=== PATIENT | female | born 1980 | race Caucasian/White ===

== ENCOUNTER 2020-04-30 13:52 | Emergency (ER) | payer OTHER, SELFPAY ==
[2020-04-30 14:03] VITALS: BP 152/103; PULSE 101; RESP 20; TEMP 36.5; O2SAT 99
--- NOTE | 2020-04-30 14:22 | ED.SKABFB ---
HPI - Skin/Abscess/Foreign Bdy General Chief complaint: Skin/Abscess/Foreign Body Stated complaint: facial redness Source: patient and RN notes reviewed Limitations: no limitations History of Present Illness HPI narrative: The patient, a non-smoker/ occ drinker, presents with skin eruption. Patient states she has a couple day worsening of several month history of skin eruption, particularly on her face. She reports that she has persistent redness of her cheeks [? Rosacea, SLE,etc]. This is been interspersed with occasional episodes of acneiform eruptions. She attempted to squeeze release pustules and now has mild pain, redness and swelling of the top of her nasal bridge. Symptoms are mild, worse with palpation; no fever, streaking, prior known infections. She requests refill of her BP medicines Related Data Home Medications Medication Instructions Recorded Confirmed metoprolol succinate 04/30/20 Allergies Allergy/AdvReac Type Severity Reaction Status Date / Time No Known Allergies Allergy Unverified 01/24/18 10:32 Review of Systems Review of Systems: Narrative: General/Constitutional: No weight loss,fever Eyes: N0: Redness,discharge Ears/Nose/Throat: No: Epistaxis,ear discharge Respiratory: Denies: Hemoptysis Gastrointestinal: No Vomiting, Bleeding-rectal Skin: REPORTS lumps, eruption Neurologic: No Focal Weakness,Sz Hematologic: Denies: Petechiae/Purpura Psychiatric: No: Suicida ideationl All Other Systems: Reviewed and Negative [facility] Family History Family History (Updated 01/27/16 @ 23:19 by DOCTOR UNKNOWN) Mother Hypertension Sibling Family history of diabetes mellitus in first degree relative Social History Social History Smoking status: Smoker, status unknown Alcohol intake: current Comments At time of signature, agree with nursing past medical, surgical, social and family history. There is no relevant family history pertinent to the presenting complaint Exam Narrative: Exam Narrative: General Appearance: Well nourished/obese Normocephalic Eye: PERRLA, Conjunctiva clear Ear: External ear normal, slight flushing of bilateral superior ears Skin: Warm, Dry;classic erythema with telangiectasias bilateral cheeks with surrounding papules,pustules Nose: Normal nose, Nare clear, inflamed/early infected follicle of nasal bridge Mouth/Throat: Normal appearing, Supple Respiratory: Airway patent, No respiratory distress MSl: Moves all extremities, Non tender, slight erythema of the hypothenar/ulnar aspect of hands bilaterally Neurological: A&O x3, Normal affect Course Vital Signs Vital signs: Vital Signs Temperature 97.7 F 04/30/20 14:03 Pulse Rate 101 H 04/30/20 14:03 Respiratory Rate 04/30/20 14:03 Blood Pressure 152/103 H 04/30/20 14:03 Pulse Oximetry 99 04/30/20 14:03 Temperature 97.7 F 04/30/20 14:03 Pulse Rate 101 H 04/30/20 14:03 Respiratory Rate 04/30/20 14:03 Blood Pressure 152/103 H 04/30/20 14:03 Pulse Oximetry 99 04/30/20 14:03 Discharge Plan Discharge Clinical Impression: Folliculitis, Acne rosacea, Medication refill Patient Disposition: Home, Self-Care Condition: Stable Instructions: Antibiotic Form, Folliculitis (ED), Rosacea (ED) Prescriptions: New clindamycin HCl 300 mg capsule 300 mg PO TID Qty: 15 RF: 0 metronidazole 1 % cream 1 applic topical DAILY Qty: 60 RF: 3 metoprolol succinate 25 mg tablet extended release 24 hr 25 mg PO DAILY Qty: 30 RF: 3 doxycycline hyclate 20 mg tablet 20 mg PO Q12H Qty: 30 RF: 2 No Action metoprolol succinate RF: 0 Follow-up/Referrals: Sebastian Baptiste MD [Primary Care Provider] -
== END 2020-04-30 14:49 | disposition home or self-care (01) ==
PROVIDERS: Emergency Provider Emergency Medicine; PCP Family Medicine
DX: L73.9 Follicular disorder, unspecified (principal); L71.9 Rosacea, unspecified; Z76.0 Encounter for issue of repeat prescription; I10 Essential (primary) hypertension
CPT/HCPCS: 99213; G0463

== ENCOUNTER 2021-05-13 02:02 | Inpatient (IN) | payer OTHER, SELFPAY ==
[2021-05-13] VITALS (30 sets, daily range): BP systolic 74–109; BP diastolic 5–88; PULSE 89–104; RESP 12–18; TEMP 35.8–36.9; O2SAT 91–100; BMI 25.9
--- NOTE | ~2021-05-13 | US_ITS ---
EXAMINATION: US renal BI DATE: 05/14/2021 10:08 INDICATION: Acute kidney injury TECHNIQUE: Multiple grayscale and Doppler ultrasound images of the kidneys were obtained. COMPARISON: CT from yesterday FINDINGS: The right kidney measures 9.4 x 4.8 x 5.5 cm. The left kidney measures 11.0 x 5.7 x 5.5 cm. The kidneys demonstrate normal parenchymal echogenicity. There is no hydronephrosis. The bladder is decompressed by Linder catheter. IMPRESSION: 1. Normal kidneys without hydronephrosis. Reviewed, dictated and finalized at location A. [employer]
--- NOTE | ~2021-05-13 | XR_ITS ---
EXAMINATION: XR knee LT 2V DATE: 06/07/2021 13:30 INDICATION: Anterior left knee bruising and swelling post fall. TECHNIQUE: AP and lateral views of the left knee were obtained. COMPARISON: None. FINDINGS: Bone alignment is normal. No fracture. Joint spaces appear normal on nonweightbearing imaging. There is however mild irregularity to the articular cortex with underlying subarticular lucencies with thin sclerotic margins along the central weightbearing lateral femoral condyle. Soft tissues are unremark able. No left knee joint effusion. IMPRESSION: 1. No left knee joint effusion or acute osseous abnormality. 2. Subarticular lucencies along the weightbearing lateral femoral with differential including cystic change related to overlying high-grade chondromalacia or osteochondral lesion. Reviewed, dictated and finalized at location B. RTMENT OF NATURAL RESOURCES OFFICER IMPRESSION: 1. No left knee joint effusion or acute osseous abnormality. 2. Subarticular lucencies along the weightbearing lateral femoral with differen tial including cystic change related to overlying high-grade chondromalacia or osteochondral lesion.
--- NOTE | ~2021-05-13 | XR_ITS ---
XR chest 1V portable 05/29/2021 01:27 Indication: Dyspnea. Procedure: AP portable chest Comparison: Comparison to multiple prior studies sequentially, with oldest reviewed study dated 05/01. Findings: Persistent diffuse bilateral airspace disease. PICC line tip in the SVC. No significant eff usion or pneumothorax. No acute osseous abnormality. Impression: 1: Persistent diffuse bilateral airspace disease which may represent pneumonia, edema or ARDS. Reviewed, dictated and finalized at location B. CUT OPERATOR Impression: 1: Persistent diffuse bilateral airspace disease which may represent pneumonia, edema or ARDS.
--- NOTE | ~2021-05-13 | CT_ITS ---
EXAMINATION: CT brain wo con DATE: 05/13/2021 03:00 INDICATION: Altered mental status. TECHNIQUE: Computed tomography (CT) of the head was performed without intravenous contrast. The mA wa s adjusted according to patient size. Iterative reconstruction technique was employed. The dose-lengt h product was 529.67 mGy-cm. COMPARISON: None FINDINGS: There are small old infarcts in the cerebellum bilaterally. There is an infarct in right pa rietal occipital region. There is a small infarct in left parietal lobe. There is no intracranial hem orrhage, acute infarction, or abnormal intracranial mass lesion. The ventricles are normal in size. T he paranasal sinuses are clear. The orbits are normal. The mastoid air cells are normal. IMPRESSION: 1. Age-indeterminate small infarct in left parietal lobe. 2. Infarct in right parietal occipital region, likely chronic. Small old infarcts in the bilateral ce rebellum. Reviewed, dictated and finalized at location A. WAREHOUSE ADMINISTRATOR IMPRESSION: 1. Age-indeterminate small infarct in left parietal lobe. 2. Infarct in right parietal occipital region, likely chronic. Small old infarc ts in the bilateral cerebellum.
--- NOTE | ~2021-05-13 | US_ITS ---
EXAMINATION: US paracentesis abd w/image DATE: 05/23/2021 14:35 INDICATION: Ascites. TECHNIQUE: The procedure and its risks and benefits were discussed with the patient. Potential risks discussed included bleeding and infection. The skin was prepped and draped in sterile fashion. 1% lid ocaine was used for local anesthesia. Under ultrasound guidance, a 5 Fr catheter with trochar was adv anced into the ascites in the left lower quadrant. Fluid was aspirated into vacuum bottles. The jose david ter was removed, and a dressing was applied. There were no immediate complications. FINDINGS: Ultrasound images demonstrate ascites and the catheter within the fluid. IMPRESSION: 1. Successful ultrasound-guided paracentesis yielding 2000 mL of clear light yellow fluid. Reviewed, dictated and finalized at location A. HYSICAL LABORATORY CHIEF IMPRESSION: 1. Successful ultrasound-guided paracentesis yielding 2000 mL of clear light y ellow fluid.
--- NOTE | ~2021-05-13 | CT_ITS ---
EXAMINATION: CT brain wo con DATE: 06/07/2021 13:23 INDICATION: Headache post fall TECHNIQUE: Computed tomography (CT) of the head was performed without intravenous contrast. Sagittal and coronal reconstructions were performed. The mA was adjusted according to patient size. Iterative reconstruction technique was employed. The dose-length product was 529.67 mGy-cm. COMPARISON: head CT dated 05/31/2021 FINDINGS: No fracture. Unchanged small regions of encephalomalacia consistent with chronic infarcts at the bila teral parietal lobes. Additional unchanged small old infarcts at the bilateral cerebellar hemispheres . No acute intracranial hemorrhage, acute infarction or abnormal extra axial fluid collection. Ventri cles are normal and symmetric. No mass/mass effect. The orbits, paranasal sinuses and mastoid air serenity ls are normal. IMPRESSION: 1. No fracture or acute intracranial process. 2. Unchanged small old infarcts in the bilateral parietal lobes and bilateral cerebellar hemispheres. Reviewed, dictated and finalized at location B. NG INSTRUCTOR IMPRESSION: 1. No fracture or acute intracranial process. 2. Unchanged small old infarcts in the bilateral parietal lobes and bilateral c erebellar hemispheres.
--- NOTE | ~2021-05-13 | CT_ITS ---
EXAMINATION: CT brain wo con DATE: 05/31/2021 05:32 INDICATION: Altered mental status TECHNIQUE: Computed tomography (CT) of the head was performed without intravenous contrast. Sagittal and coronal reconstructions were performed. The mA was adjusted according to patient size. Iterative reconstruction technique was employed. The dose-length product was 832.33 mGy-cm. COMPARISON: head CT dated 05/13/2021 FINDINGS: Prominent motion artifact most severe at the level of the skull base on both initial and repeat image s. Small region of encephalomalacia in the right parieto-occipital region consistent with old infarct . Additional small old infarcts previously seen in the bilateral cerebellar hemispheres are obscured by the motion artifact. No evident acute intracranial hemorrhage, acute infarction or abnormal extra axial fluid collection. Ventricles are normal and symmetric. No mass/mass effect. The orbits, paranas al sinuses and mastoid air cells are normal. IMPRESSION: 1. No evident acute intracranial process although assessment is severely limited by motion artifact. 2. Small infarct in the right parieto-occipital region. Previously noted bilateral small cerebellar i nfarcts are obscured by the motion artifact. Reviewed, dictated and finalized at location A. STANT MERCHANDISE MANAGER IMPRESSION: 1. No evident acute intracranial process although assessment is severely limite d by motion artifact. 2. Small infarct in the right parieto-occipital region. Previously noted bilate ral small cerebellar infarcts are obscured by the motion artifact.
--- NOTE | ~2021-05-13 | XR_ITS ---
EXAMINATION: XR chest 1V portable DATE: 05/14/2021 08:48 INDICATION: Pneumonia. TECHNIQUE: A single frontal view of the chest was obtained. COMPARISON: Chest single view 05/13/2021 FINDINGS: There are airspace opacities in all lung zones bilaterally with a perihilar predominance. N o pleural effusion or pneumothorax. The heart size is normal. A right upper extremity peripherally in serted central venous catheter (PICC) is seen with tip in the superior vena cava. IMPRESSION: 1. Worsened diffuse lung disease, consistent with pulmonary edema versus pneumonia. Reviewed, dictated and finalized at location A. ROLLER INSTRUCTOR IMPRESSION: 1. Worsened diffuse lung disease, consistent with pulmonary edema versus pneumo azra.
--- NOTE | ~2021-05-13 | XR_ITS ---
EXAMINATION: XR chest 1V portable DATE: 06/06/2021 08:05 INDICATION: Pulmonary edema. TECHNIQUE: A single frontal view of the chest was obtained. COMPARISON: Chest single view 06/04/2021, chest CT 05/30/2021 FINDINGS: There is a diffuse interstitial pattern in the lungs. There are airspace opacities in the l ower lung zones. No pleural effusion or pneumothorax. The heart size is normal. IMPRESSION: 1. Diffuse lung disease with interval improvement, consistent with pulmonary edema versus pneumonia. Reviewed, dictated and finalized at location A. SCHOOL HISTORY TEACHER IMPRESSION: 1. Diffuse lung disease with interval improvement, consistent with pulmonary ed martina versus pneumonia.
--- NOTE | ~2021-05-13 | XR_ITS ---
EXAMINATION: XR chest 1V portable DATE: 06/04/2021 06:13 INDICATION: Shortness of breath TECHNIQUE: frontal view of the chest was obtained. COMPARISON: Chest radiograph dated 06/02/2021 and 05/31/2021 FINDINGS: Continued gradual improvement in diffuse airspace opacities throughout both lungs. No pneumothorax or definitive pleural effusion. The cardiomediastinal silhouette is normal. IMPRESSION: 1. Continued gradual improvement in diffuse bilateral lung disease which could represent pneumonia an d/or pulmonary edema. Reviewed, dictated and finalized at location A. ICAL ASSISTANT PROFESSOR IMPRESSION: 1. Continued gradual improvement in diffuse bilateral lung disease which could represent pneumonia and/or pulmonary edema.
--- NOTE | ~2021-05-13 | XR_ITS ---
EXAMINATION: XR chest 1V DATE: 05/13/2021 03:02 INDICATION: Cough and weakness. TECHNIQUE: A single frontal view of the chest was obtained. COMPARISON: Chest CT 05/13/2021 FINDINGS: There are mild airspace opacities in all lung zones bilaterally with a perihilar predominan ce. No pleural effusion or pneumothorax. The heart size is normal. IMPRESSION: 1. Diffuse lung disease, consistent with mild pulmonary edema versus atypical pneumonia such as COVID -19 pneumonia. Reviewed, dictated and finalized at location A. E ERECTOR SUPERVISOR IMPRESSION: 1. Diffuse lung disease, consistent with mild pulmonary edema versus atypical p neumonia such as COVID-19 pneumonia.
--- NOTE | ~2021-05-13 | XR_ITS ---
XR chest 1V portable DATE: 05/19/2021 06:06 INDICATION: Shortness of breath. Pneumonia. TECHNIQUE: Portable upright AP view on 05/19/2021 0533 hours COMPARISON: 05/14/2021 portable AP chest 05/14/2021 CT chest abdomen pelvis FINDINGS: Severe patchy consolidating infiltrates throughout both lungs, more prominent centrally, in creased since 05/14/2021, which may be due to pulmonary edema or pneumonia. The costophrenic angles a re relatively preserved. No pneumothorax. Right upper extremity PIC catheter overlies the superior vena cava. Heart size appears normal. IMPRESSION: Severe diffuse bilateral pulmonary infiltrates, increased in severity since 05/14/2021 Reviewed, dictated and finalized at location A. PLANNING TEACHER IMPRESSION: Severe diffuse bilateral pulmonary infiltrates, increased in severi ty since 05/14/2021
--- NOTE | ~2021-05-13 | XR_ITS ---
EXAMINATION: XR chest 1V portable DATE: 06/02/2021 10:23 INDICATION: Pneumonia TECHNIQUE: frontal view of the chest was obtained. COMPARISON: Chest radiograph dated 05/31/2021 FINDINGS: Slight improvement in diffuse patchy airspace opacities throughout both lungs relatively sparing the subpleural lungs. Opacities partially silhouetting the diaphragm consistent with small bilateral pleu ral effusions. The cardiomediastinal silhouette is normal. Visualized bones and soft tissues are unre markable. IMPRESSION: 1. Slight improvement in diffuse bilateral lung disease consistent with pneumonia and/or pulmonary ed martina. 2. Small bilateral pleural effusions. Reviewed, dictated and finalized at location A. PRESIDENT OF ENGINEERING IMPRESSION: 1. Slight improvement in diffuse bilateral lung disease consistent with pneumon ia and/or pulmonary edema. 2. Small bilateral pleural effusions.
--- NOTE | ~2021-05-13 | CT_ITS ---
EXAMINATION: CT chest abdomen pelvis w con DATE: 05/13/2021 03:00 INDICATION: Altered mental status. Cough. TECHNIQUE: Computed tomography (CT) of the chest, abdomen, and pelvis was performed with 100 mL Omnip aque 350 intravenous contrast. Automated exposure control and iterative reconstruction technique were employed. The dose-length product was 939.10 mGy-cm. COMPARISON: None FINDINGS: CHEST CT: There are patchy groundglass opacities in all lobes with a perihilar predominance. No pleural effusio n. The heart size is normal. No pericardial effusion. There is mild thoracic spondylosis. ABDOMEN/PELVIS CT: The liver demonstrates hypertrophy of left lateral segment and surface nodularity, consistent with ci rrhosis. There are changes of cholecystectomy. The spleen is normal in size. The pancreas, adrenal gl ands, and kidneys are normal. There is a small volume of ascites. There is stranding of the intra-abd ominal fat, likely edema. There is liquid stool in the colon suggestive of diarrhea. There is wall th ickening of some loops of small bowel and some areas of colon. The base of the appendix is normal. Th e tip of the appendix is obscured by ascites. There are no pathologically enlarged lymph nodes. There is mild lumbar spondylosis. IMPRESSION: 1. Diffuse lung disease, consistent with mild pulmonary edema versus atypical pneumonia such as COVID -19 pneumonia. 2. Cirrhosis of the liver. 3. Small volume of ascites. 4. Wall thickening of some loops of small bowel and some areas of colon, which may be edema or entero colitis. Reviewed, dictated and finalized at location A. METER INSTALLER IMPRESSION: 1. Diffuse lung disease, consistent with mild pulmonary edema versus atypical p neumonia such as COVID-19 pneumonia. 2. Cirrhosis of the liver. 3. Small volume of ascites. 4. Wall thickening of some loops of small bowel and some areas of colon, which may be edema or enterocolitis.
--- NOTE | ~2021-05-13 | CT_ITS ---
EXAMINATION: CT chest abdomen pelvis wo con DATE: 05/14/2021 22:29 INDICATION: Abdominal distention, gastrointestinal bleeding. History of hepatitis, cirrhosis TECHNIQUE: Computed tomography (CT) of the chest, abdomen, and pelvis was performed without intraveno us contrast. Automated exposure control and iterative reconstruction technique were employed. Exam do se: 1306.69 mGy-cm total exam DLP. COMPARISON: 05/13/2021 CT chest abdomen pelvis with IV contrast material Portable AP chest on 05/14/2021 at 0828 hours FINDINGS: CHEST CT: Heart size is normal. No pericardial effusion. There are bilateral pleural effusions, moderate on the right, mild on the left. No thoracic aortic aneurysm. Right upper extremity catheter in superior vena cava. There are severe patchy consolidating infiltrates lobes, dramatically increased since 05/13/2021. Incidentally noted is an azygos lobe, normal variant. ABDOMEN/PELVIS CT: Status post cholecystectomy. Surface nodularity of liver, consistent with cirrhosis. No hepatic space-occupying mass lesion is magno dent. Splenic size is within normal limits. There is pancreatic atrophy. No pancreatic mass lesion, c alcification or ductal dilatation is detected. No bile duct dilatation. Normal morphology of the adrenal glands. No renal mass lesion is detected. There is a Linder catheter in the urinary bladder. No urinary tract calculus or hydroureteronephrosis. There is thickening of the pararenal fascia and lateroconal fascia and moderate ascites, increased si nce 05/13/2021. No bowel obstruction or intraperitoneal free air is detected. Normal caliber of the abdominal aorta. No intraperitoneal or retroperitoneal or pelvic mass lesion or adenopathy is detected. Included skeletal structures are unremarkable. IMPRESSION: Prominently increased bilateral patchy consolidating infiltrates and interval bilateral pleural effusions since 05/13/2021 Differential diagnoses for the dramatically increased pulmonary infiltrates includes pulmonary edema, particularly given the pleural effusions, as well as pneumonia Moderate ascites and intra-abdominal edema, increased since 05/13/2021 Hepatic cirrhosis Status post cholecystectomy Reviewed, dictated and finalized at Location A. Reviewed, dictated and finalized at location A. ENT REGISTRATION REP IMPRESSION: Prominently increased bilateral patchy consolidating infiltrates a nd interval bilateral pleural effusions since 05/13/2021 Differential diagnoses for the dramatically increased pulmonary infiltrates inc ludes pulmonary edema, particularly given the pleural effusions, as well as pne umonia Moderate ascites and intra-abdominal edema, increased since 05/13/2021 Hepatic cirrhosis Status post cholecystectomy
--- NOTE | ~2021-05-13 | XR_ITS ---
EXAMINATION: XR chest 2V DATE: 05/27/2021 08:19 INDICATION: Hypoxia TECHNIQUE: Frontal and lateral views of the chest are obtained COMPARISON: 05/19/2021 FINDINGS: Diffuse airspace opacities persist throughout all lung zones without significant change. Th ere are small pleural effusions. No pneumothorax is identified. A right upper extremity PICC ends wit h its tip in the the proximal superior vena cava. The cardiomediastinal silhouette is normal. There i s mild thoracic spondylosis. Surgical clips in the right upper quadrant are likely from prior cholecy stectomy. IMPRESSION: 1. Stable diffuse lung disease, consistent with pneumonia and/or pulmonary edema. Reviewed, dictated and finalized at location A. SETTER IMPRESSION: 1. Stable diffuse lung disease, consistent with pneumonia and/or pulmonary christy a.
--- NOTE | ~2021-05-13 | XR_ITS ---
EXAMINATION: XR chest PICC line DATE: 05/13/2021 12:23 INDICATION: Central line placement. TECHNIQUE: A single frontal view of the chest was obtained. COMPARISON: Chest single view 05/13/21 FINDINGS: There are airspace opacities in all lung zones bilaterally with a perihilar predominance. N o pleural effusion or pneumothorax. The heart size is normal. A right upper extremity peripherally in serted central venous catheter (PICC) is seen with tip in the superior vena cava. Surgical clips in t he right upper quadrant are likely from cholecystectomy. IMPRESSION: 1. PICC tip in superior vena cava. 2. Diffuse lung disease, consistent with pulmonary edema versus pneumonia. Reviewed, dictated and finalized at location A. NCIAL ANALYST
--- NOTE | ~2021-05-13 | US_ITS ---
EXAMINATION: US paracentesis abd w/image DATE: 05/15/2021 15:56 INDICATION: Ascites. TECHNIQUE: The procedure and its risks were discussed with the patient's mother Angelica Aguilar. Christi ha risks discussed included bleeding and infection. The skin was prepped and draped in sterile fash ion. 1% lidocaine was used for local anesthesia. Under ultrasound guidance, a 5 Fr catheter with troc audrey was advanced into the ascites in the right lower quadrant. Fluid was aspirated. The catheter was removed, and a dressing was applied. There were no immediate complications. FINDINGS: Ultrasound images demonstrate ascites and the catheter within the fluid. IMPRESSION: 1. Successful ultrasound-guided paracentesis yielding 1350 mL of yellow fluid. Reviewed, dictated and finalized at location A. STICK WORKER
--- NOTE | ~2021-05-13 | CT_ITS ---
EXAMINATION: CTA brain EXAM DATE: 05/31/2021 10:26 INDICATION: Increased confusion. TECHNIQUE: Noncontrast head CT. Spiral CT angiogram cerebral arteries performed with intravenous in jection of 100 mL Omnipaque 350. Axial, coronal and sagittal images reviewed. Additional reformatted images created on dedicated 3-D workstation. The dose-length product (DLP) for this examination was 1230.53 mGy-cm. The exposure was tailored according to patient size, and iterative reconstruction (ASIR) was used as additional dose reduction technique. Comparison is made to prior examination from head CT from earlier same date, and another from 05/13/2021. FINDINGS: Carotid siphons and imaged vertebral basilar arteries widely patent. There are scattered sh ort segment regions of cerebral artery atherosclerosis. There is no distal carotid or vertebral basi lar arterial dissection or fibromuscular dysplasia. There are no cerebral artery aneurysms. There is symmetric cerebral artery arborization. The sagittal, transverse and sigmoid sinuses enhance normally , no venous sinus thrombosis. Internal cerebral veins also enhance normally. Small old bilateral parietal lobe infarctions, larger on the right. There is no acute intraparenchyma l hemorrhage. No evidence of intraparenchymal brain mass lesion. No evidence of acute infarction. T here is no mass effect or midline shift. There is no obstructive hydrocephalus suspected. There are no extra-axial collections. There are no areas of abnormal enhancement on the postcontrast images. IMPRESSION: 1. No acute intracranial findings or cerebral artery aneurysm. 2. Scattered regions cerebral artery atherosclerosis without proximal stenosis. 3. Old small bilateral parietal lobe infarctions. Reviewed, dictated and finalized at location A. DE FINISHER IMPRESSION: 1. No acute intracranial findings or cerebral artery aneurysm. 2. Scattered regions cerebral artery atherosclerosis without proximal stenosis . 3. Old small bilateral parietal lobe infarctions.
--- NOTE | ~2021-05-13 | XR_ITS ---
EXAMINATION: XR chest 1V portable DATE: 05/31/2021 23:15 INDICATION: Increasing oxygen requirements. TECHNIQUE: A single frontal view of the chest was obtained. COMPARISON: Chest single view 05/29/2021, chest CT 05/30/2021 FINDINGS: There are airspace opacities throughout the lungs bilaterally with relative sparing of the lung bases. No pleural effusion or pneumothorax. The heart size is normal. A right upper extremity pe ripherally inserted central venous catheter (PICC) is seen with tip in the superior vena cava. Surgic al clips in the right upper quadrant are likely from cholecystectomy. IMPRESSION: 1. Worsened diffuse lung disease, consistent with pneumonia. Reviewed, dictated and finalized at location A. OR ELECTRICAL CONTROLS ENGINEER
--- NOTE | ~2021-05-13 | CT_ITS ---
EXAMINATION: CTA chest PE protocol DATE: 05/30/2021 18:02 INDICATION: Hypoxia. Sinus tachycardia. TECHNIQUE: Computed tomography angiography (CTA) of the chest was performed with 100 mL Omnipaque-350 intravenous contrast timed to evaluate the pulmonary arteries. Coronal maximum intensity projection 3D-reconstructions were created by the technologist. Automated exposure control and iterative reconst ruction technique were employed. The dose-length product was 526.51 mGy-cm. COMPARISON: Chest CT 05/14/2021 FINDINGS: The lung volumes are small. There are small pleural effusions. There are airspace and groun dglass opacities and septal thickening throughout the lungs bilaterally with a perihilar and upper pam ng predominance. The heart size is normal. No pericardial effusion. There is no pulmonary embolus. Th e liver demonstrates hypertrophy of left lateral segment and surface nodularity, consistent with cirr hosis. There are changes of cholecystectomy. There is a small volume of ascites. There is mild thorac ic spondylosis. A right upper extremity peripherally inserted central venous catheter (PICC) is seen with tip in the superior vena cava. IMPRESSION: 1. No pulmonary embolus. Sensitivity is mildly decreased by motion artifact. 2. Diffuse lung disease, likely a combination of pulmonary edema and pneumonia. 3. Small pleural effusions. 4. Cirrhosis of the liver. 5. Small volume of ascites. Reviewed, dictated and finalized at location A. OR GARMENT FITTER
--- NOTE | 2021-05-13 02:12 | ECG_ITS ---
Measurements Intervals [place] Rate: 103 P: 138 RI: 115 QRS: 138 QRSD: 96 T: 234 QT: 343 QTc: 449 Interpretive Statements SINUS TACHYCARDIA LIMB LEAD REVERSAL BORDERLINE ST-T WAVE ABNORMALITY- ANTEROLAT/INF LEADS BASELINE ARTIFACT- I, II, III, AVR, AVL, AVF, V1, V4-V6 BORDERLINE ECG Electronically Signed On 05-13-2021 7:00:50 DRAW FRAME TENDER by Bharat Rose D.O.
[2021-05-13 02:35] LABS: Basophils Percent Auto 0.1 % (0.2-1.2); Immature Granulocyte Absolute 0.15 K/mm3 (0.00-0.031); Immature Granulocyte Percent A 1.2 % (0-0.5); Lymphocytes Absolute Auto 1.46 K/mm3 (0.9-3.2); Lymphocytes Percent Auto 11.6 % (18.3-44.2); Mean Corpuscular HGB Conc 31.8 g/dl (32-36); Mean Corpuscular Hemoglobin 37.9 pg (26-34); Mean Corpuscular Volume 118.9 fl (80-100); Mean Platelet Volume 12.1 fl (7.4-10.4); Monocytes Absolute Auto 0.3 K/mm3 (0.1-0.6); Monocytes Percent Auto 2.4 % (2.6-8.5); Neutrophils Absolute Auto 10.7 K/mm3 (1.3-6.7); Neutrophils Percent Auto 84.7 % (45.5-73.1); Nucleated Red Blood Cells Absolute Auto 0.6 K/mm3 (0.0-0.012); Nucleated Red Blood Cells Perc 5.1 % (0.0-0.2); Platelet Count Result 152 k/mm3 (150-375); Red Blood Count 1.32 M/mm3 (4.2-5.4); Red Cell Distribution Width 17.2 % (11.5-14.5); White Blood Count 12.6 K/mm3 (4.5-10.0)
[2021-05-13 02:36] LABS: Base Excess ABG -8.4 mEq/l (+/-2.0); Fractional Inspired Oxygen 21 %; HCO3 ABG 14.2 mEq/l (22.0-26.0); Oxygen Content ABG 5.1 %vol (16.0-22.0); PCO2 ABG 19.1 mmHg (35.0-45.0); PO2 FiO2 Ratio Arterial Blood 1.76 %; pH ABG 7.489 (7.350-7.450)
[2021-05-13 02:37] LABS: Oxygen Saturation ABG 77.4 % (95.0-100.0); Oxyhemoglobin 60.9 % THb (90.0-100.0); PO2 ABG 36.9 mmHg (80.0-100.0); Total Hemoglobin 5.9 g/dL (12.0-18.0)
[2021-05-13 02:38] LABS: Device ROOM AIR; Modified Allen's Test Pass; Site Drawn LEFT BRACHIAL
[2021-05-13] MEDS: SODIUM CHLORIDE 0.9% IV 1,000 ML 999 ML IV CONT ×2 (02:42→08:57)
[2021-05-13 02:45] LABS: Ammonia 14 umol/L (9-30); Ethanol < 10 mg/dL (<10)
[2021-05-13 02:46] LABS: Lipase 64 U/L (23-300)
[2021-05-13 02:48] LABS: Add Urine Microscopic? YES; Appearance Urine Cloudy (Clear); Bacteria Urine Trace /hpf; Bilirubin Urine 1+ (Negative); Blood Urine Negative (Negative); Color Urine Amber (Yellow); Glucose Urine UA Negative (Negative); Ketones Urine Trace mg/dL (Negative); Leukocyte Esterase Ur Trace LEU/UL (Negative); Mucus Urine Rare /lpf; Nitrate Urine Negative (Negative); Protein Urine Negative (Negative); Specific Grav Ur 1.016 (1.001-1.035); Squamous Epithelial Cell Urine Rare /hpf (Few)
[2021-05-13 02:52] LABS: INR 1.7; Prothrombin Time 19.7 Seconds (11.1-14.7)
[2021-05-13 02:53] LABS: Partial Thromboplastin Time 35.1 SECONDS (22.3-36.8)
[2021-05-13 02:58] LABS: Estimated CRCL calculation 56 ml/min; Estimated Glomerular Filt Rate > 60
[2021-05-13 03:09] LABS: Amphetamine Screen Urine Negative (Negative); Barbiturate Screen Urine Negative (Negative); Benzodiazepines Screen Urine Negative (Negative); Cannabinoid Screen Urine Negative (Negative); Cocaine Screen Urine Negative (Negative); Methadone Screen Urine Negative (Negative); Opiate Screen Urine Negative (Negative); Phencyclidine Screen Urine Negative (Negative)
[2021-05-13 03:13] LABS: Alanine Aminotransferase 42 U/L (4-35); Albumin Level 3.4 g/dL (3.5-5.1); Alkaline Phosphatase 203 U/L (38-126); Anion Gap 31 mmol/L (8-16); Aspartate Amino Transferase 116 U/L (14-36); Bilirubin,Total 2.9 mg/dL (0.2-1.3); Blood Urea Nitrogen 89 mg/dL (7-17); Calcium 8.8 mg/dL (8.4-10.2); Carbon Dioxide 14 mmol/L (22-30); Chloride 93 mmol/L (98-107); Estimated CRCL calculation 56 ml/min; Estimated Glomerular Filt Rate > 60; Glucose 92 mg/dL (65-110); Magnesium 2.8 mg/dL (1.6-2.3); Potassium 2.6 mmol/L (3.4-5.0); Sodium 138 mmol/L (137-145)
[2021-05-13 03:14] LABS: Hematocrit 15.7 % (37.0-47.0)
[2021-05-13 03:15] LABS: Hypochromasia 2+ (NORMAL); Platelet Estimate Adequate (Adequate)
[2021-05-13 03:16] LABS: Stomatocytes 2+ (NORMAL)
--- NOTE | 2021-05-13 03:21 | ED.GENADULT ---
HPI - General Adult General Chief complaint: Altered Mental Status Stated complaint: Weakness Time Seen by Provider: 05/13/21 02:11 History of Present Illness HPI narrative: Patient 40-year-old female presents the emergency department with chief complaint of altered mental status. Patient was recently diagnosed with thrush and this evening was found to be confused and not able to answer questions. EMS reports that history was obtained from a bystander where she lives that was unable to really provide much history. The patient is unable to answer questions and reports no trauma. Related Data Home Medications Medication Instructions Recorded Confirmed metoprolol succinate 04/30/20 Allergies Allergy/AdvReac Type Severity Reaction Status Date / Time No Known Allergies Allergy Verified 05/13/21 02:13 Review of Systems Review of Systems: Nursing and ancillary documentation was reviewed. ROS unobtainable: Yes unobtainable due to medical condition and unobtainable due to mental status PMFSH Family History Family History Mother Hypertension Sibling Family history of diabetes mellitus in first degree relative Social History Social History Smoking status: Smoker, status unknown Alcohol intake: current Exam Narrative: GENERAL: Ill-appearing confused pale conjunctive a. HEAD: Normocephalic, atraumatic. EYES: PERRLA and EOMI. ENT: Nares clear, no rhinorrhea or epistaxis. Mucous membranes moist. NECK: Supple. CHEST: Clear to auscultation. No respiratory distress. HEART: Regular rate and rhythm. No murmur heard. Normal peripheral pulses. ABDOMEN: Soft, nontender, nondistended, normal active bowel sounds. : Guaiac positive stool EXTREMITIES: Normal range of motion. No edema. SKIN: Warm, dry, no rash. NEURO: No focal deficits. Alert and oriented x3. PSYCH: Normal mood and affect. Course Vital Signs Vital signs: Vital Signs Temperature 36.6 C 05/13/21 02:03 Pulse Rate 100 05/13/21 02:03 Respiratory Rate 16 05/13/21 02:03 Blood Pressure 104/53 L 05/13/21 02:03 Pulse Oximetry 100 05/13/21 02:03 Temperature 36.2 C L 05/13/21 04:41 Pulse Rate 100 05/13/21 04:41 Respiratory Rate 18 05/13/21 04:41 Blood Pressure 94/51 L 05/13/21 04:41 Pulse Oximetry 98 05/13/21 04:41 Medical Decision Making Vital Signs Vital Signs: Vital Signs Temperature 36.6 C 05/13/21 02:03 Pulse Rate 100 05/13/21 02:03 Respiratory Rate 16 05/13/21 02:03 Blood Pressure 104/53 L 05/13/21 02:03 Pulse Oximetry 100 05/13/21 02:03 Temperature 36.2 C L 05/13/21 04:41 Pulse Rate 100 05/13/21 04:41 Respiratory Rate 18 05/13/21 04:41 Blood Pressure 94/51 L 05/13/21 04:41 Pulse Oximetry 98 05/13/21 04:41 Lab Data Result diagrams: 05/13/21 02:22 05/13/21 02:51 Labs: Lab Results 05/13/21 05/13/21 05/13/21 Range/Units 02:20 02:22 02:22 WBC (4.5-10.0) K/mm3 RBC (4.2-5.4) M/mm3 Hgb (12.0-15.0) g/dL Hct (37.0-47.0) % MCV (80-100) fl MCH (26-34) pg MCHC (32-36) g/dl RDW (11.5-14.5) % Plt Count (150-375) k/mm3 MPV (7.4-10.4) fl Immature Gran % (Auto) (0-0.5) % Neut % (Auto) (45.5-73.1) % Lymph % (Auto) (18.3-44.2) % Rolette % (Auto) (2.6-8.5) % Eos % (Auto) (0-4.4) % Baso % (Auto) (0.2-1.2) % Lymph # (Auto) (0.9-3.2) K/mm3 Rolette # (Auto) (0.1-0.6) K/mm3 Eos # (Auto) (0-0.3) K/mm3 Baso # (Auto) (0.0-0.1) K/mm3 Abs Immat Gran (auto) (0.00-0.031) K/mm3 Absolute Neuts (auto) (1.3-6.7) K/mm3 Absolute Nucleated RBC (0.0-0.012) K/mm3 Nucleated RBC % (0.0-0.2) % Platelet Estimate (Adequate) Hypochromasia (NORMAL) Stomatocytes (NORMAL) PT (11.1-14.7) Seconds INR APTT
--- NOTE | 2021-05-13 03:26 | PC.NURSE ---
blood to be given at bolus rate per EDP lipsmeyer
[2021-05-13 03:45] LABS: Lactic Acid Reflex 16.9 mmol/L (0.7-2.1)
[2021-05-13 03:55] LABS: Acetaminophen < 10 ug/mL (10-30)
[2021-05-13 03:58] LABS: Troponin I < 0.012 ng/mL (0.000-0.034)
[2021-05-13 04:00] LABS: Beta-Hydroxybutyrate/Acetoacetate 1.03 mmol/L (0.02-0.27)
[2021-05-13 04:04] LABS: Creatine Kinase 31 U/L (30-135)
--- NOTE | 2021-05-13 04:49 | PM.IMHP ---
H&P: HPI History of Present Illness Date/Time: 05/13/21 04:49 Chief Complaint: Altered mental status Narrative: This is a 40-year-old female with past medical history significant for alcohol dependence, most of the history is mainly unobtainable as there are no family members but I was actually able to speak to the mother over the phone who in turn cannot really give much history as in the last 4 years day having had much of a relationship but she states that Franko drinks heavily mostly vodka and smokes more than 1 pack of cigarettes daily. At the time of my visit Franko was obtunded and was receiving a blood transfusion her blood pressure was systolic in the 90s. Preliminary workup was significant for lactic acid of 16, hemoglobin of 5, hematocrit of 19, MCV 118 a urine tox was negative, a Guaic positive a CT of abdomen and pelvis some shows some distal colitis and hepatomegaly a CT of the head did not show any acute intracranial findings. According to mother she believes Franko thought had had COVID did not get tested. An ABG showed a pH of 7.48, a pCO2 of 19 and a PO2 of 36.9. Patient is been admitted for further management evaluation and treatment. Review of Systems Review of Systems: ROS unobtainable: Yes unobtainable due to mental status (Stuporous) PMFSH Family History Family History Mother Hypertension Sibling Family history of diabetes mellitus in first degree relative Social History Social History Smoking status: Smoker, status unknown Alcohol intake: current Meds Home Medications and Allergies Home Medications Medication Instructions Recorded Confirmed Type clindamycin HCl 300 mg PO TID #15 cap 04/30/20 Rx doxycycline hyclate 20 mg PO Q12H #30 tablet 04/30/20 Rx metoprolol succinate 04/30/20 History metoprolol succinate 25 mg PO DAILY #30 tablet 04/30/20 Rx metronidazole 1 applic TOPICAL DAILY #60 g 04/30/20 Rx Allergies Allergy/AdvReac Type Severity Reaction Status Date / Time No Known Allergies Allergy Verified 05/13/21 02:13 Vital Signs Vital Signs - 24 hr 05/13/21 02:03 05/13/21 03:39 05/13/21 03:41 Temperature 97.8 F 97.1 F L 97.2 F L Pulse Rate 100 98 98 Respiratory Rate 16 17 17 Blood Pressure 104/53 L 94/53 L 104/88 Pulse Oximetry 100 100 100 05/13/21 03:52 05/13/21 04:04 05/13/21 04:12 Temperature Pulse Rate 99 96 98 Respiratory Rate 16 17 17 Blood Pressure 104/88 94/51 L 100/51 L Pulse Oximetry 99 100 98 05/13/21 04:17 05/13/21 04:39 05/13/21 04:41 Temperature 97.1 F L Pulse Rate 96 97 100 Respiratory Rate 17 18 18 Blood Pressure 101/51 L 90/52 L 94/51 L Pulse Oximetry 100 100 98 Exam Narrative: Laying in [facility] Const: General: comfortable, no acute distress, well developed, ill appearing and patient obtunded Nutritional Appearance: average body habitus Orientation/consciousness: patient obtunded Limitations: altered mental status HENMT: Head: normal to inspection, normocephalic and atraumatic Ears: hearing grossly normal bilaterally General nose exam: Normal external nose present Face and sinus: normal facial exam Mouth: Yes Abnormal oral and palatal mucosa present other (Tongue is smooth and beefy) Eyes: General: appearance normal, both eyes and all related structures Alignment and Position: alignment normal Sclera: sclerae normal Pupils: Equal, round and reactive pupils present EOM: EOMs intact bilaterally Neck: Neck: normal visual inspection, full ROM, no lymphadenopathy, supple and no JVD Thyroid: thyroid normal Lymphatic: no lymphadenopathy noted Resp: Effort & Inspection: normal respiratory effort and able to speak in complete sentences Auscultation: clear to auscultation bilaterally, no crackles, no rales, no rhonchi and no wheezes Cardio: Jugular venous distension: no JVD Rate: regular rate Rhythm: regul
--- NOTE | 2021-05-13 05:29 | PC.NURSE ---
2nd unit of blood to be given at bolus rate per EDP lipsmeyer
[2021-05-13 05:30] LABS: Reflex Lactic Acid Yes or No Add Lactic
[2021-05-13 05:55] LABS: Hematocrit 21.1 % (37.0-47.0)
--- NOTE | 2021-05-13 06:30 | PC.NURSE ---
This patient, Franko Lechuga, was admitted to Intensive Care Unit-2. Patient/family oriented to hospital policies and general routines including ID bracelet, bed and alarms, visiting hours, pain management, procedures, bathroom and other care routines, personal items, smoking policy, room service/diet, and visiting hours. Information on how to activate the Rapid Response Team has been discussed. Patient/Family are encouraged to report perceived risks to care and to ask questions if they do not understand what they are told or what they should do.
[2021-05-13 06:46] LABS: Lactic Acid 13.8 mmol/L (0.7-2.1)
[2021-05-13 07:20] LABS: Hemoglobin 6.8 g/dL (12.0-15.0)
[2021-05-13] MEDS: SODIUM CHLORIDE 0.9% IV 1,000 ML 200 ML IV CONT (07:25)
[2021-05-13] MEDS: SODIUM BICARBONATE 8.4% 50 MEQ/50 ML SYRINGE 100 MEQ IV PUSH (08:58)
[2021-05-13] MEDS: PANTOPRAZOLE SODIUM IV 40 MG VIAL 80 MG IV PUSH (09:04)
[2021-05-13] MEDS: FOLIC ACID 1 MG/0.2 ML INJ IV PUSH (09:06)
[2021-05-13] MEDS: THIAMINE HCL 200 MG/2 ML VIAL 100 MG IV PUSH (09:07)
[2021-05-13 09:41] LABS: Hematocrit 24.4 % (37.0-47.0); Hemoglobin 8.3 g/dL (12.0-15.0)
[2021-05-13 09:55] LABS: Lactic Acid Reflex 10.3 mmol/L (0.7-2.1)
--- NOTE | 2021-05-13 10:38 | WPDCNINT ---
Assessment and Plan Assessment and plan (1) Altered mental status: Code(s): R41.82 - Altered mental status, unspecified Status: Acute Assessment and Plan: Altered mental status could be related to severe anemia, hypotension, hypoxia -this morning patient is more awake, alert, oriented x3, follows simple commands in all extremities -able to hold a conversation -will continue to monitor (2) Severe anemia: Code(s): D64.9 - Anemia, unspecified Status: Acute Assessment and Plan: Patient presented with a hemoglobin of 5.0 -received 2 units of packed RBCs, hemoglobin came up to 6.8 -2 additional units of packed RBCs have been ordered -will continue monitor H&H q.6 hours -INR is 1.7 (3) Acute GI bleeding: Code(s): K92.2 - Gastrointestinal hemorrhage, unspecified Status: Acute Assessment and Plan: Stool guaiac was positive ER -patient started on Protonix infusion, -started on octreotide infusion -appreciate GI evaluation recommendation, will monitor blood counts, (4) Sepsis: Code(s): A41.9 - Sepsis, unspecified organism Status: Acute Assessment and Plan: Is severe anemia, hypotension, hypoxia -initial lactic acid was 16.9, this morning lactic is down to 10.3 -elevation in lactic acid could be due to sepsis, decreased end organ perfusion due to severe anemia along decreased clearance due to liver dysfunction -patient was given additional IV fluids, and will be receiving packed RBCs -will continue to monitor blood pressures, hemoglobin and hematocrit lactic acid (5) Tobacco dependence: Code(s): F17.200 - Nicotine dependence, unspecified, uncomplicated Status: Acute Assessment and Plan: Discussed with patient regarding cessation of smoking (6) Alcohol dependence: Code(s): F10.20 - Alcohol dependence, uncomplicated Status: Acute Assessment and Plan: Discussed with patient regarding cessation of alcohol use (7) DVT prophylaxis: Code(s): Z29.9 - Encounter for prophylactic measures, unspecified Status: Acute Assessment and Plan: SCDs (8) Suspected 2019 novel coronavirus infection: Code(s): Z20.822 - Contact with and (suspected) exposure to COVID-19 Status: Acute Assessment and Plan: Patient states she may have been exposed to COVID by her children. -she has received 1 dose of [place]y vaccine in March 2021 -SARS-CoV-2 PCR has been ordered and pending -patient has been on have 1, droplet and contact isolation/precautions Additional Plan Discussed with patient updated with her condition and plan of care Code status: Full code Critical care time spent: 43 minute Discussed with Gastroenterology This dictation may have been done utilizing a voice recognition system. Attempts have been made to correct errors. However, there may be uncorrected grammatical, spelling, and recognition errors present. Due to a high probability of clinically significant, life threatening deterioration, the patient required my highest level of preparedness to intervene emergently and I personally spent this critical care time directly and personally managing the patient. This critical care time included obtaining a history; examining the patient; pulse oximetry; ordering and review of studies; arranging urgent treatment with development of a management plan; evaluation of patient's response to treatment; frequent reassessment; and discussions with other providers. It was exclusive of separately billable procedures and treating other patients and teaching time. Please see Assessment and Plan section and the rest of the note for further information on patient assessment and treatment Insulating Machine Operator Consult Note Consult date: 05/13/21 Reason for consult: Anemia, altered mental status, GI bleed, sepsis HPI: Franko Lechuga is a 40 year old female with past medical history of alcohol use, tobacco use, history of hypertens
--- NOTE | 2021-05-13 11:51 | WPDGICN ---
Assessment and Plan Assessment and plan (1) Acute GI bleeding: Code(s): K92.2 - Gastrointestinal hemorrhage, unspecified Status: Acute Assessment and Plan: she came anemic with + FOBT, also severe lactic acidosis and now in icu continue with protonix and octreotide drip, also on abx egd when acidosis improved- probably saturday but of course if signs of ongoing bleeding will do sooner (also she is on isolation for possible covid) she responsed appropriately to blood transfusion and hb up to 8.3 ddx ulcer, varices, etc (2) Severe anemia: Code(s): D64.9 - Anemia, unspecified Status: Acute Assessment and Plan: probably gib but also heavy drinker and cirrhosis (3) Acidosis, lactic: Code(s): E87.2 - Acidosis Status: Acute Assessment and Plan: treated in icu (4) Alcoholic hepatitis: Code(s): K70.10 - Alcoholic hepatitis without ascites Status: Acute Assessment and Plan: continue medical support (5) Cirrhosis, alcoholic: Code(s): K70.30 - Alcoholic cirrhosis of liver without ascites Status: Acute (6) Sepsis: Code(s): A41.9 - Sepsis, unspecified organism Status: Acute Assessment and Plan: by primary team, on abx and icu care (7) Alcohol dependence: Code(s): F10.20 - Alcohol dependence, uncomplicated Status: Acute (8) Acute encephalopathy: Code(s): G93.40 - Encephalopathy, unspecified Status: Acute Assessment and Plan: awake and alert now monitor risk for withdrawals (9) Suspected 2019 novel coronavirus infection: Code(s): Z20.822 - Contact with and (suspected) exposure to COVID-19 Status: Acute Assessment and Plan: on isolation, pending covid test (10) Tobacco dependence: Code(s): F17.200 - Nicotine dependence, unspecified, uncomplicated Status: Acute (11) Elevated liver enzymes: Code(s): R74.8 - Abnormal levels of other serum enzymes Status: Acute Assessment and Plan: from alcohol and cirrhosis GI Consult Note Consult date/time: 05/13/21 11:51 Reason for consult: alcoholic hepatitis, gib, acute blood loss anemia HPI: Franko Lechuga is a 40 year old female with past medical history of alcohol use, tobacco use, history of hypertension who came to ED with altered mental status, EMS was called because she was sick. She is poor historian and records reviewed. She was found to have severe lactic acidosis of 16, hemoglobin of 5, MCV of 118, stool guaiac was positive but no obvious gross blood per staff. INR of 1.7, potassium of 2.6, CO2 of 14. Also elevated bilirubin of 2.9. Urine drug screen was negative, acetaminophen and alcohol was within normal limits. Patient stated she may have been exposed to COVID with children and SARS-CoV-2 PCR has been obtained and pending. According the mother the patient does drink alcohol with her boyfriend and smokes [address] daily[address] scan of the chest abdomen and pelvis reviewed- Diffuse lung disease, consistent with mild pulmonary edema versus atypical pneumonia such as COVID-19 pneumonia, cirrhosis of the live, small volume of ascites, wall thickening of some loops of small bowel and some areas of colon, which may be edema or enterocolitis. Patient was admitted to ICU, given 2 units of packed RBCs, started on octreotide, abx and protonix. Review of Systems Constitutional: Constitutional: Reports fatigue Eyes: Eyes: Reports no additional eye complaints ENT: Reports Normal hearing present Cardiovascular: Cardiovascular: Reports lightheadedness Respiratory: Respiratory: Reports dyspnea on exertion Gastrointestinal: Gastrointestinal: Denies hematemesis Genitourinary: Genitourinary: Denies hematuria Musculoskeletal: Musculoskeletal: Reports no additional musculoskeletal complaints Integumentary/Breasts: Skin/Breast: Reports system reviewed and no additional complaints, except as docu
[2021-05-13 12:17] LABS: Albumin Level 2.9 g/dL (3.5-5.1); Alkaline Phosphatase 179 U/L (38-126); Anion Gap 23 mmol/L (8-16); Aspartate Amino Transferase 100 U/L (14-36); Bilirubin,Total 3.2 mg/dL (0.2-1.3); Blood Urea Nitrogen 85 mg/dL (7-17); Calcium 7.9 mg/dL (8.4-10.2); Carbon Dioxide 22 mmol/L (22-30); Chloride 98 mmol/L (98-107); Estimated CRCL calculation 62 ml/min; Estimated Glomerular Filt Rate > 60; Glucose 84 mg/dL (65-110); Potassium 2.6 mmol/L (3.4-5.0); Sodium 143 mmol/L (137-145)
[2021-05-13 12:22] LABS: Alanine Aminotransferase 38 U/L (4-35)
[2021-05-13] MEDS: LIDOCAINE HCL 1% PF INJ 5 ML VIAL INFILTRATE (12:23)
[2021-05-13] MEDS: NOREPINEPHRINE 8 MG/D5W 250 ML 8 MG/250 ML BAG 9.38 MG IV CONT (12:45)
[2021-05-13] MEDS: ALBUMIN HUMAN 25% 25 GM/100 ML 100 ML IVPB ×2 (12:53→17:12)
[2021-05-13 13:08] LABS: Glucose Point of Care 129 mg/dl (65-105)
[2021-05-13] MEDS: SODIUM BICARBONATE 8.4% 150 MEQ in DEXTROSE 5% 1,000 ML 950 ML 75 MEQ IV CONT (14:34)
[2021-05-13] MEDS: CENTRAL LINE FLUSH 10 ML IV PUSH ×2 (15:35→20:43)
[2021-05-13] MEDS: INSULIN ASPART (*BKC) 100 UNITS/ML SUB-Q (17:18)
[2021-05-13 17:30] LABS: SARS-CoV-2 RNA PCR Negative
[2021-05-13 17:31] LABS: Glucose Point of Care 260 mg/dl (65-105)
--- NOTE | 2021-05-13 18:30 | PC.NURSE ---
Notified dr. miller of low urine output. RN flushed sams. No new orders at this time. Will monitor urine output per protocol.
[2021-05-13 19:06] LABS: Lactic Acid Reflex 2.9 mmol/L (0.7-2.1)
[2021-05-13 21:55] LABS: Reflex Lactic Acid Yes or No Add Lactic
[2021-05-14] VITALS (21 sets, daily range): BP systolic 86–130; BP diastolic 56–73; PULSE 80–92; RESP 14–22; TEMP 35.7–36.8; O2SAT 91–99
[2021-05-14] MEDS: INSULIN ASPART (*BKC) 100 UNITS/ML SUB-Q (00:13)
[2021-05-14] MEDS: ALBUMIN HUMAN 25% 25 GM/100 ML 100 ML IVPB ×2 (00:14→05:25)
[2021-05-14 00:16] LABS: Hematocrit 23.5 % (37.0-47.0); Hemoglobin 8.1 g/dL (12.0-15.0)
[2021-05-14 00:18] LABS: Glucose Point of Care 247 mg/dl (65-105)
[2021-05-14 00:23] LABS: Potassium 2.9 mmol/L (3.4-5.0)
[2021-05-14 00:26] LABS: Lactic Acid 1.7 mmol/L (0.7-2.1)
[2021-05-14] MEDS: CENTRAL LINE FLUSH 10 ML IV PUSH ×3 (05:25→21:57)
[2021-05-14 06:02] LABS: Glucose Point of Care 180 mg/dl (65-105)
[2021-05-14 06:59] LABS: Hematocrit 22.3 % (37.0-47.0); Hemoglobin 7.6 g/dL (12.0-15.0); Mean Corpuscular HGB Conc 34.1 g/dl (32-36); Mean Corpuscular Hemoglobin 34.2 pg (26-34); Mean Corpuscular Volume 100.5 fl (80-100); Mean Platelet Volume 11.2 fl (7.4-10.4); Platelet Count Result 89 k/mm3 (150-375); Red Blood Count 2.22 M/mm3 (4.2-5.4); Red Cell Distribution Width 23.8 % (11.5-14.5); White Blood Count 13.3 K/mm3 (4.5-10.0)
[2021-05-14 07:08] LABS: Alanine Aminotransferase 24 U/L (4-35); Albumin Level 4.2 g/dL (3.5-5.1); Alkaline Phosphatase 147 U/L (38-126); Anion Gap 16 mmol/L (8-16); Aspartate Amino Transferase 74 U/L (14-36); Bilirubin,Total 3.1 mg/dL (0.2-1.3); Blood Urea Nitrogen 96 mg/dL (7-17); Calcium 7.4 mg/dL (8.4-10.2); Carbon Dioxide 31 mmol/L (22-30); Chloride 92 mmol/L (98-107); Estimated CRCL calculation 32 ml/min; Estimated Glomerular Filt Rate 31; Glucose 174 mg/dL (65-110); Magnesium 2.3 mg/dL (1.6-2.3); Phosphorus 1.4 mg/dL (2.5-4.5); Potassium 2.8 mmol/L (3.4-5.0); Sodium 139 mmol/L (137-145)
[2021-05-14 07:42] LABS: Hepatitis B Surface Antigen Negative (Negative)
[2021-05-14 07:48] LABS: HAV RESULT Negative (Negative); Hepatitis B Core IgM Result Negative (Negative)
[2021-05-14 08:00] LABS: Hepatitis C Virus Antibody Negative (Negative)
[2021-05-14 08:07] LABS: Creatine Kinase 92 U/L (30-135)
--- NOTE | 2021-05-14 08:16 | WPDINTPN ---
Progress Note: A&P Assessment and Plan (1) Septic shock: Code(s): A41.9 - Sepsis, unspecified organism; R65.21 - Severe sepsis with septic shock Status: Acute Assessment and Plan: Presented with severe anemia, hypotension, hypoxia -initial lactic acid was 16.9, this morning lactic is down to 1.7 -patient received adequate amount of IV fluids -patient has been started on Levophed, maintain mean arterial pressures greater than 65 mmHg for adequate renal and end organ perfusion -decreased urine output with worsening renal function -05/13/2021 blood cultures x2 are negative so far -05/13/2021 urine cultures are pending -continue Zosyn (05/13) will add vancomycin (05/14) -patient also seems to have vulvovaginitis and oral thrush, will start Diflucan (05/14) x3 days, nystatin powder to the perineal area (2) Altered mental status: Code(s): R41.82 - Altered mental status, unspecified Status: Acute Assessment and Plan: Altered mental status could be related to severe anemia, hypotension, hypoxia -this morning patient is more awake, alert, oriented x3, follows simple commands in all extremities -able to hold a conversation -will continue to monitor (3) Severe anemia: Code(s): D64.9 - Anemia, unspecified Status: Acute Assessment and Plan: Patient presented with a hemoglobin of 5.0 -received 2 units of packed RBCs, hemoglobin came up to 8.3, this morning Hb has drifted to 7.6 -will continue monitor H&H q.6 hours -INR is 1.7 (4) Acute GI bleeding: Code(s): K92.2 - Gastrointestinal hemorrhage, unspecified Status: Acute Assessment and Plan: Stool guaiac was positive ER -patient started on Protonix infusion, -started on octreotide infusion -appreciate GI evaluation recommendation, will monitor blood counts, -endoscopy likely on 05/15 per GI (5) Tobacco dependence: Code(s): F17.200 - Nicotine dependence, unspecified, uncomplicated Status: Acute Assessment and Plan: Discussed with patient regarding cessation of smoking (6) Alcohol dependence: Code(s): F10.20 - Alcohol dependence, uncomplicated Status: Acute Assessment and Plan: Discussed with patient regarding cessation of alcohol use (7) DVT prophylaxis: Code(s): Z29.9 - Encounter for prophylactic measures, unspecified Status: Acute Assessment and Plan: SCDs (8) Suspected 2019 novel coronavirus infection: Code(s): Z20.822 - Contact with and (suspected) exposure to COVID-19 Status: Acute Assessment and Plan: Patient states she may have been exposed to COVID by her children. -she has received 1 dose of Pfizer vaccine in March 2021 -SARS-CoV-2 PCR -NEGATIVE -will discontinue isolation and precautions (9) Acute kidney injury: Code(s): N17.9 - Acute kidney failure, unspecified Status: Acute Assessment and Plan: Decreased urine output with worsening renal function -likely related hypovolemia, septic shock, infection. Patient also has cirrhosis, possible hepatorenal syndrome -will obtain urine lytes, renal ultrasound -nephrology has been consulted -will maintain mean arterial pressures 65-70 mmHg with Levophed for adequate end organ perfusion Additional Plan Discussed with patient updated with her condition and plan of care Code status: Full code Critical care time spent: 32 minute This dictation may have been done utilizing a voice recognition system. Attempts have been made to correct errors. However, there may be uncorrected grammatical, spelling, and recognition errors present. Due to a high probability of clinically significant, life threatening deterioration, the patient required my highest level of preparedness to intervene emergently and I personally spent this critical care time directly and personally managing the patient. This critical care time included obtaining a history; examining the patient;
[2021-05-14] MEDS: LACTATED RINGERS 1,000 ML 75 ML IV CONT ×2 (08:51→21:56)
[2021-05-14] MEDS: FOLIC ACID 1 MG/0.2 ML INJ IV PUSH (08:58)
[2021-05-14] MEDS: TOLNAFTATE 1% POWDER 45 GM BTL 1 APPLIC TOPICAL ×2 (08:58→20:07)
[2021-05-14] MEDS: THIAMINE HCL 200 MG/2 ML VIAL 100 MG IV PUSH (08:58)
[2021-05-14 09:33] LABS: Sodium Urine Random 10 meq/L
[2021-05-14 09:41] LABS: Creatinine Urine 73.9 mg/dL
[2021-05-14 09:51] LABS: Potassium Urine Random 52.5 meq/L
--- NOTE | 2021-05-14 09:54 | WPDGIPROGNO ---
Progress Note: A&P Assessment and Plan (1) Severe anemia: Code(s): D64.9 - Anemia, unspecified Status: Acute Assessment and Plan: no obvious GIB but high risk will do EGD tomorrow to assess, in the meantime continue with octreotide, protonix and antibiotics (2) Septic shock: Code(s): A41.9 - Sepsis, unspecified organism; R65.21 - Severe sepsis with septic shock Status: Acute Assessment and Plan: worsening renal failure today, on levophed to keep MAP > 65 (risk for hepatorenal), on fluids recheck in am on antibiotics (3) Acute kidney injury: Code(s): N17.9 - Acute kidney failure, unspecified Status: Acute Assessment and Plan: could be from sepsis, hypovolemia, gib, hepatorenal, etc fluid resuscitation, levophed and icu care (4) Cirrhosis, alcoholic: Code(s): K70.30 - Alcoholic cirrhosis of liver without ascites Status: Acute (5) Alcoholic hepatitis: Code(s): K70.10 - Alcoholic hepatitis without ascites Status: Acute Assessment and Plan: MELD score 22 medical support in icu bili 3, transaminases improving (6) Altered mental status: Code(s): R41.82 - Altered mental status, unspecified Status: Acute Assessment and Plan: improved (7) Acute GI bleeding: Code(s): K92.2 - Gastrointestinal hemorrhage, unspecified Status: Acute Assessment and Plan: egd in am, no report of overt GIB but required blood transfusion (8) Acidosis, lactic: Code(s): E87.2 - Acidosis Status: Acute Assessment and Plan: resolved after icu management (9) Thrush, oral: Code(s): B37.0 - Candidal stomatitis Status: Acute Assessment and Plan: on diflucan now (10) Elevated liver enzymes: Code(s): R74.8 - Abnormal levels of other serum enzymes Status: Acute Subjective Date/time seen: 05/14/21 09:54 Interval history: started on levophed, also she has dried blood around the lips but no obvious bleeding or hematemesis, no melena per RN. She is more alert today, denies GIB. Review of Systems Review of Systems: All systems reviewed & are unremarkable except as noted in HPI and below Exam Const: General: comfortable and no acute distress HENMT: General nose exam: Normal nares present Mouth: Yes Abnormal oral and palatal mucosa present (dry mouth and dried blood) Eyes: Sclera: sclerae normal Neck: Neck: supple Resp: Effort & Inspection: normal respiratory effort Auscultation: diminished lung sounds (bases) Cardio: Rate: regular rate GI: GI Palp: Yes Soft to palpation, No Tenderness to palpation present (GI) and No Guarding due to palpation present (GI) Auscultation: normal bowel sounds Skin: General skin exam: no rashes or lesions noted Neuro: Speech: normal speech Other: awake and alert Extrem: General: normal to inspection Psych: Affect: Anxious affect present Objective Data Vital Signs Vital Signs: Vital Signs - 24 hr 05/13/21 10:00 05/13/21 12:00 05/13/21 12:45 Temperature 97.3 F L Pulse Rate 96 101 H 92 Respiratory Rate 15 18 Blood Pressure 99/58 L 83/42 L 74/31 L Pulse Oximetry 94 91 05/13/21 13:00 05/13/21 13:44 05/13/21 14:00 Temperature Pulse Rate 93 Respiratory Rate 13 Blood Pressure 85/47 L 89/5 L 89/68 L Pulse Oximetry 97 05/13/21 15:33 05/13/21 16:00 05/13/21 18:00 Temperature 97.6 F 96.4 F L Pulse Rate 93 93 Respiratory Rate 14 12 Blood Pressure 101/55 L 108/62 Pulse Oximetry 96 98 05/13/21 20:00 05/13/21 20:42 05/13/21 21:35 Temperature 97 F L Pulse Rate 91 91 89 Respiratory Rate 14 12 Blood Pressure 88/54 L 88/54 L 109/56 L Pulse Oximetry 95 94 05/14/21 00:00 05/14/21 02:00 05/14/21 03:47 Temperature 97 F L Pulse Rate 91 92 Respiratory Rate 14 14 Blood Pressure 130/61 119/65 Pulse Oximetry 95 96 98 05/14/21 04:00 05/14/21 04:36 05/14/21 05:36 Temperature 98.3 F
[2021-05-14] MEDS: POTASSIUM PHOS,M-BASIC-D-BASIC 20 MMOL in SODIUM CHLORIDE 0.9% IV 250 ML 64.17 MMOL IVPB (09:58)
[2021-05-14] MEDS: FLUCONAZOLE 100 MG/NACL 50 ML 100 MG/50 ML BTL 50 MG IVPB (10:01)
[2021-05-14 10:26] LABS: Eosinophil Urine None Seen % (None Seen)
[2021-05-14 11:35] LABS: Glucose Point of Care 148 mg/dl (65-105)
[2021-05-14] MEDS: FUROSEMIDE INJ 40 MG/4 ML VIAL 20 MG IV PUSH (13:08)
--- NOTE | 2021-05-14 13:44 | P.CONNP_ITS ---
Assessment and Plan Assessment and plan (1) Acute kidney injury: Code(s): N17.9 - Acute kidney failure, unspecified Status: Acute Assessment and Plan: * normal creatinine noted on admission * likely multifactorial: * hypovolemia * septic shock/hypotension * infection * liver cirrhosis * possible hepatorenal syndrome * renal ultrasound with any acute issues * urine electrolytes consistent with prerenal azotemia * however, this could be reflective her her liver physiology (decreased effective circulating volume leading to chronic prerenal azotemia) * attempt to maintain MAP to ensure adequate renal perfusion * follow trend of repeat labs and UOP (2) Septic shock: Code(s): A41.9 - Sepsis, unspecified organism; R65.21 - Severe sepsis with septic shock Status: Resolved Assessment and Plan: * based on presentation of severe anmia, low BP, and hypoxia * significant lactic acidosis on admission with is improving s/p IVF resuscitation * on levophed to maintain MAP * follow culture date * continue broad spectrum antibiotics (3) Altered mental status: Code(s): R41.82 - Altered mental status, unspecified Status: Acute Assessment and Plan: * clinically better at this time * likely due to hypotension, shock, and hypoxia * follow mentation (4) Severe anemia: Code(s): D64.9 - Anemia, unspecified Status: Acute Assessment and Plan: * Hgb 5.0 on presentation * appropriate incrementation with PRBC transfusion * see #5 (5) Acute GI bleeding: Code(s): K92.2 - Gastrointestinal hemorrhage, unspecified Status: Acute Assessment and Plan: * guaiac positive * on PPI and octreotide drips * follow serial H/Hs * Gastroenterology following with recommendations noted (6) Alcoholic hepatitis: Code(s): K70.10 - Alcoholic hepatitis without ascites Status: Acute Assessment and Plan: * as noted by admission labs - elevated LFTs and bilirubin * continue supportive therapy Will continue to follow. History of Present Illness Reason for Consult Consult date: 05/14/21 Reason for consult: acute renal failure Chief Complaint Chief complaint: Acute Blood Loss Anemia, GI Bleeding, Lactic Acido History of Present Illness Narrative: The patient is a 40-year-old female with a past medical history as outlined below who presented to [facility] Emergency room with altered mental status. The patient's family called EMS when they found her altered. EMS subsequently brought to the emergency room and it did seem clear that her mentation was off. Routine blood test demonstrated a hemoglobin of 5, hematocrit of 19 and she was guaiac positive. She also had a lactic acid of 16 with an elevated INR of 1.7 and was acidotic with a bicarb of 14 and a potassium of 2.6. Urine drug screen was negative. Subsequent CT scan of the chest abdomen pelvis demonstrated -use lung disease consistent with pulmonary edema versus atypical pneumonia, liver cirrhosis, ascites, and possible enteral colitis. She was typed and crossed and initiated on a packed red blood cell transfusion and was subsequent to the ICU for further management. Since her admission to the ICU, her mental status seems to have improved. She tolerated the packed red blood cell transfusion with an appropriate increment a potter of her hemoglobin and hematocrit. Gastrology has been consulted given her guaiac-positive stools and likelihood of possible intervention (EGD +/- colonoscopy).
--- NOTE | 2021-05-14 13:44 | PM.CNNEP ---
Assessment and Plan Assessment and plan (1) Acute kidney injury: Code(s): N17.9 - Acute kidney failure, unspecified Status: Acute Assessment and Plan: normal creatinine noted on admission likely multifactorial: hypovolemia septic shock/hypotension infection liver cirrhosis possible hepatorenal syndrome renal ultrasound with any acute issues urine electrolytes consistent with prerenal azotemia however, this could be reflective her her liver physiology (decreased effective circulating volume leading to chronic prerenal azotemia) attempt to maintain MAP to ensure adequate renal perfusion follow trend of repeat labs and UOP (2) Septic shock: Code(s): A41.9 - Sepsis, unspecified organism; R65.21 - Severe sepsis with septic shock Status: Resolved Assessment and Plan: based on presentation of severe anmia, low BP, and hypoxia significant lactic acidosis on admission with is improving s/p IVF resuscitation on levophed to maintain MAP follow culture date continue broad spectrum antibiotics (3) Altered mental status: Code(s): R41.82 - Altered mental status, unspecified Status: Acute Assessment and Plan: clinically better at this time likely due to hypotension, shock, and hypoxia follow mentation (4) Severe anemia: Code(s): D64.9 - Anemia, unspecified Status: Acute Assessment and Plan: Hgb 5.0 on presentation appropriate incrementation with PRBC transfusion see #5 (5) Acute GI bleeding: Code(s): K92.2 - Gastrointestinal hemorrhage, unspecified Status: Acute Assessment and Plan: guaiac positive on PPI and octreotide drips follow serial H/Hs Gastroenterology following with recommendations noted (6) Alcoholic hepatitis: Code(s): K70.10 - Alcoholic hepatitis without ascites Status: Acute Assessment and Plan: as noted by admission labs - elevated LFTs and bilirubin continue supportive therapy Will continue to follow. History of Present Illness Reason for Consult Consult date: 05/14/21 Reason for consult: acute renal failure Chief Complaint Chief complaint: Acute Blood Loss Anemia, GI Bleeding, Lactic Acido History of Present Illness Narrative: The patient is a 40-year-old female with a past medical history as outlined below who presented to [facility] Emergency room with altered mental status. The patient's family called EMS when they found her altered. EMS subsequently brought to the emergency room and it did seem clear that her mentation was off. Routine blood test demonstrated a hemoglobin of 5, hematocrit of 19 and she was guaiac positive. She also had a lactic acid of 16 with an elevated INR of 1.7 and was acidotic with a bicarb of 14 and a potassium of 2.6. Urine drug screen was negative. Subsequent CT scan of the chest abdomen pelvis demonstrated -use lung disease consistent with pulmonary edema versus atypical pneumonia, liver cirrhosis, ascites, and possible enteral colitis. She was typed and crossed and initiated on a packed red blood cell transfusion and was subsequent to the ICU for further management. Since her admission to the ICU, her mental status seems to have improved. She tolerated the packed red blood cell transfusion with an appropriate increment a potter of her hemoglobin and hematocrit. Gastrology has been consulted given her guaiac-positive stools and likelihood of possible intervention (EGD +/- colonoscopy). Renal consultation was requested due to her acute kidney injury/ acute renal failure. On admission, the patient's creatinine was normal but since her admission and is almost doubled up to from 0.9-1.8 mg/dL. This is further concerning by the fact that her urine output has been somewhat sluggish in the last 24 hr as well. She has no previous history of acute kidney injury as far as I am aware and in spite of her elevated creatini
--- NOTE | 2021-05-14 13:44 | PM.IMPN ---
Progress Note: A&P Assessment and Plan (1) Septic shock: Code(s): A41.9 - Sepsis, unspecified organism; R65.21 - Severe sepsis with septic shock Status: Acute Assessment and Plan: Presented with severe anemia, hypotension, hypoxia -initial lactic acid was 16.9, this morning lactic is down to 1.7 with IV fluid resuscitation ordered -patient received adequate amount of IV fluids -patient has been started on Levophed, maintain mean arterial pressures greater than 65 mmHg for adequate renal and end organ perfusion -decreased urine output with worsening renal function -05/13/2021 blood cultures x2 are negative so far -05/13/2021 urine cultures are pending -continue Zosyn (05/13) and vancomycin (05/14) -patient also seems to have vulvovaginitis and oral thrush, he is started on Diflucan (05/14) x3 days, nystatin powder to the perineal area (2) Altered mental status: Code(s): R41.82 - Altered mental status, unspecified Status: Acute Assessment and Plan: Altered mental status could be related to severe anemia, hypotension, hypoxia -this morning patient is more awake, alert, oriented x3, follows simple commands in all extremities. -able to hold a conversation she was slow to answer question. Check ammonia level. -will continue to monitor (3) Severe anemia: Code(s): D64.9 - Anemia, unspecified Status: Acute Assessment and Plan: Patient presented with a hemoglobin of 5.0 -received 2 units of packed RBCs, this morning Hb has drifted to 7.6 -will continue monitor H&H q.6 hours and transfuse BC if indicated -INR is 1.7. She can be given vitamin K or FFP if any michelle bleeding noticed. (4) Acute GI bleeding: Code(s): K92.2 - Gastrointestinal hemorrhage, unspecified Status: Acute Assessment and Plan: Stool guaiac was positive in ER -patient started on Protonix infusion and tried infusion which will be continued. -appreciate GI evaluation recommendation. She will likely have upper GI endoscopy in the a.m.. (5) Tobacco dependence: Code(s): F17.200 - Nicotine dependence, unspecified, uncomplicated Status: Acute Assessment and Plan: Discussed with patient regarding cessation of smoking (6) Alcohol dependence: Code(s): F10.20 - Alcohol dependence, uncomplicated Status: Acute Assessment and Plan: Discussed with patient regarding cessation of alcohol use (7) DVT prophylaxis: Code(s): Z29.9 - Encounter for prophylactic measures, unspecified Status: Acute Assessment and Plan: SCDs (8) Suspected 2019 novel coronavirus infection: Code(s): Z20.822 - Contact with and (suspected) exposure to COVID-19 Status: Acute Assessment and Plan: Patient states she may have been exposed to COVID by her children. -she has received 1 dose of [employer] vaccine in March 2021 -SARS-CoV-2 PCR -NEGATIVE -will discontinue isolation and precautions (9) Acute kidney injury: Code(s): N17.9 - Acute kidney failure, unspecified Status: Acute Assessment and Plan: Decreased urine output with worsening renal function -likely related hypovolemia, septic shock, infection. Patient also has cirrhosis, possible hepatorenal syndrome -will obtain urine lytes, renal ultrasound -nephrology has been consulted and their recommendations are awaited -will maintain mean arterial pressures 65-70 mmHg with Levophed for adequate end organ perfusion Additional Plan Discussed with patient and her family member at the bedside updated with her condition and plan of care Code status: Full code Subjective Date/time seen: 05/14/21 13:44 She was on 1 L of oxygen at the time of my evaluation. She had dried blood on her lips but no obvious bleeding noticed. She had a bowel movement with brown stool. No hematochezia or melena reported. She is feeling better. She denied have any chest pain shortness
[2021-05-14 17:56] LABS: Glucose Point of Care 159 mg/dl (65-105)
--- NOTE | 2021-05-14 18:45 | PC.NURSE ---
notified dr. miller of low urine output (125ml) and abdominal distention increasing. Telephone order for Abdominal/pelvis CT without contrast received. Will continue to monitor patient per protocol.
--- NOTE | 2021-05-14 22:39 | PC.NURSE ---
[address] with RNx2. Returned from CT at 2234. Patient tolerated well.
[2021-05-15] VITALS (19 sets, daily range): BP systolic 101–136; BP diastolic 63–93; PULSE 80–92; RESP 16–26; TEMP 36.3–37.1; O2SAT 91–99
[2021-05-15 00:03] LABS: Glucose Point of Care 159 mg/dl (65-105)
[2021-05-15 05:44] LABS: Ammonia 26 umol/L (9-30)
[2021-05-15 05:50] LABS: Hematocrit 22.6 % (37.0-47.0); Hemoglobin 7.7 g/dL (12.0-15.0); Mean Corpuscular HGB Conc 34.1 g/dl (32-36); Mean Corpuscular Hemoglobin 34.2 pg (26-34); Mean Corpuscular Volume 100.4 fl (80-100); Mean Platelet Volume 11.9 fl (7.4-10.4); Platelet Count Result 58 k/mm3 (150-375); Red Blood Count 2.25 M/mm3 (4.2-5.4); Red Cell Distribution Width 22.8 % (11.5-14.5); White Blood Count 11.6 K/mm3 (4.5-10.0)
[2021-05-15 05:59] LABS: Glucose Point of Care 145 mg/dl (65-105)
[2021-05-15 06:05] LABS: Alanine Aminotransferase 23 U/L (4-35); Albumin Level 3.6 g/dL (3.5-5.1); Alkaline Phosphatase 139 U/L (38-126); Anion Gap 11 mmol/L (8-16); Aspartate Amino Transferase 81 U/L (14-36); Bilirubin,Total 2.5 mg/dL (0.2-1.3); Blood Urea Nitrogen 96 mg/dL (7-17); Carbon Dioxide 33 mmol/L (22-30); Chloride 89 mmol/L (98-107); Estimated CRCL calculation 28 ml/min; Estimated Glomerular Filt Rate 22; Glucose 138 mg/dL (65-110); Magnesium 1.9 mg/dL (1.6-2.3); Phosphorus 2.7 mg/dL (2.5-4.5); Potassium 2.8 mmol/L (3.4-5.0); Sodium 133 mmol/L (137-145)
[2021-05-15] MEDS: FLUCONAZOLE 100 MG/NACL 50 ML 100 MG/50 ML BTL 50 MG IVPB (07:53)
[2021-05-15] MEDS: TOLNAFTATE 1% POWDER 45 GM BTL 1 APPLIC TOPICAL ×2 (07:54→20:36)
[2021-05-15] MEDS: FOLIC ACID 1 MG/0.2 ML INJ IV PUSH (07:54)
[2021-05-15] MEDS: THIAMINE HCL 200 MG/2 ML VIAL 100 MG IV PUSH (07:56)
--- NOTE | 2021-05-15 08:53 | PM.IMPN ---
Progress Note: A&P Assessment and Plan (1) Septic shock: Code(s): A41.9 - Sepsis, unspecified organism; R65.21 - Severe sepsis with septic shock Status: Acute Assessment and Plan: Presented with altered mental status, related to severe anemia, hypotension, and hypoxia -initial lactic acid was 16.9, this morning lactic is down to 1.7 with IV fluid resuscitation ordered -patient was aggressively fluid resuscitated -patient has been started on Levophed, maintain mean arterial pressures greater than 65 mmHg for adequate renal and end organ perfusion -decreased urine output with worsening renal function; she has only made 300 cc of urinary output overnight. -05/13/2021 blood cultures x2 are negative so far -05/13/2021 urine cultures are pending -continue Zosyn (05/13) and vancomycin (05/14) -patient also seems to have vulvovaginitis and oral thrush, he is started on Diflucan (05/14) x3 days, nystatin powder to the perineal area (2) Altered mental status: Code(s): R41.82 - Altered mental status, unspecified Status: Acute Assessment and Plan: Altered mental status could be related to severe anemia, hypotension, hypoxia; now resolved. -this morning patient is more awake, alert, oriented x3, follows simple commands in all extremities. -able to hold a conversation she was slow to answer question. Ham 0 9 level has been normal in the 14-26 range. -will continue to monitor (3) Severe anemia: Code(s): D64.9 - Anemia, unspecified Status: Acute Assessment and Plan: Patient presented with a hemoglobin of 5.0 -received 4 units of packed RBCs, this morning Hb has drifted to 7.7 -will continue monitor H&H q.6 hours and transfuse BC if indicated -INR is 1.7 on 05/13/2021. Repeat coagulation profile. (4) Acute GI bleeding: Code(s): K92.2 - Gastrointestinal hemorrhage, unspecified Status: Acute Assessment and Plan: Likely secondary to upper GI bleeding in the setting of chronic EtOH use. GI was consulted. Patient is scheduled for an upper endoscopy this morning. Continue IV Protonix drip. (5) Tobacco dependence: Code(s): F17.200 - Nicotine dependence, unspecified, uncomplicated Status: Acute Assessment and Plan: Discussed with patient regarding cessation of smoking (6) Alcohol dependence: Code(s): F10.20 - Alcohol dependence, uncomplicated Status: Acute Assessment and Plan: Discussed with patient regarding cessation of alcohol use (7) DVT prophylaxis: Code(s): Z29.9 - Encounter for prophylactic measures, unspecified Status: Acute Assessment and Plan: SCDs (8) Acute kidney injury: Code(s): N17.9 - Acute kidney failure, unspecified Status: Acute Assessment and Plan: Decreased urine output with worsening renal function -acute oliguric kidney injury with only 300 cc of urine overnight. Baseline creatinine is unknown. Creatinine on admission was 1. He had has trended up to 1.8-2.4. This is likely acute tubular necrosis in the setting of hypotension secondary to hypovolemic shock. Renal ultrasound shows more anatomic clear normal kidneys. Continue supportive care. Send UA urine electrolytes. Consult Nephrology. Continue supportive management. Please dose medication for kidney function. Avoid nephrotoxic medications. Maintain mean arterial pressure above 60 for adequate end-organ perfusion. Additional Plan Discussed with patient and her family member at the bedside updated with her condition and plan of care Code status: Full code Subjective Date/time seen: This is a 40-year-old female with past medical history significant for alcohol dependence, most of the history is mainly unobtainable as there are no family members but I was actually able to speak to the mother over the phone who in turn cannot really give much history as in the last 4 years day having had much of a re
[2021-05-15] MEDS: CALCIUM GLUC 2,000 MG/NS 100ML 2,000 MG/100 ML BAG 100 MG IVPB (09:02)
[2021-05-15] MEDS: FUROSEMIDE INJ 100 MG/10 ML VIAL 80 MG IV PUSH (09:02)
--- NOTE | 2021-05-15 10:12 | WPDINTPN ---
Progress Note: A&P Assessment and Plan (1) Septic shock: Code(s): A41.9 - Sepsis, unspecified organism; R65.21 - Severe sepsis with septic shock Status: Acute Assessment and Plan: Presented with severe anemia, hypotension, hypoxia -patient has received adequate amount of IV fluids and was on Levophed -now off of vasopressors -she appears to be have a developing volume overload hence will hold further IV fluids -05/13/2021 blood cultures x2 are negative so far -05/13/2021 urine cultures is growing E coli which is sensitive to Zosyn -continue Zosyn (05/13) and vancomycin (05/14) -patient a has vulvovaginitis and oral thrush and was started on Diflucan (05/14) x3 days, nystatin powder to the perineal area (2) Altered mental status: Code(s): R41.82 - Altered mental status, unspecified Status: Acute Assessment and Plan: Altered mental status could be related to severe anemia, hypotension, hypoxia -improving. Continue to hold sedatives. -able to hold a conversation she was slow to answer question. Ammonia level 26 -will continue to monitor (3) Severe anemia: Code(s): D64.9 - Anemia, unspecified Status: Acute Assessment and Plan: Patient presented with a hemoglobin of 5.0 -received 2 units of packed RBCs, this morning Hb has drifted to 7.6 -will continue monitor H&H q.6 hours and transfuse BC if indicated -INR is 1.7.. Will give vitamin K (4) Acute GI bleeding: Code(s): K92.2 - Gastrointestinal hemorrhage, unspecified Status: Acute Assessment and Plan: Stool guaiac was positive in ER -patient started on Protonix infusion and octreotide infusion which will be continued. -patient is scheduled for EGD today (5) Tobacco dependence: Code(s): F17.200 - Nicotine dependence, unspecified, uncomplicated Status: Acute Assessment and Plan: Not a candidate for counseling at this time until mental status further improved (6) Alcohol dependence: Code(s): F10.20 - Alcohol dependence, uncomplicated Status: Acute Assessment and Plan: Continue thiamine and folic acid (7) DVT prophylaxis: Code(s): Z29.9 - Encounter for prophylactic measures, unspecified Status: Acute Assessment and Plan: SCDs (8) Suspected 2019 novel coronavirus infection: Code(s): Z20.822 - Contact with and (suspected) exposure to COVID-19 Status: Acute Assessment and Plan: Patient states she may have been exposed to COVID by her children. -she has received 1 dose of [employer] vaccine in March 2021 -SARS-CoV-2 PCR -NEGATIVE -will discontinue isolation and precautions (9) Acute kidney injury: Code(s): N17.9 - Acute kidney failure, unspecified Status: Acute Assessment and Plan: Decreased urine output with worsening renal function -likely related hypovolemia, septic shock, infection. Patient also has cirrhosis, possible hepatorenal syndrome -will obtain urine lytes -unremarkable renal ultrasound -nephrology has been consulted -will maintain mean arterial pressures for adequate end organ perfusion -Lasix 80 mg IV x1 (10) Thrombocytopenia: Code(s): D69.6 - Thrombocytopenia, unspecified Status: Acute Assessment and Plan: Multifactorial-cirrhosis, alcohol abuse, sepsis. Not on any anticoagulation Monitor and transfuse as needed (11) Electrolyte abnormality: Code(s): E87.8 - Other disorders of electrolyte and fluid balance, not elsewhere classified Status: Acute Assessment and Plan: Replace low potassium (12) Hypoxia: Code(s): R09.02 - Hypoxemia Status: Acute Assessment and Plan: CT shows bilateral patchy consolidating infiltrates and effusions Appears to be combination pneumonia and pulmonary edema DC IV fluid. Lasix 80 mg IV x1 Continue Zosyn and vancomycin Additional Plan Discussed with patient and her family member at the [facility], [place]
--- NOTE | 2021-05-15 10:44 | PCFNICU ---
ICU Rounding Note: Pt current nutrition is NPO. Last recorded weight is 76.5 kg. Bowel Motility:BM reported 05/14 Labs Reviewed:Glu 138,Na 133, K 2.8,GFR 22, Hct 22.6,Hgb 7.7 Meds Noted:Vancomycin, Levophed, Folic Acid, Thiamine, Diflucan. Skin: Perianal-Maceration. Additional Notes: Patient is currently NPO for endoscopy today. Will continue to monitor for diet order advancement. Following daily in ICU rounds.
--- NOTE | 2021-05-15 10:56 | WPDANESEPPF ---
Anes - Initial Pre Proc Eval Procedure: Operation Date: 05/15/21 13:30 Proposed Procedures p Esophagogastroduodenoscopy - Salvador Razo MD Date/Time: 05/15/21 10:56 Surgeon: Naomi Keane MD Pre Op Diagnosis: Acute Blood Loss Anemia, GI Bleeding, Lactic Acido Patient Data Age: 40 Gender: F Height: 1.63 m Weight: 76.5 kg Last Vital Signs Temp 36.3 C L 05/15/21 08:00 Pulse 91 05/15/21 10:00 Resp 20 05/15/21 10:00 BP 128/82 05/15/21 10:00 Pulse Ox 91 05/15/21 10:00 Allergies Allergy/AdvReac Type Severity Reaction Status Date / Time No Known Allergies Allergy Verified 05/13/21 02:13 Home Medications Medication Instructions Recorded Confirmed Type No Home Medications 05/13/21 05/13/21 History Laboratory Tests 05/14/21 05/14/21 05/14/21 11:31 17:52 23:57 WBC RBC Hgb Hct MCV MCH MCHC RDW Plt Count MPV Sodium Potassium Chloride Carbon Dioxide Anion Gap BUN Creatinine Estim Creat Clear Calc Estimated GFR Glucose POC Capillary Glucose 148 mg/dl H mg/dl 159 mg/dl H mg/dl 159 mg/dl H mg/dl (65-105) (65-105) (65-105) Calcium Phosphorus Magnesium Total Bilirubin AST ALT Alkaline Phosphatase Ammonia Total Protein Albumin 05/15/21 05/15/21 05/15/21 05:19 05:19 05:20 WBC 11.6 K/mm3 H K/mm3 (4.5-10.0) RBC 2.25 M/mm3 L M/mm3 (4.2-5.4) Hgb 7.7 g/dL L g/dL (12.0-15.0) Hct 22.6 % L % (37.0-47.0) MCV 100.4 fl H fl (80-100) MCH 34.2 pg H pg (26-34) MCHC 34.1 g/dl g/dl (32-36) RDW 22.8 % H % (11.5-14.5) Plt Count 58 k/mm3 L k/mm3 (150-375) MPV 11.9 fl H fl (7.4-10.4) Sodium 133 mmol/L L mmol/L (137-145) Potassium 2.8 mmol/L L* mmol/L (3.4-5.0) Chloride 89 mmol/L L mmol/L (98-107) Carbon Dioxide 33 mmol/L H mmol/L (22-30) Anion Gap 11 mmol/L mmol/L (8-16) BUN 96 mg/dL H mg/dL (7-17) Creatinine 2.40 mg/dL H mg/dL (0.7-1.0) Estim Creat Clear Calc 28 ml/min ml/min Estimated GFR 22 L (59 - ) Glucose 138 mg/dL H mg/dL (65-110) POC Capillary Glucose Calcium 7.0 mg/dL L mg/dL (8.4-10.2) Phosphorus 2.7 mg/dL mg/dL (2.5-4.5) Magnesium 1.9 mg/dL mg/dL (1.6-2.3) Total Bilirubin 2.5 mg/dL H mg/dL (0.2-1.3) AST 81 U/L H U/L (14-36) ALT 23 U/L U/L (4-35) Alkaline Phosphatase 139 U/L H U/L (38-126) Ammonia 26 umol/L umol/L (9-30) Total Protein 6.0 g/dL L g/dL (6.3-8.2) Albumin 3.6 g/dL g/dL (3.5-5.1) 05/15/21 05:56 WBC RBC Hgb Hct MCV MCH MCHC RDW Plt Count MPV Sodium Potassium Chloride Carbon Dioxide Anion Gap BUN Creatinine Estim Creat Clear Calc Estimated GFR Glucose POC Capillary Glucose 145 mg/dl H mg/dl (65-105) Calcium Phosphorus Magnesium Total Bilirubin AST ALT Alkaline Phosphatase Ammonia Total Protein Albumin Patient hx anesthesia problems: none Family hx anesthesia problems: none Results Review: All pre-operative results and documents have been reviewed as part of the pre-operative evaluation. [facility] Past Medical History Medical History (Updated 05/15/21 @ 10:20 by Augustus Browning MD) Acute encephalopathy Alcoholic he
[2021-05-15] MEDS: KCL 20 MEQ/SW 100 ML 100 ML 50 MEQ IVPB (12:13)
[2021-05-15] MEDS: PHYTONADIONE INJ 10 MG/ML AMP SUB-Q (12:13)
[2021-05-15] MEDS: LACTATED RINGERS 1,000 ML 150 ML IV CONT (12:32)
[2021-05-15 13:41] LABS: Glucose Point of Care 132 mg/dl (65-105)
--- NOTE | 2021-05-15 13:50 | SUR.PHASEII ---
ORDER RECEIVED BY DR URIARTE FOR PT TO DOWNGRADE FROM ICU STATUS, ICU NURSE TY NOTIFIED.
[2021-05-15] MEDS: CENTRAL LINE FLUSH 10 ML IV PUSH ×2 (13:57→20:38)
--- NOTE | 2021-05-15 14:56 | P.PNNP_ITS ---
Progress Note: A&P Assessment and Plan (1) Acute kidney injury: Code(s): N17.9 - Acute kidney failure, unspecified Status: Acute Assessment and Plan: * normal creatinine noted on admission * likely multifactorial ATN: * hypovolemia * septic shock/hypotension * infection * liver cirrhosis * possible hepatorenal syndrome * renal ultrasound with any acute issues * urine electrolytes consistent with prerenal azotemia * however, this could be reflective her her liver physiology (decreased effective circulating volume leading to chronic prerenal azotemia) * attempt to maintain MAP to ensure adequate renal perfusion * follow trend of repeat labs and UOP (2) Septic shock: Code(s): A41.9 - Sepsis, unspecified organism; R65.21 - Severe sepsis with septic shock Status: Acute Assessment and Plan: * better -- off pressors * based on presentation of severe anemia, low BP, and hypoxia * significant lactic acidosis on admission with is improving s/p IVF resuscitation * follow culture date * continue broad spectrum antibiotics (3) Altered mental status: Code(s): R41.82 - Altered mental status, unspecified Status: Acute Assessment and Plan: * clinically better at this time * likely due to hypotension, shock, and hypoxia * follow mentation (4) Severe anemia: Code(s): D64.9 - Anemia, unspecified Status: Acute Assessment and Plan: * Hgb 5.0 on presentation * appropriate incrementation with PRBC transfusion * see #5 (5) Acute GI bleeding: Code(s): K92.2 - Gastrointestinal hemorrhage, unspecified Status: Acute Assessment and Plan: * guaiac positive * s/p EGD with no active bleeding found - only hiatal hernia and gastritis found * follow serial H/Hs * Gastroenterology following with recommendations noted (6) Alcoholic hepatitis: Code(s): K70.10 - Alcoholic hepatitis without ascites Status: Acute Assessment and Plan: * as noted by admission labs - elevated LFTs and bilirubin * continue supportive therapy Will continue to follow. Subjective Date/time seen: 05/15/21 14:56 S/P EGD earlier today with findings of hiatal hernia and gastritis but no active bleeding; H/H holding steady following recent PRBC transfusion; diagnostic and therapeutic paracentesis done today as well; still with on/off confusion at this time; off pressors. Exam Narrative: General: ill appearing female in NAD Heart: normal S1 and S2; no rub Lungs: coarse and decreased at bases; occasional crackles hear Abdomen: soft, nontender, nondistended, positive bowel sounds Extremities: no cyanosis or clubbing; trace edema Skin: warm and dry Objective Data Vital Signs Vital Signs: Vital Signs Temp Pulse Pulse Resp BP Pulse Ox 05/15/21 14:00 84 26 H 128/84 95 05/15/21 13:40 80 20 123/93 H 91 05/15/21 13:30 82 18 111/72 93 05/15/21 13:20 80 20 102/69 92 05/15/21 12:29 36.6 C 87 23 H 136/84 94 05/15/21 12:00 36.6 C 90 90 18 110/77 93 05/15/21 10:00 91 20 128/82 91 05/15/21 08:00 36.3 C L 87 88 20 116/79 92 05/15/21 06:00 87 20 104/74 93 05/15/21 05:34 86 05/15/21 04:00 36.6 C 87 20 112/63 94 05/15/21 03:45 87 99 05/15/21 03:13
--- NOTE | 2021-05-15 14:56 | PM.PNNEP ---
Progress Note: A&P Assessment and Plan (1) Acute kidney injury: Code(s): N17.9 - Acute kidney failure, unspecified Status: Acute Assessment and Plan: normal creatinine noted on admission likely multifactorial ATN: hypovolemia septic shock/hypotension infection liver cirrhosis possible hepatorenal syndrome renal ultrasound with any acute issues urine electrolytes consistent with prerenal azotemia however, this could be reflective her her liver physiology (decreased effective circulating volume leading to chronic prerenal azotemia) attempt to maintain MAP to ensure adequate renal perfusion follow trend of repeat labs and UOP (2) Septic shock: Code(s): A41.9 - Sepsis, unspecified organism; R65.21 - Severe sepsis with septic shock Status: Acute Assessment and Plan: better -- off pressors based on presentation of severe anemia, low BP, and hypoxia significant lactic acidosis on admission with is improving s/p IVF resuscitation follow culture date continue broad spectrum antibiotics (3) Altered mental status: Code(s): R41.82 - Altered mental status, unspecified Status: Acute Assessment and Plan: clinically better at this time likely due to hypotension, shock, and hypoxia follow mentation (4) Severe anemia: Code(s): D64.9 - Anemia, unspecified Status: Acute Assessment and Plan: Hgb 5.0 on presentation appropriate incrementation with PRBC transfusion see #5 (5) Acute GI bleeding: Code(s): K92.2 - Gastrointestinal hemorrhage, unspecified Status: Acute Assessment and Plan: guaiac positive s/p EGD with no active bleeding found - only hiatal hernia and gastritis found follow serial H/Hs Gastroenterology following with recommendations noted (6) Alcoholic hepatitis: Code(s): K70.10 - Alcoholic hepatitis without ascites Status: Acute Assessment and Plan: as noted by admission labs - elevated LFTs and bilirubin continue supportive therapy Will continue to follow. Subjective Date/time seen: 05/15/21 14:56 S/P EGD earlier today with findings of hiatal hernia and gastritis but no active bleeding; H/H holding steady following recent PRBC transfusion; diagnostic and therapeutic paracentesis done today as well; still with on/off confusion at this time; off pressors. Exam Narrative: General: ill appearing female in NAD Heart: normal S1 and S2; no rub Lungs: coarse and decreased at bases; occasional crackles hear Abdomen: soft, nontender, nondistended, positive bowel sounds Extremities: no cyanosis or clubbing; trace edema Skin: warm and dry Objective Data Vital Signs Vital Signs: Vital Signs Temp Pulse Pulse Resp BP Pulse Ox 05/15/21 14:00 84 26 H 128/84 95 05/15/21 13:40 80 20 123/93 H 91 05/15/21 13:30 82 18 111/72 93 05/15/21 13:20 80 20 102/69 92 05/15/21 12:29 36.6 C 87 23 H 136/84 94 05/15/21 12:00 36.6 C 90 90 18 110/77 93 05/15/21 10:00 91 20 128/82 91 05/15/21 08:00 36.3 C L 87 88 20 116/79 92 05/15/21 06:00 87 20 104/74 93 05/15/21 05:34 86 05/15/21 04:00 36.6 C 87 20 112/63 94 05/15/21 03:45 87 99 05/15/21 03:13 86 05/15/21 02:00 87 16 106/74 96 05/15/21 00:00 36.6 C 87 87 16 117/84 95 05/14/21 22:00 83 18 101/68 96 05/14/21 20:00 36.3 C L 82 82 22 H 106/73 99 05/14/21 18:00 82 21 H 107/72 96 Intake/Output Intake/Output: Intake & Output 05/12/21 05/13/21 05/14/21 05/15/21 23:59 23:59 23:59 23:59 Intake Total 5060 4556.667 750 Output Total 75 325 1525 Balance 4985 4231.660 -156 Meds/Results Medications: Active Medications Generic Name Dose Route Start Last Admin Trade Name Freq PRN Reason Stop Dose Admin Dextrose 12.5 gm 05/13/21 07:44 Dextrose 50% 25 Gm/50 Ml Syringe IV PUSH
[2021-05-15 16:32] LABS: Appearance Peritoneal Fluid Cloudy (Clear); Color Peritoneal Fluid Yellow (Colorless); Source Peritoneal Fluid Peritoneal Fluid
[2021-05-15 17:03] LABS: Eosinophils Peritoneal Fluid 0 %; Macrophages Peritoneal Fluid 0 %; Mesothelial Cells Peritoneal Fluid 0 %; Other Cells Peritoneal Fluid 0 %
[2021-05-15 17:05] LABS: Lymphocytes Peritoneal Fluid 65 %; Monocytes Peritoneal Fluid 3 %; Neutrophils Peritoneal Fluid 32 % (0-25)
[2021-05-15 18:08] LABS: INR 1.4
[2021-05-15 18:09] LABS: Potassium 3.7 mmol/L (3.4-5.0)
[2021-05-15 18:32] LABS: Ammonia 26 umol/L (9-30)
[2021-05-15 18:34] LABS: Glucose Point of Care 144 mg/dl (65-105)
[2021-05-15] MEDS: PANTOPRAZOLE SODIUM IV 40 MG VIAL IV PUSH (20:37)
[2021-05-16] VITALS (17 sets, daily range): BP systolic 102–121; BP diastolic 59–79; PULSE 85–102; RESP 22–29; TEMP 36.6–37.2; O2SAT 91–96; BMI 10.0
[2021-05-16 00:05] LABS: Glucose Point of Care 119 mg/dl (65-105)
[2021-05-16 04:26] LABS: Hematocrit 22.6 % (37.0-47.0); Hemoglobin 7.7 g/dL (12.0-15.0); Immature Platelet Fraction Pct 12.2 % (0.9-11.2); Mean Corpuscular HGB Conc 34.1 g/dl (32-36); Mean Corpuscular Hemoglobin 34.2 pg (26-34); Mean Corpuscular Volume 100.4 fl (80-100); Mean Platelet Volume 12.1 fl (7.4-10.4); Platelet Count Result 52 k/mm3 (150-375); Red Blood Count 2.25 M/mm3 (4.2-5.4); Red Cell Distribution Width 22.7 % (11.5-14.5); White Blood Count 11.3 K/mm3 (4.5-10.0)
[2021-05-16 04:56] LABS: INR 1.3; Prothrombin Time 16.4 Seconds (11.1-14.7)
[2021-05-16 04:59] LABS: Alanine Aminotransferase 22 U/L (4-35); Albumin Level 3.2 g/dL (3.5-5.1); Alkaline Phosphatase 153 U/L (38-126); Anion Gap 10 mmol/L (8-16); Aspartate Amino Transferase 84 U/L (14-36); Bilirubin,Total 2.4 mg/dL (0.2-1.3); Blood Urea Nitrogen 100 mg/dL (7-17); Calcium 7.9 mg/dL (8.4-10.2); Carbon Dioxide 31 mmol/L (22-30); Chloride 92 mmol/L (98-107); Estimated CRCL calculation 22 ml/min; Estimated Glomerular Filt Rate 17; Glucose 109 mg/dL (65-110); Magnesium 1.9 mg/dL (1.6-2.3); Phosphorus 2.9 mg/dL (2.5-4.5); Potassium 3.4 mmol/L (3.4-5.0); Sodium 133 mmol/L (137-145)
[2021-05-16] MEDS: CENTRAL LINE FLUSH 10 ML IV PUSH ×3 (05:44→23:25)
[2021-05-16] MEDS: PANTOPRAZOLE SODIUM IV 40 MG VIAL IV PUSH ×2 (08:02→23:25)
[2021-05-16] MEDS: THIAMINE HCL 200 MG/2 ML VIAL 100 MG IV PUSH (08:02)
[2021-05-16] MEDS: TOLNAFTATE 1% POWDER 45 GM BTL 1 APPLIC TOPICAL ×2 (08:02→23:25)
[2021-05-16] MEDS: FLUCONAZOLE 100 MG/NACL 50 ML 100 MG/50 ML BTL 50 MG IVPB (08:06)
[2021-05-16] MEDS: FOLIC ACID 1 MG/0.2 ML INJ IV PUSH (08:07)
[2021-05-16] MEDS: CALCIUM GLUC 2,000 MG/NS 100ML 2,000 MG/100 ML BAG 100 MG IVPB (08:48)
[2021-05-16] MEDS: FUROSEMIDE INJ 100 MG/10 ML VIAL 80 MG IV PUSH (08:48)
--- NOTE | 2021-05-16 10:43 | WPDINTPN ---
Progress Note: A&P Assessment and Plan (1) Septic shock: Code(s): A41.9 - Sepsis, unspecified organism; R65.21 - Severe sepsis with septic shock Status: Acute Assessment and Plan: Presented with severe anemia, hypotension, hypoxia She has multiple potential sources the form of UTI, peritonitis, and pneumonia -patient has received adequate amount of IV fluids and was on Levophed which is now on -she appears to be have a developing volume overload hence IV fluids per DC yesterday -05/13/2021 blood cultures x2 are negative so far -05/13/2021 urine cultures is growing E coli which is sensitive to Zosyn -her peritoneal fluid suggest infection the form of increased neutrophil count although total counts was not done due to clotting of same but in the presence of abdominal tenderness cloudy fluid and increased neutrophil count it fits the the diagnosis of peritonitis -continue Zosyn (05/13) but will discontinue vancomycin (05/14) -patient also has vulvovaginitis and oral thrush and was started on Diflucan (05/14) x3 days, nystatin powder to the perineal area (2) Altered mental status: Code(s): R41.82 - Altered mental status, unspecified Status: Acute Assessment and Plan: Altered mental status could be related to severe anemia, hypotension, hypoxia -improving. Continue to hold sedatives. -able to hold a conversation she was slow to answer question. Ammonia level 26 -will continue to monitor (3) Severe anemia: Code(s): D64.9 - Anemia, unspecified Status: Acute Assessment and Plan: Patient presented with a hemoglobin of 5.0 -received 2 units of packed RBCs -INR is 1.7 and was given vitamin K -EGD showed gastritis and hiatal hernia (4) Acute GI bleeding: Code(s): K92.2 - Gastrointestinal hemorrhage, unspecified Status: Acute Assessment and Plan: Stool guaiac was positive in ER EGD showed gastritis Continue PPI Off of Protonix infusion and octreotide infusion which will be continued. (5) Tobacco dependence: Code(s): F17.200 - Nicotine dependence, unspecified, uncomplicated Status: Acute Assessment and Plan: Not a candidate for counseling at this time until mental status further improved (6) Alcohol dependence: Code(s): F10.20 - Alcohol dependence, uncomplicated Status: Acute Assessment and Plan: Continue thiamine and folic acid (7) DVT prophylaxis: Code(s): Z29.9 - Encounter for prophylactic measures, unspecified Status: Acute Assessment and Plan: SCDs (8) Suspected 2019 novel coronavirus infection: Code(s): Z20.822 - Contact with and (suspected) exposure to COVID-19 Status: Acute Assessment and Plan: Patient states she may have been exposed to COVID by her children. -she has received 1 dose of Novadiol vaccine in March 2021 -SARS-CoV-2 PCR -NEGATIVE -will discontinue isolation and precautions (9) Acute kidney injury: Code(s): N17.9 - Acute kidney failure, unspecified Status: Acute Assessment and Plan: Decreased urine output with worsening renal function -likely related hypovolemia, septic shock, infection. Patient also has cirrhosis, possible hepatorenal syndrome -unremarkable renal ultrasound -nephrology has been consulted -will maintain mean arterial pressures for adequate end organ perfusion -Lasix 80 mg IV x1 again today -may need hemodialysis if continues to worsen (10) Thrombocytopenia: Code(s): D69.6 - Thrombocytopenia, unspecified Status: Acute Assessment and Plan: Multifactorial-cirrhosis, alcohol abuse, sepsis. Not on any anticoagulation Monitor and transfuse as needed (11) Electrolyte abnormality: Code(s): E87.8 - Other disorders of electrolyte and fluid balance, not elsewhere classified Status: Acute Assessment and Plan: Replace low potassium and calcium (12) Hypoxia: Code(s): R09.02 -
--- NOTE | 2021-05-16 12:05 | PCFNICU ---
ICU Rounding Note: Pt current nutrition is Clear Liquids. Last recorded weight is 76.5 kg. Bowel Motility:+BM reported 05/14 Labs Reviewed:Cr 3.10,GFR 17, BUN 100, Na 133, Alb 3.2,Hct 22.6,Hgb 7.7 Meds Noted:Thiamine, Folic Acid, Protonix, Zosyn, Potassium Chloride. Skin: Perianal-Maceration Additional Notes: Patient had endoscopy 05/15-gastritis, hiatal hernia. PT/OT ordered. Diet order has advanced to clear liquids today with Ensure Clear providing an additional 240 kcals and 8 gms protein. Recommend advancing diet as tolerated per MD orders. Following daily in ICU rounds.
[2021-05-16 12:28] LABS: Glucose Point of Care 100 mg/dl (65-105)
--- NOTE | 2021-05-16 12:52 | WPDANESPN ---
Anes - Prog Note Post-Op Date/Time: 05/16/21 12:52 Cardiovascular status: normal Respiratory status: normal Airway patency: baseline Mental status: baseline Post-Op hydration status: normal Vital Signs: Last Vital Signs Temp 36.6 C 05/16/21 08:00 Pulse 102 H 05/16/21 10:00 Resp 23 H 05/16/21 10:00 BP 113/67 05/16/21 10:00 Pulse Ox 92 05/16/21 10:00 Pain Score (VAS): 0 I/O: Intake & Output 05/15/21 05/16/21 05/16/21 23:59 07:59 15:59 Intake Total 300 150 250 Output Total 600 200 Balance -300 -50 250 Laboratory Tests 05/16/21 04:11 05/16/21 04:11 05/13/21 05/15/21 05/15/21 04:18 13:40 14:14 WBC RBC Hgb Hct MCV MCH MCHC RDW Plt Count MPV % Immature Plt Fraction PT INR Sodium Potassium 3.7 Chloride Carbon Dioxide Anion Gap BUN Creatinine Estim Creat Clear Calc Estimated GFR Glucose POC Capillary Glucose 132 H Calcium Phosphorus Magnesium Total Bilirubin AST ALT Alkaline Phosphatase Ammonia Total Protein Albumin Peritoneal Source Peritoneal Color Peritoneal Appearance Peritoneal RBC Periton Nuc Cells Periton Neutrophils Periton Lymphocytes Peritoneal Monocytes Peritoneal Eosinophils Periton Mesothelial Periton Macrophages Peritoneal Other Cells Peritoneal Tot Protein Peritoneal Albumin Blood Type AB Positive Antibody Screen Negative Crossmatch See Detail 05/15/21 05/15/21 05/15/21 14:14 15:24 15:25 WBC RBC Hgb Hct MCV MCH MCHC RDW Plt Count MPV % Immature Plt Fraction PT 17.0 H INR 1.4 Sodium Potassium Chloride Carbon Dioxide Anion Gap BUN Creatinine Estim Creat Clear Calc Estimated GFR Glucose POC Capillary Glucose Calcium Phosphorus Magnesium Total Bilirubin AST ALT Alkaline Phosphatase Ammonia Total Protein Albumin Peritoneal Source Peritoneal fluid Peritoneal Color Yellow Peritoneal Appearance Cloudy A Peritoneal RBC TNP Periton Nuc Cells TNP Periton Neutrophils 32 H Periton Lymphocytes 65 Peritoneal Monocytes 3 Peritoneal Eosinophils 0 Periton Mesothelial 0 Periton Macrophages 0 Peritoneal Other Cells 0 Peritoneal Tot Protein Pending Peritoneal Albumin Pending Blood Type Antibody Screen Crossmatch 05/15/21 05/15/21 05/16/21 17:46 18:27 00:03 WBC RBC Hgb Hct MCV MCH MCHC RDW Plt Count MPV % Immature Plt Fraction PT INR Sodium Potassium Chloride Carbon Dioxide Anion Gap BUN Creatinine Estim Creat Clear Calc Estimated GFR Glucose POC Capillary Glucose 144 H 119 H Calcium Phosphorus Magnesium Total Bilirubin AST ALT Alkaline Phosphatase Ammonia 26 Total Protein Albumin Peritoneal Source Peritoneal Color Peritoneal Appearance Peritoneal RBC Periton Nuc Cells Periton Neutrophils Periton Lymphocytes Peritoneal Monocytes Peritoneal Eosinophils Periton Mesothelial Periton Macrophages Peritoneal Other Cells Peritoneal Tot Protein Peritoneal Albumin Blood Type Antibody Screen Crossmatch 05/16/21 05/16/21 05/16/21 04:11 04:11 04:11 WBC 11.3 H RBC 2.25 L Hgb 7.7 L Hct 22.6 L MCV 100.4 H MCH 34.2 H MCHC 34.1 RDW 22.7 H Plt Count 52 L MPV 12.1 H % Immature Plt Fraction 12.2 H PT 16.4 H INR 1.3 Sodium 133 L Potassium 3.4 Chloride 92 L Carbon Dioxide 31 H Anion Gap 10 BUN 100 H Creatinine 3.10 H Estim Creat Clear Calc 22 Estimated GFR 17 L Glucose 109 POC Capillary Glucose Calcium 7.9 L Phosphorus 2.9 Magnesium 1.9 Total Bilirubin 2.4 H
--- NOTE | 2021-05-16 13:43 | WPDGIPROGNO ---
Progress Note: A&P Assessment and Plan (1) Gastritis: Code(s): K29.70 - Gastritis, unspecified, without bleeding Status: Acute Assessment and Plan: egd yesterday only gastritis, no varices, no ulcers or stigmata of bleeding octreotide discontinued continue iv protonix (2) Severe anemia: Code(s): D64.9 - Anemia, unspecified Status: Acute Assessment and Plan: hb low but stable after blood transfusion (3) Cirrhosis, alcoholic: Code(s): K70.30 - Alcoholic cirrhosis of liver without ascites Status: Acute Assessment and Plan: supportive care, noted worsening renal function MELD score 24 s/p paracentesis with cloudy appearance (could not get count but noted increase neutrophils)- she is on antibiotics, on admission had septic shock now better advance diet as she is more awake thiamine, nutritional support (4) Septic shock: Code(s): A41.9 - Sepsis, unspecified organism; R65.21 - Severe sepsis with septic shock Status: Acute Assessment and Plan: improved (5) Acute kidney injury: Code(s): N17.9 - Acute kidney failure, unspecified Status: Acute Assessment and Plan: continue to monitor (6) Ascites: Code(s): R18.8 - Other ascites Status: Acute Assessment and Plan: s/p paracentesis will need 2g na diet (7) Elevated liver enzymes: Code(s): R74.8 - Abnormal levels of other serum enzymes Status: Acute (8) Altered mental status: Code(s): R41.82 - Altered mental status, unspecified Status: Acute Assessment and Plan: improved, low ammonia level Subjective Date/time seen: 05/16/21 13:43 Interval history: more awake, EGD yesterday showed gastritis without varices or signs of bleeding. Also had 1.3 L ascitic fluid removed (cloudy) Review of Systems Review of Systems: All systems reviewed & are unremarkable except as noted in HPI and below Exam Const: General: comfortable and no acute distress HENMT: General nose exam: Normal nares present Mouth: Yes Abnormal oral and palatal mucosa present (dry mouth and dried blood) Eyes: Sclera: sclerae normal Neck: Neck: supple Resp: Effort & Inspection: normal respiratory effort Cardio: Rate: regular rate GI: GI Palp: Yes Soft to palpation, No Tenderness to palpation present (GI) and No Guarding due to palpation present (GI) Auscultation: normal bowel sounds Skin: General skin exam: no rashes or lesions noted Neuro: Speech: normal speech Other: more awake and alert Extrem: General: normal to inspection Psych: Affect: Anxious affect present Objective Data Vital Signs Vital Signs: Vital Signs - 24 hr 05/15/21 14:00 05/15/21 16:00 05/15/21 18:00 Temperature 98.8 F Pulse Rate 84 83 82 Pulse Rate [Apical Monitor] Respiratory Rate 26 H 20 21 H Blood Pressure 128/84 104/76 105/75 Pulse Oximetry 95 97 96 05/15/21 20:00 05/15/21 22:00 05/16/21 00:00 Temperature 97.9 F 98.2 F Pulse Rate 82 88 89 Pulse Rate [Apical Monitor] Respiratory Rate 21 H 21 H 22 H Blood Pressure 102/79 101/68 119/79 Pulse Oximetry 92 92 92 05/16/21 02:00 05/16/21 04:00 05/16/21 06:00 Temperature 98.3 F Pulse Rate 92 96 97 Pulse Rate [Apical Monitor] Respiratory Rate 22 H 24 H 24 H Blood Pressure 103/75 115/64 112/69 Pulse Oximetry 94 92 92 05/16/21 08:00 05/16/21 09:11 05/16/21 10:00 Temperature 97.9 F Pulse Rate 98 102 H Pulse Rate [Apical Monitor] 98 Respiratory Rate 29 H 23 H Blood Pressure 102/75 113/67 Pulse Oximetry 92 92 92 05/16/21 12:00 Temperature 98.1 F Pulse Rate 102 H Pulse Rate [Apical Monitor] 102 H Respiratory Rate 25 H Blood Pressure 115/67 Pulse Oximetry 91 Intake/Output Intake/Output: Intake & Output 05/13/21 05/14/21 05/15/21 05/16/21 23:59 23:59 23:59 23:59 Intake Total 5060 4556.667 1100 400 Output Total 75 325 2125 200 Balance 4927 4231.667 1025 200 Meds/Resul
--- NOTE | 2021-05-16 14:22 | PM.PNNEP ---
Progress Note: A&P Assessment and Plan (1) Acute kidney injury: Code(s): N17.9 - Acute kidney failure, unspecified Status: Acute Assessment and Plan: normal creatinine noted on admission likely multifactorial: hypovolemia septic shock/hypotension infection liver cirrhosis possible hepatorenal syndrome(?) renal ultrasound with any acute issues urine electrolytes consistent with prerenal azotemia however, this could be reflective her liver physiology (decreased effective circulating volume leading to chronic prerenal azotemia) maintain MAP to ensure adequate renal perfusion follow trend of repeat labs and UOP (2) Septic shock: Code(s): A41.9 - Sepsis, unspecified organism; R65.21 - Severe sepsis with septic shock Status: Acute Assessment and Plan: better -- off pressors based on presentation of severe anemia, low BP, and hypoxia significant lactic acidosis on admission with improvement s/p IVF resuscitation follow culture date continue broad spectrum antibiotics (3) Altered mental status: Code(s): R41.82 - Altered mental status, unspecified Status: Acute Assessment and Plan: clinically better at this time likely due to hypotension, shock, and hypoxia follow mentation (4) Severe anemia: Code(s): D64.9 - Anemia, unspecified Status: Acute Assessment and Plan: Hgb 5.0 on presentation appropriate incrementation with PRBC transfusion see #5 (5) Acute GI bleeding: Code(s): K92.2 - Gastrointestinal hemorrhage, unspecified Status: Acute Assessment and Plan: guaiac positive s/p EGD with no active bleeding found - only hiatal hernia and gastritis found follow serial H/Hs Gastroenterology following with recommendations noted (6) Alcoholic hepatitis: Code(s): K70.10 - Alcoholic hepatitis without ascites Status: Acute Assessment and Plan: as noted by admission labs - elevated LFTs and bilirubin continue supportive therapy Will continue to follow. Subjective Date/time seen: 05/16/21 14:22 Mentation seems about the same but renal function as well as urine output has worsened; remains hemodynamically stable off pressor therapy; H/H holding steady as well; no new issues/events overnight or earlier this AM. Exam Narrative: General: ill appearing female in NAD Heart: normal S1 and S2; no rub Lungs: coarse and decreased at bases; occasional crackles heard Abdomen: soft, nontender, nondistended, positive bowel sounds Extremities: no cyanosis or clubbing; trace edema Skin: warm and intact Objective Data Vital Signs Vital Signs: Vital Signs Temp Pulse Pulse Resp BP Pulse Ox 05/16/21 14:00 101 H 24 H 115/66 91 05/16/21 12:00 36.7 C 102 H 102 H 25 H 115/67 92 05/16/21 10:00 102 H 23 H 113/67 92 05/16/21 09:11 92 05/16/21 08:00 36.6 C 98 98 29 H 102/75 92 05/16/21 06:00 97 24 H 112/69 92 05/16/21 04:00 36.8 C 96 24 H 115/64 92 05/16/21 02:00 92 22 H 103/75 94 05/16/21 00:00 36.8 C 89 22 H 119/79 92 05/15/21 22:00 88 21 H 101/68 92 05/15/21 20:00 36.6 C 82 21 H 102/79 92 Intake/Output Intake/Output: Intake & Output 05/13/21 05/14/21 05/15/21 05/16/21 23:59 23:59 23:59 23:59 Intake Total 5060 4556.667 1100 600 Output Total 75 325 2125 750 Balance 4985 4231.667 -1025 -150 Meds/Results Medications: Active Medications Generic Name Dose Route Start Last Admin Trade Name Freq PRN Reason Stop Dose Admin Dextrose 12.5 gm 05/13/21 07:44 Dextrose 50% 25 Gm/50 Ml Syringe IV PUSH PRN PRN Hypoglycemia Protocol Folic Acid 1 mg 05/13/21 09:00 05/16/21 08:07 Folic Acid 1 Mg/0.2 Ml Inj IV PUSH 1 mg QAM KAI Administration Glucagon 1 mg 05/13/21 07:44 Glucagon For Inj 1 Mg Vial IM PRN PRN Hypoglycemia Protocol Glucose
--- NOTE | 2021-05-16 14:22 | P.PNNP_ITS ---
Progress Note: A&P Assessment and Plan (1) Acute kidney injury: Code(s): N17.9 - Acute kidney failure, unspecified Status: Acute Assessment and Plan: * normal creatinine noted on admission * likely multifactorial: * hypovolemia * septic shock/hypotension * infection * liver cirrhosis * possible hepatorenal syndrome(?) * renal ultrasound with any acute issues * urine electrolytes consistent with prerenal azotemia * however, this could be reflective her liver physiology (decreased effective circulating volume leading to chronic prerenal azotemia) * maintain MAP to ensure adequate renal perfusion * follow trend of repeat labs and UOP (2) Septic shock: Code(s): A41.9 - Sepsis, unspecified organism; R65.21 - Severe sepsis with septic shock Status: Acute Assessment and Plan: * better -- off pressors * based on presentation of severe anemia, low BP, and hypoxia * significant lactic acidosis on admission with improvement s/p IVF resuscitation * follow culture date * continue broad spectrum antibiotics (3) Altered mental status: Code(s): R41.82 - Altered mental status, unspecified Status: Acute Assessment and Plan: * clinically better at this time * likely due to hypotension, shock, and hypoxia * follow mentation (4) Severe anemia: Code(s): D64.9 - Anemia, unspecified Status: Acute Assessment and Plan: * Hgb 5.0 on presentation * appropriate incrementation with PRBC transfusion * see #5 (5) Acute GI bleeding: Code(s): K92.2 - Gastrointestinal hemorrhage, unspecified Status: Acute Assessment and Plan: * guaiac positive * s/p EGD with no active bleeding found - only hiatal hernia and gastritis found * follow serial H/Hs * Gastroenterology following with recommendations noted (6) Alcoholic hepatitis: Code(s): K70.10 - Alcoholic hepatitis without ascites Status: Acute Assessment and Plan: * as noted by admission labs - elevated LFTs and bilirubin * continue supportive therapy Will continue to follow. Subjective Date/time seen: 05/16/21 14:22 Mentation seems about the same but renal function as well as urine output has worsened; remains hemodynamically stable off pressor therapy; H/H holding steady as well; no new issues/events overnight or earlier this AM. Exam Narrative: General: ill appearing female in NAD Heart: normal S1 and S2; no rub Lungs: coarse and decreased at bases; occasional crackles heard Abdomen: soft, nontender, nondistended, positive bowel sounds Extremities: no cyanosis or clubbing; trace edema Skin: warm and intact Objective Data Vital Signs Vital Signs: Vital Signs Temp Pulse Pulse Resp BP Pulse Ox 05/16/21 14:00 101 H 24 H 115/66 91 05/16/21 12:00 36.7 C 102 H 102 H 25 H 115/67 92 05/16/21 10:00 102 H 23 H 113/67 92 05/16/21 09:11 92 05/16/21 08:00 36.6 C 98 98 29 H 102/75 92 05/16/21 06:00 97 24 H 112/69 92 05/16/21 04:00 36.8 C 96 24 H 115/64 92 05/16/21 02:00 92 22 H 103/75 94 05/16/21 00:00 36.8 C 89 22 H 119/79 92 05/15/21 22:00 88 21 H 101/68 92 05/15/21 20:00 36.6 C 82 21 H 102/79 92 Intake/Output Intake/Output: Intake & Output
--- NOTE | 2021-05-16 14:45 | PM.IMPN ---
Progress Note: A&P Assessment and Plan (1) Septic shock: Code(s): A41.9 - Sepsis, unspecified organism; R65.21 - Severe sepsis with septic shock Status: Acute Assessment and Plan: Presented with severe anemia, hypotension, hypoxia She has multiple potential sources the form of UTI, peritonitis, and pneumonia -patient has received adequate amount of IV fluids and was on Levophed which has been of since 05/14/2021. -she appears to be have a developing volume overload hence IV fluids have been stopped per DC yesterday -05/13/2021 blood cultures x2 are negative so far -05/13/2021 urine cultures is growing E coli which is sensitive to Zosyn -her peritoneal fluid suggest infection the form of increased neutrophil count although total counts was not done due to clotting of same but in the presence of abdominal tenderness cloudy fluid and increased neutrophil count it fits the the diagnosis of peritonitis -continue Zosyn (05/13) but will discontinue vancomycin (05/14) -patient also has vulvovaginitis and oral thrush and was started on Diflucan (05/14) x3 days, nystatin powder to the perineal area (2) Altered mental status: Code(s): R41.82 - Altered mental status, unspecified Status: Acute Assessment and Plan: Altered mental status could be related to severe anemia, hypotension, hypoxia -improving. Continue to hold sedatives. -able to hold a conversation she was slow to answer question. Ammonia level 26 -will continue to monitor (3) Severe anemia: Code(s): D64.9 - Anemia, unspecified Status: Acute Assessment and Plan: Patient presented with a hemoglobin of 5.0 -received 2 units of packed RBCs; hemoglobin holding at 7.7 today. -INR is 1.7 and was given vitamin K -EGD showed gastritis and hiatal hernia (4) Acute GI bleeding: Code(s): K92.2 - Gastrointestinal hemorrhage, unspecified Status: Acute Assessment and Plan: Stool guaiac was positive in ER EGD showed gastritis Continue PPI Off of Protonix infusion and octreotide infusion. (5) Tobacco dependence: Code(s): F17.200 - Nicotine dependence, unspecified, uncomplicated Status: Acute Assessment and Plan: Offer nicotine patch upon request. Not a candidate for counseling at this time until mental status further improved (6) Alcohol dependence: Code(s): F10.20 - Alcohol dependence, uncomplicated Status: Acute Assessment and Plan: Continue thiamine and folic acid (7) DVT prophylaxis: Code(s): Z29.9 - Encounter for prophylactic measures, unspecified Status: Acute Assessment and Plan: SCDs (8) Suspected 2019 novel coronavirus infection: Code(s): Z20.822 - Contact with and (suspected) exposure to COVID-19 Status: Acute Assessment and Plan: Patient states she may have been exposed to COVID by her children. -she has received 1 dose of [employer] vaccine in March 2021 -SARS-CoV-2 PCR -NEGATIVE -will discontinue isolation and precautions (9) Acute kidney injury: Code(s): N17.9 - Acute kidney failure, unspecified Status: Acute Assessment and Plan: Decreased urine output with worsening renal function -creatinine is getting worse; 1.8->2.4->3.1. -urinary output is plummeting. 775ccs over the previous 24 hours. 12 hours into today's shift, she has only produced 200 cc of urine. -likely related hypovolemia, septic shock, infection. Patient also has cirrhosis, possible hepatorenal syndrome -unremarkable renal ultrasound -nephrology has been consulted. Acute kidney injury is likely multifactorial in the setting of hypovolemia, septic shock, liver cirrhosis and possibly hepatorenal syndrome. Continue supportive management for the time being. -will maintain mean arterial pressures for adequate end organ perfusion -Lasix 80 mg IV x1 again today -there is no emergent indication for renal replacement therapy. (10) Thrombocytop
[2021-05-16 18:24] LABS: Glucose Point of Care 121 mg/dl (65-105)
[2021-05-16 23:31] LABS: Glucose Point of Care 117 mg/dl (65-105)
[2021-05-17] VITALS (14 sets, daily range): BP systolic 114–128; BP diastolic 75–88; PULSE 87–94; RESP 20–26; TEMP 36.4–36.8; O2SAT 90–98; BMI 28.9
[2021-05-17] MEDS: CENTRAL LINE FLUSH 10 ML IV PUSH ×3 (05:07→20:56)
[2021-05-17 05:30] LABS: Hematocrit 24.5 % (37.0-47.0); Hemoglobin 8.1 g/dL (12.0-15.0); Immature Platelet Fraction Pct 11.9 % (0.9-11.2); Mean Corpuscular HGB Conc 33.1 g/dl (32-36); Mean Corpuscular Hemoglobin 33.8 pg (26-34); Mean Corpuscular Volume 102.1 fl (80-100); Mean Platelet Volume 11.5 fl (7.4-10.4); Platelet Count Result 68 k/mm3 (150-375); White Blood Count 14.3 K/mm3 (4.5-10.0)
[2021-05-17 05:52] LABS: Alanine Aminotransferase 24 U/L (4-35); Albumin Level 3.3 g/dL (3.5-5.1); Alkaline Phosphatase 202 U/L (38-126); Anion Gap 11 mmol/L (8-16); Aspartate Amino Transferase 93 U/L (14-36); Bilirubin,Total 2.7 mg/dL (0.2-1.3); Blood Urea Nitrogen 103 mg/dL (7-17); Calcium 8.8 mg/dL (8.4-10.2); Carbon Dioxide 30 mmol/L (22-30); Chloride 91 mmol/L (98-107); Estimated CRCL calculation 17 ml/min; Estimated Glomerular Filt Rate 12; Glucose 107 mg/dL (65-110); Magnesium 1.9 mg/dL (1.6-2.3); Potassium 3.5 mmol/L (3.4-5.0); Sodium 132 mmol/L (137-145)
[2021-05-17] MEDS: FOLIC ACID 1 MG/0.2 ML INJ IV PUSH (07:59)
[2021-05-17] MEDS: PANTOPRAZOLE SODIUM IV 40 MG VIAL IV PUSH ×2 (08:01→20:55)
[2021-05-17] MEDS: TOLNAFTATE 1% POWDER 45 GM BTL 1 APPLIC TOPICAL ×2 (08:01→20:55)
[2021-05-17] MEDS: THIAMINE HCL 200 MG/2 ML VIAL 100 MG IV PUSH (08:01)
[2021-05-17] MEDS: FUROSEMIDE INJ 100 MG/10 ML VIAL 80 MG IV PUSH (09:43)
--- NOTE | 2021-05-17 10:28 | WPDINTPN ---
Progress Note: A&P Assessment and Plan (1) Septic shock: Code(s): A41.9 - Sepsis, unspecified organism; R65.21 - Severe sepsis with septic shock Status: Acute Assessment and Plan: Presented with severe anemia, hypotension, hypoxia She has multiple potential sources the form of UTI, peritonitis, and pneumonia -patient has received adequate amount of IV fluids and was on Levophed which is now off for last few days -she appears to be have developed volume overload hence IV fluids were DC and patient was started on Lasix -05/13/2021 blood cultures x2 are negative so far -05/13/2021 urine cultures is growing E coli which is sensitive to Zosyn -her peritoneal fluid suggest infection the form of increased neutrophil count although total counts was not done due to clotting of same but in the presence of abdominal tenderness cloudy fluid and increased neutrophil count it fits the the diagnosis of peritonitis -continue Zosyn (05/13) but vancomycin has been discontinued -patient also has vulvovaginitis and oral thrush and was started on Diflucan (05/14) x3 days, nystatin powder to the perineal area (2) Altered mental status: Code(s): R41.82 - Altered mental status, unspecified Status: Acute Assessment and Plan: Patient appears to have toxic metabolic encephalopathy which has been complicated by uremia She has a fluctuating mental status in which she is either fully oriented of partially into depending on the day. She does not have any focal neurological deficit Monitor and Continue to hold sedatives. Ammonia level 26 (3) Severe anemia: Code(s): D64.9 - Anemia, unspecified Status: Acute Assessment and Plan: Patient presented with a hemoglobin of 5.0 -received 2 units of packed RBCs -INR is 1.7 and was given vitamin K -EGD showed gastritis and hiatal hernia -hemoglobin has been stable will continue to monitor (4) Acute GI bleeding: Code(s): K92.2 - Gastrointestinal hemorrhage, unspecified Status: Acute Assessment and Plan: Stool guaiac was positive in ER EGD showed gastritis Continue PPI IV Off of Protonix infusion and octreotide infusion (5) Tobacco dependence: Code(s): F17.200 - Nicotine dependence, unspecified, uncomplicated Status: Acute Assessment and Plan: Not a candidate for counseling at this time until mental status further improved (6) Alcohol dependence: Code(s): F10.20 - Alcohol dependence, uncomplicated Status: Acute Assessment and Plan: Continue thiamine and folic acid (7) DVT prophylaxis: Code(s): Z29.9 - Encounter for prophylactic measures, unspecified Status: Acute Assessment and Plan: SCDs (8) Suspected 2019 novel coronavirus infection: Code(s): Z20.822 - Contact with and (suspected) exposure to COVID-19 Status: Acute Assessment and Plan: Patient states she may have been exposed to COVID by her children. -she has received 1 dose of [employer]ogn[employer] vaccine in March 2021 -SARS-CoV-2 PCR -NEGATIVE -will discontinue isolation and precautions (9) Acute kidney injury: Code(s): N17.9 - Acute kidney failure, unspecified Status: Acute Assessment and Plan: Decreased urine output with worsening renal function -likely related hypovolemia, septic shock, infection. Patient also has cirrhosis, possible hepatorenal syndrome -unremarkable renal ultrasound -nephrology has been consulted -will maintain mean arterial pressures for adequate end organ perfusion -she had 750 mL of urine output over last 24 hours. -continue Lasix 80 mg IV x1 again today -may need hemodialysis if continues to worsen. Will discuss with nephrology (10) Thrombocytopenia: Code(s): D69.6 - Thrombocytopenia, unspecified Status: Acute Assessment and Plan: Multifactorial-cirrhosis, alcohol abuse, sepsis. Not on any anticoagulation Monitor and transfuse as needed (11)
[2021-05-17 13:48] LABS: Glucose Point of Care 116 mg/dl (65-105)
--- NOTE | 2021-05-17 15:39 | P.PNNP_ITS ---
Progress Note: A&P Assessment and Plan (1) Acute kidney injury: Code(s): N17.9 - Acute kidney failure, unspecified Status: Acute Assessment and Plan: * normal creatinine noted on admission * likely multifactorial: * hypovolemia * septic shock/hypotension * infection * liver cirrhosis * possible hepatorenal syndrome(?) * renal ultrasound with any acute issues * urine electrolytes consistent with prerenal azotemia * however, this could be reflective her liver physiology (decreased effective circulating volume leading to chronic prerenal azotemia) * maintain MAP to ensure adequate renal perfusion * follow trend of repeat labs and UOP (2) Septic shock: Code(s): A41.9 - Sepsis, unspecified organism; R65.21 - Severe sepsis with septic shock Status: Acute Assessment and Plan: * better -- off pressors * based on presentation of severe anemia, low BP, and hypoxia * significant lactic acidosis on admission with improvement s/p IVF resuscitation * follow culture date * continue broad spectrum antibiotics (3) Altered mental status: Code(s): R41.82 - Altered mental status, unspecified Status: Acute Assessment and Plan: * clinically better at this time * likely due to hypotension, shock, and hypoxia * follow mentation (4) Severe anemia: Code(s): D64.9 - Anemia, unspecified Status: Acute Assessment and Plan: * Hgb 5.0 on presentation * appropriate incrementation with PRBC transfusion * see #5 (5) Acute GI bleeding: Code(s): K92.2 - Gastrointestinal hemorrhage, unspecified Status: Acute Assessment and Plan: * guaiac positive * s/p EGD with no active bleeding found - only hiatal hernia and gastritis found * follow serial H/Hs * Gastroenterology following with recommendations noted (6) Alcoholic hepatitis: Code(s): K70.10 - Alcoholic hepatitis without ascites Status: Acute Assessment and Plan: * as noted by admission labs - elevated LFTs and bilirubin * follow trend of LFTs * continue supportive therapy Will continue to follow. Subjective Date/time seen: 05/17/21 15:39 Patient's mentation is about the same -- seems drowsy but will answer questions with stimulation; oral intake appears suboptimal; better urine output noted in the last 24 hours (with the assistance of diuretics) but BUN and creatinine continue to trend up; no other new issues/events overnight or earlier this AM. Exam Narrative: General: ill appearing female in NAD Heart: normal S1 and S2; no rub Lungs: coarse and decreased at bases Abdomen: soft, nontender, nondistended, positive bowel sounds Extremities: no cyanosis or clubbing; trace edema Skin: no rash Objective Data Vital Signs Vital Signs: Vital Signs Temp Pulse Pulse Resp BP Pulse Ox 05/17/21 14:00 87 22 H 117/83 96 05/17/21 12:00 36.6 C 89 24 H 124/88 96 05/17/21 10:00 89 24 H 124/78 95 05/17/21 08:00 36.4 C 90 22 H 118/75 96 05/17/21 06:00 92 25 H 128/81 94 05/17/21 04:00 36.8 C 92 25 H 119/78 94 05/17/21 03:25 94 23 H 96 05/17/21 03:24 93 05/17/21 02:00 94 23 H 123/79 96 05/17/21 00:00 36.4 C L 92 26 H 114/78 94 05/16/21 23:09 95 22 H 96 05/16/21 23:05 95
--- NOTE | 2021-05-17 15:39 | PM.PNNEP ---
Progress Note: A&P Assessment and Plan (1) Acute kidney injury: Code(s): N17.9 - Acute kidney failure, unspecified Status: Acute Assessment and Plan: normal creatinine noted on admission likely multifactorial: hypovolemia septic shock/hypotension infection liver cirrhosis possible hepatorenal syndrome(?) renal ultrasound with any acute issues urine electrolytes consistent with prerenal azotemia however, this could be reflective her liver physiology (decreased effective circulating volume leading to chronic prerenal azotemia) maintain MAP to ensure adequate renal perfusion follow trend of repeat labs and UOP (2) Septic shock: Code(s): A41.9 - Sepsis, unspecified organism; R65.21 - Severe sepsis with septic shock Status: Acute Assessment and Plan: better -- off pressors based on presentation of severe anemia, low BP, and hypoxia significant lactic acidosis on admission with improvement s/p IVF resuscitation follow culture date continue broad spectrum antibiotics (3) Altered mental status: Code(s): R41.82 - Altered mental status, unspecified Status: Acute Assessment and Plan: clinically better at this time likely due to hypotension, shock, and hypoxia follow mentation (4) Severe anemia: Code(s): D64.9 - Anemia, unspecified Status: Acute Assessment and Plan: Hgb 5.0 on presentation appropriate incrementation with PRBC transfusion see #5 (5) Acute GI bleeding: Code(s): K92.2 - Gastrointestinal hemorrhage, unspecified Status: Acute Assessment and Plan: guaiac positive s/p EGD with no active bleeding found - only hiatal hernia and gastritis found follow serial H/Hs Gastroenterology following with recommendations noted (6) Alcoholic hepatitis: Code(s): K70.10 - Alcoholic hepatitis without ascites Status: Acute Assessment and Plan: as noted by admission labs - elevated LFTs and bilirubin follow trend of LFTs continue supportive therapy Will continue to follow. Subjective Date/time seen: 05/17/21 15:39 Patient's mentation is about the same -- seems drowsy but will answer questions with stimulation; oral intake appears suboptimal; better urine output noted in the last 24 hours (with the assistance of diuretics) but BUN and creatinine continue to trend up; no other new issues/events overnight or earlier this AM. Exam Narrative: General: ill appearing female in NAD Heart: normal S1 and S2; no rub Lungs: coarse and decreased at bases Abdomen: soft, nontender, nondistended, positive bowel sounds Extremities: no cyanosis or clubbing; trace edema Skin: no rash Objective Data Vital Signs Vital Signs: Vital Signs Temp Pulse Pulse Resp BP Pulse Ox 05/17/21 14:00 87 22 H 117/83 96 05/17/21 12:00 36.6 C 89 24 H 124/88 96 05/17/21 10:00 89 24 H 124/78 95 05/17/21 08:00 36.4 C 90 22 H 118/75 96 05/17/21 06:00 92 25 H 128/81 94 05/17/21 04:00 36.8 C 92 25 H 119/78 94 05/17/21 03:25 94 23 H 96 05/17/21 03:24 93 05/17/21 02:00 94 23 H 123/79 96 05/17/21 00:00 36.4 C L 92 26 H 114/78 94 05/16/21 23:09 95 22 H 96 05/16/21 23:05 95 05/16/21 22:00 95 22 H 119/76 96 05/16/21 20:15 36.6 C 95 23 H 117/72 93 05/16/21 20:14 94 23 H 95 05/16/21 20:08 94 85 05/16/21 18:00 101 H 23 H 121/67 94 Intake/Output Intake/Output: Intake & Output 05/14/21 05/15/21 05/16/21 05/17/21 23:59 23:59 23:59 23:59 Intake Total 4556.667 1100 600 150 Output Total 325 2125 750 750 Balance 4231.667 -1025 -150 -600 Meds/Results Medications: Active Medications Generic Name Dose Route Start Last Admin Trade Name Freq PRN Reason Stop Dose Admin Dextrose 12.5 gm 05/13/21 07:44 Dextrose 50% 25 Gm/50 Ml Syringe IV PUSH PRN PRN Hypog
--- NOTE | 2021-05-17 15:49 | WPDGIPROGNO ---
Progress Note: A&P Assessment and Plan (1) Gastritis: Code(s): K29.70 - Gastritis, unspecified, without bleeding Status: Acute Assessment and Plan: egd only gastritis, no varices, no ulcers or stigmata of bleeding continue iv protonix (2) Severe anemia: Code(s): D64.9 - Anemia, unspecified Status: Acute Assessment and Plan: hb remains ~ 8 after blood transfusion probably from cirrhosis, etoh abuse with abnormal bone marrow, malnutrition, renal failure, etc (3) Cirrhosis, alcoholic: Code(s): K70.30 - Alcoholic cirrhosis of liver without ascites Status: Acute Assessment and Plan: supportive care high MELD score mostly driven by worsening renal failure s/p paracentesis with cloudy appearance (could not get count but noted increase neutrophils)- she has been on antibiotics- septic shock resolved she is not eating and probably will require NGT for feeding thiamine, nutritional support (4) Septic shock: Code(s): A41.9 - Sepsis, unspecified organism; R65.21 - Severe sepsis with septic shock Status: Acute Assessment and Plan: improved (5) Acute kidney injury: Code(s): N17.9 - Acute kidney failure, unspecified Status: Acute Assessment and Plan: worsening renal failure multifactorial, ? HRS will give trial of iv albumin on admission she was on levophed (6) Ascites: Code(s): R18.8 - Other ascites Status: Acute Assessment and Plan: s/p paracentesis will need 2g na diet (7) Elevated liver enzymes: Code(s): R74.8 - Abnormal levels of other serum enzymes Status: Acute (8) Altered mental status: Code(s): R41.82 - Altered mental status, unspecified Status: Acute Assessment and Plan: monitor Subjective Date/time seen: 05/17/21 15:49 Interval history: still confused and hardly eating Review of Systems Review of Systems: All systems reviewed & are unremarkable except as noted in HPI and below Exam Const: General: comfortable and no acute distress Other: confused HENMT: General nose exam: Normal nares present Mouth: Yes Abnormal oral and palatal mucosa present (dry mouth and dried blood) Eyes: Sclera: sclerae normal Neck: Neck: supple Resp: Auscultation: diminished lung sounds Other: coarse breath sounds Cardio: Rate: regular rate GI: GI Palp: Yes Soft to palpation, No Tenderness to palpation present (GI) and No Guarding due to palpation present (GI) Auscultation: normal bowel sounds Urinary Catheter: Urinary Catheter: patent and draining Skin: General skin exam: no rashes or lesions noted Neuro: Other: awake and alert, still confused Extrem: General: pedal edema Psych: Affect: Anxious affect present Objective Data Vital Signs Vital Signs: Vital Signs - 24 hr 05/16/21 16:00 05/16/21 18:00 05/16/21 20:08 Temperature 99.0 F Pulse Rate 100 101 H 94 Pulse Rate [Apical Monitor] 100 85 Respiratory Rate 22 H 23 H Blood Pressure 115/59 L 121/67 Pulse Oximetry 92 94 05/16/21 20:14 05/16/21 20:15 05/16/21 22:00 Temperature 97.9 F Pulse Rate 94 95 95 Pulse Rate [Apical Monitor] Respiratory Rate 23 H 23 H 22 H Blood Pressure 117/72 119/76 Pulse Oximetry 95 93 96 05/16/21 23:05 05/16/21 23:09 05/17/21 00:00 Temperature 97.5 F L Pulse Rate 95 92 Pulse Rate [Apical Monitor] 95 Respiratory Rate 22 H 26 H Blood Pressure 114/78 Pulse Oximetry 96 94 05/17/21 02:00 05/17/21 03:24 05/17/21 03:25 Temperature Pulse Rate 94 94 Pulse Rate [Apical Monitor] 93 Respiratory Rate 23 H 23 H Blood Pressure 123/79 Pulse Oximetry 96 96 05/17/21 04:00 05/17/21 06:00 05/17/21 08:00 Temperature 98.3 F 97.6 F Pulse Rate 92 92 90 Pulse Rate [Apical Monitor] Respiratory Rate 25 H 25 H 22 H Blood Pressure 119/78 128/81 118/75 Pulse Oximetry 94 94 96 05/17/21 10:00 05/17/21 12:00 05/17/21 14:00 Temperature 97.8 F
[2021-05-17] MEDS: ALBUMIN HUMAN 5% 25 GM/500 ML BTL IV CONT (17:26)
[2021-05-17 18:48] LABS: Chloride Rand Ur <20 mmol/L (32-290); Creatinine Random Urine 65 mg/dL (20-275)
[2021-05-17 20:16] LABS: Glucose Point of Care 114 mg/dl (65-105)
[2021-05-17 21:12] LABS: Total Protein Peritoneal Fluid <3.0 g/dL
[2021-05-18] VITALS (8 sets, daily range): BP systolic 113–137; BP diastolic 74–107; PULSE 96–98; RESP 22–24; TEMP 36.6–36.9; O2SAT 91–97
[2021-05-18 01:00] LABS: Glucose Point of Care 115 mg/dl (65-105)
[2021-05-18] MEDS: CENTRAL LINE FLUSH 10 ML IV PUSH ×3 (05:17→21:50)
[2021-05-18 05:23] LABS: Hematocrit 24.2 % (37.0-47.0); Mean Corpuscular HGB Conc 33.1 g/dl (32-36); Mean Corpuscular Hemoglobin 34.3 pg (26-34); Mean Corpuscular Volume 103.9 fl (80-100); Mean Platelet Volume 11.6 fl (7.4-10.4); Platelet Count Result 96 k/mm3 (150-375); Red Blood Count 2.33 M/mm3 (4.2-5.4); Red Cell Distribution Width 23.2 % (11.5-14.5)
[2021-05-18 05:47] LABS: Alanine Aminotransferase 24 U/L (4-35); Albumin Level 3.5 g/dL (3.5-5.1); Alkaline Phosphatase 226 U/L (38-126); Anion Gap 15 mmol/L (8-16); Aspartate Amino Transferase 93 U/L (14-36); Bilirubin,Total 2.5 mg/dL (0.2-1.3); Blood Urea Nitrogen 104 mg/dL (7-17); Calcium 9.5 mg/dL (8.4-10.2); Carbon Dioxide 30 mmol/L (22-30); Chloride 96 mmol/L (98-107); Estimated CRCL calculation 13 ml/min; Estimated Glomerular Filt Rate 9; Glucose 107 mg/dL (65-110); Phosphorus 5.6 mg/dL (2.5-4.5); Sodium 141 mmol/L (137-145)
[2021-05-18 07:24] LABS: Albumin Peritoneal Fluid 1.3 g/dL
[2021-05-18] MEDS: THIAMINE HCL 200 MG/2 ML VIAL 100 MG IV PUSH (08:57)
[2021-05-18] MEDS: PANTOPRAZOLE SODIUM IV 40 MG VIAL IV PUSH ×2 (08:57→21:50)
[2021-05-18] MEDS: TOLNAFTATE 1% POWDER 45 GM BTL 1 APPLIC TOPICAL ×2 (08:57→21:50)
[2021-05-18] MEDS: FOLIC ACID 1 MG/0.2 ML INJ IV PUSH (08:59)
--- NOTE | 2021-05-18 11:43 | PCNFU ---
Nutrition Follow-Up Complete: Inadequate Oral Intake as related to Pneumonia as evidenced by poor po intake Goal: Meet estimated nutritional needs Patient has limited progress towards goal. We will continue current goal. Pt current nutrition is Clear liquids. Nutrition recommendation: Nepro at 10 ml/hr over 22 hours. Last recorded weight is 78.2 kg, up from 76.5 kg. Bowel Motility:+BM reported 05/17 Labs Reviewed:PO4 5.6,GFR 9,BUN 104, Cr 5.10 Meds Noted:Folic Acid, Thiamine, Zosyn, Protonix. Skin: Perianal-Maceration Additional Notes: Nutrition follow up. Spoke with nursing today, oral intake for breakfast Ensure Clear (240 kcals), bites of lemon ice and broth soup. Oral intake x 6 days has been poor. Family has been concerned about intake prior to admit. Recommend: Dobbhoff feedings of Nepro at 10 ml/hr Day 1 increase by 10 ml Day 2 to 20 ml/hr with goal rate at 35 ml/hr over 22 hours. Free water flush 30 ml q 4 hours. Monitoring: Will monitor every Saturday and Saturday.
--- NOTE | 2021-05-18 12:10 | P.PNNP_ITS ---
Progress Note: A&P Assessment and Plan (1) Acute kidney injury: Code(s): N17.9 - Acute kidney failure, unspecified Status: Acute Assessment and Plan: * normal creatinine noted on admission * likely multifactorial: * hypovolemia * septic shock/hypotension * infection * liver cirrhosis * possible hepatorenal syndrome(?) * renal ultrasound with any acute issues * urine electrolytes consistent with prerenal azotemia * however, this could be reflective her liver physiology (decreased effective circulating volume leading to chronic prerenal azotemia) * creatinine seems to be stabilizing -- possible peak/plateau soon(?) * follow trend of repeat labs and UOP (2) Septic shock: Code(s): A41.9 - Sepsis, unspecified organism; R65.21 - Severe sepsis with septic shock Status: Acute Assessment and Plan: * resolved -- off pressors * based on presentation of severe anemia, low BP, and hypoxia * significant lactic acidosis on admission with improvement s/p IVF resusci tation * blood culture negative to date; urine culture with E. coli * continue antibiotics (3) Altered mental status: Code(s): R41.82 - Altered mental status, unspecified Status: Acute Assessment and Plan: * clinically better (but continues to flucutate) * likely due to hypotension, shock, and hypoxia * follow mentation (4) Severe anemia: Code(s): D64.9 - Anemia, unspecified Status: Acute Assessment and Plan: * Hgb 5.0 on presentation * appropriate incrementation with PRBC transfusion * see #5 (5) Acute GI bleeding: Code(s): K92.2 - Gastrointestinal hemorrhage, unspecified Status: Acute Assessment and Plan: * guaiac positive * s/p EGD with no active bleeding found - only hiatal hernia and gastritis found * follow serial H/Hs * Gastroenterology following with recommendations noted (6) Alcoholic hepatitis: Code(s): K70.10 - Alcoholic hepatitis without ascites Status: Acute Assessment and Plan: * as noted by admission labs - elevated LFTs and bilirubin * follow trend of LFTs * continue supportive therapy Will continue to follow. Subjective Date/time seen: 05/18/21 12:10 No real significant change noted at this time -- fluctuating urine output (better with PRN IV diuretics) and BUN relatively stable but creatinine continues to fluctuate; oral intake remains an issue/problem; furthermore, continues to have intermittent confusion as well. Exam Narrative: General: ill appearing female in NAD Heart: normal S1 and S2; no rub Lungs: coarse and decreased at bases Abdomen: soft, nontender, nondistended, positive bowel sounds Extremities: no cyanosis or clubbing; trace edema Skin: no nodules Objective Data Vital Signs Vital Signs: Vital Signs Temp Pulse Pulse Pulse Resp BP Pulse Ox 05/18/21 10:00 96 05/18/21 08:00 36.7 C 96 22 H 137/96 H 93 05/18/21 06:00 96 05/18/21 04:00 36.6 C 97 98 24 H 129/80 93 05/18/21 02:00 96 05/18/21 00:00 36.6 C 98 98 24 H 113/74 93 05/17/21 22:00 93 05/17/21 20:00 36.4 C 91 91 24 H 128/87 90 05/17/21 18:00 88 05/17/21 16:00 36.5 C 88 20 123/86 97 05/17/21 14:00 87 22 H 117/83 96 Intake/Outpu
--- NOTE | 2021-05-18 12:10 | PM.PNNEP ---
Progress Note: A&P Assessment and Plan (1) Acute kidney injury: Code(s): N17.9 - Acute kidney failure, unspecified Status: Acute Assessment and Plan: normal creatinine noted on admission likely multifactorial: hypovolemia septic shock/hypotension infection liver cirrhosis possible hepatorenal syndrome(?) renal ultrasound with any acute issues urine electrolytes consistent with prerenal azotemia however, this could be reflective her liver physiology (decreased effective circulating volume leading to chronic prerenal azotemia) creatinine seems to be stabilizing -- possible peak/plateau soon(?) follow trend of repeat labs and UOP (2) Septic shock: Code(s): A41.9 - Sepsis, unspecified organism; R65.21 - Severe sepsis with septic shock Status: Acute Assessment and Plan: resolved -- off pressors based on presentation of severe anemia, low BP, and hypoxia significant lactic acidosis on admission with improvement s/p IVF resuscitation blood culture negative to date; urine culture with E. coli continue antibiotics (3) Altered mental status: Code(s): R41.82 - Altered mental status, unspecified Status: Acute Assessment and Plan: clinically better (but continues to flucutate) likely due to hypotension, shock, and hypoxia follow mentation (4) Severe anemia: Code(s): D64.9 - Anemia, unspecified Status: Acute Assessment and Plan: Hgb 5.0 on presentation appropriate incrementation with PRBC transfusion see #5 (5) Acute GI bleeding: Code(s): K92.2 - Gastrointestinal hemorrhage, unspecified Status: Acute Assessment and Plan: guaiac positive s/p EGD with no active bleeding found - only hiatal hernia and gastritis found follow serial H/Hs Gastroenterology following with recommendations noted (6) Alcoholic hepatitis: Code(s): K70.10 - Alcoholic hepatitis without ascites Status: Acute Assessment and Plan: as noted by admission labs - elevated LFTs and bilirubin follow trend of LFTs continue supportive therapy Will continue to follow. Subjective Date/time seen: 05/18/21 12:10 No real significant change noted at this time -- fluctuating urine output (better with PRN IV diuretics) and BUN relatively stable but creatinine continues to fluctuate; oral intake remains an issue/problem; furthermore, continues to have intermittent confusion as well. Exam Narrative: General: ill appearing female in NAD Heart: normal S1 and S2; no rub Lungs: coarse and decreased at bases Abdomen: soft, nontender, nondistended, positive bowel sounds Extremities: no cyanosis or clubbing; trace edema Skin: no nodules Objective Data Vital Signs Vital Signs: Vital Signs Temp Pulse Pulse Pulse Resp BP Pulse Ox 05/18/21 10:00 96 05/18/21 08:00 36.7 C 96 22 H 137/96 H 93 05/18/21 06:00 96 05/18/21 04:00 36.6 C 97 98 24 H 129/80 93 05/18/21 02:00 96 05/18/21 00:00 36.6 C 98 98 24 H 113/74 93 05/17/21 22:00 93 05/17/21 20:00 36.4 C 91 91 24 H 128/87 90 05/17/21 18:00 88 05/17/21 16:00 36.5 C 88 20 123/86 97 05/17/21 14:00 87 22 H 117/83 96 Intake/Output Intake/Output: Intake & Output 05/15/21 05/16/21 05/17/21 05/18/21 23:59 23:59 23:59 23:59 Intake Total 1100 600 315 100 Output Total 2125 750 1650 500 Balance -8626 -150 -1335 -400 Meds/Results Medications: Active Medications Generic Name Dose Route Start Last Admin Trade Name Freq PRN Reason Stop Dose Admin Dextrose 12.5 gm 05/13/21 07:44 Dextrose 50% 25 Gm/50 Ml Syringe IV PUSH PRN PRN Hypoglycemia Protocol Folic Acid 1 mg 05/13/21 09:00 05/18/21 08:59 Folic Acid 1 Mg/0.2 Ml Inj IV PUSH 1 mg QAM KAI Administration Glucagon 1 mg 05/13/21 07:44 Glucagon For Inj 1 Mg Vial IM WI
[2021-05-18 12:50] LABS: Glucose Point of Care 166 mg/dl (65-105)
[2021-05-18] MEDS: AMINO ACIDS 5%/D15W/E-LYTES/CA 2,000 ML with MULTIVITAMINS-12 INJ VIAL 1 2.5 ML, MULTIV... 40 ML IV CONT (14:55)
[2021-05-18] MEDS: FAT EMULSIONS IV 20% 250 ML 20.83 ML IVPB (14:56)
[2021-05-18 15:02] LABS: Basophils Percent Auto 0.2 % (0.2-1.2); Eosinophils Absolute Auto 0.2 K/mm3 (0-0.3); Eosinophils Percent Auto 1.4 % (0-4.4); Hematocrit 24.1 % (37.0-47.0); Hemoglobin 7.9 g/dL (12.0-15.0); Immature Granulocyte Absolute 0.12 K/mm3 (0.00-0.031); Immature Granulocyte Percent A 0.7 % (0-0.5); Lymphocytes Absolute Auto 1.08 K/mm3 (0.9-3.2); Lymphocytes Percent Auto 6.7 % (18.3-44.2); Mean Corpuscular HGB Conc 32.8 g/dl (32-36); Mean Corpuscular Hemoglobin 34.3 pg (26-34); Mean Corpuscular Volume 104.8 fl (80-100); Mean Platelet Volume 11.9 fl (7.4-10.4); Monocytes Absolute Auto 0.9 K/mm3 (0.1-0.6); Monocytes Percent Auto 5.3 % (2.6-8.5); Neutrophils Absolute Auto 13.8 K/mm3 (1.3-6.7); Neutrophils Percent Auto 85.7 % (45.5-73.1); Nucleated Red Blood Cells Perc 0.1 % (0.0-0.2); Platelet Count Result 124 k/mm3 (150-375); Red Cell Distribution Width 22.7 % (11.5-14.5); White Blood Count 16.1 K/mm3 (4.5-10.0)
[2021-05-18 15:16] LABS: Alanine Aminotransferase 25 U/L (4-35); Albumin Level 3.6 g/dL (3.5-5.1); Alkaline Phosphatase 226 U/L (38-126); Anion Gap 13 mmol/L (8-16); Aspartate Amino Transferase 97 U/L (14-36); Bilirubin,Total 2.2 mg/dL (0.2-1.3); Blood Urea Nitrogen 111 mg/dL (7-17); Calcium 9.6 mg/dL (8.4-10.2); Carbon Dioxide 30 mmol/L (22-30); Chloride 94 mmol/L (98-107); Estimated CRCL calculation 15 ml/min; Estimated Glomerular Filt Rate 10; Glucose 121 mg/dL (65-110); Magnesium 1.9 mg/dL (1.6-2.3); Sodium 137 mmol/L (137-145)
[2021-05-18 15:17] LABS: Partial Thromboplastin Time 40.1 SECONDS (22.3-36.8)
--- NOTE | 2021-05-18 15:18 | PM.IMPN ---
Progress Note: A&P Assessment and Plan (1) Septic shock: Code(s): A41.9 - Sepsis, unspecified organism; R65.21 - Severe sepsis with septic shock Status: Acute Assessment and Plan: Presented with severe anemia, hypotension, hypoxia She has multiple potential sources the form of UTI, peritonitis, and pneumonia -continue Zosyn - Vancomycin has been stopped -patient also has vulvovaginitis and oral thrush and was started on Diflucan (05/14) x3 days, nystatin powder to the perineal area (2) Altered mental status: Code(s): R41.82 - Altered mental status, unspecified Status: Acute Assessment and Plan: Patient appears to have toxic metabolic encephalopathy which has been complicated by uremia creat is 4.7, nephrology consulted. (3) Severe anemia: Code(s): D64.9 - Anemia, unspecified Status: Acute Assessment and Plan: Patient presented with a hemoglobin of 5.0 -received 2 units of packed RBCs -INR is 1.7 and was given vitamin K -EGD showed gastritis and hiatal hernia -hb is 7.9 today (4) Acute GI bleeding: Code(s): K92.2 - Gastrointestinal hemorrhage, unspecified Status: Acute Assessment and Plan: Stool guaiac was positive in ER EGD showed gastritis Continue PPI IV (5) Tobacco dependence: Code(s): F17.200 - Nicotine dependence, unspecified, uncomplicated Status: Acute Assessment and Plan: Not a candidate for counseling at this time until mental status further improved (6) Alcohol dependence: Code(s): F10.20 - Alcohol dependence, uncomplicated Status: Acute Assessment and Plan: Continue thiamine and folic acid (7) DVT prophylaxis: Code(s): Z29.9 - Encounter for prophylactic measures, unspecified Status: Acute Assessment and Plan: SCDs (8) Suspected 2019 novel coronavirus infection: Code(s): Z20.822 - Contact with and (suspected) exposure to COVID-19 Status: Acute Assessment and Plan: Patient states she may have been exposed to COVID by her children. -she has received 1 dose of Pfizer vaccine in March 2021 -SARS-CoV-2 PCR -NEGATIVE -will discontinue isolation and precautions (9) Acute kidney injury: Code(s): N17.9 - Acute kidney failure, unspecified Status: Acute Assessment and Plan: Decreased urine output with worsening renal function -likely related hypovolemia, septic shock, infection. Patient also has cirrhosis, possible hepatorenal syndrome -unremarkable renal ultrasound -nephrology has been consulted (10) Thrombocytopenia: Code(s): D69.6 - Thrombocytopenia, unspecified Status: Acute Assessment and Plan: Multifactorial-cirrhosis, alcohol abuse, sepsis. SCDs (11) Electrolyte abnormality: Code(s): E87.8 - Other disorders of electrolyte and fluid balance, not elsewhere classified Status: Acute Assessment and Plan: Potassium stabilized (12) Hypoxia: Code(s): R09.02 - Hypoxemia Status: Acute Assessment and Plan: CT shows bilateral patchy consolidating infiltrates and effusions. Continue Zosyn, rpt CXR Additional Plan Diet: start TPN Code status: Full code Subjective Date/time seen: 05/18/21 15:18 Interval history: Reason for consult: Anemia, altered mental status, GI bleed, septic shock, pneumonia, vulvo-vaginitis 07/14/2020: Patient seen and examined the ICU, was started on Levophed overnight and is currently on 4 mcg/min. Patient is awake, alert answers to questions, denies any chest pain, shortness of breath, abdominal pain, nausea vomiting. Patient is having lot of pain mouth bedside RN tries to do oral care. Dried blood is seen around the lips but no obvious bleeding or hematemesis. Hemoglobin 7.6 this morning, .platelet counts have dropped to 89. Potassium 2.8. Creatinine has worsened to 1.80 this morning, LFTs improving. Afebrile, decrease UO
[2021-05-18 16:01] LABS: Transferrin < 80 mg/dL (206-381)
--- NOTE | 2021-05-18 17:10 | WPDGIPROGNO ---
Progress Note: A&P Assessment and Plan (1) Gastritis: Code(s): K29.70 - Gastritis, unspecified, without bleeding Status: Acute Assessment and Plan: egd only gastritis, no varices, no ulcers or stigmata of bleeding continue iv protonix (2) Severe anemia: Code(s): D64.9 - Anemia, unspecified Status: Acute Assessment and Plan: no signs of gib with hb remains ~ 8 after blood transfusion probably from cirrhosis, etoh abuse with abnormal bone marrow, malnutrition, renal failure, etc (3) Cirrhosis, alcoholic: Code(s): K70.30 - Alcoholic cirrhosis of liver without ascites Status: Acute Assessment and Plan: supportive care high MELD score mostly driven by worsening renal failure s/p paracentesis with cloudy appearance (could not get count but noted increase neutrophils)- she has been on antibiotics- septic shock resolved if she does not eat much then will order DHT placement for feeding thiamine, nutritional support (4) Acute kidney injury: Code(s): N17.9 - Acute kidney failure, unspecified Status: Acute Assessment and Plan: multifactorial, ? HRS ordered iv albumin, also will add octreotide SQ for possible HRS unfortunately worsening renal failure- nephrology on board on admission she was on levophed (5) Septic shock: Code(s): A41.9 - Sepsis, unspecified organism; R65.21 - Severe sepsis with septic shock Status: Acute Assessment and Plan: on admission (6) Ascites: Code(s): R18.8 - Other ascites Status: Acute Assessment and Plan: s/p paracentesis will need 2g na diet can not use diuretics in setting of SUMMER (7) Elevated liver enzymes: Code(s): R74.8 - Abnormal levels of other serum enzymes Status: Acute (8) Altered mental status: Code(s): R41.82 - Altered mental status, unspecified Status: Acute Assessment and Plan: monitor Subjective Date/time seen: 05/18/21 17:10 Interval history: no major changes, still poor appetite and confused Review of Systems Review of Systems: All systems reviewed & are unremarkable except as noted in HPI and below Exam Const: General: comfortable and no acute distress Other: confused HENMT: General nose exam: Normal nares present Eyes: Sclera: sclerae normal Neck: Neck: supple Resp: Auscultation: diminished lung sounds Other: coarse breath sounds and wheezing today Cardio: Rate: regular rate GI: GI Palp: Yes Soft to palpation, No Tenderness to palpation present (GI) and No Guarding due to palpation present (GI) Auscultation: normal bowel sounds Urinary Catheter: Urinary Catheter: patent and draining Skin: General skin exam: no rashes or lesions noted Neuro: Other: awake and alert, still confused Extrem: General: pedal edema Psych: Affect: Anxious affect present Objective Data Vital Signs Vital Signs: Vital Signs - 24 hr 05/17/21 18:00 05/17/21 20:00 05/17/21 22:00 Temperature 97.6 F Pulse Rate 88 91 93 Pulse Rate [Apical Monitor] 91 Pulse Rate [Left Radial] Respiratory Rate 24 H Blood Pressure 128/87 Pulse Oximetry 90 05/18/21 00:00 05/18/21 02:00 05/18/21 04:00 Temperature 97.9 F 97.9 F Pulse Rate 98 96 97 Pulse Rate [Apical Monitor] 98 Pulse Rate [Left Radial] 98 Respiratory Rate 24 H 24 H Blood Pressure 113/74 129/80 Pulse Oximetry 93 93 05/18/21 06:00 05/18/21 08:00 05/18/21 10:00 Temperature 98.0 F Pulse Rate 96 96 96 Pulse Rate [Apical Monitor] Pulse Rate [Left Radial] Respiratory Rate 22 H Blood Pressure 137/96 H Pulse Oximetry 93 05/18/21 16:00 Temperature 98.4 F Pulse Rate 98 Pulse Rate [Apical Monitor] Pulse Rate [Left Radial] Respiratory Rate 22 H Blood Pressure 134/107 H Pulse Oximetry 91 Intake/Output Intake/Output: Intake & Output 05/15/21 05/16/21 05/17/21 05/18/21 23:59 23:59 23:59 23:59 Intake Total 1100 600 315 150 Outpu
[2021-05-18] MEDS: OCTREOTIDE ACETATE 100 MCG/ML VIAL SUB-Q (18:13)
[2021-05-18] MEDS: HYDROmorphone HCL INJ (*CRX) 1 MG/ML SYR 0.5 MG IV PUSH (18:14)
[2021-05-18 18:24] LABS: Glucose Point of Care 129 mg/dl (65-105)
[2021-05-18 23:43] LABS: Glucose Point of Care 123 mg/dl (65-105)
[2021-05-19] VITALS (7 sets, daily range): BP systolic 121–145; BP diastolic 63–100; PULSE 85–100; RESP 16–23; TEMP 35.7–36.6; O2SAT 91–98
[2021-05-19] MEDS: CENTRAL LINE FLUSH 10 ML IV PUSH ×3 (06:03→21:38)
[2021-05-19 06:25] LABS: Anion Gap 12 mmol/L (8-16); Blood Urea Nitrogen 104 mg/dL (7-17); Calcium 9.7 mg/dL (8.4-10.2); Carbon Dioxide 31 mmol/L (22-30); Chloride 95 mmol/L (98-107); Estimated CRCL calculation 14 ml/min; Estimated Glomerular Filt Rate 10; Glucose 141 mg/dL (65-110); Phosphorus 6.2 mg/dL (2.5-4.5); Potassium 3.3 mmol/L (3.4-5.0); Sodium 138 mmol/L (137-145)
[2021-05-19] MEDS: FOLIC ACID 1 MG/0.2 ML INJ IV PUSH (09:15)
[2021-05-19] MEDS: OCTREOTIDE ACETATE 100 MCG/ML VIAL SUB-Q ×3 (09:15→18:16)
[2021-05-19] MEDS: THIAMINE HCL 200 MG/2 ML VIAL 100 MG IV PUSH (09:16)
[2021-05-19] MEDS: PANTOPRAZOLE SODIUM IV 40 MG VIAL IV PUSH ×2 (09:16→20:01)
[2021-05-19] MEDS: TOLNAFTATE 1% POWDER 45 GM BTL 1 APPLIC TOPICAL ×2 (09:16→20:01)
--- NOTE | 2021-05-19 11:19 | PCNFU ---
Nutrition Follow-Up Complete: Inadequate Oral Intake as related to Pneumonia as evidenced by poor po intake Goal: Meet estimated nutritional needs Patient has limited progress towards goal. We will continue current goal. Pt current nutrition is Full liquids with Ensure compact TID, Clinimix 5/15 a6 40 ml/hr with 250 ml of 20% Lipid Emulsion. Last recorded weight is 76.3 kg, down from 76.5 kg on admit. Bowel Motility:+BM reported 05/19 Labs Reviewed:BUN 104, Cr 5.0,Glu 141,PO4 6.2, Glu 141 Meds Noted:Protonix, Sandostatin, Diflucan, Folic Acid, Thiamine, Clinimix 5/15, 20% Lipid Emulsion. Skin:Perianal-Maceration. Additional Notes: Nutrition follow up. Patient seen today for nutrition follow up. Nursing tried assisting patient with breakfast, refused. TPN is the current nutrition providing 1180 kcals and 48 gms protein. Recommend goal rate of TPN at 60 ml/hr providing 1522 kcals and 72 gms protein. Monitoring: Will monitor every 3 days.
[2021-05-19 12:42] LABS: Glucose Point of Care 150 mg/dl (65-105)
--- NOTE | 2021-05-19 13:01 | PM.PNNEP ---
Progress Note: A&P Assessment and Plan (1) Acute kidney injury: Code(s): N17.9 - Acute kidney failure, unspecified Status: Acute Assessment and Plan: normal creatinine noted on admission likely multifactorial: hypovolemia septic shock/hypotension infection liver cirrhosis possible hepatorenal syndrome(?) renal ultrasound with any acute issues urine electrolytes consistent with prerenal azotemia however, this could be reflective her liver physiology (decreased effective circulating volume leading to chronic prerenal azotemia) creatinine seems to be stabilizing -- possible peak/plateau soon(?) follow trend of repeat labs and UOP (2) Septic shock: Code(s): A41.9 - Sepsis, unspecified organism; R65.21 - Severe sepsis with septic shock Status: Acute Assessment and Plan: resolved -- off pressors based on presentation of severe anemia, low BP, and hypoxia significant lactic acidosis on admission with improvement s/p IVF resuscitation blood culture negative to date; urine culture with E. coli continue antibiotics (3) Altered mental status: Code(s): R41.82 - Altered mental status, unspecified Status: Acute Assessment and Plan: clinically better (but continues to flucutate) likely due to hypotension, shock, and hypoxia follow mentation (4) Severe anemia: Code(s): D64.9 - Anemia, unspecified Status: Acute Assessment and Plan: Hgb 5.0 on presentation appropriate incrementation with PRBC transfusion see #5 (5) Acute GI bleeding: Code(s): K92.2 - Gastrointestinal hemorrhage, unspecified Status: Acute Assessment and Plan: guaiac positive s/p EGD with no active bleeding found - only hiatal hernia and gastritis found follow serial H/Hs Gastroenterology following with recommendations noted (6) Alcoholic hepatitis: Code(s): K70.10 - Alcoholic hepatitis without ascites Status: Acute Assessment and Plan: as noted by admission labs - elevated LFTs and bilirubin follow trend of LFTs continue supportive therapy Long and extensive (> 20 minutes) with mother at bedside regarding patient's renal failure and the hope of renal recovery with time and supportive therapy; she is aware that PRIMARY HEALTH ORGANISATION MANAGER/dialysis is a possibility but is hopeful that it will not need to be done. Will continue to follow. Subjective Date/time seen: 05/19/21 13:01 No real significant change; confused and minimal oral intake noted and started on TPN for nutrition support; mother at bedside and we discussed her daughter's overall condition as well as her renal dysfunction as well; no new issues/events overnight or earlier this AM. Exam Narrative: General: ill appearing female in NAD Heart: normal S1 and S2; no rub Lungs: coarse and decreased at bases Abdomen: soft, nontender, nondistended, positive bowel sounds Extremities: no cyanosis or clubbing; trace edema Skin: warm and intact Objective Data Vital Signs Vital Signs: Vital Signs Temp Pulse Resp BP Pulse Ox 05/19/21 12:00 121/100 H 05/19/21 08:00 36.5 C 94 23 H 141/94 H 91 05/19/21 00:00 36.6 C 100 19 145/92 H 97 05/18/21 20:00 96 05/18/21 16:00 36.9 C 98 22 H 134/107 H 91 Intake/Output Intake/Output: Intake & Output 05/16/21 05/17/21 05/18/21 05/19/21 23:59 23:59 23:59 23:59 Intake Total 600 814 474 6362 Output Total 750 1650 900 500 Balance -150 -835 -400 1555 Meds/Results Medications: Active Medications Generic Name Dose Route Start Last Admin Trade Name Freq PRN Reason Stop Dose Admin Dextrose 12.5 gm 05/13/21 07:44 Dextrose 50% 25 Gm/50 Ml Syringe IV PUSH PRN PRN Hypoglycemia Protocol Folic Acid 1 mg 05/13/21 09:00 05/19/21 09:15 Folic Acid 1 Mg/0.2 Ml Inj IV PUSH 1 mg QAM KAI Administration Glucagon 1 mg 05/13/21 07:44 Glucagon For Inj 1
--- NOTE | 2021-05-19 13:01 | P.PNNP_ITS ---
Progress Note: A&P Assessment and Plan (1) Acute kidney injury: Code(s): N17.9 - Acute kidney failure, unspecified Status: Acute Assessment and Plan: * normal creatinine noted on admission * likely multifactorial: * hypovolemia * septic shock/hypotension * infection * liver cirrhosis * possible hepatorenal syndrome(?) * renal ultrasound with any acute issues * urine electrolytes consistent with prerenal azotemia * however, this could be reflective her liver physiology (decreased effective circulating volume leading to chronic prerenal azotemia) * creatinine seems to be stabilizing -- possible peak/plateau soon(?) * follow trend of repeat labs and UOP (2) Septic shock: Code(s): A41.9 - Sepsis, unspecified organism; R65.21 - Severe sepsis with septic shock Status: Acute Assessment and Plan: * resolved -- off pressors * based on presentation of severe anemia, low BP, and hypoxia * significant lactic acidosis on admission with improvement s/p IVF resusci tation * blood culture negative to date; urine culture with E. coli * continue antibiotics (3) Altered mental status: Code(s): R41.82 - Altered mental status, unspecified Status: Acute Assessment and Plan: * clinically better (but continues to flucutate) * likely due to hypotension, shock, and hypoxia * follow mentation (4) Severe anemia: Code(s): D64.9 - Anemia, unspecified Status: Acute Assessment and Plan: * Hgb 5.0 on presentation * appropriate incrementation with PRBC transfusion * see #5 (5) Acute GI bleeding: Code(s): K92.2 - Gastrointestinal hemorrhage, unspecified Status: Acute Assessment and Plan: * guaiac positive * s/p EGD with no active bleeding found - only hiatal hernia and gastritis found * follow serial H/Hs * Gastroenterology following with recommendations noted (6) Alcoholic hepatitis: Code(s): K70.10 - Alcoholic hepatitis without ascites Status: Acute Assessment and Plan: * as noted by admission labs - elevated LFTs and bilirubin * follow trend of LFTs * continue supportive therapy Long and extensive (> 20 minutes) with mother at bedside regarding patient's renal failure and the hope of renal recovery with time and supportive therapy; she is aware that PROGRESS CLERK/dialysis is a possibility but is hopeful that it will not need to be done. Will continue to follow. Subjective Date/time seen: 05/19/21 13:01 No real significant change; confused and minimal oral intake noted and started on TPN for nutrition support; mother at bedside and we discussed her daughter's overall condition as well as her renal dysfunction as well; no new issues/events overnight or earlier this AM. Exam Narrative: General: ill appearing female in NAD Heart: normal S1 and S2; no rub Lungs: coarse and decreased at bases Abdomen: soft, nontender, nondistended, positive bowel sounds Extremities: no cyanosis or clubbing; trace edema Skin: warm and intact Objective Data Vital Signs Vital Signs: Vital Signs Temp Pulse Resp BP Pulse Ox 05/19/21 12:00 121/100 H 05/19/21 08:00 36.5 C 94 23 H 141/94 H 91 05/19/21 00:00 36.6 C 100 19 145/92 H 97 05/18/21 20:00 96 05/18/21 16:00 36.9 C 98 22 H 134/107 H 91 Intake/Output Intake/Output:
[2021-05-19] MEDS: AMINO ACIDS 5%/D15W/E-LYTES/CA 2,000 ML with MULTIVITAMINS-12 INJ VIAL 1 2.5 ML, MULTIV... 40 ML IV CONT (13:55)
[2021-05-19] MEDS: FAT EMULSIONS IV 20% 250 ML 20.83 ML IVPB (15:42)
[2021-05-19] MEDS: HYDROmorphone HCL INJ (*CRX) 1 MG/ML SYR 0.5 MG IV PUSH (16:00)
--- NOTE | 2021-05-19 16:16 | WPDGIPROGNO ---
Progress Note: A&P Assessment and Plan (1) Cirrhosis, alcoholic: Code(s): K70.30 - Alcoholic cirrhosis of liver without ascites Status: Acute Assessment and Plan: supportive care high MELD score mostly driven by renal failure s/p paracentesis with cloudy appearance- on antibiotics because had septic shock on admission (blood cultures negative, Urine Cx +) still poor appetite, will ask to place NGT vs DHT for enteral nutrition (she is not eating) then discontinue parenteral nutrition thiamine, will need nutritional support (2) Gastritis: Code(s): K29.70 - Gastritis, unspecified, without bleeding Status: Acute Assessment and Plan: egd only gastritis, no varices, no ulcers or stigmata of bleeding continue iv protonix (3) Severe anemia: Code(s): D64.9 - Anemia, unspecified Status: Acute Assessment and Plan: no signs of gib with low but stable hb probably from cirrhosis, etoh abuse with abnormal bone marrow, malnutrition, renal failure, etc (4) Acute kidney injury: Code(s): N17.9 - Acute kidney failure, unspecified Status: Acute Assessment and Plan: multifactorial, ? HRS s/p iv albumin, also on octreotide SQ for possible HRS still with renal failure- nephrology on board on admission she was on levophed (5) Septic shock: Code(s): A41.9 - Sepsis, unspecified organism; R65.21 - Severe sepsis with septic shock Status: Acute Assessment and Plan: on admission, resolved (6) Ascites: Code(s): R18.8 - Other ascites Status: Acute Assessment and Plan: s/p paracentesis will need 2g na diet can not use diuretics in setting of SUMMER (7) Elevated liver enzymes: Code(s): R74.8 - Abnormal levels of other serum enzymes Status: Acute (8) Altered mental status: Code(s): R41.82 - Altered mental status, unspecified Status: Acute Assessment and Plan: monitor Subjective Date/time seen: 05/19/21 16:16 Interval history: no major changes but still not eating much- primary started on parenteral nutrition Review of Systems Review of Systems: All systems reviewed & are unremarkable except as noted in HPI and below Exam Const: General: no acute distress Other: confused, ill appearing HENMT: General nose exam: Normal nares present Eyes: Sclera: sclerae normal Neck: Neck: supple Resp: Auscultation: rhonchi and diminished lung sounds Other: coarse breath sounds Cardio: Rate: regular rate GI: GI Palp: Yes Soft to palpation, No Tenderness to palpation present (GI) and No Guarding due to palpation present (GI) Auscultation: normal bowel sounds Urinary Catheter: Urinary Catheter: patent and draining Skin: General skin exam: no rashes or lesions noted Neuro: Other: awake and alert, still confused Extrem: General: pedal edema Psych: Affect: Anxious affect present Objective Data Vital Signs Vital Signs: Vital Signs - 24 hr 05/18/21 20:00 05/19/21 00:00 05/19/21 08:00 Temperature 97.8 F 97.7 F Pulse Rate 100 94 Respiratory Rate 19 23 H Blood Pressure 145/92 H 141/94 H Pulse Oximetry 96 97 91 05/19/21 12:00 Temperature Pulse Rate Respiratory Rate Blood Pressure 121/100 H Pulse Oximetry Intake/Output Intake/Output: Intake & Output 05/16/21 05/17/21 05/18/21 05/19/21 23:59 23:59 23:59 23:59 Intake Total 600 819 020 8373 Output Total 750 1650 900 500 Balance -150 -835 -400 1805 Meds/Results Medications: Active Medications Generic Name Dose Route Start Last Admin Trade Name Freq PRN Reason Stop Dose Admin Dextrose 12.5 gm 05/13/21 07:44 Dextrose 50% 25 Gm/50 Ml Syringe IV PUSH PRN PRN Hypoglycemia Protocol Folic Acid 1 mg 05/13/21 09:00 05/19/21 09:15 Folic Acid 1 Mg/0.2 Ml Inj IV PUSH 1 mg QAM KAI Administration Glucagon 1 mg 05/13/21 07:44 Glucagon For Inj 1 Mg Vial IM PRN PRN Hypoglycemia
--- NOTE | 2021-05-19 17:42 | PM.IMPN ---
Progress Note: A&P Assessment and Plan (1) Septic shock: Code(s): A41.9 - Sepsis, unspecified organism; R65.21 - Severe sepsis with septic shock Status: Acute Assessment and Plan: Presented with severe anemia, hypotension, hypoxia She has multiple potential sources the form of UTI, peritonitis, and pneumonia -continue Zosyn - Vancomycin has been stopped -patient also has vulvovaginitis and oral thrush and was started on Diflucan (05/14) x3 days, nystatin powder to the perineal area (2) Altered mental status: Code(s): R41.82 - Altered mental status, unspecified Status: Acute Assessment and Plan: Patient appears to have toxic metabolic encephalopathy which has been complicated by uremia creat is 5, nephrology consulted. (3) Severe anemia: Code(s): D64.9 - Anemia, unspecified Status: Acute Assessment and Plan: Patient presented with a hemoglobin of 5.0 -received 2 units of packed RBCs -INR is 1.7 and was given vitamin K -EGD showed gastritis and hiatal hernia -hb is 7.9 today (4) Acute GI bleeding: Code(s): K92.2 - Gastrointestinal hemorrhage, unspecified Status: Acute Assessment and Plan: Stool guaiac was positive in ER EGD showed gastritis Continue PPI IV and octreotide (5) Tobacco dependence: Code(s): F17.200 - Nicotine dependence, unspecified, uncomplicated Status: Acute Assessment and Plan: Not a candidate for counseling at this time until mental status further improved (6) Alcohol dependence: Code(s): F10.20 - Alcohol dependence, uncomplicated Status: Acute Assessment and Plan: Continue thiamine and folic acid (7) DVT prophylaxis: Code(s): Z29.9 - Encounter for prophylactic measures, unspecified Status: Acute Assessment and Plan: SCDs (8) Suspected 2019 novel coronavirus infection: Code(s): Z20.822 - Contact with and (suspected) exposure to COVID-19 Status: Acute Assessment and Plan: Patient states she may have been exposed to COVID by her children. -she has received 1 dose of Pfizer vaccine in March 2021 -SARS-CoV-2 PCR -NEGATIVE -will discontinue isolation and precautions (9) Acute kidney injury: Code(s): N17.9 - Acute kidney failure, unspecified Status: Acute Assessment and Plan: Decreased urine output with worsening renal function -likely related hypovolemia, septic shock, infection. Patient also has cirrhosis, possible hepatorenal syndrome -unremarkable renal ultrasound -nephrology has been consulted (10) Thrombocytopenia: Code(s): D69.6 - Thrombocytopenia, unspecified Status: Acute Assessment and Plan: Multifactorial-cirrhosis, alcohol abuse, sepsis. SCDs (11) Electrolyte abnormality: Code(s): E87.8 - Other disorders of electrolyte and fluid balance, not elsewhere classified Status: Acute Assessment and Plan: Potassium stabilized (12) Hypoxia: Code(s): R09.02 - Hypoxemia Status: Acute Assessment and Plan: CT shows bilateral patchy consolidating infiltrates and effusions. Continue Zosyn, rpt CXR (13) Malnutrition: Code(s): E46 - Unspecified protein-calorie malnutrition Status: Acute Assessment and Plan: Pt having Dobhoff placed today under GI Additional Plan Diet: pt going for Dobhoff Code status: Full code Subjective Date/time seen: 05/19/21 17:42 Interval history: Reason for consult: Anemia, altered mental status, GI bleed, septic shock, pneumonia, vulvo-vaginitis 07/14/2020: Patient seen and examined the ICU, was started on Levophed overnight and is currently on 4 mcg/min. Patient is awake, alert answers to questions, denies any chest pain, shortness of breath, abdominal pain, nausea vomiting. Patient is having lot of pain mouth bedside RN tries to do oral care. Dried blood is seen around the lips but no obvi
[2021-05-19 18:24] LABS: Glucose Point of Care 132 mg/dl (65-105)
--- NOTE | 2021-05-19 18:59 | PC.NURSE ---
This patient, Franko Lechuga, was received from [ IMU] on 05/19/21 at 1859. Patient in bed resting comfortably at this time. Will continue to monitor patient.
[2021-05-19 23:22] LABS: Glucose Point of Care 147 mg/dl (65-105)
[2021-05-20 00:35] VITALS: O2SAT 93
[2021-05-20 04:50] VITALS: BP 143/90
[2021-05-20 05:22] LABS: Hematocrit 24.8 % (37.0-47.0); Hemoglobin 8.1 g/dL (12.0-15.0); Mean Corpuscular HGB Conc 32.7 g/dl (32-36); Mean Corpuscular Hemoglobin 33.6 pg (26-34); Mean Corpuscular Volume 102.9 fl (80-100); Mean Platelet Volume 11.3 fl (7.4-10.4); Platelet Count Result 223 k/mm3 (150-375); Red Blood Count 2.41 M/mm3 (4.2-5.4); Red Cell Distribution Width 22.3 % (11.5-14.5)
[2021-05-20] MEDS: CENTRAL LINE FLUSH 10 ML IV PUSH ×3 (05:29→21:13)
[2021-05-20] MEDS: CENTRAL LINE FLUSH 20 ML IV PUSH (05:29)
[2021-05-20 05:34] LABS: Anion Gap 9 mmol/L (8-16); Blood Urea Nitrogen 110 mg/dL (7-17); Calcium 9.5 mg/dL (8.4-10.2); Carbon Dioxide 33 mmol/L (22-30); Chloride 100 mmol/L (98-107); Estimated CRCL calculation 16 ml/min; Estimated Glomerular Filt Rate 11; Glucose 146 mg/dL (65-110); Phosphorus 5.5 mg/dL (2.5-4.5); Potassium 3.6 mmol/L (3.4-5.0); Sodium 142 mmol/L (137-145); Triglycerides 311 mg/dL (<150)
[2021-05-20 06:00] VITALS: BP 143/90; PULSE 95; RESP 20; TEMP 36.1; O2SAT 98
[2021-05-20 06:06] LABS: Glucose Point of Care 147 mg/dl (65-105)
[2021-05-20] MEDS: PANTOPRAZOLE SODIUM IV 40 MG VIAL IV PUSH ×2 (08:42→21:12)
[2021-05-20] MEDS: THIAMINE HCL 200 MG/2 ML VIAL 100 MG IV PUSH (08:42)
[2021-05-20] MEDS: TOLNAFTATE 1% POWDER 45 GM BTL 1 APPLIC TOPICAL ×2 (08:43→21:13)
[2021-05-20] MEDS: FOLIC ACID 1 MG/0.2 ML INJ IV PUSH (08:43)
[2021-05-20] MEDS: OCTREOTIDE ACETATE 100 MCG/ML VIAL SUB-Q ×3 (08:43→16:29)
--- NOTE | 2021-05-20 09:14 | PCPTNOTE ---
Attempted to see patient for Physical Therapy treatment. Patient would not open eyes; and only turned her head and said tomorrow when asked to do physical therapy. Will attempt tomorrow.
--- NOTE | 2021-05-20 09:54 | WPDGIPROGNO ---
Progress Note: A&P Assessment and Plan (1) Altered mental status: Code(s): R41.82 - Altered mental status, unspecified Status: Acute Assessment and Plan: Patient remains encephalopathic. Likely hepatic encephalopathy. Uremia may contribute to mental status changes. Continue to monitor. (2) Cirrhosis, alcoholic: Code(s): K70.30 - Alcoholic cirrhosis of liver without ascites Status: Acute Assessment and Plan: Patient with alcoholic cirrhosis. Had recent paracentesis will remain on antibiotics empirically for possible SBP. Because of poor appetite she remains on TPN. Would benefit from enteral feedings if NG tube could be placed. This would help with management of ascites. Currently unable to be tolerated by the patient. (3) Gastritis: Code(s): K29.70 - Gastritis, unspecified, without bleeding Status: Acute Assessment and Plan: Gastritis evident on recent endoscopy. No varices described. IV Protonix should continue. Monitor hemoglobin. (4) Severe anemia: Code(s): D64.9 - Anemia, unspecified Status: Acute Assessment and Plan: Anemia likely related to underlying cirrhosis. No evidence for acute blood loss. No active bleeding. (5) Acute kidney injury: Code(s): N17.9 - Acute kidney failure, unspecified Status: Acute Assessment and Plan: Patient with significant azotemia. Likely multifactorial. Hepatorenal syndrome is definitely a consideration. Appreciate Nephrology's input. (6) Ascites: Code(s): R18.8 - Other ascites Status: Acute Assessment and Plan: Patient appears OTC this at time of presentation. Should diet resume low-salt diet will being required. Diuretics will need to be held given her azotemia. Subjective Date/time seen: 05/20/21 09:54 Patient arousable. But still with significant mental status depression. Unable to converse. Not eating. Remains on TPN. Dobbhoff tube unable to be placed. Review of Systems Review of Systems: ROS unobtainable: Yes unobtainable due to mental status Exam Narrative: Patient lying in bed remains confused. Very ill-appearing HEENT exam reveals scleral icterus. Heart without murmurs or extra sounds rate is regular. Abdomen bowel sounds are present soft no organomegaly. No masses evident. Objective Data Vital Signs Vital Signs: Vital Signs - 24 hr 05/19/21 12:00 05/19/21 16:00 05/19/21 19:01 Temperature 96.2 F L Pulse Rate 85 98 Respiratory Rate 22 H 16 Blood Pressure 121/100 H 138/63 132/90 Pulse Oximetry 96 98 05/19/21 20:20 05/19/21 22:00 05/20/21 00:35 Temperature 96.4 F L Pulse Rate 94 Respiratory Rate 18 Blood Pressure 134/86 134/86 Pulse Oximetry 97 97 93 05/20/21 04:50 05/20/21 06:00 Temperature 97.0 F L Pulse Rate 95 Respiratory Rate 20 Blood Pressure 143/90 H 143/90 H Pulse Oximetry 98 Intake/Output Intake/Output: Intake & Output 05/17/21 05/18/21 05/19/21 05/20/21 23:59 23:59 23:59 23:59 Intake Total 663 065 3669 735 Output Total 7723 513 6195 650 Balance -835 -400 1455 85 Meds/Results Medications: Active Medications Generic Name Dose Route Start Last Admin Trade Name Freq PRN Reason Stop Dose Admin Dextrose 12.5 gm 05/13/21 07:44 Dextrose 50% 25 Gm/50 Ml Syringe IV PUSH PRN PRN Hypoglycemia Protocol Folic Acid 1 mg 05/13/21 09:00 05/20/21 08:43 Folic Acid 1 Mg/0.2 Ml Inj IV PUSH 1 mg QAM KAI Administration Glucagon 1 mg 05/13/21 07:44 Glucagon For Inj 1 Mg Vial IM PRN PRN Hypoglycemia Protocol Glucose 15 gm 05/13/21 07:44 Glucose Oral Gel 15 Gm Of Glucse In 37.5 Gm Tube PO PRN PRN Hypoglycemia Protocol Hydromorphone HCl 0.5 mg 05/18/21 17:57 05/19/21 16:00 Hydromorphone Hcl Inj (*Crx) 1 Mg/Ml Syr IV PUSH 0.5 mg Q8H PRN Administration Pain Rated 7-10 Dextrose 1,000 mls @ 100 mls/hr 05/13/21
--- NOTE | 2021-05-20 10:59 | PM.IMPN ---
Progress Note: A&P Assessment and Plan (1) Septic shock: Code(s): A41.9 - Sepsis, unspecified organism; R65.21 - Severe sepsis with septic shock Status: Acute Assessment and Plan: Presented with severe anemia, hypotension, hypoxia She has multiple potential sources the form of UTI, peritonitis, and pneumonia -continue Zosyn - Vancomycin has been stopped -patient also has vulvovaginitis and oral thrush and was started on Diflucan (05/14) x3 days, nystatin powder to the perineal area (2) Altered mental status: Code(s): R41.82 - Altered mental status, unspecified Status: Acute Assessment and Plan: Patient appears to have toxic metabolic encephalopathy which has been complicated by uremia creat is 4.4, nephrology consulted. (3) Severe anemia: Code(s): D64.9 - Anemia, unspecified Status: Acute Assessment and Plan: Patient presented with a hemoglobin of 5.0 -received 2 units of packed RBCs -INR is 1.7 and was given vitamin K -EGD showed gastritis and hiatal hernia -hb is 8.1 today (4) Acute GI bleeding: Code(s): K92.2 - Gastrointestinal hemorrhage, unspecified Status: Acute Assessment and Plan: Stool guaiac was positive in ER EGD showed gastritis Continue PPI IV (5) Tobacco dependence: Code(s): F17.200 - Nicotine dependence, unspecified, uncomplicated Status: Acute Assessment and Plan: Not a candidate for counseling at this time until mental status further improved (6) Alcohol dependence: Code(s): F10.20 - Alcohol dependence, uncomplicated Status: Acute Assessment and Plan: Continue thiamine and folic acid (7) DVT prophylaxis: Code(s): Z29.9 - Encounter for prophylactic measures, unspecified Status: Acute Assessment and Plan: SCDs (8) Suspected 2019 novel coronavirus infection: Code(s): Z20.822 - Contact with and (suspected) exposure to COVID-19 Status: Acute Assessment and Plan: Patient states she may have been exposed to COVID by her children. -she has received 1 dose of ViOptix vaccine in March 2021 -SARS-CoV-2 PCR -NEGATIVE (9) Acute kidney injury: Code(s): N17.9 - Acute kidney failure, unspecified Status: Acute Assessment and Plan: Decreased urine output with worsening renal function -likely related hypovolemia, septic shock, infection. Patient also has cirrhosis, possible hepatorenal syndrome -unremarkable renal ultrasound -nephrology has been consulted (10) Thrombocytopenia: Code(s): D69.6 - Thrombocytopenia, unspecified Status: Acute Assessment and Plan: Multifactorial-cirrhosis, alcohol abuse, sepsis. SCDs (11) Electrolyte abnormality: Code(s): E87.8 - Other disorders of electrolyte and fluid balance, not elsewhere classified Status: Acute Assessment and Plan: Potassium stabilized continue to monitor (12) Hypoxia: Code(s): R09.02 - Hypoxemia Status: Acute Assessment and Plan: CT shows bilateral patchy consolidating infiltrates and effusions. Continue Zosyn CXR shows -ongoing diffuse bilateral pulmonary infiltrates (13) Malnutrition: Code(s): E46 - Unspecified protein-calorie malnutrition Status: Acute Assessment and Plan: Unable to place Dobbhoff yesterday, pt did not lie still enough, pt is on TPN Subjective Date/time seen: 05/20/21 10:59 Interval history: Reason for consult: Anemia, altered mental status, GI bleed, septic shock, pneumonia, vulvo-vaginitis 07/14/2020: Patient seen and examined the ICU, was started on Levophed overnight and is currently on 4 mcg/min. Patient is awake, alert answers to questions, denies any chest pain, shortness of breath, abdominal pain, nausea vomiting. Patient is having lot of pain mouth bedside RN tries to do oral care. Dried blood is seen around the lips but no obvious bleeding or hemate
--- NOTE | 2021-05-20 11:05 | P.PNNP_ITS ---
Progress Note: A&P Assessment and Plan (1) Acute kidney injury: Code(s): N17.9 - Acute kidney failure, unspecified Status: Acute Assessment and Plan: * normal creatinine noted on admission * likely multifactorial: * hypovolemia * septic shock/hypotension * infection * liver cirrhosis * possible hepatorenal syndrome(?) * renal ultrasound with any acute issues * urine electrolytes consistent with prerenal azotemia * however, this could be reflective her liver physiology (decreased effective circulating volume leading to chronic prerenal azotemia) * creatinine seems to be stabilizing -- possible peak/plateau?? * follow trend of repeat labs and UOP (2) Septic shock: Code(s): A41.9 - Sepsis, unspecified organism; R65.21 - Severe sepsis with septic shock Status: Resolved Assessment and Plan: * resolved -- off pressors * based on presentation of severe anemia, low BP, and hypoxia * significant lactic acidosis on admission with improvement s/p IVF resuscitat ion * blood culture negative to date; urine culture with E. coli * continue antibiotics (3) Altered mental status: Code(s): R41.82 - Altered mental status, unspecified Status: Acute Assessment and Plan: * clinically better (but continues to flucutate) * likely due to hypotension, shock, and hypoxia * follow mentation (4) Severe anemia: Code(s): D64.9 - Anemia, unspecified Status: Acute Assessment and Plan: * Hgb 5.0 on presentation * appropriate incrementation with PRBC transfusion * see #5 (5) Acute GI bleeding: Code(s): K92.2 - Gastrointestinal hemorrhage, unspecified Status: Acute Assessment and Plan: * guaiac positive * s/p EGD with no active bleeding found - only hiatal hernia and gastritis found * follow serial H/Hs * Gastroenterology following with recommendations noted (6) Alcoholic hepatitis: Code(s): K70.10 - Alcoholic hepatitis without ascites Status: Acute Assessment and Plan: * as noted by admission labs - elevated LFTs and bilirubin * follow trend of LFTs * continue supportive therapy Will continue to follow. Subjective Date/time seen: 05/20/21 11:05 No real significant change since I last saw -- she was transferred out of the ICU; remains hemodynamically stable with reasonable urine output as well; confusion seems to persist; no events/issues overnight or earlier this morning. Exam Narrative: General: ill appearing female in NAD Heart: normal S1 and S2; no rub Lungs: coarse and decreased at bases Abdomen: soft, nontender, nondistended, positive bowel sounds Extremities: no cyanosis or clubbing; trace edema Skin: warm and intact Objective Data Vital Signs Vital Signs: Vital Signs Temp Pulse Resp BP Pulse Ox 05/20/21 06:00 36.1 C L 95 20 143/90 H 98 05/20/21 04:50 143/90 H 05/20/21 00:35 93 05/19/21 22:00 35.8 C L 94 18 134/86 97 05/19/21 20:20 134/86 97 05/19/21 19:01 35.7 C L 98 16 132/90 98 05/19/21 16:00 85 22 H 138/63 96 05/19/21 12:00 121/100 H Intake/Output Intake/Output: Intake & Output 05/17/21 05/18/21 05/19/21 05/20/21 23:59 23:59 23:59 23:59 Intake Total 680 090 1502 735 Output Total 1
--- NOTE | 2021-05-20 11:05 | PM.PNNEP ---
Progress Note: A&P Assessment and Plan (1) Acute kidney injury: Code(s): N17.9 - Acute kidney failure, unspecified Status: Acute Assessment and Plan: normal creatinine noted on admission likely multifactorial: hypovolemia septic shock/hypotension infection liver cirrhosis possible hepatorenal syndrome(?) renal ultrasound with any acute issues urine electrolytes consistent with prerenal azotemia however, this could be reflective her liver physiology (decreased effective circulating volume leading to chronic prerenal azotemia) creatinine seems to be stabilizing -- possible peak/plateau?? follow trend of repeat labs and UOP (2) Septic shock: Code(s): A41.9 - Sepsis, unspecified organism; R65.21 - Severe sepsis with septic shock Status: Resolved Assessment and Plan: resolved -- off pressors based on presentation of severe anemia, low BP, and hypoxia significant lactic acidosis on admission with improvement s/p IVF resuscitation blood culture negative to date; urine culture with E. coli continue antibiotics (3) Altered mental status: Code(s): R41.82 - Altered mental status, unspecified Status: Acute Assessment and Plan: clinically better (but continues to flucutate) likely due to hypotension, shock, and hypoxia follow mentation (4) Severe anemia: Code(s): D64.9 - Anemia, unspecified Status: Acute Assessment and Plan: Hgb 5.0 on presentation appropriate incrementation with PRBC transfusion see #5 (5) Acute GI bleeding: Code(s): K92.2 - Gastrointestinal hemorrhage, unspecified Status: Acute Assessment and Plan: guaiac positive s/p EGD with no active bleeding found - only hiatal hernia and gastritis found follow serial H/Hs Gastroenterology following with recommendations noted (6) Alcoholic hepatitis: Code(s): K70.10 - Alcoholic hepatitis without ascites Status: Acute Assessment and Plan: as noted by admission labs - elevated LFTs and bilirubin follow trend of LFTs continue supportive therapy Will continue to follow. Subjective Date/time seen: 05/20/21 11:05 No real significant change since I last saw -- she was transferred out of the ICU; remains hemodynamically stable with reasonable urine output as well; confusion seems to persist; no events/issues overnight or earlier this morning. Exam Narrative: General: ill appearing female in NAD Heart: normal S1 and S2; no rub Lungs: coarse and decreased at bases Abdomen: soft, nontender, nondistended, positive bowel sounds Extremities: no cyanosis or clubbing; trace edema Skin: warm and intact Objective Data Vital Signs Vital Signs: Vital Signs Temp Pulse Resp BP Pulse Ox 05/20/21 06:00 36.1 C L 95 20 143/90 H 98 05/20/21 04:50 143/90 H 05/20/21 00:35 93 05/19/21 22:00 35.8 C L 94 18 134/86 97 05/19/21 20:20 134/86 97 05/19/21 19:01 35.7 C L 98 16 132/90 98 05/19/21 16:00 85 22 H 138/63 96 05/19/21 12:00 121/100 H Intake/Output Intake/Output: Intake & Output 05/17/21 05/18/21 05/19/21 05/20/21 23:59 23:59 23:59 23:59 Intake Total 496 352 4678 735 Output Total 5397 565 1430 650 Balance -835 -400 1455 85 Meds/Results Medications: Active Medications Generic Name Dose Route Start Last Admin Trade Name Freq PRN Reason Stop Dose Admin Dextrose 12.5 gm 05/13/21 07:44 Dextrose 50% 25 Gm/50 Ml Syringe IV PUSH PRN PRN Hypoglycemia Protocol Folic Acid 1 mg 05/13/21 09:00 05/20/21 08:43 Folic Acid 1 Mg/0.2 Ml Inj IV PUSH 1 mg QAM KAI Administration Glucagon 1 mg 05/13/21 07:44 Glucagon For Inj 1 Mg Vial IM PRN PRN Hypoglycemia Protocol Glucose 15 gm 05/13/21 07:44 Glucose Oral Gel 15 Gm Of Glucse In 37.5 Gm Tube PO PRN PRN Hypoglycemia Protocol Hydromor
[2021-05-20 12:21] LABS: Glucose Point of Care 144 mg/dl (65-105)
[2021-05-20 14:00] VITALS: BP 135/85; PULSE 97; RESP 20; TEMP 36.6; O2SAT 95
[2021-05-20] MEDS: FAT EMULSIONS IV 20% 250 ML 20.83 ML IVPB (14:56)
[2021-05-20] MEDS: AMINO ACIDS 5%/D15W/E-LYTES/CA 2,000 ML with MULTIVITAMINS-12 INJ VIAL 1 2.5 ML, MULTIV... 40 ML IV CONT (16:10)
[2021-05-20] MEDS: HYDROmorphone HCL INJ (*CRX) 1 MG/ML SYR 0.5 MG IV PUSH (16:23)
[2021-05-20 18:09] LABS: Glucose Point of Care 163 mg/dl (65-105)
[2021-05-20 20:18] VITALS: BP 138/80; PULSE 94; RESP 12; TEMP 36.2; O2SAT 96
[2021-05-20 21:10] VITALS: BP 138/80
[2021-05-20 23:44] LABS: Glucose Point of Care 147 mg/dl (65-105)
[2021-05-21] MEDS: HYDROmorphone HCL INJ (*CRX) 1 MG/ML SYR 0.5 MG IV PUSH ×3 (03:00→22:01)
[2021-05-21] MEDS: CENTRAL LINE FLUSH 10 ML IV PUSH ×4 (05:15→21:04)
[2021-05-21] MEDS: CENTRAL LINE FLUSH 20 ML IV PUSH ×2 (05:16→15:26)
[2021-05-21 05:49] LABS: Phosphorus 5.3 mg/dL (2.5-4.5)
[2021-05-21 06:00] VITALS: BP 136/72; PULSE 92; RESP 16; TEMP 36.4; O2SAT 94
[2021-05-21 06:31] LABS: Glucose Point of Care 148 mg/dl (65-105)
--- NOTE | 2021-05-21 09:09 | WPDGIPROGNO ---
Progress Note: A&P Assessment and Plan (1) Altered mental status: Code(s): R41.82 - Altered mental status, unspecified Status: Acute Assessment and Plan: Patient appears to have metabolic encephalopathy. Hepatic encephalopathy is possible. However ammonia level was normal. Continuing a trial of lactulose may be of benefit neurology consult may be required if she continues. (2) Acute kidney injury: Code(s): N17.9 - Acute kidney failure, unspecified Status: Acute Assessment and Plan: Patient with marked azotemia. Renal service following. She may have hepatorenal syndrome. Workup in progress. This is a poor prognostic sign. (3) Cirrhosis, alcoholic: Code(s): K70.30 - Alcoholic cirrhosis of liver without ascites Status: Acute Assessment and Plan: Patient with known history of underlying alcoholic cirrhosis. Continue supportive care for now. Diuretics will be limited because of renal insufficiency. Dr. Wayne returns in the morning. (4) Gastritis: Code(s): K29.70 - Gastritis, unspecified, without bleeding Status: Acute Assessment and Plan: Gastritis evidence on recent EGD. No significant bleeding expected from this. (5) Thrombocytopenia: Code(s): D69.6 - Thrombocytopenia, unspecified Status: Acute Assessment and Plan: Thrombocytopenia evident most likely on the basis of bone marrow suppression. Subjective Date/time seen: 05/21/21 09:09 Patient remains somnolent poorly arousable today. I am unable to add any useful history. She was intolerant of Dobbhoff tube. Liquid diet is been offered to her it is uncertain how much she has been able to maintain. Review of Systems Review of Systems: ROS unobtainable: Yes unobtainable due to medical condition Exam Narrative: On physical exam patient is somnolent with scleral icterus evident. Lungs are clear. Heart without murmur. Abdomen is soft nontender at this time. No organomegaly Objective Data Vital Signs Vital Signs: Vital Signs - 24 hr 05/20/21 14:00 05/20/21 20:18 05/20/21 21:10 Temperature 97.9 F 97.1 F L Pulse Rate 97 94 Respiratory Rate 20 12 Blood Pressure 135/85 138/80 138/80 Pulse Oximetry 95 96 05/21/21 06:00 Temperature 97.5 F L Pulse Rate 92 Respiratory Rate 16 Blood Pressure 136/72 Pulse Oximetry 94 Intake/Output Intake/Output: Intake & Output 05/18/21 05/19/21 05/20/21 05/21/21 23:59 23:59 23:59 23:59 Intake Total 500 2455 2565 350 Output Total 900 1000 1200 Balance -400 1455 1365 350 Meds/Results Medications: Active Medications Generic Name Dose Route Start Last Admin Trade Name Freq PRN Reason Stop Dose Admin Dextrose 12.5 gm 05/13/21 07:44 Dextrose 50% 25 Gm/50 Ml Syringe IV PUSH PRN PRN Hypoglycemia Protocol Folic Acid 1 mg 05/13/21 09:00 05/20/21 08:43 Folic Acid 1 Mg/0.2 Ml Inj IV PUSH 1 mg QAM KAI Administration Glucagon 1 mg 05/13/21 07:44 Glucagon For Inj 1 Mg Vial IM PRN PRN Hypoglycemia Protocol Glucose 15 gm 05/13/21 07:44 Glucose Oral Gel 15 Gm Of Glucse In 37.5 Gm Tube PO PRN PRN Hypoglycemia Protocol Hydromorphone HCl 0.5 mg 05/18/21 17:57 05/21/21 03:00 Hydromorphone Hcl Inj (*Crx) 1 Mg/Ml Syr IV PUSH 0.5 mg Q8H PRN Administration Pain Rated 7-10 Dextrose 1,000 mls @ 100 mls/hr 05/13/21 07:44 Dextrose 5% 1,000 Ml IVPB PRN PRN Hypoglycemia Protocol Dextrose 1,000 mls @ 50 mls/hr 05/18/21 13:52 Dextrose 10% IV CONT .Q20H PRN if PN is interrupted Multivitamins 2.5 ml/ 2,005 mls @ 40 mls/hr 05/18/21 13:55 05/20/21 16:10 Multivitamins 2.5 ml/ Amino IV CONT 40 mls/hr Acids/Electrolytes/Dextrose .Q24H KAI Administration Protocol Fat Emulsion Intravenous 250 mls @ 20.833 mls/hr 05/18/21 15:00 05/21/21 02:57 Lipids 20% IVPB Infused Q24H KAI Infusion Piperac
[2021-05-21] MEDS: PANTOPRAZOLE SODIUM IV 40 MG VIAL IV PUSH ×2 (09:47→21:04)
[2021-05-21] MEDS: THIAMINE HCL 200 MG/2 ML VIAL 100 MG IV PUSH (09:47)
[2021-05-21] MEDS: FOLIC ACID 1 MG/0.2 ML INJ IV PUSH (09:47)
[2021-05-21] MEDS: OCTREOTIDE ACETATE 100 MCG/ML VIAL SUB-Q ×3 (09:47→17:19)
[2021-05-21] MEDS: TOLNAFTATE 1% POWDER 45 GM BTL 1 APPLIC TOPICAL ×2 (09:48→21:04)
[2021-05-21 12:08] LABS: Glucose Point of Care 134 mg/dl (65-105)
--- NOTE | 2021-05-21 13:39 | PM.IMPN ---
Progress Note: A&P Assessment and Plan (1) Septic shock: Code(s): A41.9 - Sepsis, unspecified organism; R65.21 - Severe sepsis with septic shock Status: Resolved Assessment and Plan: Presented with severe anemia, hypotension, hypoxia She has multiple potential sources the form of UTI, peritonitis, and pneumonia -continue Zosyn - Vancomycin has been stopped -patient also has vulvovaginitis and oral thrush and was started on Diflucan (05/14) x3 days, [place] [id number], Urine culture positive for Ecoli sensitive to zosyn Pts bp is better so was transferred to medical floor (2) Altered mental status: Code(s): R41.82 - Altered mental status, unspecified Status: Acute Assessment and Plan: Patient appears to have toxic metabolic encephalopathy which has been complicated by uremia creat is 4.4, nephrology consulted. (3) Severe anemia: Code(s): D64.9 - Anemia, unspecified Status: Acute Assessment and Plan: Patient presented with a hemoglobin of 5.0 -received 2 units of packed RBCs -INR is 1.7 and was given vitamin K -EGD showed gastritis and hiatal hernia -hb is 8.1 today (4) Acute GI bleeding: Code(s): K92.2 - Gastrointestinal hemorrhage, unspecified Status: Acute Assessment and Plan: Stool guaiac was positive in ER EGD showed gastritis Continue PPI IV (5) Tobacco dependence: Code(s): F17.200 - Nicotine dependence, unspecified, uncomplicated Status: Acute Assessment and Plan: Not a candidate for counseling at this time until mental status further improved (6) Alcohol dependence: Code(s): F10.20 - Alcohol dependence, uncomplicated Status: Acute Assessment and Plan: Continue thiamine and folic acid (7) DVT prophylaxis: Code(s): Z29.9 - Encounter for prophylactic measures, unspecified Status: Acute Assessment and Plan: SCDs (8) Suspected 2019 novel coronavirus infection: Code(s): Z20.822 - Contact with and (suspected) exposure to COVID-19 Status: Acute Assessment and Plan: Patient states she may have been exposed to COVID by her children. -she has received 1 dose of Airpush vaccine in March 2021 -SARS-CoV-2 PCR -NEGATIVE (9) Acute kidney injury: Code(s): N17.9 - Acute kidney failure, unspecified Status: Acute Assessment and Plan: Decreased urine output with worsening renal function -likely related hypovolemia, septic shock, infection. Patient also has cirrhosis, possible hepatorenal syndrome -unremarkable renal ultrasound -nephrology has been consulted (10) Thrombocytopenia: Code(s): D69.6 - Thrombocytopenia, unspecified Status: Acute Assessment and Plan: Multifactorial-cirrhosis, alcohol abuse, sepsis. SCDs (11) Electrolyte abnormality: Code(s): E87.8 - Other disorders of electrolyte and fluid balance, not elsewhere classified Status: Acute Assessment and Plan: Potassium stabilized continue to monitor (12) Hypoxia: Code(s): R09.02 - Hypoxemia Status: Acute Assessment and Plan: CT shows bilateral patchy consolidating infiltrates and effusions. Continue Zosyn CXR shows -ongoing diffuse bilateral pulmonary infiltrates (13) Malnutrition: Code(s): E46 - Unspecified protein-calorie malnutrition Status: Acute Assessment and Plan: Unable to place Dobbhoff yesterday, pt did not lie still enough, pt is on TPN (14) Pneumonia: Code(s): J18.9 - Pneumonia, unspecified organism Status: Acute Assessment and Plan: CT shows bilateral patchy consolidating infiltrates and effusions. Continue Zosyn CXR shows -ongoing diffuse bilateral pulmonary infiltrates Additional Plan Diet: pt going for Dobhoff Code status: Full code Subjective Date/time seen: 05/21/21 13:39 Interval history: Interva
--- NOTE | 2021-05-21 14:01 | P.PNNP_ITS ---
Progress Note: A&P Assessment and Plan (1) Acute kidney injury: Code(s): N17.9 - Acute kidney failure, unspecified Status: Acute Assessment and Plan: * normal creatinine noted on admission * likely multifactorial: * hypovolemia * septic shock/hypotension * infection * liver cirrhosis * possible hepatorenal syndrome(?) * renal ultrasound with any acute issues * urine electrolytes consistent with prerenal azotemia * however, this could be reflective her liver physiology (decreased effective circulating volume leading to chronic prerenal azotemia) * creatinine seems to be stabilizing -- possible peak/plateau?? * follow trend of repeat labs and UOP (2) Septic shock: Code(s): A41.9 - Sepsis, unspecified organism; R65.21 - Severe sepsis with septic shock Status: Resolved Assessment and Plan: * resolved -- off pressors * based on presentation of severe anemia, low BP, and hypoxia * significant lactic acidosis on admission with improvement s/p IVF resuscitat ion * blood culture negative to date; urine culture with E. coli * continue antibiotics (3) Altered mental status: Code(s): R41.82 - Altered mental status, unspecified Status: Acute Assessment and Plan: * clinically better than admission (but continues to fluctuate) * likely due to hypotension, shock, and hypoxia * follow mentation * if not done recently, check ammonia level (4) Severe anemia: Code(s): D64.9 - Anemia, unspecified Status: Acute Assessment and Plan: * Hgb 5.0 on presentation * appropriate incrementation with PRBC transfusion * see #5 (5) Acute GI bleeding: Code(s): K92.2 - Gastrointestinal hemorrhage, unspecified Status: Acute Assessment and Plan: * guaiac positive * s/p EGD with no active bleeding found - only hiatal hernia and gastritis found * follow serial H/Hs * Gastroenterology following with recommendations noted (6) Alcoholic hepatitis: Code(s): K70.10 - Alcoholic hepatitis without ascites Status: Acute Assessment and Plan: * as noted by admission labs - elevated LFTs and bilirubin * follow trend of LFTs * continue supportive therapy Will continue to follow. Subjective Date/time seen: 05/21/21 14:01 Seems a bit more lethargic today in comparison to yesterday; intolerant to Doboff so receiving TPN for nutritional support; her appetite remains quite poor still; continues to make good urine output; stable hemodynamics at this time as well; no new labs this AM. Exam Narrative: General: ill appearing female in NAD Heart: normal S1 and S2; no rub Lungs: coarse and decreased at bases Abdomen: soft, nontender, nondistended, positive bowel sounds Extremities: no cyanosis or clubbing; trace edema Skin: no rash Objective Data Vital Signs Vital Signs: Vital Signs Temp Pulse Resp BP Pulse Ox 05/21/21 06:00 36.4 C L 92 16 136/72 94 05/20/21 21:10 138/80 05/20/21 20:18 36.2 C L 94 12 138/80 96 Intake/Output Intake/Output: Intake & Output 05/18/21 05/19/21 05/20/21 05/21/21 23:59 23:59 23:59 23:59 Intake Total 500 2455 2565 400 Output Total 900 1000 1200 Balance -400 1455 1365 400 Meds/Results Medications: Active Medic
--- NOTE | 2021-05-21 14:01 | PM.PNNEP ---
Progress Note: A&P Assessment and Plan (1) Acute kidney injury: Code(s): N17.9 - Acute kidney failure, unspecified Status: Acute Assessment and Plan: normal creatinine noted on admission likely multifactorial: hypovolemia septic shock/hypotension infection liver cirrhosis possible hepatorenal syndrome(?) renal ultrasound with any acute issues urine electrolytes consistent with prerenal azotemia however, this could be reflective her liver physiology (decreased effective circulating volume leading to chronic prerenal azotemia) creatinine seems to be stabilizing -- possible peak/plateau?? follow trend of repeat labs and UOP (2) Septic shock: Code(s): A41.9 - Sepsis, unspecified organism; R65.21 - Severe sepsis with septic shock Status: Resolved Assessment and Plan: resolved -- off pressors based on presentation of severe anemia, low BP, and hypoxia significant lactic acidosis on admission with improvement s/p IVF resuscitation blood culture negative to date; urine culture with E. coli continue antibiotics (3) Altered mental status: Code(s): R41.82 - Altered mental status, unspecified Status: Acute Assessment and Plan: clinically better than admission (but continues to fluctuate) likely due to hypotension, shock, and hypoxia follow mentation if not done recently, check ammonia level (4) Severe anemia: Code(s): D64.9 - Anemia, unspecified Status: Acute Assessment and Plan: Hgb 5.0 on presentation appropriate incrementation with PRBC transfusion see #5 (5) Acute GI bleeding: Code(s): K92.2 - Gastrointestinal hemorrhage, unspecified Status: Acute Assessment and Plan: guaiac positive s/p EGD with no active bleeding found - only hiatal hernia and gastritis found follow serial H/Hs Gastroenterology following with recommendations noted (6) Alcoholic hepatitis: Code(s): K70.10 - Alcoholic hepatitis without ascites Status: Acute Assessment and Plan: as noted by admission labs - elevated LFTs and bilirubin follow trend of LFTs continue supportive therapy Will continue to follow. Subjective Date/time seen: 05/21/21 14:01 Seems a bit more lethargic today in comparison to yesterday; intolerant to Doboff so receiving TPN for nutritional support; her appetite remains quite poor still; continues to make good urine output; stable hemodynamics at this time as well; no new labs this AM. Exam Narrative: General: ill appearing female in NAD Heart: normal S1 and S2; no rub Lungs: coarse and decreased at bases Abdomen: soft, nontender, nondistended, positive bowel sounds Extremities: no cyanosis or clubbing; trace edema Skin: no rash Objective Data Vital Signs Vital Signs: Vital Signs Temp Pulse Resp BP Pulse Ox 05/21/21 06:00 36.4 C L 92 16 136/72 94 05/20/21 21:10 138/80 05/20/21 20:18 36.2 C L 94 12 138/80 96 Intake/Output Intake/Output: Intake & Output 05/18/21 05/19/21 05/20/21 05/21/21 23:59 23:59 23:59 23:59 Intake Total 500 2455 2565 400 Output Total 900 1000 1200 Balance -400 1455 1365 400 Meds/Results Medications: Active Medications Generic Name Dose Route Start Last Admin Trade Name Freq PRN Reason Stop Dose Admin Dextrose 12.5 gm 05/13/21 07:44 Dextrose 50% 25 Gm/50 Ml Syringe IV PUSH PRN PRN Hypoglycemia Protocol Folic Acid 1 mg 05/13/21 09:00 05/21/21 09:47 Folic Acid 1 Mg/0.2 Ml Inj IV PUSH 1 mg QAM KAI Administration Glucagon 1 mg 05/13/21 07:44 Glucagon For Inj 1 Mg Vial IM PRN PRN Hypoglycemia Protocol Glucose 15 gm 05/13/21 07:44 Glucose Oral Gel 15 Gm Of Glucse In 37.5 Gm Tube PO PRN PRN Hypoglycemia Protocol Hydromorphone HCl 0.5 mg 05/18/21 17:57 05/21/21 13:52 Hydromorphone Hcl Inj (*Crx) 1 Mg/Ml Syr
[2021-05-21 14:19] LABS: Triglycerides 259 mg/dL (<150)
[2021-05-21 15:22] VITALS: BP 133/93; PULSE 84; RESP 16; TEMP 35.6; O2SAT 99
[2021-05-21] MEDS: AMINO ACIDS 5%/D15W/E-LYTES/CA 2,000 ML with MULTIVITAMINS-12 INJ VIAL 1 2.5 ML, MULTIV... 40 ML IV CONT (15:25)
[2021-05-21] MEDS: FAT EMULSIONS IV 20% 250 ML 20.83 ML IVPB (15:25)
[2021-05-21] MEDS: SODIUM CHLORIDE 0.9% IV 1,000 ML 50 ML IV CONT (18:52)
[2021-05-21 18:59] LABS: Glucose Point of Care 143 mg/dl (65-105)
[2021-05-21 19:24] VITALS: BP 145/103; PULSE 85; RESP 16; TEMP 36; O2SAT 100
[2021-05-22] VITALS (7 sets, daily range): BP systolic 130–147; BP diastolic 90–96; PULSE 86–97; RESP 16–18; TEMP 36.1–36.9; O2SAT 95–99
[2021-05-22 00:26] LABS: Glucose Point of Care 126 mg/dl (65-105)
[2021-05-22] MEDS: CENTRAL LINE FLUSH 10 ML IV PUSH ×3 (05:09→20:30)
[2021-05-22] MEDS: CENTRAL LINE FLUSH 20 ML IV PUSH (05:09)
[2021-05-22 05:17] LABS: Basophils Absolute Auto 0.1 K/mm3 (0.0-0.1); Basophils Percent Auto 0.6 % (0.2-1.2); Eosinophils Absolute Auto 0.6 K/mm3 (0-0.3); Eosinophils Percent Auto 3.7 % (0-4.4); Hematocrit 26.7 % (37.0-47.0); Hemoglobin 8.4 g/dL (12.0-15.0); Immature Granulocyte Absolute 0.11 K/mm3 (0.00-0.031); Immature Granulocyte Percent A 0.7 % (0-0.5); Lymphocytes Absolute Auto 1.51 K/mm3 (0.9-3.2); Lymphocytes Percent Auto 9.4 % (18.3-44.2); Mean Corpuscular HGB Conc 31.5 g/dl (32-36); Mean Corpuscular Hemoglobin 33.6 pg (26-34); Mean Corpuscular Volume 106.8 fl (80-100); Mean Platelet Volume 11.9 fl (7.4-10.4); Monocytes Absolute Auto 0.9 K/mm3 (0.1-0.6); Monocytes Percent Auto 5.5 % (2.6-8.5); Neutrophils Absolute Auto 12.9 K/mm3 (1.3-6.7); Neutrophils Percent Auto 80.1 % (45.5-73.1); Platelet Count Result 233 k/mm3 (150-375); Red Cell Distribution Width 21.6 % (11.5-14.5); White Blood Count 16.1 K/mm3 (4.5-10.0)
[2021-05-22 05:32] LABS: INR 1.3
[2021-05-22 05:33] LABS: Partial Thromboplastin Time 39.8 SECONDS (22.3-36.8)
[2021-05-22 05:36] LABS: Ammonia < 9 umol/L (9-30)
[2021-05-22 05:43] LABS: Glucose Point of Care 154 mg/dl (65-105)
[2021-05-22 05:52] LABS: Alanine Aminotransferase 23 U/L (4-35); Albumin Level 3.3 g/dL (3.5-5.1); Alkaline Phosphatase 229 U/L (38-126); Anion Gap 8 mmol/L (8-16); Aspartate Amino Transferase 68 U/L (14-36); Bilirubin,Total 1.2 mg/dL (0.2-1.3); Blood Urea Nitrogen 89 mg/dL (7-17); Calcium 9.1 mg/dL (8.4-10.2); Carbon Dioxide 31 mmol/L (22-30); Chloride 102 mmol/L (98-107); Estimated CRCL calculation 21 ml/min; Estimated Glomerular Filt Rate 15; Glucose 155 mg/dL (65-110); Magnesium 1.8 mg/dL (1.6-2.3); Phosphorus 4.7 mg/dL (2.5-4.5); Potassium 3.1 mmol/L (3.4-5.0); Sodium 141 mmol/L (137-145)
[2021-05-22 05:56] LABS: Transferrin 88 mg/dL (206-381)
[2021-05-22 07:33] LABS: Glucose Point of Care 159 mg/dl (65-105)
[2021-05-22] MEDS: PANTOPRAZOLE SODIUM IV 40 MG VIAL IV PUSH ×2 (08:52→20:26)
[2021-05-22] MEDS: THIAMINE HCL 200 MG/2 ML VIAL 100 MG IV PUSH (08:52)
[2021-05-22] MEDS: OCTREOTIDE ACETATE 100 MCG/ML VIAL SUB-Q ×2 (08:52→13:02)
[2021-05-22] MEDS: FOLIC ACID 1 MG/0.2 ML INJ IV PUSH (08:53)
[2021-05-22] MEDS: TOLNAFTATE 1% POWDER 45 GM BTL 1 APPLIC TOPICAL ×2 (08:56→20:30)
--- NOTE | 2021-05-22 11:45 | PCNFU ---
Nutrition Follow-Up Complete: Inadequate Oral Intake as related to Pneumonia as evidenced by poor po intake Goal: Meet estimated nutritional needs Patient has limited progress towards goal. We will continue current goal. Pt current nutrition is Full liquids with Clinimix E 5/15 at 50 ml/hr and 250 ml of 20% Lipid Emulsion. Last recorded weight is 77.4 kg, no new weight to report. Bowel Motility:+BM reported 05/22 Labs Reviewed:Glu 135,GFR 15, K 3.1,Hgb 8.4, Hct 26.7 Meds Noted:Thiamine, Folic Acid, Zosyn, Sandostatin. Skin:Perianal-Maceration. Additional Notes: Nutrition follow up. Patient consuming bites of yogurt from full liquid diet this morning. Oral Intake remains poor. Dobbhoff was attempted over the weekend, unable to tolerate. Spoke with CHIDI Zapata today regarding parental nutrition. Recommend increasing rate of TPN today to 50 ml/hr providing 1352 kcal/60 gm protein. Goal rate recommending 60 ml/hr. PO intake encouraged. Monitoring: Will monitor every 3 days.
[2021-05-22 11:55] LABS: Glucose Point of Care 144 mg/dl (65-105)
[2021-05-22] MEDS: SODIUM CHLORIDE 0.9% IV 1,000 ML 50 ML IV CONT (13:00)
--- NOTE | 2021-05-22 14:02 | PM.IMPN ---
Progress Note: A&P Assessment and Plan (1) Septic shock: Code(s): A41.9 - Sepsis, unspecified organism; R65.21 - Severe sepsis with septic shock Status: Resolved Assessment and Plan: Presented with severe anemia, hypotension, hypoxia and multiple sources of infection with UTI, peritonitis, and pneumonia Urine culture with E. coli, sensitive to Zosyn Peritoneal fluid with no growth Blood cultures negative She was rehydrated with IV fluids and initially required Levophed, which has been discontinued and blood pressures remain stable. WBC remaining mildly elevated; continue to monitor She has completed 8 days of IV Zosyn, will discontinue at this time. (2) Cirrhosis of liver with ascites: Code(s): K74.60 - Unspecified cirrhosis of liver; R18.8 - Other ascites Status: Acute Assessment and Plan: Secondary to alcohol abuse. Presented with ascites and had paracentesis on 05/15. Ascites fluid cultures negative. She has received IV albumin and octreotide. Discontinue octreotide due to concerns for possible drug rash. Continue 2 g sodium diet. Unable to administer diuretics given SUMMER. (3) Altered mental status: Code(s): R41.82 - Altered mental status, unspecified Status: Acute Assessment and Plan: Patient appears to have toxic metabolic encephalopathy which has been complicated by uremia. Ammonia levels have normalized but will continue with trial of lactulose. 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 Consider neurology consultation if no further improvement. (4) Severe anemia: Code(s): D64.9 - Anemia, unspecified Status: Acute Assessment and Plan: Patient presented with a hemoglobin of 5.0. She received 2 units pRBC and H&H remaining stable today. EGD showed gastritis with no evidence of bleeding, continue Protonix. Continue to monitor H&H. Will check iron panel. (5) Alcohol dependence: Code(s): F10.20 - Alcohol dependence, uncomplicated Status: Acute Assessment and Plan: Continue thiamine and folic acid. Resources for alcohol cessation when mental status improves. No signs to suggest alcohol withdrawal. (6) Acute kidney injury: Code(s): N17.9 - Acute kidney failure, unspecified Status: Acute Assessment and Plan: Creatinine was 1.0 at presentation and has increased up to 5.1. Etiology not entirely clear, possibly due to hypovolemia/septic shock, infection, hepatorenal syndrom. Renal US unremarkable. Appreciate nephrololgy consultation. Creatinine slowly improving down to 3.3 today. (7) Thrombocytopenia: Code(s): D69.6 - Thrombocytopenia, unspecified Status: Acute Assessment and Plan: Multifactorial secondary to cirrhosis, alcohol abuse, sepsis. Platelet count has normalized. No evidence of bleeding. (8) Hypoxia: Code(s): R09.02 - Hypoxemia Status: Acute Assessment and Plan: Noted to be hypoxic on presentation, most likely secondary to pneumonia with evidence of patchy consolidations on CT. She has completed a course of IV Zosyn which has been discontinued. She currently remains on 3 L per nasal cannula, though intermittently removes this and O2 sats remain stable. Wean oxygen as tolerated with goal saturation 92% or above. (9) Malnutrition: Code(s): E46 - Unspecified protein-calorie malnutrition Status: Acute Assessment and Plan: She has very minimal p.o. intake. She is on TPN at this time with rate increased today. Attempted to do Dobbhoff yesterday but she could not tolerate this. Discussed case with Gastroenterology, recommends try again to proceed with Dobbhoff feedings until her p.o. intake improves. Appreciate dietitian consultation (10) Electrolyte abnormality: Code(s): E87.8 - Other disorders of electrolyte and fluid balance, not elsewhere classified Status: Acute Assessment and Plan: [place]
[2021-05-22] MEDS: POTASSIUM CHLORIDE 20 MEQ PACKET (FOR LIQUID) 40 MEQ PO (14:25)
[2021-05-22] MEDS: FAMOTIDINE 20 MG TABLET PO ×2 (14:25→20:26)
[2021-05-22] MEDS: diphenhydrAMINE HCl CAP 25 MG CAPSULE PO (14:25)
[2021-05-22] MEDS: AMINO ACIDS 5%/D15W/E-LYTES/CA 2,000 ML with MULTIVITAMINS-12 INJ VIAL 1 2.5 ML, MULTIV... 50 ML IV CONT (14:27)
[2021-05-22] MEDS: FAT EMULSIONS IV 20% 250 ML 20.8 ML IVPB (14:36)
--- NOTE | 2021-05-22 14:49 | WPDGIPROGNO ---
Progress Note: A&P Assessment and Plan (1) Cirrhosis of liver with ascites: Code(s): K74.60 - Unspecified cirrhosis of liver; R18.8 - Other ascites Status: Acute Assessment and Plan: meld score 21 (creatinine and bili improving) but still poor appetite. Few days ago did not tolerate placement DHT- encourage to eat more, she is on iv nutrition for now but may need NGT placement again she can not get G-tube because ascites and cirrhosis (2) Acute encephalopathy: Code(s): G93.40 - Encephalopathy, unspecified Status: Acute Assessment and Plan: unchanged (3) Acute kidney injury: Code(s): N17.9 - Acute kidney failure, unspecified Status: Acute Assessment and Plan: creatinine slowly improving (4) Septic shock: Code(s): A41.9 - Sepsis, unspecified organism; R65.21 - Severe sepsis with septic shock Status: Resolved Assessment and Plan: on admission and resolved, she has been on abx since admission culture (5) Thrombocytopenia: Code(s): D69.6 - Thrombocytopenia, unspecified Status: Acute Assessment and Plan: from alcohol and cirrhosis (6) Cirrhosis, alcoholic: Code(s): K70.30 - Alcoholic cirrhosis of liver without ascites Status: Acute Assessment and Plan: meld score 21 slowly improving but still sick (7) Gastritis: Code(s): K29.70 - Gastritis, unspecified, without bleeding Status: Acute Assessment and Plan: on ppi (8) Malnutrition: Code(s): E46 - Unspecified protein-calorie malnutrition Status: Acute (9) Severe anemia: Code(s): D64.9 - Anemia, unspecified Status: Acute Assessment and Plan: egd on admission revealed gastritis hb has been stable after transfusion Subjective Date/time seen: 05/22/21 14:49 Interval history: she is awake and interacting but confused, also still poor oral intake Review of Systems Review of Systems: All systems reviewed & are unremarkable except as noted in HPI and below Exam Const: General: ill appearing chronically Other: awake HENMT: General nose exam: Normal nares present Eyes: General: appearance normal, both eyes and all related structures Neck: Neck: supple Resp: Auscultation: clear to auscultation bilaterally Cardio: Rate: regular rate GI: GI Palp: Yes Soft to palpation and No Tenderness to palpation present (GI) Auscultation: normal bowel sounds Skin: General skin exam: no rashes or lesions noted Neuro: Other: awake and alert but confused Extrem: General: normal to inspection Objective Data Vital Signs Vital Signs: Vital Signs - 24 hr 05/21/21 15:22 05/21/21 19:24 05/22/21 03:57 Temperature 96.0 F L 96.8 F L 98.4 F Pulse Rate 84 85 86 Respiratory Rate 16 16 16 Blood Pressure 133/93 H 145/103 H 145/93 H Pulse Oximetry 99 100 99 05/22/21 04:00 05/22/21 08:00 05/22/21 12:00 Temperature Pulse Rate Respiratory Rate Blood Pressure 145/93 H 145/93 H 130/90 Pulse Oximetry 99 Intake/Output Intake/Output: Intake & Output 05/19/21 05/20/21 05/21/21 05/22/21 23:59 23:59 23:59 23:59 Intake Total 2455 2565 2767 3475 Output Total 1000 6206 853 4331 Balance 1455 1365 2467 2350 Meds/Results Medications: Active Medications Generic Name Dose Route Start Last Admin Trade Name Freq PRN Reason Stop Dose Admin Dextrose 12.5 gm 05/13/21 07:44 Dextrose 50% 25 Gm/50 Ml Syringe IV PUSH PRN PRN Hypoglycemia Protocol Diphenhydramine HCl 25 mg 05/22/21 14:03 05/22/21 14:25 Diphenhydramine Hcl Cap 25 Mg Capsule PO 25 mg Q6H PRN Administration Itching Famotidine 20 mg 05/22/21 21:00 Famotidine 20 Mg Tablet PO Q12HR KAI Folic Acid 1 mg 05/13/21 09:00 05/22/21 08:53 Folic Acid 1 Mg/0.2 Ml Inj IV PUSH 1 mg QAM KAI Administration Glucagon 1 mg 05/13/21 07:44 Glucagon For Inj 1 Mg Vial IM PRN PRN Hypo
--- NOTE | 2021-05-22 15:58 | P.PNNP_ITS ---
Progress Note: A&P Assessment and Plan (1) Acute kidney injury: Code(s): N17.9 - Acute kidney failure, unspecified Status: Acute Assessment and Plan: * normal creatinine noted on admission * likely multifactorial: * hypovolemia * septic shock/hypotension * infection * liver cirrhosis * possible hepatorenal syndrome(?) * renal ultrasound with any acute issues * urine electrolytes consistent with prerenal azotemia * however, this could be reflective her liver physiology (decreased effective circulating volume leading to chronic prerenal azotemia) * creatinine improving slowly -- given poor intake, consider IVF challenge * follow trend of repeat labs and UOP (2) Septic shock: Code(s): A41.9 - Sepsis, unspecified organism; R65.21 - Severe sepsis with septic shock Status: Resolved Assessment and Plan: * resolved -- off pressors * based on presentation of severe anemia, low BP, and hypoxia * significant lactic acidosis on admission with improvement s/p IVF resuscitation * blood culture negative to date; urine culture with E. coli * continue antibiotics (3) Altered mental status: Code(s): R41.82 - Altered mental status, unspecified Status: Acute Assessment and Plan: * clinically better than admission (but continues to fluctuate) * likely due to hypotension, shock, and hypoxia * follow mentation (4) Severe anemia: Code(s): D64.9 - Anemia, unspecified Status: Acute Assessment and Plan: * Hgb 5.0 on presentation * appropriate incrementation with PRBC transfusion * see #5 (5) Acute GI bleeding: Code(s): K92.2 - Gastrointestinal hemorrhage, unspecified Status: Acute Assessment and Plan: * guaiac positive * s/p EGD with no active bleeding found - only hiatal hernia and gastritis found * follow serial H/Hs * Gastroenterology following with recommendations noted (6) Alcoholic hepatitis: Code(s): K70.10 - Alcoholic hepatitis without ascites Status: Acute Assessment and Plan: * as noted by admission labs - elevated LFTs and bilirubin * follow trend of LFTs * continue supportive therapy Will continue to follow. Subjective Date/time seen: 05/22/21 15:58 Still has some issues with confusion but renal function appears to be improving associated with good urine output; appetite remains sub-optimal at this time; no other issues/events overnight or earlier this morning; no apparent distress voiced. Exam Narrative: General: ill appearing female in NAD Heart: normal S1 and S2; no rub Lungs: coarse and decreased at bases Abdomen: soft, nontender, nondistended, positive bowel sounds Extremities: no cyanosis or clubbing; trace edema Skin: rash noted Objective Data Vital Signs Vital Signs: Vital Signs Temp Pulse Resp BP Pulse Ox 05/22/21 15:11 36.3 C L 87 16 147/96 H 95 05/22/21 12:00 130/90 05/22/21 08:00 145/93 H 99 05/22/21 04:00 145/93 H 05/22/21 03:57 36.9 C 86 16 145/93 H 99 05/21/21 19:24 36.0 C L 85 16 145/103 H 100 Intake/Output Intake/Output: Intake & Output 05/19/21 05/20/21 05/21/21 05/22/21 23:59 23:59 23:59 23:59 Intake Total 2455 2565 2767 3495 Output Total 1000 3302 696 7487 Balance
--- NOTE | 2021-05-22 15:58 | PM.PNNEP ---
Progress Note: A&P Assessment and Plan (1) Acute kidney injury: Code(s): N17.9 - Acute kidney failure, unspecified Status: Acute Assessment and Plan: normal creatinine noted on admission likely multifactorial: hypovolemia septic shock/hypotension infection liver cirrhosis possible hepatorenal syndrome(?) renal ultrasound with any acute issues urine electrolytes consistent with prerenal azotemia however, this could be reflective her liver physiology (decreased effective circulating volume leading to chronic prerenal azotemia) creatinine improving slowly -- given poor intake, consider IVF challenge follow trend of repeat labs and UOP (2) Septic shock: Code(s): A41.9 - Sepsis, unspecified organism; R65.21 - Severe sepsis with septic shock Status: Resolved Assessment and Plan: resolved -- off pressors based on presentation of severe anemia, low BP, and hypoxia significant lactic acidosis on admission with improvement s/p IVF resuscitation blood culture negative to date; urine culture with E. coli continue antibiotics (3) Altered mental status: Code(s): R41.82 - Altered mental status, unspecified Status: Acute Assessment and Plan: clinically better than admission (but continues to fluctuate) likely due to hypotension, shock, and hypoxia follow mentation (4) Severe anemia: Code(s): D64.9 - Anemia, unspecified Status: Acute Assessment and Plan: Hgb 5.0 on presentation appropriate incrementation with PRBC transfusion see #5 (5) Acute GI bleeding: Code(s): K92.2 - Gastrointestinal hemorrhage, unspecified Status: Acute Assessment and Plan: guaiac positive s/p EGD with no active bleeding found - only hiatal hernia and gastritis found follow serial H/Hs Gastroenterology following with recommendations noted (6) Alcoholic hepatitis: Code(s): K70.10 - Alcoholic hepatitis without ascites Status: Acute Assessment and Plan: as noted by admission labs - elevated LFTs and bilirubin follow trend of LFTs continue supportive therapy Will continue to follow. Subjective Date/time seen: 05/22/21 15:58 Still has some issues with confusion but renal function appears to be improving associated with good urine output; appetite remains sub-optimal at this time; no other issues/events overnight or earlier this morning; no apparent distress voiced. Exam Narrative: General: ill appearing female in NAD Heart: normal S1 and S2; no rub Lungs: coarse and decreased at bases Abdomen: soft, nontender, nondistended, positive bowel sounds Extremities: no cyanosis or clubbing; trace edema Skin: rash noted Objective Data Vital Signs Vital Signs: Vital Signs Temp Pulse Resp BP Pulse Ox 05/22/21 15:11 36.3 C L 87 16 147/96 H 95 05/22/21 12:00 130/90 05/22/21 08:00 145/93 H 99 05/22/21 04:00 145/93 H 05/22/21 03:57 36.9 C 86 16 145/93 H 99 05/21/21 19:24 36.0 C L 85 16 145/103 H 100 Intake/Output Intake/Output: Intake & Output 05/19/21 05/20/21 05/21/21 05/22/21 23:59 23:59 23:59 23:59 Intake Total 2455 2565 2767 3495 Output Total 1000 3391 574 8292 Balance 1455 1365 2467 2370 Meds/Results Medications: Active Medications Generic Name Dose Route Start Last Admin Trade Name Lowq PRN Reason Stop Dose Admin Dextrose 12.5 gm 05/13/21 07:44 Dextrose 50% 25 Gm/50 Ml Syringe IV PUSH PRN PRN Hypoglycemia Protocol Diphenhydramine HCl 25 mg 05/22/21 14:03 05/22/21 14:25 Diphenhydramine Hcl Cap 25 Mg Capsule PO 25 mg Q6H PRN Administration Itching Famotidine 20 mg 05/22/21 21:00 Famotidine 20 Mg Tablet PO Q12HR KAI Folic Acid 1 mg 05/13/21 09:00 05/22/21 08:53 Folic Acid 1 Mg/0.2 Ml Inj IV PUSH 1 mg QAM KAI Administration Glucagon 1 mg 05/13/21 07:44 Gluca
[2021-05-22 17:10] LABS: Glucose Point of Care 142 mg/dl (65-105)
[2021-05-22 20:27] LABS: Glucose Point of Care 138 mg/dl (65-105)
[2021-05-23] VITALS (7 sets, daily range): BP systolic 141–152; BP diastolic 90–99; PULSE 86–100; RESP 18–20; TEMP 36.8–36.9; O2SAT 97–99
[2021-05-23] MEDS: CENTRAL LINE FLUSH 10 ML IV PUSH ×3 (05:29→20:31)
[2021-05-23 05:39] LABS: Glucose Point of Care 128 mg/dl (65-105)
[2021-05-23 06:37] LABS: Basophils Absolute Auto 0.1 K/mm3 (0.0-0.1); Basophils Percent Auto 0.5 % (0.2-1.2); Eosinophils Absolute Auto 0.6 K/mm3 (0-0.3); Eosinophils Percent Auto 3.6 % (0-4.4); Hemoglobin 8.2 g/dL (12.0-15.0); Immature Granulocyte Absolute 0.09 K/mm3 (0.00-0.031); Immature Granulocyte Percent A 0.6 % (0-0.5); Lymphocytes Percent Auto 9.4 % (18.3-44.2); Mean Corpuscular HGB Conc 31.5 g/dl (32-36); Mean Corpuscular Hemoglobin 32.7 pg (26-34); Mean Corpuscular Volume 103.6 fl (80-100); Mean Platelet Volume 12.2 fl (7.4-10.4); Monocytes Absolute Auto 0.9 K/mm3 (0.1-0.6); Monocytes Percent Auto 5.4 % (2.6-8.5); Neutrophils Absolute Auto 12.9 K/mm3 (1.3-6.7); Neutrophils Percent Auto 80.5 % (45.5-73.1); Platelet Count Result 233 k/mm3 (150-375); Red Blood Count 2.51 M/mm3 (4.2-5.4); Red Cell Distribution Width 21.3 % (11.5-14.5)
[2021-05-23 07:07] LABS: Alanine Aminotransferase 23 U/L (4-35); Albumin Level 3.2 g/dL (3.5-5.1); Alkaline Phosphatase 224 U/L (38-126); Anion Gap 10 mmol/L (8-16); Aspartate Amino Transferase 65 U/L (14-36); Bilirubin,Total 1.1 mg/dL (0.2-1.3); Blood Urea Nitrogen 73 mg/dL (7-17); Calcium 9.3 mg/dL (8.4-10.2); Carbon Dioxide 27 mmol/L (22-30); Chloride 105 mmol/L (98-107); Estimated CRCL calculation 25 ml/min; Estimated Glomerular Filt Rate 19; Glucose 122 mg/dL (65-110); Phosphorus 4.4 mg/dL (2.5-4.5); Sodium 142 mmol/L (137-145)
[2021-05-23] MEDS: FOLIC ACID 1 MG/0.2 ML INJ IV PUSH (08:24)
[2021-05-23] MEDS: PANTOPRAZOLE SODIUM IV 40 MG VIAL IV PUSH ×2 (08:25→20:31)
[2021-05-23] MEDS: THIAMINE HCL 200 MG/2 ML VIAL 100 MG IV PUSH (08:25)
[2021-05-23] MEDS: LACTULOSE 20 GM/30 ML UDC PO (08:26)
[2021-05-23] MEDS: FAMOTIDINE 20 MG TABLET PO ×2 (08:27→20:31)
[2021-05-23] MEDS: TOLNAFTATE 1% POWDER 45 GM BTL 1 APPLIC TOPICAL ×2 (08:29→20:31)
[2021-05-23] MEDS: diphenhydrAMINE HCl CAP 25 MG CAPSULE PO (08:31)
[2021-05-23] MEDS: HYDROcodone/acetaminophen (*CRX) 5-325 MG TABLET 1 TAB PO (09:51)
[2021-05-23 10:43] LABS: Iron 51 ug/dL (37-170)
[2021-05-23 10:52] LABS: Percent Iron Saturation 35 % (20-50)
--- NOTE | 2021-05-23 11:20 | P.PNNP_ITS ---
Progress Note: A&P Assessment and Plan (1) Acute kidney injury: Code(s): N17.9 - Acute kidney failure, unspecified Status: Acute Assessment and Plan: * improving * normal creatinine noted on admission * likely multifactorial: * hypovolemia * septic shock/hypotension * infection * liver cirrhosis * possible hepatorenal syndrome(?) - seems less likely * renal ultrasound with any acute issues * urine electrolytes consistent with prerenal azotemia * however, this could be reflective her liver physiology (decreased effective circulating volume leading to chronic prerenal azotemia) * creatinine improving slowly * follow trend of repeat labs and UOP (2) Septic shock: Code(s): A41.9 - Sepsis, unspecified organism; R65.21 - Severe sepsis with septic shock Status: Resolved Assessment and Plan: * resolved -- off pressors * based on presentation of severe anemia, low BP, and hypoxia * significant lactic acidosis on admission with improvement s/p IVF resuscitation * blood culture negative to date; urine culture with E. coli * continue antibiotics (3) Altered mental status: Code(s): R41.82 - Altered mental status, unspecified Status: Acute Assessment and Plan: * clinically better than admission (but continues to fluctuate) * likely due to hypotension, shock, and hypoxia * follow mentation (4) Severe anemia: Code(s): D64.9 - Anemia, unspecified Status: Acute Assessment and Plan: * Hgb 5.0 on presentation * appropriate incrementation with PRBC transfusion * see #5 (5) Acute GI bleeding: Code(s): K92.2 - Gastrointestinal hemorrhage, unspecified Status: Acute Assessment and Plan: * guaiac positive * s/p EGD with no active bleeding found - only hiatal hernia and gastritis found * follow serial H/Hs * Gastroenterology following with recommendations noted (6) Alcoholic hepatitis: Code(s): K70.10 - Alcoholic hepatitis without ascites Status: Acute Assessment and Plan: * as noted by admission labs - elevated LFTs and bilirubin * follow trend of LFTs * suspect ascites as cause of abdominal fullness -- paracentesis needed? * continue supportive therapy Will continue to follow. Subjective Date/time seen: 05/23/21 11:20 Seems to be slowly improving - menation seems to be doing better today as well; major complaint is that of abdominal fullness; appetite seems a bit better but n ot optimal; no other acute issues/events overnight or earlier this morning. Exam Narrative: General: ill appearing female in NAD Heart: normal S1 and S2; no rub Lungs: coarse and decreased at bases Abdomen: soft, nontender, nondistended, positive bowel sounds Extremities: no cyanosis or clubbing; trace edema Skin: no nodules Objective Data Vital Signs Vital Signs: Vital Signs Temp Pulse Resp BP Pulse Ox 05/23/21 06:00 36.8 C 86 20 141/90 H 98 05/22/21 20:22 36.1 C L 97 18 146/96 H 97 05/22/21 20:00 97 18 97 05/22/21 15:11 36.3 C L 87 16 147/96 H 95 05/22/21 12:00 130/90 Intake/Output Intake/Output: Intake & Output 05/20/21 05/21/21 05/22/21 05/23/21 23:59 23:59 23:59 23:59 Intake Total 2565 2767 3495 220 Output Total 5199 401 0325 550
--- NOTE | 2021-05-23 11:20 | PM.PNNEP ---
Progress Note: A&P Assessment and Plan (1) Acute kidney injury: Code(s): N17.9 - Acute kidney failure, unspecified Status: Acute Assessment and Plan: improving normal creatinine noted on admission likely multifactorial: hypovolemia septic shock/hypotension infection liver cirrhosis possible hepatorenal syndrome(?) - seems less likely renal ultrasound with any acute issues urine electrolytes consistent with prerenal azotemia however, this could be reflective her liver physiology (decreased effective circulating volume leading to chronic prerenal azotemia) creatinine improving slowly follow trend of repeat labs and UOP (2) Septic shock: Code(s): A41.9 - Sepsis, unspecified organism; R65.21 - Severe sepsis with septic shock Status: Resolved Assessment and Plan: resolved -- off pressors based on presentation of severe anemia, low BP, and hypoxia significant lactic acidosis on admission with improvement s/p IVF resuscitation blood culture negative to date; urine culture with E. coli continue antibiotics (3) Altered mental status: Code(s): R41.82 - Altered mental status, unspecified Status: Acute Assessment and Plan: clinically better than admission (but continues to fluctuate) likely due to hypotension, shock, and hypoxia follow mentation (4) Severe anemia: Code(s): D64.9 - Anemia, unspecified Status: Acute Assessment and Plan: Hgb 5.0 on presentation appropriate incrementation with PRBC transfusion see #5 (5) Acute GI bleeding: Code(s): K92.2 - Gastrointestinal hemorrhage, unspecified Status: Acute Assessment and Plan: guaiac positive s/p EGD with no active bleeding found - only hiatal hernia and gastritis found follow serial H/Hs Gastroenterology following with recommendations noted (6) Alcoholic hepatitis: Code(s): K70.10 - Alcoholic hepatitis without ascites Status: Acute Assessment and Plan: as noted by admission labs - elevated LFTs and bilirubin follow trend of LFTs suspect ascites as cause of abdominal fullness -- paracentesis needed? continue supportive therapy Will continue to follow. Subjective Date/time seen: 05/23/21 11:20 Seems to be slowly improving - menation seems to be doing better today as well; major complaint is that of abdominal fullness; appetite seems a bit better but not optimal; no other acute issues/events overnight or earlier this morning. Exam Narrative: General: ill appearing female in NAD Heart: normal S1 and S2; no rub Lungs: coarse and decreased at bases Abdomen: soft, nontender, nondistended, positive bowel sounds Extremities: no cyanosis or clubbing; trace edema Skin: no nodules Objective Data Vital Signs Vital Signs: Vital Signs Temp Pulse Resp BP Pulse Ox 05/23/21 06:00 36.8 C 86 20 141/90 H 98 05/22/21 20:22 36.1 C L 97 18 146/96 H 97 05/22/21 20:00 97 18 97 05/22/21 15:11 36.3 C L 87 16 147/96 H 95 05/22/21 12:00 130/90 Intake/Output Intake/Output: Intake & Output 05/20/21 05/21/21 05/22/21 05/23/21 23:59 23:59 23:59 23:59 Intake Total 2565 2767 3495 220 Output Total 4140 309 4263 550 Balance 1365 2467 2370 -330 Meds/Results Medications: Active Medications Generic Name Dose Route Start Last Admin Trade Name Freq PRN Reason Stop Dose Admin Hydrocodone Bitart/Acetaminophen 1 tab 05/23/21 09:07 05/23/21 09:51 Hydrocodone/Acetaminophen (*Crx) 5-325 Mg Tablet PO 1 tab Q6H PRN Administration Pain Dextrose 12.5 gm 05/13/21 07:44 Dextrose 50% 25 Gm/50 Ml Syringe IV PUSH PRN PRN Hypoglycemia Protocol Diphenhydramine HCl 25 mg 05/22/21 14:03 05/23/21 08:31 Diphenhydramine Hcl Cap 25 Mg Capsule PO 25 mg Q6H PRN Administration Itching Famotidine 20 mg 05/22/21 21:00 05/23/21 08:27 Famotid
[2021-05-23 12:32] LABS: Glucose Point of Care 149 mg/dl (65-105)
--- NOTE | 2021-05-23 13:01 | WPDGIPROGNO ---
Progress Note: A&P Assessment and Plan (1) Cirrhosis of liver with ascites: Code(s): K74.60 - Unspecified cirrhosis of liver; R18.8 - Other ascites Status: Acute Assessment and Plan: creatinine is slowly improving and I was told that eating more but still suboptimal she feels more bloated and probably has more ascites, will ask radiology to attempt paracentesis again and send fluid for studies can not use diuretics because evie she can not get G-tube because ascites and cirrhosis (2) Acute encephalopathy: Code(s): G93.40 - Encephalopathy, unspecified Status: Acute Assessment and Plan: agree with xifaxan from cirrhosis, etoh abuse, malnutrition, etc (3) Acute kidney injury: Code(s): N17.9 - Acute kidney failure, unspecified Status: Acute Assessment and Plan: creatinine slowly improving (4) Septic shock: Code(s): A41.9 - Sepsis, unspecified organism; R65.21 - Severe sepsis with septic shock Status: Resolved Assessment and Plan: on admission and resolved, she has been on abx since admission, ok to discontinue culture (5) Thrombocytopenia: Code(s): D69.6 - Thrombocytopenia, unspecified Status: Acute Assessment and Plan: from alcohol and cirrhosis (6) Cirrhosis, alcoholic: Code(s): K70.30 - Alcoholic cirrhosis of liver without ascites Status: Acute Assessment and Plan: slowly improving but still sick (7) Gastritis: Code(s): K29.70 - Gastritis, unspecified, without bleeding Status: Acute Assessment and Plan: on ppi (8) Malnutrition: Code(s): E46 - Unspecified protein-calorie malnutrition Status: Acute Assessment and Plan: encourage to eat more (9) Severe anemia: Code(s): D64.9 - Anemia, unspecified Status: Acute Assessment and Plan: egd on admission revealed gastritis hb has been stable after transfusion Subjective Date/time seen: 05/23/21 13:01 Interval history: I was told that she is trying to eat more, still tired and confused but participating more with activities. She feels more bloated today Review of Systems Review of Systems: All systems reviewed & are unremarkable except as noted in HPI and below Exam Const: General: ill appearing chronically Other: awake and alert HENMT: General nose exam: Normal nares present Eyes: General: appearance normal, both eyes and all related structures Neck: Neck: supple Resp: Auscultation: clear to auscultation bilaterally Cardio: Rate: regular rate GI: GI Palp: Yes Soft to palpation and No Tenderness to palpation present (GI) Percussion: Yes Fluid wave present Auscultation: normal bowel sounds Skin: General skin exam: no rashes or lesions noted Neuro: Other: awake and more alert but sometimes gets confused Extrem: General: normal to inspection Objective Data Vital Signs Vital Signs: Vital Signs - 24 hr 05/22/21 15:11 05/22/21 20:00 05/22/21 20:22 Temperature 97.3 F L 97 F L Pulse Rate 87 97 97 Respiratory Rate 16 18 18 Blood Pressure 147/96 H 146/96 H Pulse Oximetry 95 97 97 05/23/21 06:00 Temperature 98.3 F Pulse Rate 86 Respiratory Rate 20 Blood Pressure 141/90 H Pulse Oximetry 98 Intake/Output Intake/Output: Intake & Output 05/20/21 05/21/21 05/22/21 05/23/21 23:59 23:59 23:59 23:59 Intake Total 2565 2767 3495 220 Output Total 6788 430 7697 550 Balance 1365 2467 2370 -330 Meds/Results Medications: Active Medications Generic Name Dose Route Start Last Admin Trade Name Freq PRN Reason Stop Dose Admin Hydrocodone Bitart/Acetaminophen 1 tab 05/23/21 09:07 05/23/21 09:51 Hydrocodone/Acetaminophen (*Crx) 5-325 Mg Tablet PO 1 tab Q6H PRN Administration Pain Dextrose 12.5 gm 05/13/21 07:44 Dextrose 50% 25 Gm/50 Ml Syringe IV PUSH PRN PRN Hypoglycemia Protocol Diphenhydramine HCl 25 mg 05/22/21 14:03
--- NOTE | 2021-05-23 14:12 | PCNFU ---
Nutrition Follow-Up Complete: Inadequate Oral Intake as related to Pneumonia as evidenced by poor po intake Goal: Meet estimated nutritional needs Patient has limited progress towards goal. We will continue current goal. Pt current nutrition is 2 gm Na diet with TPN. Last recorded weight is 77.5 kg, up from 76.5 kg on admit. Bowel Motility:+BM reported 05/23 Labs Reviewed:Glu 122, BUN 73, Cr 2.7,Na 3.2, GFR 19, Hgb 26.0,Hct 8.2 Meds Noted:Folic Acid, Thiamine, Zosyn,Lactulose, Clinimix E 5/15 at 50 ml/hr with 250 ml of 20% Lipid Emulsion. Skin:Perianal-Maceration. Additional Notes: Nutrition follow up. Spoke with patient this morning. More alert. She drank all of her Ensure compact (220 kcals and 9 gms protein), bites of cream of wheat. Spoke with CHIDI Zapata today about intake. TPN to continue for today at 50 ml/hr providing 1352 kcals and 72 gms protein. PO intake is encouraged. Discharge plans for additional therapy at facility. Patient is not a candidate for PEG due to ascites and cirrhosis. PO intake is encouraged. Monitoring: Will monitor every 3 days.
[2021-05-23] MEDS: AMINO ACIDS 5%/D15W/E-LYTES/CA 2,000 ML with MULTIVITAMINS-12 INJ VIAL 1 2.5 ML, MULTIV... 50 ML IV CONT (14:36)
[2021-05-23] MEDS: EUCERIN CREAM 120 GM JAR 1 APPLIC TOPICAL (14:36)
[2021-05-23] MEDS: FAT EMULSIONS IV 20% 250 ML 20.8 ML IVPB (14:36)
[2021-05-23 15:10] LABS: Triglycerides 260 mg/dL (<150)
[2021-05-23 15:43] LABS: Eosinophils Peritoneal Fluid 0 %; Lymphocytes Peritoneal Fluid 3 %; Macrophages Peritoneal Fluid 1 %; Mesothelial Cells Peritoneal Fluid 0 %; Monocytes Peritoneal Fluid 0 %; Neutrophils Peritoneal Fluid 0 % (0-25); Other Cells Peritoneal Fluid 0 %
[2021-05-23 15:44] LABS: Appearance Peritoneal Fluid Turbid (Clear); Color Peritoneal Fluid Yellow (Colorless); Source Peritoneal Fluid Peritoneal Fluid
[2021-05-23 17:14] LABS: Glucose Point of Care 121 mg/dl (65-105)
--- NOTE | 2021-05-23 17:42 | PM.IMPN ---
Progress Note: A&P Assessment and Plan (1) Septic shock: Code(s): A41.9 - Sepsis, unspecified organism; R65.21 - Severe sepsis with septic shock Status: Resolved Assessment and Plan: Presented with severe anemia, hypotension, hypoxia and multiple sources of infection with UTI, peritonitis, and pneumonia Urine culture with E. coli, sensitive to Zosyn Peritoneal fluid with no growth Blood cultures negative She was rehydrated with IV fluids and initially required Levophed, which has been discontinued and blood pressures remain stable. WBC remaining mildly elevated; continue to monitor She completed 8 days of IV Zosyn which was discontinued on 05/22/21. (2) Cirrhosis of liver with ascites: Code(s): K74.60 - Unspecified cirrhosis of liver; R18.8 - Other ascites Status: Acute Assessment and Plan: Secondary to alcohol abuse. Presented with ascites and had paracentesis on 05/15. Ascites fluid cultures negative. She has received IV albumin and octreotide. Octreotide discontinued 05/22 due to concerns for possible drug rash. Continue 2 g sodium diet. Unable to administer diuretics given SUMMER. Will initiate xifaxan. Plan for repeat therapeutic paracentesis per GI. (3) Altered mental status: Code(s): R41.82 - Altered mental status, unspecified Status: Acute Assessment and Plan: Patient appears to have toxic metabolic encephalopathy which has been complicated by uremia. Ammonia levels have normalized but will continue with lactulose. 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 Mental status appears to be slowly improving, possibly related to improvement in BUN/renal function. Consider neurology consultation if no further improvement. (4) Severe anemia: Code(s): D64.9 - Anemia, unspecified Status: Acute Assessment and Plan: Patient presented with a hemoglobin of 5.0. She received 2 units pRBC and H&H remaining stable today. EGD showed gastritis with no evidence of bleeding, continue Protonix. Continue to monitor H&H. Iron panel consistent with anemia of chronic disease. (5) Alcohol dependence: Code(s): F10.20 - Alcohol dependence, uncomplicated Status: Acute Assessment and Plan: Continue thiamine and folic acid. Resources for alcohol cessation when mental status improves. No signs to suggest alcohol withdrawal. (6) Acute kidney injury: Code(s): N17.9 - Acute kidney failure, unspecified Status: Acute Assessment and Plan: Creatinine was 1.0 at presentation and increased up to 5.1. Etiology not entirely clear, possibly due to hypovolemia/septic shock, infection, hepatorenal syndrome. Renal US unremarkable. Appreciate nephrololgy consultation. Creatinine slowly improving down to 2.7 today with BUN 73. (7) Thrombocytopenia: Code(s): D69.6 - Thrombocytopenia, unspecified Status: Acute Assessment and Plan: Multifactorial secondary to cirrhosis, alcohol abuse, sepsis. Platelet count has normalized. No evidence of bleeding. (8) Hypoxia: Code(s): R09.02 - Hypoxemia Status: Acute Assessment and Plan: Noted to be hypoxic on presentation, most likely secondary to pneumonia with evidence of patchy consolidations on CT. She has completed a course of IV Zosyn which has been discontinued. She required up to 3 L per nasal cannula but has been weaned to room air and O2 sats remaining stable. (9) Malnutrition: Code(s): E46 - Unspecified protein-calorie malnutrition Status: Acute Assessment and Plan: She has very minimal p.o. intake. She is on TPN at this time. Attempted to do Dobbhoff 05/21 but she could not tolerate this. Discussed case with Gastroenterology and dietitian. Slightly more PO intake today. Continue dietary supplements and trial of PO intake. Consider reattempting Dobbhoff if PO intake remains poor. Not a candidate for g-tube given cirrhosis wi
[2021-05-24 00:02] LABS: Glucose Point of Care 128 mg/dl (65-105)
[2021-05-24 05:33] VITALS: BP 140/97; PULSE 73; RESP 20; TEMP 36.9; O2SAT 99
[2021-05-24] MEDS: SODIUM CHLORIDE 0.9% IV 1,000 ML 50 ML IV CONT (05:42)
[2021-05-24] MEDS: CENTRAL LINE FLUSH 10 ML IV PUSH ×3 (05:43→20:10)
[2021-05-24 06:17] LABS: Glucose Point of Care 123 mg/dl (65-105)
[2021-05-24 06:41] LABS: Alanine Aminotransferase 27 U/L (4-35); Alkaline Phosphatase 228 U/L (38-126); Anion Gap 12 mmol/L (8-16); Aspartate Amino Transferase 84 U/L (14-36); Bilirubin,Total 1.2 mg/dL (0.2-1.3); Blood Urea Nitrogen 62 mg/dL (7-17); Calcium 9.2 mg/dL (8.4-10.2); Carbon Dioxide 25 mmol/L (22-30); Chloride 110 mmol/L (98-107); Estimated CRCL calculation 31 ml/min; Estimated Glomerular Filt Rate 25; Glucose 124 mg/dL (65-110); Phosphorus 4.6 mg/dL (2.5-4.5); Potassium 3.4 mmol/L (3.4-5.0); Sodium 147 mmol/L (137-145)
[2021-05-24 06:53] LABS: Hematocrit 26.9 % (37.0-47.0); Hemoglobin 8.4 g/dL (12.0-15.0); Mean Corpuscular HGB Conc 31.2 g/dl (32-36); Mean Corpuscular Hemoglobin 33.6 pg (26-34); Mean Corpuscular Volume 107.6 fl (80-100); Mean Platelet Volume 12.4 fl (7.4-10.4); Platelet Count Result 219 k/mm3 (150-375); Red Cell Distribution Width 21.2 % (11.5-14.5); White Blood Count 17.9 K/mm3 (4.5-10.0)
--- NOTE | 2021-05-24 09:12 | PM.IMPN ---
Progress Note: A&P Assessment and Plan (1) Septic shock: Code(s): A41.9 - Sepsis, unspecified organism; R65.21 - Severe sepsis with septic shock Status: Resolved Assessment and Plan: Presented with severe anemia, hypotension, hypoxia and multiple sources of infection with UTI, peritonitis, and pneumonia UC +E. coli, s/p Zosyn x8 days, d/c'd on 05/22 Peritoneal fluid with no growth Blood cultures negative She was rehydrated with IV fluids and initially required Levophed, which has been discontinued and blood pressures remain stable (2) Cirrhosis of liver with ascites: Code(s): K74.60 - Unspecified cirrhosis of liver; R18.8 - Other ascites Status: Acute Assessment and Plan: / alcohol abuse Presented with ascites and had paracentesis on 05/15; Ascites fluid cultures negative She has received IV albumin and octreotide. 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 Mental status appears to be slowly improving (4) Severe anemia: Code(s): D64.9 - Anemia, unspecified Status: Acute Assessment and Plan: Patient presented with a hemoglobin of 5.0 S/p 2 units pRBC H&H stable EGD showed gastritis with no evidence of bleeding Continue Protonix Iron panel consistent with anemia of chronic disea Monitor H&H (5) Alcohol dependence: Code(s): F10.20 - Alcohol dependence, uncomplicated Status: Acute Assessment and Plan: Continue thiamine and folic acid Resources for alcohol cessation when mental status improves No signs to suggest alcohol withdrawal (6) Acute kidney injury: Code(s): N17.9 - Acute kidney failure, unspecified Status: Acute Assessment and Plan: Creatinine was 1.0 at presentation and increased up to 5.1 Cr slowly improving down to 2.7-->2.2 Etiology not entirely unclear Renal US unremarkable Nephrology following, recommendations appreciated Monitor (7) Thrombocytopenia: Code(s): D69.6 - Thrombocytopenia, unspecified Status: Acute Assessment and Plan: Multifactorial, 2/2 cirrhosis, alcohol abuse, sepsis Platelet count has normalized No evidence of bleeding (8) Hypoxia: Code(s): R09.02 - Hypoxemia Status: Acute Assessment and Plan: Resolved Noted to be hypoxic on presentation, most likely secondary to pneumonia with evidence of patchy consolidations on CT S/p course of IV Zosyn She required up to 3 L per nasal cannula but has been weaned to room air and O2 sats remaining stable (9) Malnutrition: Code(s): E46 - Unspecified protein-calorie malnutrition Status: Acute Assessment and Plan: She has very minimal p.o. intake She is on TPN at this time Attempted to do Dobbhoff 05/21 but she could not tolerate this Discussed case with Gastroenterology and dietitian Not a candidate for g-tube given cirrhosis with ascites (10) Electrolyte abnormality: Code(s): E87.8 - Other disorders of electrolyte and fluid balance, not elsewhere classified Status: Acute Assessment and Plan: Resolved K+ 3.0-->3.4 today Likely secondary to poor p.o. intake. S/p 40 mEq IV KCl Continue PO potassium supplementation until PO intake improves (11) Rash: Code(s): R21 - Rash and other nonspecific skin eruption Status: Acute Assessment and Plan: Suspected onset 05/22 May be secondary to medications, though etiology is u
[2021-05-24] MEDS: LACTULOSE 20 GM/30 ML UDC PO (09:44)
[2021-05-24] MEDS: FOLIC ACID 1 MG/0.2 ML INJ IV PUSH (09:44)
[2021-05-24] MEDS: POTASSIUM CHLORIDE 20 MEQ PACKET (FOR LIQUID) PO ×2 (09:44→18:05)
[2021-05-24] MEDS: THIAMINE HCL 200 MG/2 ML VIAL 100 MG IV PUSH (09:45)
[2021-05-24] MEDS: TOLNAFTATE 1% POWDER 45 GM BTL 1 APPLIC TOPICAL ×2 (09:45→20:12)
[2021-05-24] MEDS: EUCERIN CREAM 120 GM JAR 1 APPLIC TOPICAL (09:45)
[2021-05-24] MEDS: PANTOPRAZOLE SODIUM IV 40 MG VIAL IV PUSH ×2 (09:45→20:10)
[2021-05-24] MEDS: FAMOTIDINE 20 MG TABLET PO ×2 (09:45→20:10)
[2021-05-24 12:09] LABS: Glucose Point of Care 114 mg/dl (65-105)
--- NOTE | 2021-05-24 13:20 | P.PNNP_ITS ---
Progress Note: A&P Assessment and Plan (1) Acute kidney injury: Code(s): N17.9 - Acute kidney failure, unspecified Status: Acute Assessment and Plan: * continues to improve * normal creatinine noted on admission * likely multifactorial: * hypovolemia * septic shock/hypotension * infection * liver cirrhosis * possible hepatorenal syndrome(?) - seems less likely * renal ultrasound with any acute issues * urine electrolytes consistent with prerenal azotemia * however, this could be reflective her liver physiology (decreased effective circulating volume leading to chronic prerenal azotemia) * creatinine improving slowly * follow trend of repeat labs and UOP (2) Septic shock: Code(s): A41.9 - Sepsis, unspecified organism; R65.21 - Severe sepsis with septic shock Status: Resolved Assessment and Plan: * resolved -- off pressors * based on presentation of severe anemia, low BP, and hypoxia * significant lactic acidosis on admission with improvement s/p IVF re suscitation * blood culture negative to date; urine culture with E. coli * continue antibiotics (3) Altered mental status: Code(s): R41.82 - Altered mental status, unspecified Status: Acute Assessment and Plan: * clinically better than admission (but continues to fluctuate) * likely due to hypotension, shock, and hypoxia * follow mentation (4) Severe anemia: Code(s): D64.9 - Anemia, unspecified Status: Acute Assessment and Plan: * Hgb 5.0 on presentation * appropriate incrementation with PRBC transfusion * see #5 (5) Acute GI bleeding: Code(s): K92.2 - Gastrointestinal hemorrhage, unspecified Status: Acute Assessment and Plan: * guaiac positive * s/p EGD with no active bleeding found - only hiatal hernia and gastritis found * follow serial H/Hs * Gastroenterology following with recommendations noted (6) Alcoholic hepatitis: Code(s): K70.10 - Alcoholic hepatitis without ascites Status: Acute Assessment and Plan: * as noted by admission labs - elevated LFTs and bilirubin * follow trend of LFTs * suspect ascites as cause of abdominal fullness -- s/p paracentesis * continue supportive therapy Will continue to follow. Subjective Date/time seen: 05/24/21 13:20 S/P paracentesis yesterday afternoon with improvement in abdominal distension and fullness per patient; mother at bedside and we discussed the situation; no issues/events overnight or earlier this AM; mentation seems to slowly improving per mother. Exam Narrative: General: ill appearing female in NAD Heart: normal S1 and S2; no rub Lungs: coarse and decreased at bases Abdomen: soft, nontender, less distended, positive bowel sounds Extremities: no cyanosis or clubbing; trace edema Skin: warm and intact Objective Data Vital Signs Vital Signs: Vital Signs Temp Pulse Resp BP Pulse Ox 05/24/21 05:33 36.9 C 73 20 140/97 H 99 05/23/21 22:53 97 05/23/21 22:00 36.9 C 100 20 149/92 H 98 05/23/21 20:00 86 18 99 05/23/21 16:00 152/99 H 05/23/21 14:00 36.8 C 86 18 152/99 H 99 Intake/Output Intake/Output: Intake & Output 05/21/21 05/22/21 05/23/21 05/24/21 23:59 23:59 23:59 23:59 Intake Total 2767 3
--- NOTE | 2021-05-24 13:20 | PM.PNNEP ---
Progress Note: A&P Assessment and Plan (1) Acute kidney injury: Code(s): N17.9 - Acute kidney failure, unspecified Status: Acute Assessment and Plan: continues to improve normal creatinine noted on admission likely multifactorial: hypovolemia septic shock/hypotension infection liver cirrhosis possible hepatorenal syndrome(?) - seems less likely renal ultrasound with any acute issues urine electrolytes consistent with prerenal azotemia however, this could be reflective her liver physiology (decreased effective circulating volume leading to chronic prerenal azotemia) creatinine improving slowly follow trend of repeat labs and UOP (2) Septic shock: Code(s): A41.9 - Sepsis, unspecified organism; R65.21 - Severe sepsis with septic shock Status: Resolved Assessment and Plan: resolved -- off pressors based on presentation of severe anemia, low BP, and hypoxia significant lactic acidosis on admission with improvement s/p IVF resuscitation blood culture negative to date; urine culture with E. coli continue antibiotics (3) Altered mental status: Code(s): R41.82 - Altered mental status, unspecified Status: Acute Assessment and Plan: clinically better than admission (but continues to fluctuate) likely due to hypotension, shock, and hypoxia follow mentation (4) Severe anemia: Code(s): D64.9 - Anemia, unspecified Status: Acute Assessment and Plan: Hgb 5.0 on presentation appropriate incrementation with PRBC transfusion see #5 (5) Acute GI bleeding: Code(s): K92.2 - Gastrointestinal hemorrhage, unspecified Status: Acute Assessment and Plan: guaiac positive s/p EGD with no active bleeding found - only hiatal hernia and gastritis found follow serial H/Hs Gastroenterology following with recommendations noted (6) Alcoholic hepatitis: Code(s): K70.10 - Alcoholic hepatitis without ascites Status: Acute Assessment and Plan: as noted by admission labs - elevated LFTs and bilirubin follow trend of LFTs suspect ascites as cause of abdominal fullness -- s/p paracentesis continue supportive therapy Will continue to follow. Subjective Date/time seen: 05/24/21 13:20 S/P paracentesis yesterday afternoon with improvement in abdominal distension and fullness per patient; mother at bedside and we discussed the situation; no issues/events overnight or earlier this AM; mentation seems to slowly improving per mother. Exam Narrative: General: ill appearing female in NAD Heart: normal S1 and S2; no rub Lungs: coarse and decreased at bases Abdomen: soft, nontender, less distended, positive bowel sounds Extremities: no cyanosis or clubbing; trace edema Skin: warm and intact Objective Data Vital Signs Vital Signs: Vital Signs Temp Pulse Resp BP Pulse Ox 05/24/21 05:33 36.9 C 73 20 140/97 H 99 05/23/21 22:53 97 05/23/21 22:00 36.9 C 100 20 149/92 H 98 05/23/21 20:00 86 18 99 05/23/21 16:00 152/99 H 05/23/21 14:00 36.8 C 86 18 152/99 H 99 Intake/Output Intake/Output: Intake & Output 05/21/21 05/22/21 05/23/21 05/24/21 23:59 23:59 23:59 23:59 Intake Total 2767 3495 3765 75 Output Total 300 1125 3150 600 Balance 2467 2370 615 -525 Meds/Results Medications: Active Medications Generic Name Dose Route Start Last Admin Trade Name Freq PRN Reason Stop Dose Admin Hydrocodone Bitart/Acetaminophen 1 tab 05/23/21 09:07 05/23/21 09:51 Hydrocodone/Acetaminophen (*Crx) 5-325 Mg Tablet PO 1 tab Q6H PRN Administration Pain Dextrose 12.5 gm 05/13/21 07:44 Dextrose 50% 25 Gm/50 Ml Syringe IV PUSH PRN PRN Hypoglycemia Protocol Diphenhydramine HCl 25 mg 05/22/21 14:03 05/23/21 08:31 Diphenhydramine Hcl Cap 25 Mg Capsule PO 25 mg Q6H PRN Administration Itching Famotidin
[2021-05-24 14:00] VITALS: BP 141/92; PULSE 102; RESP 16; TEMP 36.2; O2SAT 100
--- NOTE | 2021-05-24 14:02 | WPDGIPROGNO ---
Progress Note: A&P Assessment and Plan (1) Cirrhosis of liver with ascites: Code(s): K74.60 - Unspecified cirrhosis of liver; R18.8 - Other ascites Status: Acute Assessment and Plan: renal function is improving encourage to keep eating more (she did not tolerate placement of DHT) yesterday removed 2L fluid, more comfortable today can not use diuretics because evie she can not get G-tube because ascites and cirrhosis (2) Acute encephalopathy: Code(s): G93.40 - Encephalopathy, unspecified Status: Acute Assessment and Plan: from cirrhosis, etoh abuse, malnutrition, etc awake and more alert (3) Acute kidney injury: Code(s): N17.9 - Acute kidney failure, unspecified Status: Acute Assessment and Plan: improving (4) Septic shock: Code(s): A41.9 - Sepsis, unspecified organism; R65.21 - Severe sepsis with septic shock Status: Resolved Assessment and Plan: on admission and resolved, s/p antibiotics (5) Thrombocytopenia: Code(s): D69.6 - Thrombocytopenia, unspecified Status: Acute Assessment and Plan: from alcohol and cirrhosis (6) Cirrhosis, alcoholic: Code(s): K70.30 - Alcoholic cirrhosis of liver without ascites Status: Acute Assessment and Plan: nutrition support, eoth cessation (7) Gastritis: Code(s): K29.70 - Gastritis, unspecified, without bleeding Status: Acute Assessment and Plan: on ppi (8) Malnutrition: Code(s): E46 - Unspecified protein-calorie malnutrition Status: Acute Assessment and Plan: encourage to eat more (9) Severe anemia: Code(s): D64.9 - Anemia, unspecified Status: Acute Assessment and Plan: egd on admission revealed gastritis hb has been stable after transfusion Subjective Date/time seen: 05/24/21 14:02 Interval history: had 2 L of ascites removed yesterday, she is comfortable in chair. Review of Systems Review of Systems: All systems reviewed & are unremarkable except as noted in HPI and below Exam Const: General: ill appearing chronically Other: awake and alert, talking HENMT: General nose exam: Normal nares present Eyes: General: appearance normal, both eyes and all related structures Neck: Neck: supple Resp: Auscultation: clear to auscultation bilaterally Cardio: Rate: regular rate GI: GI Palp: Yes Soft to palpation and No Tenderness to palpation present (GI) Percussion: Yes Fluid wave present Auscultation: normal bowel sounds Skin: General skin exam: no rashes or lesions noted Neuro: Other: awake and more alert but sometimes gets confused Extrem: General: normal to inspection Objective Data Vital Signs Vital Signs: Vital Signs - 24 hr 05/23/21 16:00 05/23/21 20:00 05/23/21 22:00 Temperature 98.5 F Pulse Rate 86 100 Respiratory Rate 18 20 Blood Pressure 152/99 H 149/92 H Pulse Oximetry 99 98 05/23/21 22:53 05/24/21 05:33 Temperature 98.4 F Pulse Rate 73 Respiratory Rate 20 Blood Pressure 140/97 H Pulse Oximetry 97 99 Intake/Output Intake/Output: Intake & Output 05/21/21 05/22/21 05/23/21 05/24/21 23:59 23:59 23:59 23:59 Intake Total 2767 3495 3765 75 Output Total 300 1125 3150 600 Balance 2467 2370 615 -525 Meds/Results Medications: Active Medications Generic Name Dose Route Start Last Admin Trade Name Freq PRN Reason Stop Dose Admin Hydrocodone Bitart/Acetaminophen 1 tab 05/23/21 09:07 05/23/21 09:51 Hydrocodone/Acetaminophen (*Crx) 5-325 Mg Tablet PO 1 tab Q6H PRN Administration Pain Dextrose 12.5 gm 05/13/21 07:44 Dextrose 50% 25 Gm/50 Ml Syringe IV PUSH PRN PRN Hypoglycemia Protocol Diphenhydramine HCl 25 mg 05/22/21 14:03 05/23/21 08:31 Diphenhydramine Hcl Cap 25 Mg Capsule PO 25 mg Q6H PRN Administration Itching Famotidine 20 mg 05/22/21 21:00 05/24/21 09:45 Famotidine 20 Mg Tabl
[2021-05-24] MEDS: AMINO ACIDS 5%/D15W/E-LYTES/CA 2,000 ML with MULTIVITAMINS-12 INJ VIAL 1 2.5 ML, MULTIV... 60 ML IV CONT (14:20)
[2021-05-24] MEDS: FAT EMULSIONS IV 20% 250 ML 20.8 ML IVPB (14:21)
--- NOTE | 2021-05-24 14:55 | PCNFU ---
Nutrition Follow-Up Complete: Inadequate Oral Intake as related to Pnuemonia as evidenced by poor po intake Goal: Meet estimanted nutritional needs Pt is not progressing towards goal. No new goal at this time. Will continue to monitor current goal. Pt current nutrition is 2gm Na with TPN. Nutrition recommendation: Last recorded weight is 78.3 kg. Bowel Motility: 05/23 Labs Reviewed: Hgb 8.4, Hct 107.6, Alb 3.0, Na 147, K 110, GFR 25, BUN 62, Cr 2.20, Perry 124, PO4 4.6 Meds Noted: Skin: Additional Notes: Nutrition follow up. Spoke with nursing who reported that pt is only taking a few bites of food and not drinking dietary supplement. Per EMR, intake is 5% and 20%. Nursing noted that pt is more alert and less fatigue today (05/24). Spoke with CHIDI Johnson about intake and was in agreed with recommendations to increase TPN to goal rate. TPN to continue for today at rate of 50mL per hour. TPN will increase by 10mL per hour tomorrow for a total rate of 60mL per hour. This will provide pt with 1522kcal and 72g pro. PO intake encouraged. Will monitor every 3 days.
[2021-05-24 18:10] LABS: Glucose Point of Care 160 mg/dl (65-105)
[2021-05-24 20:00] VITALS: PULSE 110; RESP 20; O2SAT 98
[2021-05-24 20:43] VITALS: BP 146/96; PULSE 110; RESP 20; TEMP 36.6; O2SAT 98
[2021-05-25 00:09] LABS: Glucose Point of Care 129 mg/dl (65-105)
[2021-05-25 05:01] VITALS: BP 134/86; PULSE 100; RESP 18; TEMP 36.6; O2SAT 96
[2021-05-25 06:19] LABS: Glucose Point of Care 114 mg/dl (65-105)
[2021-05-25 06:28] LABS: Basophils Absolute Auto 0.1 K/mm3 (0.0-0.1); Basophils Percent Auto 0.3 % (0.2-1.2); Eosinophils Absolute Auto 0.5 K/mm3 (0-0.3); Hemoglobin 7.8 g/dL (12.0-15.0); Immature Granulocyte Percent A 0.6 % (0-0.5); Lymphocytes Absolute Auto 1.48 K/mm3 (0.9-3.2); Lymphocytes Percent Auto 8.5 % (18.3-44.2); Mean Corpuscular HGB Conc 31.2 g/dl (32-36); Mean Corpuscular Hemoglobin 32.9 pg (26-34); Mean Corpuscular Volume 105.5 fl (80-100); Mean Platelet Volume 12.2 fl (7.4-10.4); Monocytes Percent Auto 5.9 % (2.6-8.5); Neutrophils Absolute Auto 14.2 K/mm3 (1.3-6.7); Neutrophils Percent Auto 81.7 % (45.5-73.1); Platelet Count Result 186 k/mm3 (150-375); Red Blood Count 2.37 M/mm3 (4.2-5.4); Red Cell Distribution Width 21.3 % (11.5-14.5); White Blood Count 17.4 K/mm3 (4.5-10.0)
[2021-05-25 06:37] LABS: Alanine Aminotransferase 26 U/L (4-35); Alkaline Phosphatase 206 U/L (38-126); Anion Gap 7 mmol/L (8-16); Aspartate Amino Transferase 70 U/L (14-36); Bilirubin,Total 1.1 mg/dL (0.2-1.3); Blood Urea Nitrogen 51 mg/dL (7-17); Carbon Dioxide 25 mmol/L (22-30); Chloride 112 mmol/L (98-107); Estimated CRCL calculation 40 ml/min; Estimated Glomerular Filt Rate 33; Glucose 119 mg/dL (65-110); Magnesium 1.6 mg/dL (1.6-2.3); Phosphorus 4.6 mg/dL (2.5-4.5); Potassium 3.6 mmol/L (3.4-5.0); Sodium 144 mmol/L (137-145)
[2021-05-25] MEDS: HYDROcodone/acetaminophen (*CRX) 5-325 MG TABLET 1 TAB PO ×2 (08:42→20:23)
[2021-05-25] MEDS: ONDANSETRON INJ 4 MG/2 ML VIAL IV PUSH (08:42)
[2021-05-25] MEDS: CENTRAL LINE FLUSH 10 ML IV PUSH ×2 (08:43→14:18)
[2021-05-25] MEDS: THIAMINE HCL 200 MG/2 ML VIAL 100 MG IV PUSH (08:44)
[2021-05-25] MEDS: PANTOPRAZOLE SODIUM IV 40 MG VIAL IV PUSH ×2 (08:44→20:24)
[2021-05-25] MEDS: SODIUM CHLORIDE 0.9% IV 1,000 ML 50 ML IV CONT ×2 (08:44→22:32)
[2021-05-25] MEDS: EUCERIN CREAM 120 GM JAR 1 APPLIC TOPICAL (08:45)
[2021-05-25] MEDS: POTASSIUM CHLORIDE 20 MEQ PACKET (FOR LIQUID) PO ×2 (08:45→17:55)
[2021-05-25] MEDS: TOLNAFTATE 1% POWDER 45 GM BTL 1 APPLIC TOPICAL ×2 (08:45→20:24)
[2021-05-25] MEDS: FOLIC ACID 1 MG/0.2 ML INJ IV PUSH (08:49)
[2021-05-25] MEDS: FAMOTIDINE 20 MG TABLET PO ×2 (08:57→20:25)
--- NOTE | 2021-05-25 11:18 | WPDGIPROGNO ---
Progress Note: A&P Assessment and Plan (1) Cirrhosis of liver with ascites: Code(s): K74.60 - Unspecified cirrhosis of liver; R18.8 - Other ascites Status: Acute Assessment and Plan: renal function is improving- creatinine 1.7 today still with poor appetite, encourage to keep eating more (she did not tolerate placement of DHT) and for now she has parenteral nutrition however is not ideal situation- preferably enteral route can not use diuretics because evie she can not get G-tube because ascites and cirrhosis (2) Acute encephalopathy: Code(s): G93.40 - Encephalopathy, unspecified Status: Acute Assessment and Plan: from cirrhosis, etoh abuse, malnutrition, etc no major changes (3) Acute kidney injury: Code(s): N17.9 - Acute kidney failure, unspecified Status: Acute Assessment and Plan: improving (4) Septic shock: Code(s): A41.9 - Sepsis, unspecified organism; R65.21 - Severe sepsis with septic shock Status: Resolved Assessment and Plan: on admission and resolved, s/p antibiotics (5) Thrombocytopenia: Code(s): D69.6 - Thrombocytopenia, unspecified Status: Acute Assessment and Plan: from alcohol and cirrhosis (6) Cirrhosis, alcoholic: Code(s): K70.30 - Alcoholic cirrhosis of liver without ascites Status: Acute Assessment and Plan: nutrition support, eoth cessation previous paracentesis (7) Gastritis: Code(s): K29.70 - Gastritis, unspecified, without bleeding Status: Acute Assessment and Plan: on ppi (8) Malnutrition: Code(s): E46 - Unspecified protein-calorie malnutrition Status: Acute Assessment and Plan: encourage to eat more (9) Severe anemia: Code(s): D64.9 - Anemia, unspecified Status: Acute Assessment and Plan: egd on admission revealed gastritis hb low but has been stable after transfusion Subjective Date/time seen: 05/25/21 11:18 Interval history: she is lying in her bed, awake and alert but poorly 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 of Systems Review of Systems: All systems reviewed & are unremarkable except as noted in HPI and below Exam Const: General: ill appearing chronically Other: awake and alert, talking but flat affect HENMT: General nose exam: Normal nares present Eyes: General: appearance normal, both eyes and all related structures Neck: Neck: supple Resp: Auscultation: clear to auscultation bilaterally Cardio: Rate: regular rate GI: GI Palp: Yes Soft to palpation and No Tenderness to palpation present (GI) Percussion: Yes Fluid wave present Auscultation: normal bowel sounds Skin: General skin exam: no rashes or lesions noted Neuro: Other: awake and more alert but sometimes gets confused Extrem: General: normal to inspection Psych: Other: flat affect, confused Objective Data Vital Signs Vital Signs: Vital Signs - 24 hr 05/24/21 14:00 05/24/21 20:00 05/24/21 20:43 Temperature 97.2 F L 98 F Pulse Rate 102 H 110 H 110 H Respiratory Rate 16 20 20 Blood Pressure 141/92 H 146/96 H Pulse Oximetry 100 98 98 05/25/21 05:01 Temperature 98 F Pulse Rate 100 Respiratory Rate 18 Blood Pressure 134/86 Pulse Oximetry 96 Intake/Output Intake/Output: Intake & Output 05/22/21 05/23/21 05/24/21 05/25/21 23:59 23:59 23:59 23:59 Intake Total 3495 3765 2330 1350 Output Total 1125 3150 950 650 Balance 2370 615 1380 700 Meds/Results Medications: Active Medications Generic Name Dose Route Start Last Admin Trade Name Freq PRN Reason Stop Dose Admin Hydrocodone Bitart/Acetaminophen 1 tab 05/23/21 09:07 05/25/21 08:42 Hydrocodone/Acetaminophen (*Crx) 5-325 Mg Tablet PO 1 tab Q6H PRN Administration Pain Dextrose 12.5 gm 05/13/21 07:44 Dextrose 50% 25 Gm/50 Ml Syringe IV PUSH PRN PRN Hypoglycemia Protocol Diphenhydramine HCl 25 mg 05/22/21 14:03 05/02
[2021-05-25 11:53] LABS: Glucose Point of Care 113 mg/dl (65-105)
--- NOTE | 2021-05-25 12:10 | PM.IMPN ---
Progress Note: A&P Assessment and Plan (1) Septic shock: Code(s): A41.9 - Sepsis, unspecified organism; R65.21 - Severe sepsis with septic shock Status: Resolved Assessment and Plan: Presented with severe anemia, hypotension, hypoxia and multiple sources of infection with UTI, peritonitis, and pneumonia Urine culture with E. coli, sensitive to Zosyn and she completed a course of treatment. Zosyn stopped on 05/22. Peritoneal fluid with no growth Blood cultures negative She was rehydrated with IV fluids and initially required Levophed, which has been discontinued and blood pressures remain stable. (2) Cirrhosis of liver with ascites: Code(s): K74.60 - Unspecified cirrhosis of liver; R18.8 - Other ascites Status: Acute Assessment and Plan: Secondary to alcohol abuse. Presented with ascites and had paracentesis on 05/15 and again on 05/23. Ascites fluid cultures negative. She has received IV albumin and octreotide. Octreotide discontinued 05/22 due to concerns for possible drug rash. Continue 2 g sodium diet. Unable to administer diuretics given SUMMER. Continue xifaxan. Appreciate GI consultation (3) Altered mental status: Code(s): R41.82 - Altered mental status, unspecified Status: Acute Assessment and Plan: Patient appears to have toxic metabolic encephalopathy which has been complicated by uremia. Ammonia levels have normalized but will continue with lactulose. 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 Mental status appears to be slowly improving, possibly related to improvement in BUN/renal function. (4) Severe anemia: Code(s): D64.9 - Anemia, unspecified Status: Acute Assessment and Plan: Patient presented with a hemoglobin of 5.0. She received 2 units pRBC and H&H stabilized. EGD showed gastritis with no evidence of bleeding, continue Protonix. Continue to monitor H&H, slight decline noted today. Iron panel consistent with anemia of chronic disease. (5) Alcohol dependence: Code(s): F10.20 - Alcohol dependence, uncomplicated Status: Acute Assessment and Plan: No withdrawal symptoms. Continue thiamine and folic acid. Resources for alcohol cessation when mental status improves. (6) Acute kidney injury: Code(s): N17.9 - Acute kidney failure, unspecified Status: Acute Assessment and Plan: Creatinine was 1.0 at presentation and increased up to 5.1. Etiology not entirely clear, possibly due to hypovolemia/septic shock, infection, hepatorenal syndrome. Renal US unremarkable. Appreciate nephrololgy consultation. Creatinine slowly improving down to 1.7 today with BUN 51. (7) Thrombocytopenia: Code(s): D69.6 - Thrombocytopenia, unspecified Status: Acute Assessment and Plan: Multifactorial secondary to cirrhosis, alcohol abuse, sepsis. Platelet count has normalized. No evidence of bleeding. (8) Hypoxia: Code(s): R09.02 - Hypoxemia Status: Acute Assessment and Plan: Noted to be hypoxic on presentation, most likely secondary to pneumonia with evidence of patchy consolidations on CT. She has completed a course of IV Zosyn which has been discontinued. She required up to 3 L per nasal cannula but has been weaned to room air and O2 sats remaining stable. (9) Malnutrition: Code(s): E46 - Unspecified protein-calorie malnutrition Status: Acute Assessment and Plan: She has very minimal p.o. intake. She is on TPN at this time. Attempted to do Dobbhoff 05/21 but she could not tolerate this. Discussed case with Gastroenterology and dietitian. PO intake continues to improve just slightly. Continue dietary supplements. Not a candidate for g-tube given cirrhosis with ascites. Will discuss with dietitian tomorrow regarding recommendations for when to discontinue TPN. (10) Electrolyte abnormality: Code(s): E87.8 - Other disorders of electrol
--- NOTE | 2021-05-25 13:17 | PM.PNNEP ---
Progress Note: A&P Assessment and Plan (1) Acute kidney injury: Code(s): N17.9 - Acute kidney failure, unspecified Status: Acute Assessment and Plan: continues to improve each day normal creatinine noted on admission likely multifactorial: hypovolemia septic shock/hypotension infection liver cirrhosis possible hepatorenal syndrome(?) - seems less likely renal ultrasound with any acute issues urine electrolytes consistent with prerenal azotemia however, this could be reflective her liver physiology (decreased effective circulating volume leading to chronic prerenal azotemia) creatinine improving slowly follow trend of repeat labs and UOP (2) Septic shock: Code(s): A41.9 - Sepsis, unspecified organism; R65.21 - Severe sepsis with septic shock Status: Resolved Assessment and Plan: resolved -- off pressors based on presentation of severe anemia, low BP, and hypoxia significant lactic acidosis on admission with improvement s/p IVF resuscitation blood culture negative to date; urine culture with E. coli continue antibiotics (3) Altered mental status: Code(s): R41.82 - Altered mental status, unspecified Status: Acute Assessment and Plan: clinically better than admission (but continues to fluctuate) likely due to hypotension, shock, and hypoxia follow mentation (4) Severe anemia: Code(s): D64.9 - Anemia, unspecified Status: Acute Assessment and Plan: Hgb 5.0 on presentation appropriate incrementation with PRBC transfusion see #5 (5) Acute GI bleeding: Code(s): K92.2 - Gastrointestinal hemorrhage, unspecified Status: Acute Assessment and Plan: guaiac positive s/p EGD with no active bleeding found - only hiatal hernia and gastritis found follow serial H/Hs Gastroenterology following with recommendations noted (6) Alcoholic hepatitis: Code(s): K70.10 - Alcoholic hepatitis without ascites Status: Acute Assessment and Plan: as noted by admission labs - elevated LFTs and bilirubin follow trend of LFTs suspect ascites as cause of abdominal fullness; s/p paracentesis 05/23/21 continue supportive therapy Will continue to follow. Subjective Date/time seen: 05/25/21 13:17 No apparent distress voiced at the time of my visit; major complaint seems to be that of fatigue ( just tired ); appetite seems to fluctuate as it has been for the last several days; no events overnight or earlier today; no apparent distress noted. Exam Narrative: General: ill appearing female in NAD Heart: normal S1 and S2; no rub Lungs: coarse and decreased at bases Abdomen: soft, nontender, nondistended, positive bowel sounds Extremities: no cyanosis or clubbing; trace edema Skin: warm and dry Objective Data Vital Signs Vital Signs: Vital Signs Temp Pulse Resp BP Pulse Ox 05/25/21 05:01 36.6 C 100 18 134/86 96 05/24/21 20:43 36.6 C 110 H 20 146/96 H 98 05/24/21 20:00 110 H 20 98 Intake/Output Intake/Output: Intake & Output 05/22/21 05/23/21 05/24/21 05/25/21 23:59 23:59 23:59 23:59 Intake Total 3495 3765 2330 4195 Output Total 1125 3150 950 650 Balance 2370 615 1380 3545 Meds/Results Medications: Active Medications Generic Name Dose Route Start Last Admin Trade Name Freq PRN Reason Stop Dose Admin Hydrocodone Bitart/Acetaminophen 1 tab 05/23/21 09:07 05/25/21 08:42 Hydrocodone/Acetaminophen (*Crx) 5-325 Mg Tablet PO 1 tab Q6H PRN Administration Pain Dextrose 12.5 gm 05/13/21 07:44 Dextrose 50% 25 Gm/50 Ml Syringe IV PUSH PRN PRN Hypoglycemia Protocol Diphenhydramine HCl 25 mg 05/22/21 14:03 05/25/21 14:21 Diphenhydramine Hcl Cap 25 Mg Capsule PO 25 mg Q6H PRN Administration Itching Famotidine 20 mg 05/22/21 21:00 05/25/21 08:57 Famotidine 20 Mg Tablet PO 20 mg Q12HR
--- NOTE | 2021-05-25 13:17 | P.PNNP_ITS ---
Progress Note: A&P Assessment and Plan (1) Acute kidney injury: Code(s): N17.9 - Acute kidney failure, unspecified Status: Acute Assessment and Plan: * continues to improve each day * normal creatinine noted on admission * likely multifactorial: * hypovolemia * septic shock/hypotension * infection * liver cirrhosis * possible hepatorenal syndrome(?) - seems less likely * renal ultrasound with any acute issues * urine electrolytes consistent with prerenal azotemia * however, this could be reflective her liver physiology (decreased effective circulating volume leading to chronic prerenal azotemia) * creatinine improving slowly * follow trend of repeat labs and UOP (2) Septic shock: Code(s): A41.9 - Sepsis, unspecified organism; R65.21 - Severe sepsis with septic shock Status: Resolved Assessment and Plan: * resolved -- off pressors * based on presentation of severe anemia, low BP, and hypoxia * significant lactic acidosis on admission with improvement s/p IVF resuscitation * blood culture negative to date; urine culture with E. coli * continue antibiotics (3) Altered mental status: Code(s): R41.82 - Altered mental status, unspecified Status: Acute Assessment and Plan: * clinically better than admission (but continues to fluctuate) * likely due to hypotension, shock, and hypoxia * follow mentation (4) Severe anemia: Code(s): D64.9 - Anemia, unspecified Status: Acute Assessment and Plan: * Hgb 5.0 on presentation * appropriate incrementation with PRBC transfusion * see #5 (5) Acute GI bleeding: Code(s): K92.2 - Gastrointestinal hemorrhage, unspecified Status: Acute Assessment and Plan: * guaiac positive * s/p EGD with no active bleeding found - only hiatal hernia and gastritis found * follow serial H/Hs * Gastroenterology following with recommendations noted (6) Alcoholic hepatitis: Code(s): K70.10 - Alcoholic hepatitis without ascites Status: Acute Assessment and Plan: * as noted by admission labs - elevated LFTs and bilirubin * follow trend of LFTs * suspect ascites as cause of abdominal fullness; s/p paracentesis 05/23/21 * continue supportive therapy Will continue to follow. Subjective Date/time seen: 05/25/21 13:17 No apparent distress voiced at the time of my visit; major complaint seems to be that of fatigue ( just tired ); appetite seems to fluctuate as it has been for the last several days; no events overnight or earlier today; no apparent dist ress noted. Exam Narrative: General: ill appearing female in NAD Heart: normal S1 and S2; no rub Lungs: coarse and decreased at bases Abdomen: soft, nontender, nondistended, positive bowel sounds Extremities: no cyanosis or clubbing; trace edema Skin: warm and dry Objective Data Vital Signs Vital Signs: Vital Signs Temp Pulse Resp BP Pulse Ox 05/25/21 05:01 36.6 C 100 18 134/86 96 05/24/21 20:43 36.6 C 110 H 20 146/96 H 98 05/24/21 20:00 110 H 20 98 Intake/Output Intake/Output: Intake & Output 05/22/21 05/23/21 05/24/21 05/25/21 23:59 23:59 23:59 23:59 Intake Total 3495 3765 2330 4195 Output Total 1125 3150 950 650 Balance 2370 615 1380 3545 Meds
[2021-05-25] MEDS: FAT EMULSIONS IV 20% 250 ML 20.8 ML IVPB (14:18)
[2021-05-25] MEDS: AMINO ACIDS 5%/D15W/E-LYTES/CA 2,000 ML with MULTIVITAMINS-12 INJ VIAL 1 2.5 ML, MULTIV... 50 ML IV CONT (14:19)
[2021-05-25] MEDS: diphenhydrAMINE HCl CAP 25 MG CAPSULE PO ×2 (14:21→20:23)
[2021-05-25 14:43] VITALS: BP 138/98; PULSE 98; RESP 20; TEMP 36.7; O2SAT 99
[2021-05-25 14:46] LABS: Triglycerides 204 mg/dL (<150)
[2021-05-25 18:00] LABS: Glucose Point of Care 129 mg/dl (65-105)
[2021-05-25 19:23] VITALS: BP 145/97; PULSE 108; RESP 16; TEMP 36; O2SAT 98
[2021-05-25 20:50] VITALS: BP 145/97
[2021-05-26 00:19] LABS: Glucose Point of Care 114 mg/dl (65-105)
[2021-05-26 03:25] VITALS: BP 137/100; PULSE 104; RESP 16; TEMP 36.6; O2SAT 100
[2021-05-26 05:16] LABS: Glucose Point of Care 93 mg/dl (65-105)
[2021-05-26] MEDS: CENTRAL LINE FLUSH 20 ML IV PUSH (05:18)
[2021-05-26 05:31] LABS: Hematocrit 25.6 % (37.0-47.0); Hemoglobin 7.9 g/dL (12.0-15.0); Mean Corpuscular HGB Conc 30.9 g/dl (32-36); Mean Corpuscular Hemoglobin 33.3 pg (26-34); Mean Platelet Volume 12.6 fl (7.4-10.4); Platelet Count Result 177 k/mm3 (150-375); Red Blood Count 2.37 M/mm3 (4.2-5.4); Red Cell Distribution Width 21.4 % (11.5-14.5); White Blood Count 17.4 K/mm3 (4.5-10.0)
[2021-05-26 05:43] LABS: Alanine Aminotransferase 31 U/L (4-35); Albumin Level 3.2 g/dL (3.5-5.1); Alkaline Phosphatase 227 U/L (38-126); Anion Gap 8 mmol/L (8-16); Aspartate Amino Transferase 82 U/L (14-36); Bilirubin,Total 1.1 mg/dL (0.2-1.3); Blood Urea Nitrogen 42 mg/dL (7-17); Carbon Dioxide 24 mmol/L (22-30); Chloride 112 mmol/L (98-107); Estimated CRCL calculation 49 ml/min; Estimated Glomerular Filt Rate 41; Glucose 110 mg/dL (65-110); Phosphorus 5.5 mg/dL (2.5-4.5); Potassium 3.7 mmol/L (3.4-5.0); Sodium 144 mmol/L (137-145)
[2021-05-26 06:23] LABS: HIV 1/2 Ab P24 Ag Result Negative (Negative)
[2021-05-26 06:37] VITALS: BP 144/90
[2021-05-26] MEDS: PANTOPRAZOLE SODIUM IV 40 MG VIAL IV PUSH ×2 (08:25→20:00)
[2021-05-26] MEDS: POTASSIUM CHLORIDE 20 MEQ PACKET (FOR LIQUID) PO ×2 (08:25→16:53)
[2021-05-26] MEDS: THIAMINE HCL 200 MG/2 ML VIAL 100 MG IV PUSH (08:25)
[2021-05-26] MEDS: EUCERIN CREAM 120 GM JAR 1 APPLIC TOPICAL (08:25)
[2021-05-26] MEDS: TOLNAFTATE 1% POWDER 45 GM BTL 1 APPLIC TOPICAL ×2 (08:26→20:00)
[2021-05-26] MEDS: FAMOTIDINE 20 MG TABLET PO ×2 (08:27→20:00)
[2021-05-26] MEDS: FOLIC ACID 1 MG/0.2 ML INJ IV PUSH (08:27)
--- NOTE | 2021-05-26 10:54 | WPDGIPROGNO ---
Progress Note: A&P Assessment and Plan (1) Cirrhosis of liver with ascites: Code(s): K74.60 - Unspecified cirrhosis of liver; R18.8 - Other ascites Status: Acute Assessment and Plan: renal function is improving- creatinine 1.4 today still with poor appetite and encourage to eat more, ideally oral route instead of parenteral and hopefully TPN can be discontinued soon can not use diuretics because evie (also had ascites) she can not get G-tube because ascites and cirrhosis (2) Acute encephalopathy: Code(s): G93.40 - Encephalopathy, unspecified Status: Acute Assessment and Plan: from cirrhosis, etoh abuse, malnutrition, etc no major changes (3) Acute kidney injury: Code(s): N17.9 - Acute kidney failure, unspecified Status: Acute Assessment and Plan: keeps improving (4) Septic shock: Code(s): A41.9 - Sepsis, unspecified organism; R65.21 - Severe sepsis with septic shock Status: Resolved Assessment and Plan: on admission and resolved, s/p antibiotics (5) Thrombocytopenia: Code(s): D69.6 - Thrombocytopenia, unspecified Status: Acute Assessment and Plan: from alcohol and cirrhosis (6) Cirrhosis, alcoholic: Code(s): K70.30 - Alcoholic cirrhosis of liver without ascites Status: Acute Assessment and Plan: nutrition support, eoth cessation previous paracentesis (7) Gastritis: Code(s): K29.70 - Gastritis, unspecified, without bleeding Status: Acute Assessment and Plan: on ppi (8) Malnutrition: Code(s): E46 - Unspecified protein-calorie malnutrition Status: Acute Assessment and Plan: encourage to eat more (9) Severe anemia: Code(s): D64.9 - Anemia, unspecified Status: Acute Assessment and Plan: egd on admission revealed gastritis hb low but has been stable after transfusion Subjective Date/time seen: 05/26/21 10:54 Interval history: no major changes but still poor appetite. Review of Systems Review of Systems: All systems reviewed & are unremarkable except as noted in HPI and below Exam Const: General: ill appearing chronically Other: awake and alert, talking but flat affect HENMT: General nose exam: Normal nares present Eyes: General: appearance normal, both eyes and all related structures Neck: Neck: supple Resp: Auscultation: clear to auscultation bilaterally Cardio: Rate: regular rate GI: GI Palp: Yes Soft to palpation and No Tenderness to palpation present (GI) Percussion: Yes Fluid wave present Auscultation: normal bowel sounds Skin: General skin exam: no rashes or lesions noted Neuro: Other: awake and more alert but sometimes gets confused Extrem: General: normal to inspection Psych: Other: flat affect, confused Objective Data Vital Signs Vital Signs: Vital Signs - 24 hr 05/25/21 14:43 05/25/21 19:23 05/25/21 20:50 Temperature 98.0 F 96.8 F L Pulse Rate 98 108 H Respiratory Rate 20 16 Blood Pressure 138/98 H 145/97 H 145/97 H Pulse Oximetry 99 98 05/26/21 03:25 05/26/21 06:37 Temperature 97.8 F Pulse Rate 104 H Respiratory Rate 16 Blood Pressure 137/100 H 144/90 H Pulse Oximetry 100 Intake/Output Intake/Output: Intake & Output 05/23/21 05/24/21 05/25/21 05/26/21 23:59 23:59 23:59 23:59 Intake Total 3765 2330 4715 1348 Output Total 3150 950 1075 800 Balance 615 1380 3640 548 Meds/Results Medications: Active Medications Generic Name Dose Route Start Last Admin Trade Name Freq PRN Reason Stop Dose Admin Hydrocodone Bitart/Acetaminophen 1 tab 05/23/21 09:07 05/25/21 20:23 Hydrocodone/Acetaminophen (*Crx) 5-325 Mg Tablet PO 1 tab Q6H PRN Administration Pain Dextrose 12.5 gm 05/13/21 07:44 Dextrose 50% 25 Gm/50 Ml Syringe IV PUSH PRN PRN Hypoglycemia Protocol Diphenhydramine HCl 25 mg 05/22/21 14:03 05/25/21 20:23 Diphenhydramine Hc
--- NOTE | 2021-05-26 11:31 | PM.IMPN ---
Progress Note: A&P Assessment and Plan (1) Septic shock: Code(s): A41.9 - Sepsis, unspecified organism; R65.21 - Severe sepsis with septic shock Status: Resolved Assessment and Plan: Presented with severe anemia, hypotension, hypoxia and multiple sources of infection with UTI, peritonitis, and pneumonia Urine culture with E. coli, sensitive to Zosyn and she completed a course of treatment. Zosyn stopped on 05/22. Peritoneal fluid with no growth Blood cultures negative She was rehydrated with IV fluids and initially required Levophed, which has been discontinued and blood pressures remain stable. (2) Cirrhosis of liver with ascites: Code(s): K74.60 - Unspecified cirrhosis of liver; R18.8 - Other ascites Status: Acute Assessment and Plan: Secondary to alcohol abuse. Presented with ascites and had paracentesis on 05/15 and again on 05/23. Ascites fluid cultures negative. She received IV albumin and octreotide. Octreotide discontinued 05/22 due to concerns for possible drug rash. Continue 2 g sodium diet. Unable to administer diuretics given SUMMER. Continue xifaxan. Appreciate GI consultation (3) Altered mental status: Code(s): R41.82 - Altered mental status, unspecified Status: Acute Assessment and Plan: Patient appears to have toxic metabolic encephalopathy which has been complicated by uremia. Ammonia levels have normalized but will continue with lactulose. 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 Mental status is slowly improving, possibly related to improvement in BUN/renal function. (4) Severe anemia: Code(s): D64.9 - Anemia, unspecified Status: Acute Assessment and Plan: Patient presented with a hemoglobin of 5.0. She received 2 units pRBC and H&H stabilized. EGD showed gastritis with no evidence of bleeding, continue Protonix. Continue to monitor H&H, slight decline noted today. Iron panel consistent with anemia of chronic disease. (5) Alcohol dependence: Code(s): F10.20 - Alcohol dependence, uncomplicated Status: Acute Assessment and Plan: No withdrawal symptoms. Continue thiamine and folic acid. Resources for alcohol cessation to be provided (6) Acute kidney injury: Code(s): N17.9 - Acute kidney failure, unspecified Status: Acute Assessment and Plan: Creatinine was 1.0 at presentation and increased up to 5.1. Etiology not entirely clear, possibly due to hypovolemia/septic shock, infection, hepatorenal syndrome. Renal US unremarkable. Appreciate nephrololgy consultation. Creatinine slowly improving down to 1.4 today with BUN 42. (7) Thrombocytopenia: Code(s): D69.6 - Thrombocytopenia, unspecified Status: Acute Assessment and Plan: Multifactorial secondary to cirrhosis, alcohol abuse, sepsis. Platelet count has normalized. No evidence of bleeding. (8) Hypoxia: Code(s): R09.02 - Hypoxemia Status: Acute Assessment and Plan: Noted to be hypoxic on presentation, most likely secondary to pneumonia with evidence of patchy consolidations on CT. She has completed a course of IV Zosyn which has been discontinued. She required up to 3 L per nasal cannula but has been weaned to room air and O2 sats remaining stable. (9) Malnutrition: Code(s): E46 - Unspecified protein-calorie malnutrition Status: Acute Assessment and Plan: She has very minimal p.o. intake. She is on TPN at this time. Attempted to do Dobbhoff 05/21 but she could not tolerate this. Discussed case with Gastroenterology and dietitian. Continue dietary supplements. Not a candidate for g-tube given cirrhosis with ascites. Discussed with GI, will decrease her TPN as she is beginning to increase PO intake. (10) Electrolyte abnormality: Code(s): E87.8 - Other disorders of electrolyte and fluid balance, not elsewhere classified Status: Acute Assessme
--- NOTE | 2021-05-26 12:29 | P.PNNP_ITS ---
Progress Note: A&P Assessment and Plan (1) Acute kidney injury: Code(s): N17.9 - Acute kidney failure, unspecified Status: Acute Assessment and Plan: * continues to improve * normal creatinine noted on admission * likely multifactorial: * hypovolemia * septic shock/hypotension * infection * liver cirrhosis * possible hepatorenal syndrome(?) - seems less likely * renal ultrasound with any acute issues * urine electrolytes consistent with prerenal azotemia * however, this could be reflective her liver physiology (decreased effective circulating volume leading to chronic prerenal azotemia) * creatinine improving slowly * follow trend of repeat labs and UOP (2) Septic shock: Code(s): A41.9 - Sepsis, unspecified organism; R65.21 - Severe sepsis with septic shock Status: Resolved Assessment and Plan: * resolved -- off pressors * based on presentation of severe anemia, low BP, and hypoxia * significant lactic acidosis on admission with improvement s/p IVF r esuscitation * blood culture negative to date; urine culture with E. coli * continue antibiotics (3) Altered mental status: Code(s): R41.82 - Altered mental status, unspecified Status: Acute Assessment and Plan: * clinically better than admission (but continues to fluctuate) * likely due to hypotension, shock, and hypoxia * follow mentation (4) Severe anemia: Code(s): D64.9 - Anemia, unspecified Status: Acute Assessment and Plan: * Hgb 5.0 on presentation * appropriate incrementation with PRBC transfusion * see #5 (5) Acute GI bleeding: Code(s): K92.2 - Gastrointestinal hemorrhage, unspecified Status: Acute Assessment and Plan: * guaiac positive * s/p EGD with no active bleeding found - only hiatal hernia and gastritis found * follow serial H/Hs * Gastroenterology following with recommendations noted (6) Alcoholic hepatitis: Code(s): K70.10 - Alcoholic hepatitis without ascites Status: Acute Assessment and Plan: * as noted by admission labs - elevated LFTs and bilirubin * follow trend of LFTs * suspect ascites as cause of abdominal fullness; s/p paracentesis 05/23/21 * continue supportive therapy Will continue to follow. Subjective Date/time seen: 05/26/21 12:29 Mentation continues to improve in the last few day but despite paracentesis about 3 days ago, she feels abdominal fullness is starting to return; attempting to eat more as tolerated; feels reasonably well; no acute issues/events overnight or earlier this morning. Exam Narrative: General: ill appearing female in NAD Heart: normal S1 and S2; no rub Lungs: coarse and decreased at bases Abdomen: soft, nontender, less distended, positive bowel sounds Extremities: no cyanosis or clubbing; trace edema Skin: no nodules Objective Data Vital Signs Vital Signs: Vital Signs Temp Pulse Resp BP Pulse Ox 05/26/21 06:37 144/90 H 05/26/21 03:25 36.6 C 104 H 16 137/100 H 100 05/25/21 20:50 145/97 H 05/25/21 19:23 36.0 C L 108 H 16 145/97 H 98 Intake/Output Intake/Output: Intake & Output 05/23/21 05/24/21 05/25/21 05/26/21 23:59 23:59 23:59 23:59 Intake Total 3765 2330 4715 2735 Output Total 3150 950 1075 1150
--- NOTE | 2021-05-26 12:29 | PM.PNNEP ---
Progress Note: A&P Assessment and Plan (1) Acute kidney injury: Code(s): N17.9 - Acute kidney failure, unspecified Status: Acute Assessment and Plan: continues to improve normal creatinine noted on admission likely multifactorial: hypovolemia septic shock/hypotension infection liver cirrhosis possible hepatorenal syndrome(?) - seems less likely renal ultrasound with any acute issues urine electrolytes consistent with prerenal azotemia however, this could be reflective her liver physiology (decreased effective circulating volume leading to chronic prerenal azotemia) creatinine improving slowly follow trend of repeat labs and UOP (2) Septic shock: Code(s): A41.9 - Sepsis, unspecified organism; R65.21 - Severe sepsis with septic shock Status: Resolved Assessment and Plan: resolved -- off pressors based on presentation of severe anemia, low BP, and hypoxia significant lactic acidosis on admission with improvement s/p IVF resuscitation blood culture negative to date; urine culture with E. coli continue antibiotics (3) Altered mental status: Code(s): R41.82 - Altered mental status, unspecified Status: Acute Assessment and Plan: clinically better than admission (but continues to fluctuate) likely due to hypotension, shock, and hypoxia follow mentation (4) Severe anemia: Code(s): D64.9 - Anemia, unspecified Status: Acute Assessment and Plan: Hgb 5.0 on presentation appropriate incrementation with PRBC transfusion see #5 (5) Acute GI bleeding: Code(s): K92.2 - Gastrointestinal hemorrhage, unspecified Status: Acute Assessment and Plan: guaiac positive s/p EGD with no active bleeding found - only hiatal hernia and gastritis found follow serial H/Hs Gastroenterology following with recommendations noted (6) Alcoholic hepatitis: Code(s): K70.10 - Alcoholic hepatitis without ascites Status: Acute Assessment and Plan: as noted by admission labs - elevated LFTs and bilirubin follow trend of LFTs suspect ascites as cause of abdominal fullness; s/p paracentesis 05/23/21 continue supportive therapy Will continue to follow. Subjective Date/time seen: 05/26/21 12:29 Mentation continues to improve in the last few day but despite paracentesis about 3 days ago, she feels abdominal fullness is starting to return; attempting to eat more as tolerated; feels reasonably well; no acute issues/events overnight or earlier this morning. Exam Narrative: General: ill appearing female in NAD Heart: normal S1 and S2; no rub Lungs: coarse and decreased at bases Abdomen: soft, nontender, less distended, positive bowel sounds Extremities: no cyanosis or clubbing; trace edema Skin: no nodules Objective Data Vital Signs Vital Signs: Vital Signs Temp Pulse Resp BP Pulse Ox 05/26/21 06:37 144/90 H 05/26/21 03:25 36.6 C 104 H 16 137/100 H 100 05/25/21 20:50 145/97 H 05/25/21 19:23 36.0 C L 108 H 16 145/97 H 98 Intake/Output Intake/Output: Intake & Output 05/23/21 05/24/21 05/25/21 05/26/21 23:59 23:59 23:59 23:59 Intake Total 3765 2330 4715 2735 Output Total 3150 950 1075 1150 Balance 615 1380 3640 1585 Meds/Results Medications: Active Medications Generic Name Dose Route Start Last Admin Trade Name Freq PRN Reason Stop Dose Admin Hydrocodone Bitart/Acetaminophen 1 tab 05/23/21 09:07 05/25/21 20:23 Hydrocodone/Acetaminophen (*Crx) 5-325 Mg Tablet PO 1 tab Q6H PRN Administration Pain Dextrose 12.5 gm 05/13/21 07:44 Dextrose 50% 25 Gm/50 Ml Syringe IV PUSH PRN PRN Hypoglycemia Protocol Diphenhydramine HCl 25 mg 05/22/21 14:03 05/25/21 20:23 Diphenhydramine Hcl Cap 25 Mg Capsule PO 25 mg Q6H PRN Administration Itching Famotidine 20 mg 05/22/21 21:00 05/26/21 08:27
[2021-05-26 12:41] LABS: Glucose Point of Care 143 mg/dl (65-105)
[2021-05-26 14:06] LABS: Albumin Peritoneal Fluid 1.1 g/dL
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
[2021-05-26 15:26] VITALS: BP 143/97; PULSE 112; RESP 20; TEMP 36.1; O2SAT 97
[2021-05-26] MEDS: FAT EMULSIONS IV 20% 250 ML 20.8 ML IVPB (16:09)
[2021-05-26] MEDS: AMINO ACIDS 5%/D15W/E-LYTES/CA 2,000 ML with MULTIVITAMINS-12 INJ VIAL 1 2.5 ML, MULTIV... 30 ML IV CONT (16:09)
[2021-05-26] MEDS: CENTRAL LINE FLUSH 10 ML IV PUSH ×2 (16:10→20:00)
[2021-05-26] MEDS: SODIUM CHLORIDE 0.9% IV 1,000 ML 50 ML IV CONT (16:53)
[2021-05-26 19:02] LABS: Glucose Point of Care 90 mg/dl (65-105)
[2021-05-26] MEDS: HYDROcodone/acetaminophen (*CRX) 5-325 MG TABLET 1 TAB PO (19:51)
[2021-05-26] MEDS: diphenhydrAMINE HCl CAP 25 MG CAPSULE PO (19:51)
[2021-05-26 20:17] VITALS: BP 149/101; PULSE 118; RESP 22; TEMP 36.6; O2SAT 96
[2021-05-26 20:39] VITALS: BP 149/101
[2021-05-26 23:40] LABS: Glucose Point of Care 104 mg/dl (65-105)
[2021-05-27] VITALS (13 sets, daily range): BP systolic 131–153; BP diastolic 76–117; PULSE 96–121; RESP 18–24; TEMP 36–36.5; O2SAT 92–100
[2021-05-27] MEDS: HYDROcodone/acetaminophen (*CRX) 5-325 MG TABLET 1 TAB PO (03:39)
[2021-05-27] MEDS: LORazepam INJ (*CRX) 2 MG/ML VIAL 1 MG IV PUSH (03:54)
[2021-05-27 03:55] LABS: Basophils Absolute Auto 0.1 K/mm3 (0.0-0.1); Basophils Percent Auto 0.5 % (0.2-1.2); Eosinophils Absolute Auto 0.8 K/mm3 (0-0.3); Eosinophils Percent Auto 4.3 % (0-4.4); Hematocrit 25.8 % (37.0-47.0); Hemoglobin 7.9 g/dL (12.0-15.0); Immature Granulocyte Absolute 0.13 K/mm3 (0.00-0.031); Immature Granulocyte Percent A 0.7 % (0-0.5); Lymphocytes Absolute Auto 1.71 K/mm3 (0.9-3.2); Lymphocytes Percent Auto 9.1 % (18.3-44.2); Mean Corpuscular HGB Conc 30.6 g/dl (32-36); Mean Corpuscular Hemoglobin 33.2 pg (26-34); Mean Corpuscular Volume 108.4 fl (80-100); Mean Platelet Volume 12.8 fl (7.4-10.4); Monocytes Percent Auto 5.4 % (2.6-8.5); Platelet Count Result 173 k/mm3 (150-375); Red Blood Count 2.38 M/mm3 (4.2-5.4); Red Cell Distribution Width 21.4 % (11.5-14.5); White Blood Count 18.8 K/mm3 (4.5-10.0)
[2021-05-27 04:05] LABS: Anion Gap 6 mmol/L (8-16); Blood Urea Nitrogen 36 mg/dL (7-17); Calcium 8.9 mg/dL (8.4-10.2); Carbon Dioxide 23 mmol/L (22-30); Chloride 113 mmol/L (98-107); Estimated CRCL calculation 53 ml/min; Estimated Glomerular Filt Rate 45; Glucose 121 mg/dL (65-110); Potassium 3.8 mmol/L (3.4-5.0); Sodium 142 mmol/L (137-145)
[2021-05-27] MEDS: CENTRAL LINE FLUSH 20 ML IV PUSH ×2 (04:05→14:05)
[2021-05-27 05:42] LABS: Glucose Point of Care 102 mg/dl (65-105)
[2021-05-27] MEDS: PANTOPRAZOLE SODIUM IV 40 MG VIAL IV PUSH ×2 (09:09→20:19)
[2021-05-27] MEDS: THIAMINE HCL 200 MG/2 ML VIAL 100 MG IV PUSH (09:10)
[2021-05-27] MEDS: POTASSIUM CHLORIDE 20 MEQ PACKET (FOR LIQUID) PO ×2 (09:10→16:58)
[2021-05-27] MEDS: TOLNAFTATE 1% POWDER 45 GM BTL 1 APPLIC TOPICAL ×2 (09:10→20:32)
[2021-05-27] MEDS: EUCERIN CREAM 120 GM JAR 1 APPLIC TOPICAL (09:11)
[2021-05-27] MEDS: FAMOTIDINE 20 MG TABLET PO ×2 (09:13→20:19)
[2021-05-27] MEDS: FOLIC ACID 1 MG/0.2 ML INJ IV PUSH (09:13)
[2021-05-27 09:46] LABS: Add Urine Microscopic? YES; Appearance Urine Cloudy (Clear); Bacteria Urine 4+ /hpf; Bilirubin Urine Negative (Negative); Blood Urine 1+ (Negative); Color Urine Yellow (Yellow); Glucose Urine UA Negative (Negative); Ketones Urine Negative (Negative); Leukocyte Esterase Ur Negative LEU/UL (Negative); Nitrate Urine Positive (Negative); Protein Urine Negative (Negative); Specific Grav Ur 1.014 (1.001-1.035); Squamous Epithelial Cell Urine Many /hpf (Few); Transitional Epi Cells Urine Rare /hpf (None Seen); Urobilinogen Urine Negative mg/dL (<2.0); WBC Urine 16-20 /hpf
--- NOTE | 2021-05-27 11:04 | PM.IMPN ---
Progress Note: A&P Assessment and Plan (1) Septic shock: Code(s): A41.9 - Sepsis, unspecified organism; R65.21 - Severe sepsis with septic shock Status: Resolved Assessment and Plan: Presented with severe anemia, hypotension, hypoxia and multiple sources of infection with UTI, peritonitis, and pneumonia Urine culture with E. coli, sensitive to Zosyn and she completed a course of treatment. Zosyn stopped on 05/22. Peritoneal fluid with no growth Blood cultures negative She was rehydrated with IV fluids and initially required Levophed, which has been discontinued and blood pressures remain stable. (2) Cirrhosis of liver with ascites: Code(s): K74.60 - Unspecified cirrhosis of liver; R18.8 - Other ascites Status: Acute Assessment and Plan: Secondary to alcohol abuse. Presented with ascites and had paracentesis on 05/15 and again on 05/23. Ascites fluid cultures negative. She received IV albumin and octreotide. Octreotide discontinued 05/22 due to concerns for possible drug rash. Continue 2 g sodium diet. Unable to administer diuretics given SUMMER. Continue xifaxan. Appreciate GI consultation (3) Altered mental status: Code(s): R41.82 - Altered mental status, unspecified Status: Acute Assessment and Plan: Patient appears to have toxic metabolic encephalopathy which has been complicated by uremia. Ammonia levels have normalized but will continue with lactulose. 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 Mental status is slowly improving, possibly related to improvement in BUN/renal function. Expect that she is near her baseline given her chronic alcohol abuse. (4) Severe anemia: Code(s): D64.9 - Anemia, unspecified Status: Acute Assessment and Plan: Patient presented with a hemoglobin of 5.0. She received 2 units pRBC and H&H stabilized. EGD showed gastritis with no evidence of bleeding, continue Protonix. Continue to monitor H&H. Iron panel consistent with anemia of chronic disease. (5) Alcohol dependence: Code(s): F10.20 - Alcohol dependence, uncomplicated Status: Acute Assessment and Plan: No withdrawal symptoms. Continue thiamine and folic acid. Resources for alcohol cessation to be provided (6) Acute kidney injury: Code(s): N17.9 - Acute kidney failure, unspecified Status: Acute Assessment and Plan: Creatinine was 1.0 at presentation and increased up to 5.1. Etiology not entirely clear, possibly due to hypovolemia/septic shock, infection, hepatorenal syndrome. Renal US unremarkable. Appreciate nephrololgy consultation. Creatinine slowly improving down to 1.3 today with BUN 36. (7) Thrombocytopenia: Code(s): D69.6 - Thrombocytopenia, unspecified Status: Acute Assessment and Plan: Multifactorial secondary to cirrhosis, alcohol abuse, sepsis. Platelet count has normalized. No evidence of bleeding. (8) Hypoxia: Code(s): R09.02 - Hypoxemia Status: Acute Assessment and Plan: Noted to be hypoxic on presentation, most likely secondary to pneumonia with evidence of patchy consolidations on CT. She has completed a course of IV Zosyn which has been discontinued. She required up to 3 L per nasal cannula but has been weaned to room air and O2 sats had been remaining stable. Early this morning noted to be hypoxic down to 86% and placed on 2L. O2 sats stable at this time on 2L. CXR pending. Mild wheezing noted on exam today. Will administer scheduled DuoNebs and monitor symptoms. (9) Malnutrition: Code(s): E46 - Unspecified protein-calorie malnutrition Status: Acute Assessment and Plan: She has very minimal p.o. intake. She is on TPN at this time. Attempted to do Dobbhoff 05/21 but she could not tolerate this. Continue dietary supplements. Not a candidate for g-tube given cirrhosis with ascites. Discussed case with dietitian today. TPN decrease
--- NOTE | 2021-05-27 11:07 | PCNFU ---
Nutrition Follow-Up Complete: Inadequate Oral Intake as related to Pnuemonia as evidenced by poor po intake Goal: Meet estimanted nutritional needs Pt is progressing towards goal. Pt current nutrition is 2gm Nad diet, dietary supplement of ensure compact TID, and TPN running @ 30mL/hr. Last recorded weight is 81.9 kg. Bowel Motility: LBM 05/26 Labs Reviewed: Hgb 7.9, Hct 25.8, Cl 113, BUN 36, Cr 1.3, Glu 121, triglycerides 204 Meds Noted: pepcid, folic acid, protonix, Kcl, thiamine Hcl, Clinimix E 5/15 at 30mL/hr Skin: Perianal-Maceration Additional Notes: Nutrition follow up. Spoke with nursing who reports that pt is more alert and eating with minimal assistance. Nursing reports that pt had oj, coffee, persian toast, yogurt, and oatmeal on tray for breakfast this morning (05/27). Nursing report that pt possibly doesn't like oatmeal but was taking bits of the other food on the tray. Nursing reports that ensure compact was not on pt tray this morning. RDN informed diet office. Spoke with CHIDI Zapata today about intake and weaning off TPN. TPN is currently running at 30mL/hr providing 1011kcal and 36g protein. Ensure compact TID to provide an additional 220kcal and 9g protein. Lipid emulsion has been discontinued. Recommended to wean off TPN once intake reaches 50%, begin weaning off by 10mL/hr. Recommended to discontinue TPN when intake reaches 75% or greater. CHIDI Zapata today, has been made aware of these recommendations. Will monitor every 3 days.
--- NOTE | 2021-05-27 12:08 | P.PNNP_ITS ---
Progress Note: A&P Assessment and Plan (1) Acute kidney injury: Code(s): N17.9 - Acute kidney failure, unspecified Status: Acute Assessment and Plan: * normal creatinine noted on admission * likely multifactorial: * hypovolemia * septic shock/hypotension * infection * liver cirrhosis * possible hepatorenal syndrome * renal ultrasound normal * urine electrolytes consistent with prerenal azotemia * however, this could be reflective her her liver physiology (decreased effective circulating volume leading to chronic prerenal azotemia) * attempt to maintain MAP to ensure adequate renal perfusion * creatinine seems to be close to her baseline. (2) Septic shock: Code(s): A41.9 - Sepsis, unspecified organism; R65.21 - Severe sepsis with septic shock Status: Resolved Assessment and Plan: * based on presentation of severe anmia, low BP, and hypoxia * significant lactic acidosis on admission with is improving s/p IVF resuscitation * on levophed to maintain MAP * follow culture date * continue broad spectrum antibiotics (3) Altered mental status: Code(s): R41.82 - Altered mental status, unspecified Status: Acute Assessment and Plan: * She is looking better now. (4) Severe anemia: Code(s): D64.9 - Anemia, unspecified Status: Acute Assessment and Plan: * Hgb 5.0 on presentation * appropriate incrementation with PRBC transfusion * see #5 (5) Acute GI bleeding: Code(s): K92.2 - Gastrointestinal hemorrhage, unspecified Status: Acute Assessment and Plan: * guaiac positive * on PPI and octreotide drips * Hemoglobin stable the last 3 days. * Gastroenterology following with recommendations noted (6) Alcoholic hepatitis: Code(s): K70.10 - Alcoholic hepatitis without ascites Status: Acute Assessment and Plan: * as noted by admission labs - elevated LFTs and bilirubin * continue supportive therapy Will continue to follow. Subjective Date/time seen: 05/27/21 12:08 Interval history: Franko is feeling better today. She is getting some physical therapy. She just got up into a chair. No chest pain or shortness of breath Exam Narrative: General: ill appearing female in NAD Heart: normal S1 and S2; no rub or gallop Lungs: coarse and decreased at bases Abdomen: soft, nontender, less distended, positive bowel sounds Extremities: no cyanosis or clubbing; trace edema Skin: no nodules or subQ nodules Objective Data Vital Signs Vital Signs: Vital Signs - 24 hr 05/26/21 15:26 05/26/21 20:17 05/26/21 20:39 Temperature 36.1 C L 36.6 C Pulse Rate 112 H 118 H Respiratory Rate 20 22 H Blood Pressure 143/97 H 149/101 H 149/101 H Pulse Oximetry 97 96 05/27/21 03:26 05/27/21 03:42 05/27/21 03:52 Temperature 36.0 C L Pulse Rate 121 H 105 H Respiratory Rate 22 H 24 H Blood Pressure 153/117 H 131/99 H Pulse Oximetry 92 98 100 05/27/21 05:53 05/27/21 06:36 Temperature 36.4 C Pulse Rate Respiratory Rate 20 Blood Pressure Pulse Oximetry Intake/Output Intake/Output: Intake & Output 05/24/21 05/25/21 05/26/21 05/27/21 23
--- NOTE | 2021-05-27 12:08 | PM.PNNEP ---
Progress Note: A&P Assessment and Plan (1) Acute kidney injury: Code(s): N17.9 - Acute kidney failure, unspecified Status: Acute Assessment and Plan: normal creatinine noted on admission likely multifactorial: hypovolemia septic shock/hypotension infection liver cirrhosis possible hepatorenal syndrome renal ultrasound normal urine electrolytes consistent with prerenal azotemia however, this could be reflective her her liver physiology (decreased effective circulating volume leading to chronic prerenal azotemia) attempt to maintain MAP to ensure adequate renal perfusion creatinine seems to be close to her baseline. (2) Septic shock: Code(s): A41.9 - Sepsis, unspecified organism; R65.21 - Severe sepsis with septic shock Status: Resolved Assessment and Plan: based on presentation of severe anmia, low BP, and hypoxia significant lactic acidosis on admission with is improving s/p IVF resuscitation on levophed to maintain MAP follow culture date continue broad spectrum antibiotics (3) Altered mental status: Code(s): R41.82 - Altered mental status, unspecified Status: Acute Assessment and Plan: She is looking better now. (4) Severe anemia: Code(s): D64.9 - Anemia, unspecified Status: Acute Assessment and Plan: Hgb 5.0 on presentation appropriate incrementation with PRBC transfusion see #5 (5) Acute GI bleeding: Code(s): K92.2 - Gastrointestinal hemorrhage, unspecified Status: Acute Assessment and Plan: guaiac positive on PPI and octreotide drips Hemoglobin stable the last 3 days. Gastroenterology following with recommendations noted (6) Alcoholic hepatitis: Code(s): K70.10 - Alcoholic hepatitis without ascites Status: Acute Assessment and Plan: as noted by admission labs - elevated LFTs and bilirubin continue supportive therapy Will continue to follow. Subjective Date/time seen: 05/27/21 12:08 Interval history: Franko is feeling better today. She is getting some physical therapy. She just got up into a chair. No chest pain or shortness of breath Exam Narrative: General: ill appearing female in NAD Heart: normal S1 and S2; no rub or gallop Lungs: coarse and decreased at bases Abdomen: soft, nontender, less distended, positive bowel sounds Extremities: no cyanosis or clubbing; trace edema Skin: no nodules or subQ nodules Objective Data Vital Signs Vital Signs: Vital Signs - 24 hr 05/26/21 15:26 05/26/21 20:17 05/26/21 20:39 Temperature 36.1 C L 36.6 C Pulse Rate 112 H 118 H Respiratory Rate 20 22 H Blood Pressure 143/97 H 149/101 H 149/101 H Pulse Oximetry 97 96 05/27/21 03:26 05/27/21 03:42 05/27/21 03:52 Temperature 36.0 C L Pulse Rate 121 H 105 H Respiratory Rate 22 H 24 H Blood Pressure 153/117 H 131/99 H Pulse Oximetry 92 98 100 05/27/21 05:53 05/27/21 06:36 Temperature 36.4 C Pulse Rate Respiratory Rate 20 Blood Pressure Pulse Oximetry Intake/Output Intake/Output: Intake & Output 05/24/21 05/25/21 05/26/21 05/27/21 23:59 23:59 23:59 23:59 Intake Total 2330 4715 3505 2064 Output Total 950 1075 1575 100 Balance 1380 3640 1930 1964 Meds/Results Medications: Active Medications Generic Name Dose Route Start Last Admin Trade Name Freq PRN Reason Stop Dose Admin Hydrocodone Bitart/Acetaminophen 1 tab 05/23/21 09:07 05/27/21 03:39 Hydrocodone/Acetaminophen (*Crx) 5-325 Mg Tablet PO 1 tab Q6H PRN Administration Pain Albuterol 2.5 mg 05/27/21 14:00 Albuterol Sulfate Neb 2.5 Mg/0.5 Ml Inh INHALATION Q6HRT KAI Dextrose 12.5 gm 05/13/21 07:44 Dextrose 50% 25 Gm/50 Ml Syringe IV PUSH PRN PRN Hypoglycemia Protocol Diphenhydramine HCl 25 mg 05/22/21 14:03 05/26/21 19:51 Diphenhydramine Hcl Cap 25 Mg Capsule PO 25 mg
[2021-05-27] MEDS: SODIUM CHLORIDE 0.9% IV 1,000 ML 50 ML IV CONT (12:41)
[2021-05-27 12:51] LABS: Glucose Point of Care 104 mg/dl (65-105)
[2021-05-27] MEDS: CENTRAL LINE FLUSH 10 ML IV PUSH ×3 (14:03→22:36)
[2021-05-27] MEDS: AMINO ACIDS 5%/D15W/E-LYTES/CA 2,000 ML with MULTIVITAMINS-12 INJ VIAL 1 2.5 ML, MULTIV... 30 ML IV CONT (14:04)
--- NOTE | 2021-05-27 14:18 | WPDGIPROGNO ---
Progress Note: A&P Assessment and Plan (1) Cirrhosis of liver with ascites: Code(s): K74.60 - Unspecified cirrhosis of liver; R18.8 - Other ascites Status: Acute Assessment and Plan: renal function is improving- creatinine 1.3 today still with poor appetite hopefully she will eat more and discontinue parenteral nutrition can not use diuretics because evie on presenation (also had ascites)- will need 2g na diet she can not get G-tube because ascites and cirrhosis [place], call if questions we can see her in office in 4-5 weeks after discharge will need to keep abstinence (2) Acute encephalopathy: Code(s): G93.40 - Encephalopathy, unspecified Status: Acute Assessment and Plan: from cirrhosis, etoh abuse, malnutrition, etc no major changes (3) Acute kidney injury: Code(s): N17.9 - Acute kidney failure, unspecified Status: Acute Assessment and Plan: almost resolved (4) Septic shock: Code(s): A41.9 - Sepsis, unspecified organism; R65.21 - Severe sepsis with septic shock Status: Resolved Assessment and Plan: on admission and resolved, s/p antibiotics (5) Thrombocytopenia: Code(s): D69.6 - Thrombocytopenia, unspecified Status: Acute Assessment and Plan: from alcohol and cirrhosis (6) Cirrhosis, alcoholic: Code(s): K70.30 - Alcoholic cirrhosis of liver without ascites Status: Acute Assessment and Plan: nutrition support, thiamine, etoh cessation previous paracentesis (7) Gastritis: Code(s): K29.70 - Gastritis, unspecified, without bleeding Status: Acute Assessment and Plan: on ppi (8) Malnutrition: Code(s): E46 - Unspecified protein-calorie malnutrition Status: Acute Assessment and Plan: encourage to eat more (9) Severe anemia: Code(s): D64.9 - Anemia, unspecified Status: Acute Assessment and Plan: egd on admission revealed gastritis hb low but has been stable after transfusion Subjective Date/time seen: 05/27/21 14:18 Interval history: she is her chair and having lunch but still poor oral intake. Patient is saying that will try to eat more Review of Systems Review of Systems: All systems reviewed & are unremarkable except as noted in HPI and below Exam Const: General: ill appearing chronically Other: awake and alert, talking but flat affect, sometimes gets confused during conversation but no really changes HENMT: General nose exam: Normal nares present Eyes: General: appearance normal, both eyes and all related structures Neck: Neck: supple Resp: Auscultation: clear to auscultation bilaterally Cardio: Rate: regular rate GI: GI Palp: Yes Soft to palpation and No Tenderness to palpation present (GI) Percussion: Yes Fluid wave present Auscultation: normal bowel sounds Skin: General skin exam: no rashes or lesions noted Neuro: Other: awake and more alert but sometimes gets confused Extrem: General: normal to inspection Psych: Other: flat affect Objective Data Vital Signs Vital Signs: Vital Signs - 24 hr 05/26/21 15:26 05/26/21 20:17 05/26/21 20:39 Temperature 97.0 F L 98 F Pulse Rate 112 H 118 H Respiratory Rate 20 22 H Blood Pressure 143/97 H 149/101 H 149/101 H Pulse Oximetry 97 96 05/27/21 03:26 05/27/21 03:42 05/27/21 03:52 Temperature 96.8 F L Pulse Rate 121 H 105 H Respiratory Rate 22 H 24 H Blood Pressure 153/117 H 131/99 H Pulse Oximetry 92 98 100 05/27/21 05:53 05/27/21 06:36 Temperature 97.6 F Pulse Rate Respiratory Rate 20 Blood Pressure Pulse Oximetry Intake/Output Intake/Output: Intake & Output 05/24/21 05/25/21 05/26/21 05/27/21 23:59 23:59 23:59 23:59 Intake Total 2330 4715 3505 3495 Output Total 950 1075 1575 100 Balance 1380 3640 1930 3395 Meds/Results Medications: Active Medications Generic Name Dose Route Start Last Admin Trad
[2021-05-27] MEDS: ALBUTEROL SULFATE NEB 2.5 MG/0.5 ML INH INHALATION ×2 (14:26→21:27)
[2021-05-27] MEDS: IPRATROPIUM BR 0.02% INH SOLN 0.5 MG/2.5 ML VIAL INHALATION ×2 (14:26→21:27)
[2021-05-27 14:49] LABS: Triglycerides 200 mg/dL (<150)
[2021-05-27 18:08] LABS: Glucose Point of Care 119 mg/dl (65-105)
[2021-05-27 23:56] LABS: Glucose Point of Care 109 mg/dl (65-105)
[2021-05-27 23:56] LABS: Glucose Point of Care 116 mg/dl (65-105)
[2021-05-27 23:56] LABS: Glucose Point of Care 96 mg/dl (65-105)
[2021-05-28] VITALS (17 sets, daily range): BP systolic 126–153; BP diastolic 79–110; PULSE 100–126; RESP 18–25; TEMP 36.3–36.8; O2SAT 94–98
[2021-05-28] MEDS: ALBUTEROL SULFATE NEB 2.5 MG/0.5 ML INH INHALATION ×3 (00:54→10:05)
[2021-05-28] MEDS: IPRATROPIUM BR 0.02% INH SOLN 0.5 MG/2.5 ML VIAL INHALATION ×3 (00:54→10:05)
--- NOTE | 2021-05-28 01:00 | PCRCNOTE ---
pt requested the treatment be stopped early. therapist asked why with no comment from the patient
[2021-05-28] MEDS: hydrALAZINE HCL 20 MG/ML VIAL 10 MG IV PUSH (04:28)
[2021-05-28 05:18] LABS: Basophils Absolute Auto 0.1 K/mm3 (0.0-0.1); Basophils Percent Auto 0.5 % (0.2-1.2); Eosinophils Absolute Auto 0.5 K/mm3 (0-0.3); Eosinophils Percent Auto 3.5 % (0-4.4); Hematocrit 22.9 % (37.0-47.0); Hemoglobin 7.2 g/dL (12.0-15.0); Immature Granulocyte Absolute 0.09 K/mm3 (0.00-0.031); Immature Granulocyte Percent A 0.6 % (0-0.5); Lymphocytes Absolute Auto 1.65 K/mm3 (0.9-3.2); Lymphocytes Percent Auto 10.7 % (18.3-44.2); Mean Corpuscular HGB Conc 31.4 g/dl (32-36); Mean Corpuscular Hemoglobin 33.5 pg (26-34); Mean Corpuscular Volume 106.5 fl (80-100); Mean Platelet Volume 12.9 fl (7.4-10.4); Monocytes Absolute Auto 0.9 K/mm3 (0.1-0.6); Monocytes Percent Auto 5.7 % (2.6-8.5); Neutrophils Absolute Auto 12.3 K/mm3 (1.3-6.7); Platelet Count Result 163 k/mm3 (150-375); Red Blood Count 2.15 M/mm3 (4.2-5.4); Red Cell Distribution Width 21.6 % (11.5-14.5); White Blood Count 15.5 K/mm3 (4.5-10.0)
[2021-05-28 05:31] LABS: Alanine Aminotransferase 34 U/L (4-35); Albumin Level 3.3 g/dL (3.5-5.1); Alkaline Phosphatase 255 U/L (38-126); Anion Gap 9 mmol/L (8-16); Aspartate Amino Transferase 78 U/L (14-36); Bilirubin,Total 1.4 mg/dL (0.2-1.3); Blood Urea Nitrogen 28 mg/dL (7-17); Calcium 8.7 mg/dL (8.4-10.2); Carbon Dioxide 18 mmol/L (22-30); Chloride 113 mmol/L (98-107); Estimated CRCL calculation 64 ml/min; Estimated Glomerular Filt Rate 55; Glucose 110 mg/dL (65-110); Potassium 4.1 mmol/L (3.4-5.0); Sodium 140 mmol/L (137-145); Triglycerides 214 mg/dL (<150)
[2021-05-28] MEDS: SALINE 0.65% NAS SOLN 44 ML BTL 1 SPRAY NASAL (05:40)
[2021-05-28] MEDS: FUROSEMIDE INJ 40 MG/4 ML VIAL IV PUSH (05:51)
[2021-05-28] MEDS: CENTRAL LINE FLUSH 10 ML IV PUSH ×4 (05:58→20:05)
[2021-05-28 06:35] LABS: Glucose Point of Care 110 mg/dl (65-105)
[2021-05-28] MEDS: SODIUM CHLORIDE 0.9% IV 1,000 ML 50 ML IV CONT (06:38)
[2021-05-28] MEDS: FOLIC ACID 1 MG/0.2 ML INJ IV PUSH (10:16)
[2021-05-28] MEDS: FAMOTIDINE 20 MG TABLET PO ×2 (10:16→20:05)
[2021-05-28] MEDS: POTASSIUM CHLORIDE 20 MEQ PACKET (FOR LIQUID) PO ×2 (10:16→16:56)
[2021-05-28] MEDS: PANTOPRAZOLE SODIUM IV 40 MG VIAL IV PUSH ×2 (10:16→20:05)
[2021-05-28] MEDS: THIAMINE HCL 200 MG/2 ML VIAL 100 MG IV PUSH (10:16)
[2021-05-28] MEDS: EUCERIN CREAM 120 GM JAR 1 APPLIC TOPICAL (10:17)
[2021-05-28] MEDS: TOLNAFTATE 1% POWDER 45 GM BTL 1 APPLIC TOPICAL ×2 (10:17→20:05)
--- NOTE | 2021-05-28 10:50 | P.PNNP_ITS ---
Progress Note: A&P Assessment and Plan (1) Acute kidney injury: Code(s): N17.9 - Acute kidney failure, unspecified Status: Acute Assessment and Plan: * acute kidney injury on top of normal kidney function. * Most likely due to pre renal factors. * Currently creatinine is 1.1. * She is getting TPN. * We can stop the normal saline. (2) Septic shock: Code(s): A41.9 - Sepsis, unspecified organism; R65.21 - Severe sepsis with septic shock Status: Resolved Assessment and Plan: * based on presentation of severe anmia, low BP, and hypoxia * Off pressors. Resolved. (3) Altered mental status: Code(s): R41.82 - Altered mental status, unspecified Status: Acute Assessment and Plan: * She is looking better now. (4) Severe anemia: Code(s): D64.9 - Anemia, unspecified Status: Acute Assessment and Plan: * Hgb 5.0 on presentation * appropriate incrementation with PRBC transfusion * see #5 (5) Acute GI bleeding: Code(s): K92.2 - Gastrointestinal hemorrhage, unspecified Status: Acute Assessment and Plan: * guaiac positive * on PPI * Hemoglobin down a little at 7.2.. * Gastroenterology following with recommendations noted (6) Alcoholic hepatitis: Code(s): K70.10 - Alcoholic hepatitis without ascites Status: Acute Assessment and Plan: * as noted by admission labs - elevated LFTs and bilirubin * Bilirubin improved to normal but today is up a little bit. Will recheck tomorrow. * Liver enzymes are a little bit better but still high Subjective Date/time seen: 05/28/21 10:50 Interval history: Franko is sitting in a chair. She feels about the same. She denies shortness of breath Exam Narrative: General: ill appearing female in NAD Heart: normal S1 and S2; no rub or gallop Lungs: decreased at bases Abdomen: soft, nontender, less distended, positive bowel sounds Extremities: no cyanosis or clubbing; trace edema Skin: no rash Objective Data Vital Signs Vital Signs: Vital Signs - 24 hr 05/27/21 14:00 05/27/21 14:27 05/27/21 14:36 Temperature 36.5 C Pulse Rate 103 H 104 H 100 Respiratory Rate 18 18 18 Blood Pressure 149/76 H Pulse Oximetry 98 97 05/27/21 20:00 05/27/21 21:04 05/27/21 21:15 Temperature 36.4 C Pulse Rate 98 112 H Respiratory Rate 18 22 H Blood Pressure 139/90 139/90 Pulse Oximetry 97 97 97 05/27/21 21:25 05/27/21 21:33 05/28/21 00:00 Temperature Pulse Rate 96 98 Respiratory Rate 18 18 Blood Pressure 139/90 Pulse Oximetry 05/28/21 00:54 05/28/21 00:59 05/28/21 04:00 Temperature Pulse Rate 109 H 110 H Respiratory Rate 20 20 Blood Pressure 126/79 Pulse Oximetry 05/28/21 04:22 05/28/21 04:45 05/28/21 04:49 Temperature Pulse Rate 118 H 126 H 115 H Respiratory Rate 25 H 25 H Blood Pressure 153/110 H Pulse Oximetry 05/28/21 06:00 05/28/21 08:00 05/28/21 10:05 Temperature 36.6 C Pulse Rate 118 H 114 H 100 Respiratory Rate 22 H
--- NOTE | 2021-05-28 10:50 | PM.PNNEP ---
Progress Note: A&P Assessment and Plan (1) Acute kidney injury: Code(s): N17.9 - Acute kidney failure, unspecified Status: Acute Assessment and Plan: acute kidney injury on top of normal kidney function. Most likely due to pre renal factors. Currently creatinine is 1.1. She is getting TPN. We can stop the normal saline. (2) Septic shock: Code(s): A41.9 - Sepsis, unspecified organism; R65.21 - Severe sepsis with septic shock Status: Resolved Assessment and Plan: based on presentation of severe anmia, low BP, and hypoxia Off pressors. Resolved. (3) Altered mental status: Code(s): R41.82 - Altered mental status, unspecified Status: Acute Assessment and Plan: She is looking better now. (4) Severe anemia: Code(s): D64.9 - Anemia, unspecified Status: Acute Assessment and Plan: Hgb 5.0 on presentation appropriate incrementation with PRBC transfusion see #5 (5) Acute GI bleeding: Code(s): K92.2 - Gastrointestinal hemorrhage, unspecified Status: Acute Assessment and Plan: guaiac positive on PPI Hemoglobin down a little at 7.2.. Gastroenterology following with recommendations noted (6) Alcoholic hepatitis: Code(s): K70.10 - Alcoholic hepatitis without ascites Status: Acute Assessment and Plan: as noted by admission labs - elevated LFTs and bilirubin Bilirubin improved to normal but today is up a little bit. Will recheck tomorrow. Liver enzymes are a little bit better but still high Subjective Date/time seen: 05/28/21 10:50 Interval history: Franko is sitting in a chair. She feels about the same. She denies shortness of breath Exam Narrative: General: ill appearing female in NAD Heart: normal S1 and S2; no rub or gallop Lungs: decreased at bases Abdomen: soft, nontender, less distended, positive bowel sounds Extremities: no cyanosis or clubbing; trace edema Skin: no rash Objective Data Vital Signs Vital Signs: Vital Signs - 24 hr 05/27/21 14:00 05/27/21 14:27 05/27/21 14:36 Temperature 36.5 C Pulse Rate 103 H 104 H 100 Respiratory Rate 18 18 18 Blood Pressure 149/76 H Pulse Oximetry 98 97 05/27/21 20:00 05/27/21 21:04 11/27/21 21:15 Temperature 36.4 C Pulse Rate 98 112 H Respiratory Rate 18 22 H Blood Pressure 139/90 139/90 Pulse Oximetry 97 97 97 05/27/21 21:25 05/27/21 21:33 05/28/21 00:00 Temperature Pulse Rate 96 98 Respiratory Rate 18 18 Blood Pressure 139/90 Pulse Oximetry 05/28/21 00:54 05/28/21 00:59 05/28/21 04:00 Temperature Pulse Rate 109 H 110 H Respiratory Rate 20 20 Blood Pressure 126/79 Pulse Oximetry 05/28/21 04:22 05/28/21 04:45 05/28/21 04:49 Temperature Pulse Rate 118 H 126 H 115 H Respiratory Rate 25 H 25 H Blood Pressure 153/110 H Pulse Oximetry 05/28/21 06:00 05/28/21 08:00 05/28/21 10:05 Temperature 36.6 C Pulse Rate 118 H 114 H 100 Respiratory Rate 22 H 18 Blood Pressure 126/79 Pulse Oximetry 98 05/28/21 10:12 Temperature Pulse Rate 109 H Respiratory Rate 20 Blood Pressure Pulse Oximetry Intake/Output Intake/Output: Intake & Output 05/25/21 05/26/21 05/27/21 05/28/21 23:59 23:59 23:59 23:59 Intake Total 4715 3505 3915 3244 Output Total 1075 1575 400 Balance 3640 1930 3515 3244 Meds/Results Medications: Active Medications Generic Name Dose Route Start Last Admin Trade Name Freq PRN Reason Stop Dose Admin Hydrocodone Bitart/Acetaminophen 1 tab 05/23/21 09:07 05/27/21 03:39 Hydrocodone/Acetaminophen (*Crx) 5-325 Mg Tablet PO 1 tab Q6H PRN Administration Pain Albuterol 2.5 mg 05/27/21 14:00 05/28/21 10:05 Albuterol Sulfate Neb 2.5 Mg/0.5 Ml Inh INHALATION 2.5 mg Q6HRT KAI Administration Albuterol 2.5 mg 05/28/21 04:40 05/28/21 04:45 Albuterol Sulfate
[2021-05-28 12:19] LABS: Glucose Point of Care 184 mg/dl (65-105)
[2021-05-28] MEDS: HYDROcodone/acetaminophen (*CRX) 5-325 MG TABLET 1 TAB PO ×2 (12:22→18:44)
[2021-05-28] MEDS: diphenhydrAMINE HCl CAP 25 MG CAPSULE PO ×2 (12:23→18:44)
[2021-05-28] MEDS: CENTRAL LINE FLUSH 20 ML IV PUSH (12:23)
[2021-05-28 12:38] LABS: Hemoglobin 7.4 g/dL (12.0-15.0)
--- NOTE | 2021-05-28 13:07 | PM.IMPN ---
Progress Note: A&P Assessment and Plan (1) Septic shock: Code(s): A41.9 - Sepsis, unspecified organism; R65.21 - Severe sepsis with septic shock Status: Resolved Assessment and Plan: Presented with severe anemia, hypotension, hypoxia and multiple sources of infection with UTI, peritonitis, and pneumonia Urine culture with E. coli, sensitive to Zosyn and she completed a course of treatment. Zosyn stopped on 05/22. Peritoneal fluid with no growth Blood cultures negative She was rehydrated with IV fluids and initially required Levophed, which has been discontinued and blood pressures remain stable. (2) Cirrhosis of liver with ascites: Code(s): K74.60 - Unspecified cirrhosis of liver; R18.8 - Other ascites Status: Acute Assessment and Plan: Secondary to alcohol abuse. Presented with ascites and had paracentesis on 05/15 and again on 05/23. Ascites fluid cultures negative. She received IV albumin and octreotide. Octreotide discontinued 05/22 due to concerns for possible drug rash. Continue 2 g sodium diet. Unable to administer diuretics given SUMMER. Continue xifaxan. Appreciate GI consultation (3) Altered mental status: Code(s): R41.82 - Altered mental status, unspecified Status: Acute Assessment and Plan: Resolved. Patient appeared to have toxic metabolic encephalopathy which has been complicated by uremia. Ammonia levels have normalized but will continue with lactulose. 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 Mental status has improvement with improvement in BUN. (4) Severe anemia: Code(s): D64.9 - Anemia, unspecified Status: Acute Assessment and Plan: Patient presented with a hemoglobin of 5.0. She received 2 units pRBC and H&H stabilized. EGD showed gastritis with no evidence of bleeding, continue Protonix. H&H trending downward again, will monitor closely. Iron panel consistent with anemia of chronic disease. (5) Alcohol dependence: Code(s): F10.20 - Alcohol dependence, uncomplicated Status: Acute Assessment and Plan: No withdrawal symptoms. Continue thiamine and folic acid. Resources for alcohol cessation to be provided (6) Acute kidney injury: Code(s): N17.9 - Acute kidney failure, unspecified Status: Acute Assessment and Plan: Creatinine was 1.0 at presentation and increased up to 5.1. Etiology not entirely clear, possibly due to hypovolemia/septic shock, infection, hepatorenal syndrome. Renal US unremarkable. Appreciate nephrololgy consultation. Creatinine slowly improving down to 1.1 today with BUN 28. (7) Thrombocytopenia: Code(s): D69.6 - Thrombocytopenia, unspecified Status: Acute Assessment and Plan: Multifactorial secondary to cirrhosis, alcohol abuse, sepsis. Platelet count has normalized. No evidence of bleeding. (8) Hypoxia: Code(s): R09.02 - Hypoxemia Status: Acute Assessment and Plan: Noted to be hypoxic on presentation, most likely secondary to pneumonia with evidence of patchy consolidations on CT. She has completed a course of IV Zosyn which has been discontinued. She required up to 3 L per nasal cannula but has been weaned to room air and O2 sats remaining stable. Repeat CXR 05/27 showed unchanged airspace disease. Mild wheezing noted on exam 05/27 resolved with DuoNebs. (9) Malnutrition: Code(s): E46 - Unspecified protein-calorie malnutrition Status: Acute Assessment and Plan: She has very minimal p.o. intake. She is on TPN at this time. Attempted to do Dobbhoff 05/21 but she could not tolerate this. Continue dietary supplements. Not a candidate for g-tube given cirrhosis with ascites. Being monitored by dietitian. TPN decreased to 30 ml/hr. Lipids discontinued 05/27. Plan to wean TPN by 10 ml/hr once she begins eating 50% of meals. TPN to be discontinued when eating 75% of meals. Today she ate no breakf
[2021-05-28] MEDS: AMINO ACIDS 5%/D15W/E-LYTES/CA 2,000 ML with MULTIVITAMINS-12 INJ VIAL 1 2.5 ML, MULTIV... 30 ML IV CONT (13:26)
[2021-05-28 17:40] LABS: Glucose Point of Care 112 mg/dl (65-105)
[2021-05-28 23:41] LABS: Glucose Point of Care 110 mg/dl (65-105)
[2021-05-29] VITALS (7 sets, daily range): BP systolic 123–142; BP diastolic 82–98; PULSE 100–129; RESP 16–22; TEMP 36.1–36.4; O2SAT 92–99
[2021-05-29] MEDS: FUROSEMIDE INJ 40 MG/4 ML VIAL IV PUSH ×2 (01:21→08:31)
[2021-05-29 01:31] LABS: Alveolar/Arterial O2 Gradient 101.2 mmHg; Base Excess ABG -4.8 mEq/l (+/-2.0); Fractional Inspired Oxygen 28 %; HCO3 ABG 19.4 mEq/l (22.0-26.0); Oxygen Content ABG 10.7 %vol (16.0-22.0); Oxygen Saturation ABG 91.7 % (95.0-100.0); PCO2 ABG 31.9 mmHg (35.0-45.0); PO2 ABG 60.8 mmHg (80.0-100.0); PO2 FiO2 Ratio Arterial Blood 2.17 %; Total Hemoglobin 8.6 g/dL (12.0-18.0); pH ABG 7.401 (7.350-7.450)
[2021-05-29 01:36] LABS: Hematocrit 24.8 % (37.0-47.0); Hemoglobin 7.6 g/dL (12.0-15.0); Mean Corpuscular HGB Conc 30.6 g/dl (32-36); Mean Corpuscular Hemoglobin 33.9 pg (26-34); Mean Corpuscular Volume 110.7 fl (80-100); Mean Platelet Volume 12.8 fl (7.4-10.4); Platelet Count Result 177 k/mm3 (150-375); Red Blood Count 2.24 M/mm3 (4.2-5.4); Red Cell Distribution Width 21.7 % (11.5-14.5); White Blood Count 18.8 K/mm3 (4.5-10.0)
[2021-05-29 01:36] LABS: Device NASAL CANNULA; Modified Allen's Test Pass; Oxyhemoglobin 87.8 % THb (90.0-100.0); Site Drawn LEFT RADIAL
[2021-05-29 02:12] LABS: Anion Gap 6 mmol/L (8-16); Blood Urea Nitrogen 25 mg/dL (7-17); Calcium 9.2 mg/dL (8.4-10.2); Carbon Dioxide 24 mmol/L (22-30); Chloride 113 mmol/L (98-107); Estimated CRCL calculation 59 ml/min; Estimated Glomerular Filt Rate 50; Glucose 112 mg/dL (65-110); Magnesium 1.4 mg/dL (1.6-2.3); Phosphorus 4.6 mg/dL (2.5-4.5); Potassium 4.2 mmol/L (3.4-5.0); Sodium 143 mmol/L (137-145)
[2021-05-29 06:32] LABS: Glucose Point of Care 92 mg/dl (65-105)
[2021-05-29 06:48] LABS: Basophils Absolute Auto 0.1 K/mm3 (0.0-0.1); Basophils Percent Auto 0.6 % (0.2-1.2); Eosinophils Absolute Auto 0.9 K/mm3 (0-0.3); Eosinophils Percent Auto 4.8 % (0-4.4); Hematocrit 24.5 % (37.0-47.0); Hemoglobin 7.6 g/dL (12.0-15.0); Immature Granulocyte Percent A 0.5 % (0-0.5); Immature Platelet Fraction Pct 13.5 % (0.9-11.2); Lymphocytes Absolute Auto 1.79 K/mm3 (0.9-3.2); Lymphocytes Percent Auto 9.5 % (18.3-44.2); Mean Corpuscular Hemoglobin 33.5 pg (26-34); Mean Corpuscular Volume 107.9 fl (80-100); Mean Platelet Volume 13.1 fl (7.4-10.4); Monocytes Absolute Auto 1.3 K/mm3 (0.1-0.6); Monocytes Percent Auto 6.9 % (2.6-8.5); Neutrophils Absolute Auto 14.6 K/mm3 (1.3-6.7); Neutrophils Percent Auto 77.7 % (45.5-73.1); Platelet Count Result 177 k/mm3 (150-375); Red Blood Count 2.27 M/mm3 (4.2-5.4); Red Cell Distribution Width 21.3 % (11.5-14.5); White Blood Count 18.8 K/mm3 (4.5-10.0)
[2021-05-29 07:06] LABS: Alanine Aminotransferase 35 U/L (4-35); Albumin Level 3.6 g/dL (3.5-5.1); Alkaline Phosphatase 283 U/L (38-126); Anion Gap 9 mmol/L (8-16); Aspartate Amino Transferase 84 U/L (14-36); Bilirubin,Total 1.8 mg/dL (0.2-1.3); Blood Urea Nitrogen 24 mg/dL (7-17); Calcium 9.1 mg/dL (8.4-10.2); Carbon Dioxide 22 mmol/L (22-30); Chloride 108 mmol/L (98-107); Estimated CRCL calculation 59 ml/min; Estimated Glomerular Filt Rate 50; Glucose 97 mg/dL (65-110); Magnesium 1.3 mg/dL (1.6-2.3); Sodium 139 mmol/L (137-145); Triglycerides 230 mg/dL (<150)
[2021-05-29 07:23] LABS: Transferrin 112 mg/dL (206-381)
[2021-05-29 07:35] LABS: Glucose Point of Care 102 mg/dl (65-105)
[2021-05-29] MEDS: HYDROcodone/acetaminophen (*CRX) 5-325 MG TABLET 1 TAB PO (07:55)
[2021-05-29 08:00] LABS: INR 1.2; Partial Thromboplastin Time 34.9 SECONDS (22.3-36.8); Prothrombin Time 15.1 Seconds (11.1-14.7)
[2021-05-29] MEDS: POTASSIUM CHLORIDE 20 MEQ PACKET (FOR LIQUID) PO ×2 (08:31→17:06)
[2021-05-29] MEDS: PANTOPRAZOLE SODIUM IV 40 MG VIAL IV PUSH ×2 (08:31→20:09)
[2021-05-29] MEDS: CENTRAL LINE FLUSH 10 ML IV PUSH ×3 (08:41→20:09)
--- NOTE | 2021-05-29 09:56 | P.PNNP_ITS ---
Progress Note: A&P Assessment and Plan (1) Acute kidney injury: Code(s): N17.9 - Acute kidney failure, unspecified Status: Acute Assessment and Plan: * acute kidney injury on top of normal kidney function. * Most likely due to pre renal factors. * Currently creatinine is 1.1. * She is getting TPN. * Off the saline infusion. * Kidney function is doing well. Renal will sign off. (2) Septic shock: Code(s): A41.9 - Sepsis, unspecified organism; R65.21 - Severe sepsis with septic shock Status: Resolved Assessment and Plan: * Resolved. (3) Altered mental status: Code(s): R41.82 - Altered mental status, unspecified Status: Acute Assessment and Plan: * She is looking better now. (4) Severe anemia: Code(s): D64.9 - Anemia, unspecified Status: Acute Assessment and Plan: * Hgb 5.0 on presentation * Hemoglobin up to 7.6. (5) Acute GI bleeding: Code(s): K92.2 - Gastrointestinal hemorrhage, unspecified Status: Acute Assessment and Plan: * guaiac positive * on PPI * Hemoglobin down a little at 7.2.. * Gastroenterology following with recommendations noted (6) Alcoholic hepatitis: Code(s): K70.10 - Alcoholic hepatitis without ascites Status: Acute Assessment and Plan: * as noted by admission labs - elevated LFTs and bilirubin * Bilirubin improved to normal but today is up a little bit. Will recheck tomorrow. * Liver enzymes are a little bit better but still high Subjective Date/time seen: 05/29/21 09:56 Interval history: Franko is lying in bed. She is not having any shortness of breath or chest pain. Exam Narrative: General: ill appearing female in NAD Heart: normal S1 and S2; no rub or gallop Lungs: decreased at bases Abdomen: soft, nontender, less distended, positive bowel sounds Extremities: no cyanosis or clubbing; trace edema Skin: no rash Objective Data Vital Signs Vital Signs: Vital Signs - 24 hr 05/28/21 10:05 05/28/21 10:12 05/28/21 12:00 Temperature Pulse Rate 100 109 H 109 H Respiratory Rate 18 20 Blood Pressure Pulse Oximetry 05/28/21 14:00 05/28/21 16:00 05/28/21 20:00 Temperature 36.8 C Pulse Rate 116 H 116 H 115 H Respiratory Rate 20 22 H Blood Pressure 128/82 Pulse Oximetry 97 97 05/28/21 20:52 05/28/21 20:58 05/29/21 00:00 Temperature 36.3 C L Pulse Rate 115 H 120 H Respiratory Rate 22 H Blood Pressure 143/88 H Pulse Oximetry 94 97 05/29/21 04:00 05/29/21 06:31 Temperature 36.1 C L Pulse Rate 129 H 117 H Respiratory Rate 17 Blood Pressure 123/82 Pulse Oximetry 99 Intake/Output Intake/Output: Intake & Output 05/26/21 05/27/21 05/28/21 05/29/21 23:59 23:59 23:59 23:59 Intake Total 3505 3915 5549 1155 Output Total 1575 400 Balance 1930 3515 5549 1155 Meds/Results Medications: Active Medications Generic Name Dose Route Start Last Admin Trade Name Freq PRN Reason Stop Dose Admin Hydrocodone Bitart/Acetaminophe
--- NOTE | 2021-05-29 09:56 | PM.PNNEP ---
Progress Note: A&P Assessment and Plan (1) Acute kidney injury: Code(s): N17.9 - Acute kidney failure, unspecified Status: Acute Assessment and Plan: acute kidney injury on top of normal kidney function. Most likely due to pre renal factors. Currently creatinine is 1.1. She is getting TPN. Off the saline infusion. Kidney function is doing well. Renal will sign off. (2) Septic shock: Code(s): A41.9 - Sepsis, unspecified organism; R65.21 - Severe sepsis with septic shock Status: Resolved Assessment and Plan: Resolved. (3) Altered mental status: Code(s): R41.82 - Altered mental status, unspecified Status: Acute Assessment and Plan: She is looking better now. (4) Severe anemia: Code(s): D64.9 - Anemia, unspecified Status: Acute Assessment and Plan: Hgb 5.0 on presentation Hemoglobin up to 7.6. (5) Acute GI bleeding: Code(s): K92.2 - Gastrointestinal hemorrhage, unspecified Status: Acute Assessment and Plan: guaiac positive on PPI Hemoglobin down a little at 7.2.. Gastroenterology following with recommendations noted (6) Alcoholic hepatitis: Code(s): K70.10 - Alcoholic hepatitis without ascites Status: Acute Assessment and Plan: as noted by admission labs - elevated LFTs and bilirubin Bilirubin improved to normal but today is up a little bit. Will recheck tomorrow. Liver enzymes are a little bit better but still high Subjective Date/time seen: 05/29/21 09:56 Interval history: Franko is lying in bed. She is not having any shortness of breath or chest pain. Exam Narrative: General: ill appearing female in NAD Heart: normal S1 and S2; no rub or gallop Lungs: decreased at bases Abdomen: soft, nontender, less distended, positive bowel sounds Extremities: no cyanosis or clubbing; trace edema Skin: no rash Objective Data Vital Signs Vital Signs: Vital Signs - 24 hr 05/28/21 10:05 05/28/21 10:12 05/28/21 12:00 Temperature Pulse Rate 100 109 H 109 H Respiratory Rate 18 20 Blood Pressure Pulse Oximetry 05/28/21 14:00 05/28/21 16:00 05/28/21 20:00 Temperature 36.8 C Pulse Rate 116 H 116 H 115 H Respiratory Rate 20 22 H Blood Pressure 128/82 Pulse Oximetry 97 97 05/28/21 20:52 05/28/21 20:58 05/29/21 00:00 Temperature 36.3 C L Pulse Rate 115 H 120 H Respiratory Rate 22 H Blood Pressure 143/88 H Pulse Oximetry 94 97 05/29/21 04:00 05/29/21 06:31 Temperature 36.1 C L Pulse Rate 129 H 117 H Respiratory Rate 17 Blood Pressure 123/82 Pulse Oximetry 99 Intake/Output Intake/Output: Intake & Output 05/26/21 05/27/21 05/28/21 05/29/21 23:59 23:59 23:59 23:59 Intake Total 3505 3915 5549 1155 Output Total 1575 400 Balance 1930 3515 5549 1155 Meds/Results Medications: Active Medications Generic Name Dose Route Start Last Admin Trade Name Freq PRN Reason Stop Dose Admin Hydrocodone Bitart/Acetaminophen 1 tab 05/23/21 09:07 05/29/21 07:55 Hydrocodone/Acetaminophen (*Crx) 5-325 Mg Tablet PO 1 tab Q6H PRN Administration Pain Dextrose 12.5 gm 05/13/21 07:44 Dextrose 50% 25 Gm/50 Ml Syringe IV PUSH PRN PRN Hypoglycemia Protocol Diphenhydramine HCl 25 mg 05/22/21 14:03 05/28/21 18:44 Diphenhydramine Hcl Cap 25 Mg Capsule PO 25 mg Q6H PRN Administration Itching Famotidine 20 mg 05/22/21 21:00 05/28/21 20:05 Famotidine 20 Mg Tablet PO 20 mg Q12HR AKI Administration Folic Acid 1 mg 05/13/21 09:00 05/28/21 10:16 Folic Acid 1 Mg/0.2 Ml Inj IV PUSH 1 mg QAM KAI Administration Glucagon 1 mg 05/13/21 07:44 Glucagon For Inj 1 Mg Vial IM PRN PRN Hypoglycemia Protocol Glucose 15 gm 05/13/21 07:44 Glucose Oral Gel 15 Gm Of Glucse In 37.5 Gm Tube PO PRN PRN Hypoglycemia
[2021-05-29] MEDS: MAGNESIUM SULF 2 GM/WATER 50ML 2 GM/50 ML BAG IVPB (10:10)
[2021-05-29 11:55] LABS: Glucose Point of Care 106 mg/dl (65-105)
[2021-05-29] MEDS: FOLIC ACID 1 MG/0.2 ML INJ IV PUSH (12:47)
--- NOTE | 2021-05-29 14:33 | PM.IMPN ---
Progress Note: A&P Assessment and Plan (1) Septic shock: Code(s): A41.9 - Sepsis, unspecified organism; R65.21 - Severe sepsis with septic shock Status: Resolved Assessment and Plan: Presented with severe anemia, hypotension, hypoxia and multiple sources of infection with UTI, peritonitis, and pneumonia. She initially required intensive care with Levophed to maintain her blood pressure. She was rehydrated with IV fluids. She did have improvement with this and blood pressures have been stable off Levophed for some time now. Urine culture with E coli sensitive to Zosyn for which she completed a course of treatment on 05/22. Peritoneal fluid with no growth. Blood cultures negative. (2) Cirrhosis of liver with ascites: Code(s): K74.60 - Unspecified cirrhosis of liver; R18.8 - Other ascites Status: Acute Assessment and Plan: Secondary to alcohol abuse. Presented with ascites and had paracentesis on 05/15 and again on 05/23. Ascites fluid cultures negative. She received IV albumin and octreotide. Octreotide discontinued 05/22 due to concerns for possible drug rash. Continue 2 g sodium diet. Unable to administer diuretics given SUMMER. Appreciate GI consultation (3) Altered mental status: Code(s): R41.82 - Altered mental status, unspecified Status: Acute Assessment and Plan: Resolved. Patient appeared to have toxic metabolic encephalopathy which was complicated by uremia. Ammonia levels have normalized but will continue with lactulose. 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 Mental status has improved with resolution of uremia. Some confusion today, possibly due to narcotics which will be limited (4) Severe anemia: Code(s): D64.9 - Anemia, unspecified Status: Acute Assessment and Plan: Patient presented with a hemoglobin of 5.0. She received 2 units pRBC and H&H stabilized. EGD showed gastritis with no evidence of bleeding, continue Protonix. H&H trending downward again, will monitor closely. Iron panel consistent with anemia of chronic disease. (5) Alcohol dependence: Code(s): F10.20 - Alcohol dependence, uncomplicated Status: Acute Assessment and Plan: No withdrawal symptoms. Continue thiamine and folic acid. Resources for alcohol cessation to be provided (6) Acute kidney injury: Code(s): N17.9 - Acute kidney failure, unspecified Status: Acute Assessment and Plan: Creatinine was 1.0 at presentation and increased up to 5.1. Etiology not entirely clear, possibly due to hypovolemia/septic shock, infection, hepatorenal syndrome. Renal US unremarkable. Appreciate nephrololgy consultation. Creatinine slowly improving down to 1.2 today with BUN 24. (7) Thrombocytopenia: Code(s): D69.6 - Thrombocytopenia, unspecified Status: Acute Assessment and Plan: Resolved. Multifactorial secondary to cirrhosis, alcohol abuse, sepsis. Platelet count has normalized. No evidence of bleeding. (8) Hypoxia: Code(s): R09.02 - Hypoxemia Status: Acute Assessment and Plan: Noted to be hypoxic on presentation, most likely secondary to pneumonia with evidence of patchy consolidations on CT. She has completed a course of IV Zosyn which has been discontinued. She required up to 3 L per nasal cannula but has been weaned to room air and O2 sats remaining stable. Repeat CXR 05/27 showed unchanged airspace disease. Mild wheezing noted on exam 05/27 resolved with DuoNebs. (9) Malnutrition: Code(s): E46 - Unspecified protein-calorie malnutrition Status: Acute Assessment and Plan: She has very minimal p.o. intake. She is on TPN at this time. Attempted to do Dobbhoff 05/21 but she could not tolerate this. Continue dietary supplements. Not a candidate for g-tube given cirrhosis with ascites. Being monitored by dietitian. TPN decreased to 30 ml/hr. Lipids discontinued 05/27.
[2021-05-29] MEDS: EUCERIN CREAM 120 GM JAR 1 APPLIC TOPICAL (15:42)
[2021-05-29] MEDS: FAMOTIDINE 20 MG TABLET PO ×2 (15:42→20:08)
[2021-05-29] MEDS: TOLNAFTATE 1% POWDER 45 GM BTL 1 APPLIC TOPICAL ×2 (15:42→20:08)
[2021-05-29] MEDS: AMINO ACIDS 5%/D15W/E-LYTES/CA 2,000 ML with MULTIVITAMINS-12 INJ VIAL 1 2.5 ML, MULTIV... 30 ML IV CONT (15:46)
--- NOTE | 2021-05-29 16:05 | PCNFU ---
Nutrition Follow-Up Complete: Inadequate Oral Intake as related to Pnuemonia as evidenced by poor po intake Goal: Meet estimanted nutritional needs Pt is not progressing towards goal. No new goal at this time. Pt current nutrition is 2gm Na with TPN and dietary supplement of ensure compact TID. Last recorded weight is 86.4 kg. Recommended to weight again prior to d/c. Bowel Motility: +BM 05/26 Labs Reviewed: Hgb 7.6, Hct 24.5, Cl 108, GFR 50, BUN 24, Cr 1.20, PO4 4.6, AST 84, ALP 283, Triglycerides 230, Transferrin 112 Meds Noted: pepcid, protonix Skin: Perianal-Maceration Additional Notes: Nutrition follow up. Spoke with nursing who reports that pt has little intake and only had a few bits of breakfast this morning (05/29). Per EMR, intake is 0%, 10%, and 5% x 2. Spoke with CHIDI Zapata today about intake. TPN continues at 30mL/hr providing 1011kcal and 35g protein. Discharge plans require TPN to be stopped. Pt can not be completely weaned off TPN until consuming 75% of intake. RDN recommended megace to stimulate appetite. Will monitor every 3 days.
[2021-05-29] MEDS: MEGESTROL ACETATE (*CHEMO) ORAL SUSP 40 MG/ML SYR 400 MG PO (17:06)
[2021-05-29 18:46] LABS: Glucose Point of Care 123 mg/dl (65-105)
[2021-05-30] VITALS (10 sets, daily range): BP systolic 132–150; BP diastolic 88–95; PULSE 96–120; RESP 17–20; TEMP 36.1–36.8; O2SAT 90–92
[2021-05-30 00:01] LABS: Glucose Point of Care 118 mg/dl (65-105)
[2021-05-30] MEDS: CENTRAL LINE FLUSH 10 ML IV PUSH ×3 (05:12→21:07)
[2021-05-30 05:29] LABS: Glucose Point of Care 116 mg/dl (65-105)
[2021-05-30 05:44] LABS: Hemoglobin 7.5 g/dL (12.0-15.0); Immature Platelet Fraction Pct 14.8 % (0.9-11.2); Mean Corpuscular HGB Conc 31.3 g/dl (32-36); Mean Corpuscular Hemoglobin 34.1 pg (26-34); Mean Corpuscular Volume 109.1 fl (80-100); Mean Platelet Volume 13.4 fl (7.4-10.4); Platelet Count Result 178 k/mm3 (150-375); Red Cell Distribution Width 21.5 % (11.5-14.5); White Blood Count 17.4 K/mm3 (4.5-10.0)
[2021-05-30 05:47] LABS: Alanine Aminotransferase 32 U/L (4-35); Albumin Level 3.4 g/dL (3.5-5.1); Alkaline Phosphatase 270 U/L (38-126); Anion Gap 9 mmol/L (8-16); Aspartate Amino Transferase 75 U/L (14-36); Bilirubin,Total 1.5 mg/dL (0.2-1.3); Blood Urea Nitrogen 24 mg/dL (7-17); Calcium 8.9 mg/dL (8.4-10.2); Carbon Dioxide 22 mmol/L (22-30); Chloride 107 mmol/L (98-107); Estimated CRCL calculation 64 ml/min; Estimated Glomerular Filt Rate 55; Glucose 116 mg/dL (65-110); Potassium 3.9 mmol/L (3.4-5.0); Sodium 138 mmol/L (137-145)
[2021-05-30 07:54] LABS: Glucose Point of Care 123 mg/dl (65-105)
--- NOTE | 2021-05-30 09:11 | ECG_ITS ---
Measurements Intervals [place] Rate: 109 P: 14 [place]: 131 QRS: 41 QRSD: 81 T: 93 QT: 345 QTc: 465 Interpretive Statements SINUS TACHYCARDIA BORDERLINE ST-T WAVE ABNORMALITY- HIGH LATERAL LEADS BASELINE ARTIFACT- I, III, AVR, AVL, AVF ABNORMAL ECG Electronically Signed On 05-30-2021 13:15:04 [employer] by Bharat Rose D.O.
[2021-05-30] MEDS: TOLNAFTATE 1% POWDER 45 GM BTL 1 APPLIC TOPICAL ×2 (09:12→20:35)
[2021-05-30] MEDS: FOLIC ACID 1 MG TABLET PO (09:13)
[2021-05-30] MEDS: MEGESTROL ACETATE (*CHEMO) ORAL SUSP 40 MG/ML SYR 400 MG PO ×2 (09:13→19:32)
[2021-05-30] MEDS: FAMOTIDINE 20 MG TABLET PO ×2 (09:13→20:35)
[2021-05-30] MEDS: EUCERIN CREAM 120 GM JAR 1 APPLIC TOPICAL (09:13)
[2021-05-30] MEDS: POTASSIUM CHLORIDE 20 MEQ PACKET (FOR LIQUID) PO ×2 (09:13→19:32)
[2021-05-30] MEDS: THIAMINE HCL 100 MG TABLET PO (09:13)
[2021-05-30] MEDS: LACTULOSE 20 GM/30 ML UDC PO (09:13)
[2021-05-30] MEDS: PANTOPRAZOLE SODIUM IV 40 MG VIAL IV PUSH ×2 (09:13→20:35)
[2021-05-30 11:09] LABS: Magnesium 1.7 mg/dL (1.6-2.3)
--- NOTE | 2021-05-30 13:29 | PM.IMPN ---
Progress Note: A&P Assessment and Plan (1) Septic shock: Code(s): A41.9 - Sepsis, unspecified organism; R65.21 - Severe sepsis with septic shock Status: Resolved Assessment and Plan: Presented with severe anemia, hypotension, hypoxia and multiple sources of infection with UTI, peritonitis, and pneumonia. She initially required intensive care with Levophed to maintain her blood pressure. She was rehydrated with IV fluids. She did have improvement with this and blood pressures have been stable off Levophed for some time now. Urine culture with E coli sensitive to Zosyn for which she completed a course of treatment on 05/22. Peritoneal fluid with no growth. Blood cultures negative. (2) Cirrhosis of liver with ascites: Code(s): K74.60 - Unspecified cirrhosis of liver; R18.8 - Other ascites Status: Acute Assessment and Plan: Secondary to alcohol abuse. Presented with ascites and had paracentesis on 05/15 and again on 05/23. Ascites fluid cultures negative. She received IV albumin and octreotide. Octreotide discontinued 05/22 due to concerns for possible drug rash. Continue 2 g sodium diet. Unable to administer diuretics given SUMMER. Appreciate GI consultation (3) Altered mental status: Code(s): R41.82 - Altered mental status, unspecified Status: Acute Assessment and Plan: Resolved. Patient appeared to have toxic metabolic encephalopathy which was complicated by uremia. Ammonia levels have normalized but will continue with lactulose. 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 Mental status has improved with resolution of uremia. (4) Severe anemia: Code(s): D64.9 - Anemia, unspecified Status: Acute Assessment and Plan: Patient presented with a hemoglobin of 5.0. She received 2 units pRBC and H&H stabilized. EGD showed gastritis with no evidence of bleeding, continue Protonix. H&H trending downward again but stable, will monitor closely. Iron panel consistent with anemia of chronic disease. (5) Alcohol dependence: Code(s): F10.20 - Alcohol dependence, uncomplicated Status: Acute Assessment and Plan: No withdrawal symptoms. Continue thiamine and folic acid. Resources for alcohol cessation to be provided (6) Acute kidney injury: Code(s): N17.9 - Acute kidney failure, unspecified Status: Acute Assessment and Plan: Creatinine was 1.0 at presentation and increased up to 5.1. Etiology not entirely clear, possibly due to hypovolemia/septic shock, infection, hepatorenal syndrome. Renal US unremarkable. Appreciate nephrololgy consultation. BUN and creatinine now remaining stable 1.1-1.2. Plans for contrast administration with CTA and therefore will continue to monitor renal function closely. (7) Thrombocytopenia: Code(s): D69.6 - Thrombocytopenia, unspecified Status: Acute Assessment and Plan: Resolved. Multifactorial secondary to cirrhosis, alcohol abuse, sepsis. Platelet count has normalized. No evidence of bleeding. (8) Hypoxia: Code(s): R09.02 - Hypoxemia Status: Acute Assessment and Plan: Noted to be hypoxic on presentation, most likely secondary to pneumonia with evidence of patchy consolidations on CT. She has completed a course of IV Zosyn which has been discontinued. She required up to 3 L per nasal cannula but has been weaned to room air and O2 sats remaining stable. Repeat CXR 05/27 showed unchanged airspace disease. Mild wheezing noted on exam 05/27 resolved with DuoNebs. (9) Malnutrition: Code(s): E46 - Unspecified protein-calorie malnutrition Status: Acute Assessment and Plan: She has very minimal p.o. intake. She is on TPN at this time. Attempted to do Dobbhoff 05/21 but she could not tolerate this. Continue dietary supplements. Not a candidate for g-tube given cirrhosis with ascites. Being monitored by dietitian. TPN decreased to
--- NOTE | 2021-05-30 14:09 | PCNFU ---
Nutrition Follow-Up Complete: Inadequate Oral Intake as related to Pneumonia as evidenced by poor po intake Goal: Meet estimated nutritional needs Patient is progressing towards the goal. We will continue current goal. Pt current nutrition is 2 gm Na with Frozen Nutritional Treat TID. Last recorded weight is 86.3 kg, up from 76.5 kg on admit. Bowel Motility:+BM reported 05/28 Labs Reviewed:Glu 116, BUN 24, Cr 1.10,Alb 3.4 Meds Noted:Lactulose, KCL powder, Protonix, Folic Acid, Thiamine, Pepcid, Megace, Clinimix 5/15. Skin: WNL Additional Notes: Nutrition follow up. Patient remains on Clinimix 5/15 at 30 ml/hr providing 1011 kcals/36 gms protein. Patient eating 25% of meal and 240 ml for breakfast-eggs and 75% of lunch -tunafish and ice cream. Discussed oral intake with CHIDI Zapata today. Recommend d/c TPN tomorrow. PO intake continues to be encouraged. Diet supplement changed from Ensure compact to frozen nutritional treat TID (300 kcals/9 gms protein). Monitoring:Will monitor every 3 days.
--- NOTE | 2021-05-30 14:57 | PCPTNOTE ---
Attempted PT 2 week re-evaluation this date, patient at CT this afternoon, will continue to follow.
[2021-05-30 15:08] LABS: SPREG INTERNAL CONTROL Positive; Serum Qual hCG Negative
--- NOTE | 2021-05-30 15:53 | PCOTNOTE ---
On 05/30/21, the student, [Inessa LUIS ], provided care and completed [facility] documentation on this patient. I have reviewed the student's documentation and agree with the findings.
--- NOTE | 2021-05-30 17:37 | PC.NURSE ---
This patient, Franko Lechuga, was transferred to [CT ] on 05/30/21 at 1737.
[2021-05-30 19:14] LABS: Glucose Point of Care 105 mg/dl (65-105)
[2021-05-30 23:40] LABS: Glucose Point of Care 115 mg/dl (65-105)
[2021-05-31] VITALS (20 sets, daily range): BP systolic 102–161; BP diastolic 80–115; PULSE 97–141; RESP 18–32; TEMP 36.2–37.3; O2SAT 90–100
[2021-05-31] MEDS: FUROSEMIDE INJ 40 MG/4 ML VIAL 60 MG IV PUSH (01:45)
--- NOTE | 2021-05-31 02:33 | PM.EVENT ---
Event Note Event Note Event Note: called for anxiety. patient hypoxic mild requiring oxygen, which was not the case earlier in the evening. case discussed with the RN. scans and chest xrays reviewed extensively. presented with severe anemia requiring trasnfusion. alcoholic liver disese with cirrhosis, ascites needing tap. presented with acute kdiney injury now stablized without requiring HD. pateint alert and awake, conversive mildly sob noted. Imp: possible developing pneumonia but with significant interval change, suspect pulmonary edema vs transfusion associated acute lung injury. will start diuresis wtih 60 mg iv lasix. bipap support if needed, currently on 2-3 L oxygen with maintaining saturaitn. CT ngative for PE. diffusely white out lung alveoli noted in bialteral lungs on ct done yesterday evening. already on cefepime for antibiotics which will be continued. renal function if stable in am, start aldactone as well.
[2021-05-31 03:33] LABS: Alveolar/Arterial O2 Gradient 127.9 mmHg; Base Excess ABG -1.3 mEq/l (+/-2.0); Fractional Inspired Oxygen 32 %; HCO3 ABG 21.9 mEq/l (22.0-26.0); Oxygen Content ABG 11.3 %vol (16.0-22.0); Oxygen Saturation ABG 93.8 % (95.0-100.0); Oxyhemoglobin 90.8 % THb (90.0-100.0); PCO2 ABG 31.2 mmHg (35.0-45.0); PO2 ABG 63.8 mmHg (80.0-100.0); PO2 FiO2 Ratio Arterial Blood 1.99 %; Total Hemoglobin 8.8 g/dL (12.0-18.0); pH ABG 7.465 (7.350-7.450)
[2021-05-31 03:34] LABS: Device NASAL CANNULA; Modified Allen's Test Pass; Site Drawn RIGHT RADIAL
[2021-05-31] MEDS: LORazepam INJ (*CRX) 2 MG/ML VIAL 1 MG IV PUSH ×2 (03:52→05:42)
--- NOTE | 2021-05-31 04:02 | PCRCNOTE ---
pt will not keep BIPAP mask on her face despite the RN, RT and tech explaining to her that she cannot take it off without her oxygen dropping. pt does not understand and keeps ripping mask and cannula off of face.
[2021-05-31] MEDS: HALOPERIDOL LACTATE 5 MG/ML VIAL IM ×3 (04:20→19:00)
[2021-05-31] MEDS: WATER FOR IRRIGATION, STERILE 1,000 ML BOTTLE 1000 ML (05:43)
--- NOTE | 2021-05-31 06:04 | PC.NURSE ---
This patient, Franko Lechuga, was received from [facility] on 05/31/21 at 0604. Patient/family oriented to unit policies and routines
[2021-05-31 06:07] LABS: Ammonia 17 umol/L (9-30)
[2021-05-31 06:19] LABS: NT Pro B Type Natriuretic Pept 4620 pg/mL (5-100)
[2021-05-31 06:21] LABS: Basophils Absolute Auto 0.2 K/mm3 (0.0-0.1); Basophils Percent Auto 0.7 % (0.2-1.2); Eosinophils Absolute Auto 1.1 K/mm3 (0-0.3); Eosinophils Percent Auto 4.3 % (0-4.4); Hematocrit 26.1 % (37.0-47.0); Hemoglobin 7.9 g/dL (12.0-15.0); Immature Granulocyte Absolute 0.33 K/mm3 (0.00-0.031); Immature Granulocyte Percent A 1.4 % (0-0.5); Immature Platelet Fraction Pct 16.9 % (0.9-11.2); Lymphocytes Absolute Auto 2.57 K/mm3 (0.9-3.2); Lymphocytes Percent Auto 10.5 % (18.3-44.2); Mean Corpuscular HGB Conc 30.3 g/dl (32-36); Mean Corpuscular Hemoglobin 33.9 pg (26-34); Mean Platelet Volume 13.7 fl (7.4-10.4); Monocytes Absolute Auto 1.8 K/mm3 (0.1-0.6); Monocytes Percent Auto 7.2 % (2.6-8.5); Neutrophils Absolute Auto 18.5 K/mm3 (1.3-6.7); Neutrophils Percent Auto 75.9 % (45.5-73.1); Nucleated Red Blood Cells Perc 0.1 % (0.0-0.2); Platelet Count Result 272 k/mm3 (150-375); Red Blood Count 2.33 M/mm3 (4.2-5.4); Red Cell Distribution Width 21.7 % (11.5-14.5); White Blood Count 24.4 K/mm3 (4.5-10.0)
[2021-05-31 06:32] LABS: Alanine Aminotransferase 36 U/L (4-35); Albumin Level 3.9 g/dL (3.5-5.1); Alkaline Phosphatase 317 U/L (38-126); Anion Gap 12 mmol/L (8-16); Aspartate Amino Transferase 79 U/L (14-36); Bilirubin,Total 1.9 mg/dL (0.2-1.3); Blood Urea Nitrogen 22 mg/dL (7-17); Calcium 9.2 mg/dL (8.4-10.2); Carbon Dioxide 22 mmol/L (22-30); Chloride 105 mmol/L (98-107); Estimated CRCL calculation 61 ml/min; Estimated Glomerular Filt Rate 55; Glucose 117 mg/dL (65-110); Magnesium 1.6 mg/dL (1.6-2.3); Potassium 4.2 mmol/L (3.4-5.0); Sodium 139 mmol/L (137-145); Triglycerides 220 mg/dL (<150)
[2021-05-31] MEDS: CENTRAL LINE FLUSH 10 ML IV PUSH ×2 (06:41→16:01)
[2021-05-31] MEDS: PANTOPRAZOLE SODIUM IV 40 MG VIAL IV PUSH ×2 (10:29→20:31)
[2021-05-31] MEDS: TOLNAFTATE 1% POWDER 45 GM BTL 1 APPLIC TOPICAL (10:40)
[2021-05-31] MEDS: EUCERIN CREAM 120 GM JAR 1 APPLIC TOPICAL (10:42)
[2021-05-31 11:57] LABS: Glucose Point of Care 127 mg/dl (65-105)
--- NOTE | 2021-05-31 14:00 | PCOTNOTE ---
Attempted to see pt, RN advised not to see due to increased unresponsiveness.
[2021-05-31 15:54] LABS: Hematocrit 22.5 % (37.0-47.0)
[2021-05-31 16:03] LABS: Hemoglobin 6.7 g/dL (12.0-15.0)
--- NOTE | 2021-05-31 16:16 | PM.IMPN ---
Progress Note: A&P Assessment and Plan (1) Septic shock: Code(s): A41.9 - Sepsis, unspecified organism; R65.21 - Severe sepsis with septic shock Status: Resolved Assessment and Plan: Currently patient is hemodynamically stable with blood pressure 150/97. She originally presented with severe anemia, hypotension, hypoxia and multiple sources of infection with UTI, peritonitis, and pneumonia. She initially required intensive care with Levophed to maintain her blood pressure. She was rehydrated with IV fluids. She did have improvement with this and blood pressures have been stable off Levophed for some time now. Urine culture with E coli sensitive to Zosyn for which she completed a course of treatment on 05/22. Peritoneal fluid with no growth. Blood cultures negative. Patient was started on cefepime on 05/29/2021. Due to altered mental status, cefepime was discontinued and patient was switched to ertapenem for the management of UTI. Urine culture grew Klebsiella, sensitive to ertapenem. (2) Cirrhosis of liver with ascites: Code(s): K74.60 - Unspecified cirrhosis of liver; R18.8 - Other ascites Status: Acute Assessment and Plan: Secondary to alcohol abuse. Presented with ascites and had paracentesis on 05/15 and again on 05/23. Ascites fluid cultures negative. She received IV albumin and octreotide. Octreotide discontinued 05/22 due to concerns for possible drug rash. Continue 2 g sodium diet. Unable to administer diuretics given SUMMER. Appreciate GI consultation (3) Altered mental status: Code(s): R41.82 - Altered mental status, unspecified Status: Acute Assessment and Plan: Resolved. Patient appeared to have toxic metabolic encephalopathy which was complicated by uremia. Ammonia levels have normalized but will continue with lactulose. 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 Mental status has improved with resolution of uremia. (4) Severe anemia: Code(s): D64.9 - Anemia, unspecified Status: Acute Assessment and Plan: Patient presented with a hemoglobin of 5.0. She received 2 units pRBC and H&H stabilized. EGD showed gastritis with no evidence of bleeding, continue Protonix. H&H trending downward again but stable, will monitor closely. Iron panel consistent with anemia of chronic disease. Today hemoglobin has drifted down to 6.7. She will receive 1 unit PRBC. Monitor hemoglobin in a.m. labs. (5) Alcohol dependence: Code(s): F10.20 - Alcohol dependence, uncomplicated Status: Acute Assessment and Plan: No withdrawal symptoms. Continue thiamine and folic acid. Resources for alcohol cessation to be provided (6) Acute kidney injury: Code(s): N17.9 - Acute kidney failure, unspecified Status: Acute Assessment and Plan: Creatinine was 1.0 at presentation and increased up to 5.1. Etiology not entirely clear, possibly due to hypovolemia/septic shock, infection, hepatorenal syndrome. Renal US unremarkable. Appreciate nephrololgy consultation. BUN and creatinine now remaining stable 1.1-1.2. Plans for contrast administration with CTA and therefore will continue to monitor renal function closely. Creatinine remains stable at 1.1 today. (7) Thrombocytopenia: Code(s): D69.6 - Thrombocytopenia, unspecified Status: Acute Assessment and Plan: Resolved. Multifactorial secondary to cirrhosis, alcohol abuse, sepsis. Platelet count has normalized. No evidence of bleeding. (8) Hypoxia: Code(s): R09.02 - Hypoxemia Status: Acute Assessment and Plan: Noted to be hypoxic on presentation, most likely secondary to pneumonia with evidence of patchy consolidations on CT. She has completed a course of IV Zosyn which has been discontinued. She required up to 3 L per nasal cannula but has been weaned to room air and O2 sats remaining stable. Repeat CXR 05/27 showed unchanged airspace disease.
[2021-05-31] MEDS: SODIUM CHLORIDE 0.9% IV 250 ML 30 ML IV CONT (17:57)
[2021-05-31] MEDS: ERTAPENEM SODIUM 0.5 GM in SODIUM CHLORIDE 0.9% IV 50 ML IVPB (18:54)
[2021-05-31 19:21] LABS: Glucose Point of Care 113 mg/dl (65-105)
[2021-05-31 22:54] LABS: Alveolar/Arterial O2 Gradient 359.3 mmHg; Base Excess ABG -2.5 mEq/l (+/-2.0); Carboxyhemoglobin 0.3 % THb (0-2.0); Fractional Inspired Oxygen 68 %; HCO3 ABG 21.9 mEq/l (22.0-26.0); Methemoglobin ABG 0.2 %THb (0-1.5); Oxygen Content ABG 13.3 %vol (16.0-22.0); Oxygen Saturation ABG 96.6 % (95.0-100.0); Oxyhemoglobin 94.8 % THb (90.0-100.0); PCO2 ABG 36.5 mmHg (35.0-45.0); PO2 ABG 86.1 mmHg (80.0-100.0); PO2 FiO2 Ratio Arterial Blood 1.27 %; Reduced Hemoglobin 4.7 %THb (0-5.0); Total Hemoglobin 9.9 g/dL (12.0-18.0); pH ABG 7.397 (7.350-7.450)
[2021-05-31 22:55] LABS: Device HIGH FLOW NASAL CANN; Modified Allen's Test Pass; Site Drawn RIGHT RADIAL
[2021-05-31 23:54] LABS: Glucose Point of Care 112 mg/dl (65-105)
[2021-06-01] VITALS (15 sets, daily range): BP systolic 112–147; BP diastolic 72–89; PULSE 108–124; RESP 14–26; TEMP 35.8–37.5; O2SAT 83–100
[2021-06-01] MEDS: CENTRAL LINE FLUSH 10 ML IV PUSH ×3 (00:14→22:16)
[2021-06-01] MEDS: TOLNAFTATE 1% POWDER 45 GM BTL 1 APPLIC TOPICAL ×3 (00:43→22:16)
[2021-06-01] MEDS: FUROSEMIDE INJ 100 MG/10 ML VIAL 80 MG IV PUSH (00:48)
[2021-06-01 06:42] LABS: Glucose Point of Care 120 mg/dl (65-105)
[2021-06-01 06:53] LABS: Basophils Absolute Auto 0.1 K/mm3 (0.0-0.1); Basophils Percent Auto 0.5 % (0.2-1.2); Eosinophils Absolute Auto 0.6 K/mm3 (0-0.3); Eosinophils Percent Auto 3.6 % (0-4.4); Hematocrit 28.2 % (37.0-47.0); Hemoglobin 8.4 g/dL (12.0-15.0); Immature Granulocyte Absolute 0.13 K/mm3 (0.00-0.031); Immature Granulocyte Percent A 0.9 % (0-0.5); Immature Platelet Fraction Pct 13.4 % (0.9-11.2); Lymphocytes Absolute Auto 1.27 K/mm3 (0.9-3.2); Lymphocytes Percent Auto 8.4 % (18.3-44.2); Mean Corpuscular HGB Conc 29.8 g/dl (32-36); Mean Corpuscular Hemoglobin 33.2 pg (26-34); Mean Corpuscular Volume 111.5 fl (80-100); Mean Platelet Volume 13.3 fl (7.4-10.4); Monocytes Absolute Auto 0.9 K/mm3 (0.1-0.6); Monocytes Percent Auto 6.2 % (2.6-8.5); Neutrophils Absolute Auto 12.2 K/mm3 (1.3-6.7); Neutrophils Percent Auto 80.4 % (45.5-73.1); Platelet Count Result 180 k/mm3 (150-375); Red Blood Count 2.53 M/mm3 (4.2-5.4); Red Cell Distribution Width 22.6 % (11.5-14.5); White Blood Count 15.2 K/mm3 (4.5-10.0)
[2021-06-01 07:02] LABS: Magnesium 1.8 mg/dL (1.6-2.3)
[2021-06-01 07:52] LABS: Platelet Estimate Adequate (Adequate); Polychromasia 1+ (NORMAL); Stomatocytes 1+ (NORMAL)
--- NOTE | 2021-06-01 08:18 | PCNEURO ---
EEG was attempted but patient unable to lay still and follow simple commands.
--- NOTE | 2021-06-01 08:41 | PCOTNOTE ---
Attempted OT re-assess, per RN hold for AM due to increased O2 needs. Will follow and attempt at later time.
--- NOTE | 2021-06-01 10:15 | PM.IMPN ---
Progress Note: A&P Assessment and Plan (1) Hospital-acquired pneumonia: Code(s): J18.9 - Pneumonia, unspecified organism; Y95 - Nosocomial condition Status: Acute Assessment and Plan: Continue ertapenem. Leukocytosis is improved from 24-15.2. (2) Urinary tract infection: Code(s): N39.0 - Urinary tract infection, site not specified Status: Acute Assessment and Plan: Urine culture growing Klebsiella. Continue ertapenem. (3) Cirrhosis of liver with ascites: Code(s): K74.60 - Unspecified cirrhosis of liver; R18.8 - Other ascites Status: Acute Assessment and Plan: Secondary to alcohol abuse. Presented with ascites and had paracentesis on 05/15 and again on 05/23. Ascites fluid cultures negative. She received IV albumin and octreotide. Octreotide discontinued 05/22 due to concerns for possible drug rash. Continue 2 g sodium diet. Unable to administer diuretics given SUMMER. Appreciate GI consultation (4) Septic shock: Code(s): A41.9 - Sepsis, unspecified organism; R65.21 - Severe sepsis with septic shock Status: Resolved Assessment and Plan: Currently patient is hemodynamically stable with blood pressure 143/84. She originally presented with severe anemia, hypotension, hypoxia and multiple sources of infection with UTI, peritonitis, and pneumonia. She initially required intensive care with Levophed to maintain her blood pressure. She was rehydrated with IV fluids. She did have improvement with this and blood pressures have been stable off Levophed for some time now. Urine culture with E coli sensitive to Zosyn for which she completed a course of treatment on 05/22. Peritoneal fluid with no growth. Blood cultures negative. Patient was started on cefepime on 05/29/2021. Due to altered mental status, cefepime was discontinued and patient was switched to ertapenem for the management of UTI. Urine culture grew Klebsiella, sensitive to ertapenem. (5) Altered mental status: Code(s): R41.82 - Altered mental status, unspecified Status: Acute Assessment and Plan: Resolvedinitially with lctulose. Gain with agitation and confusin and had to be started on restraints. Suspect cefepime associated encephalopathy.. Patient appeared to have toxic metabolic encephalopathy which was complicated by uremia. Ammonia levels have normalized but will continue with lactulose. 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 Mental status has improved with resolution of uremia. (6) Severe anemia: Code(s): D64.9 - Anemia, unspecified Status: Acute Assessment and Plan: Patient presented with a hemoglobin of 5.0. She received 2 units pRBC and H&H stabilized. EGD showed gastritis with no evidence of bleeding, continue Protonix. H&H trending downward again but stable, will monitor closely. Iron panel consistent with anemia of chronic disease. Today hemoglobin has drifted down to 6.7. She will receive 1 unit PRBC. Monitor hemoglobin in a.m. labs. (7) Alcohol dependence: Code(s): F10.20 - Alcohol dependence, uncomplicated Status: Acute Assessment and Plan: No withdrawal symptoms. Continue thiamine and folic acid. Resources for alcohol cessation to be provided (8) Acute kidney injury: Code(s): N17.9 - Acute kidney failure, unspecified Status: Acute Assessment and Plan: Creatinine was 1.0 at presentation and increased up to 5.1. Etiology not entirely clear, possibly due to hypovolemia/septic shock, infection, hepatorenal syndrome. Renal US unremarkable. Appreciate nephrololgy consultation. BUN and creatinine now remaining stable 1.1-1.2. Plans for contrast administration with CTA and therefore will continue to monitor renal function closely. Creatinine remains stable at 1.1 today. (9) Thrombocytopenia: Code(s): D69.6 - Thrombocytopenia, unspecified Status: Acute Assessment and Plan: Reso
[2021-06-01] MEDS: LACTULOSE 20 GM/30 ML UDC PO (10:38)
[2021-06-01] MEDS: MEGESTROL ACETATE (*CHEMO) ORAL SUSP 40 MG/ML SYR 400 MG PO ×2 (10:39→18:04)
[2021-06-01] MEDS: FOLIC ACID 1 MG TABLET PO (10:39)
[2021-06-01] MEDS: MAGNESIUM OXIDE 400 MG TABLET PO (10:39)
[2021-06-01] MEDS: THIAMINE HCL 100 MG TABLET PO (10:39)
[2021-06-01] MEDS: FAMOTIDINE 20 MG TABLET PO ×2 (10:39→22:15)
[2021-06-01] MEDS: PANTOPRAZOLE SODIUM IV 40 MG VIAL IV PUSH ×2 (10:40→22:15)
[2021-06-01] MEDS: POTASSIUM CHLORIDE 20 MEQ PACKET (FOR LIQUID) PO ×2 (10:40→18:05)
[2021-06-01 11:56] LABS: Glucose Point of Care 111 mg/dl (65-105)
--- NOTE | 2021-06-01 11:56 | PCPTNOTE ---
Attempted PT re-assess, per RN hold for AM due to increased O2 needs. Will follow and attempt at later time.
[2021-06-01] MEDS: EUCERIN CREAM 120 GM JAR 1 APPLIC TOPICAL (13:24)
--- NOTE | 2021-06-01 13:37 | PC.NURSE ---
On 06/01/21, the student, [Lady Iqbal], provided care and completed [facility] documentation on this patient. I have reviewed the student's documentation and agree with the findings.
--- NOTE | 2021-06-01 13:55 | PCPTNOTE ---
PT orders D/C at this time due to patient cognitive status and unable to remove restraints at this time secondary to patient behavior, not following commands, please re-order if skilled PT is warranted.
--- NOTE | 2021-06-01 14:00 | PCOTNOTE ---
OT orders discharged at this time due to patient's cognitive status and unable to remove restraints at this time secondary to patient behavior, not following commands, please re-order if skilled OT is warranted.
--- NOTE | 2021-06-01 15:12 | WPDNEURCNPN ---
Assessment and Plan Additional Plan metabolic encephalopathy will obtain the EEG rule out the possibility of nonconvulsive seizure Consult date: 06/01/21 HPI: Franko Lechuga is a 40 year old female admitted to the hospital for the complaints of change in the mental status with past medical history of 1. Significant alcohol dependence 2. Initial evaluation compatible with anemia requiring the blood transfusion 3 evaluation in the intensive care for the change in the mental status with severe anemia, GI bleeding, sepsis, suspected Coronavirus infection, has been seen by the spud grader with documentation of cirrhosis with alcoholic hepatitis and most recently again sepsis for which she is covered with the antibiotic, neuro consultation obtained for the change in the mental status Review of Systems Review of Systems: All systems reviewed & are unremarkable except as noted in HPI and below PMFSH Past Medical History Medical History Acute encephalopathy Alcoholic hepatitis Ascites Cirrhosis, alcoholic Elevated liver enzymes Gastritis Thrush, oral Family History Family History Mother Hypertension Sibling Family history of diabetes mellitus in first degree relative Social History Social History Smoking status: Smoker, status unknown Alcohol intake: current Drinks per week: 63 Substance use: never Substance use type: does not use Spiritual care concerns: No Meds Home Medications and Allergies Home Medications Medication Instructions Recorded Confirmed Type No Home Medications 05/13/21 05/13/21 History Allergies Allergy/AdvReac Type Severity Reaction Status Date / Time No Known Allergies Allergy Verified 05/13/21 02:13 Vital Signs Vital Signs - 24 hr 05/31/21 16:00 05/31/21 18:00 05/31/21 18:43 Temperature 36.6 C 36.3 C L Pulse Rate 108 H 114 H 124 H Pulse Rate [Bilateral Pedal (Dorsalis Pedis) Palpation] Respiratory Rate 32 H 30 H Blood Pressure 144/81 H 146/104 H Pulse Oximetry 96 96 05/31/21 18:47 05/31/21 19:08 05/31/21 20:00 Temperature 36.3 C L 37.3 C Pulse Rate 124 H 97 115 H Pulse Rate [Bilateral Pedal (Dorsalis Pedis) Palpation] Respiratory Rate 30 H 28 H Blood Pressure 146/104 H 140/93 H Pulse Oximetry 96 97 95 05/31/21 20:08 05/31/21 20:10 05/31/21 21:30 Temperature 37.3 C 37.0 C Pulse Rate 124 H 116 H Pulse Rate [Bilateral Pedal (Dorsalis Pedis) Palpation] 124 H Respiratory Rate 26 H 24 H Blood Pressure 150/97 H 150/97 H 139/95 H Pulse Oximetry 93 98 05/31/21 22:00 05/31/21 23:59 06/01/21 00:00 Temperature 36.8 C Pulse Rate 122 H 117 H 118 H Pulse Rate [Bilateral Pedal (Dorsalis Pedis) Palpation] Respiratory Rate 28 H Blood Pressure 161/104 H Pulse Oximetry 97 95 06/01/21 02:00 06/01/21 04:00 06/01/21 06:00 Temperature 37.1 C Pulse Rate 123 H 108 H 114 H Pulse Rate [Bilateral Pedal (Dorsalis Pedis) Palpation] 108 H Respiratory Rate 26 H Blood Pressure 141/80 H Pulse Oximetry 99 06/01/21 08:00 06/01/21 11:45 06/01/21 12:00 Temperature 36.3 C L 36.3 C L Pulse Rate 109 H 114 H Pulse Rate [Bilateral Pedal (Dorsalis Pedis) Palpation] Respiratory Rate 14 14 Blood Pressure 133/86 112/72 Pulse Oximetry 96 83 L 92 Exam Const: General: cooperative, comfortable, alert, awake, combative, confusion, ill appearing and poor hygiene Nutritional Appearance: overweight Orientation/consciousness: oriented to person Limitations: behavioral limitations and physical limitations HENMT: Head: normocephalic Ears: hearing grossly normal bilaterally General nose exam: Normal external nose present Face and sinus: normal facial exam Mouth: Yes Normal oral and palatal mucosa present Eyes: General: appearance normal, both eyes and all related structures Visua
[2021-06-01 17:55] LABS: IFOB Positive Control Positive; Immunochemical Fecal Occult Bl Negative (N)
[2021-06-01 18:03] LABS: Glucose Point of Care 97 mg/dl (65-105)
[2021-06-01] MEDS: ERTAPENEM SODIUM 0.5 GM in SODIUM CHLORIDE 0.9% IV 50 ML IVPB (18:06)
[2021-06-01 21:29] LABS: Glucose Point of Care 119 mg/dl (65-105)
[2021-06-01] MEDS: AMINO ACIDS 5%/D15W/E-LYTES/CA 2,000 ML with MULTIVITAMINS-12 INJ VIAL 1 2.5 ML, MULTIV... 30 ML IV CONT (22:17)
[2021-06-02] VITALS (18 sets, daily range): BP systolic 132–153; BP diastolic 82–103; PULSE 110–133; RESP 16–32; TEMP 36.4–36.8; O2SAT 94–100
[2021-06-02 00:20] LABS: Glucose Point of Care 125 mg/dl (65-105)
[2021-06-02 06:36] LABS: Glucose Point of Care 124 mg/dl (65-105)
[2021-06-02 08:22] LABS: Glucose Point of Care 112 mg/dl (65-105)
--- NOTE | 2021-06-02 08:36 | PM.IMPN ---
Progress Note: A&P Assessment and Plan (1) Hospital-acquired pneumonia: Code(s): J18.9 - Pneumonia, unspecified organism; Y95 - Nosocomial condition Status: Acute Assessment and Plan: Continue ertapenem. Leukocytosis is improved from 24-15.2. Monitor CBC. OBtain portable chest Xray. Patient continues to require very high volumes of oxygen to maintain her saturation. (2) Urinary tract infection: Code(s): N39.0 - Urinary tract infection, site not specified Status: Acute Assessment and Plan: Urine culture growing Klebsiella. Continue ertapenem. (3) Cirrhosis of liver with ascites: Code(s): K74.60 - Unspecified cirrhosis of liver; R18.8 - Other ascites Status: Acute Assessment and Plan: Secondary to alcohol abuse. Presented with ascites and had paracentesis on 05/15 and again on 05/23. Ascites fluid cultures negative. She received IV albumin and octreotide. Octreotide discontinued 05/22 due to concerns for possible drug rash. Continue 2 g sodium diet. Unable to administer diuretics given SUMMER. Appreciate GI consultation (4) Septic shock: Code(s): A41.9 - Sepsis, unspecified organism; R65.21 - Severe sepsis with septic shock Status: Resolved Assessment and Plan: Currently patient is hemodynamically stable with blood pressure 132/86. She originally presented with severe anemia, hypotension, hypoxia and multiple sources of infection with UTI, peritonitis, and pneumonia. She initially required intensive care with Levophed to maintain her blood pressure. She was rehydrated with IV fluids. She did have improvement with this and blood pressures have been stable off Levophed for several days now. Urine culture with E coli sensitive to Zosyn for which she completed a course of treatment on 05/22. Peritoneal fluid with no growth. Blood cultures negative. Patient was started on cefepime on 05/29/2021. Due to altered mental status, cefepime was discontinued and patient was switched to ertapenem for the management of UTI. Urine culture grew Klebsiella, sensitive to ertapenem. (5) Altered mental status: Code(s): R41.82 - Altered mental status, unspecified Status: Acute Assessment and Plan: Resolved initially with lctulose. Again with agitation and confusion and had to be maintained on restraints, after removing piccline on 06/01/2021. Attempts at reorientation, bedside 1:1 observation were unsuccesful. Weconsulted neurology and psych. Likely alcohol induced delirium versus cefepime associated encephalopathy.. Patient appeared to have toxic metabolic encephalopathy which was complicated by liver failure. Ammonia levels have normalized but will continue with lactulose. 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 Mental status had somehow improved with resolution of uremia; currently patient is anxious, hallucinating, very irritable. she interferes with her care by removing lines and was started on restraints. (6) Severe anemia: Code(s): D64.9 - Anemia, unspecified Status: Acute Assessment and Plan: Patient presented with a hemoglobin of 5.0. She received 2 units pRBC and H&H stabilized. EGD showed gastritis with no evidence of bleeding, continue Protonix. H&H trending downward again but stable, will monitor closely. Iron panel consistent with anemia of chronic disease. On 05/31/2021 hemoglobin has drifted down to 6.7. After 1 unit PRBC, Hb is stable at 8.4. Monitor hemoglobin on today's labs. (7) Alcohol dependence: Code(s): F10.20 - Alcohol dependence, uncomplicated Status: Acute Assessment and Plan: Patient is anxious, tachycardic and hallucinating. Will give some PO ativan. Continue thiamine and folic acid. Resources for alcohol cessation to be provided (8) Acute kidney injury: Code(s): N17.9 - Acute kidney failure, unspecified Status: Acute Assessment and Plan: Creatinine was 1.0 at pre
[2021-06-02] MEDS: MAGNESIUM OXIDE 400 MG TABLET PO (08:43)
[2021-06-02] MEDS: LACTULOSE 20 GM/30 ML UDC PO (08:43)
[2021-06-02] MEDS: PANTOPRAZOLE SODIUM IV 40 MG VIAL IV PUSH ×2 (08:43→20:43)
[2021-06-02] MEDS: POTASSIUM CHLORIDE 20 MEQ PACKET (FOR LIQUID) PO ×2 (08:43→18:10)
[2021-06-02] MEDS: MEGESTROL ACETATE (*CHEMO) ORAL SUSP 40 MG/ML SYR 400 MG PO ×2 (08:43→18:10)
[2021-06-02] MEDS: CENTRAL LINE FLUSH 10 ML IV PUSH (08:43)
[2021-06-02] MEDS: FAMOTIDINE 20 MG TABLET PO ×2 (08:43→20:42)
[2021-06-02] MEDS: THIAMINE HCL 100 MG TABLET PO (08:43)
[2021-06-02] MEDS: FOLIC ACID 1 MG TABLET PO (08:43)
[2021-06-02] MEDS: EUCERIN CREAM 120 GM JAR 1 APPLIC TOPICAL (08:44)
[2021-06-02] MEDS: TOLNAFTATE 1% POWDER 45 GM BTL 1 APPLIC TOPICAL ×2 (08:44→20:56)
[2021-06-02 09:27] LABS: Basophils Absolute Auto 0.1 K/mm3 (0.0-0.1); Basophils Percent Auto 0.6 % (0.2-1.2); Eosinophils Absolute Auto 0.9 K/mm3 (0-0.3); Hematocrit 29.7 % (37.0-47.0); Hemoglobin 9.5 g/dL (12.0-15.0); Immature Granulocyte Percent A 0.6 % (0-0.5); Lymphocytes Absolute Auto 1.84 K/mm3 (0.9-3.2); Lymphocytes Percent Auto 10.7 % (18.3-44.2); Mean Corpuscular Hemoglobin 33.6 pg (26-34); Mean Corpuscular Volume 104.9 fl (80-100); Mean Platelet Volume 12.9 fl (7.4-10.4); Monocytes Percent Auto 5.5 % (2.6-8.5); Neutrophils Absolute Auto 13.3 K/mm3 (1.3-6.7); Neutrophils Percent Auto 77.6 % (45.5-73.1); Platelet Count Result 207 k/mm3 (150-375); Red Blood Count 2.83 M/mm3 (4.2-5.4); Red Cell Distribution Width 22.1 % (11.5-14.5); White Blood Count 17.2 K/mm3 (4.5-10.0)
[2021-06-02 09:38] LABS: Anion Gap 9 mmol/L (8-16); Blood Urea Nitrogen 19 mg/dL (7-17); Calcium 9.1 mg/dL (8.4-10.2); Carbon Dioxide 25 mmol/L (22-30); Chloride 104 mmol/L (98-107); Estimated CRCL calculation 71 ml/min; Estimated Glomerular Filt Rate > 60; Glucose 108 mg/dL (65-110); Potassium 3.3 mmol/L (3.4-5.0); Sodium 138 mmol/L (137-145)
--- NOTE | 2021-06-02 11:02 | PM.CNPUL ---
Assessment and Plan Assessment and plan (1) Acute hypoxemic respiratory failure: Code(s): J96.01 - Acute respiratory failure with hypoxia Status: Acute Assessment and Plan: 40-year-old female with history of alcohol abuse possible liver cirrhosis and ascites treated in the intensive care unit for sepsis, severe anemia, lactic acidosis, with development of renal failure, nosocomial infections including urinary tract infections, severely fluid overloaded with a positive balance of over 31 L since admission to the hospital, and development of bilateral lung infiltrates and moderate symmetrical bilateral pleural effusions. The patient has been on broad-spectrum antibiotic coverage for possible UTI. The patient's history in conjunction with the positive fluid balance, the bilateral pleural effusions and diffuse infiltrates suggest fluid overload and/or congestive heart failure. Of note, the patient has been on TPN for more than a week. The pulmonary infiltrates are more likely due to fluid overload/congestive heart failure rather than to an infectious process. As stated, on admission she only had small ground-glass opacities which could be related to aspiration pneumonitis. The development of respiratory failure with bilateral pulmonary infiltrates and pleural effusions occurred later during the hospitalization and are related to fluid management in the intensive care unit and fluid overloading through TPN. The case was discussed with the hospitalist. The patient is currently hemodynamically stable. I would start diuresing the patient with IV Lasix while monitoring the respiratory status, blood pressure, electrolytes. We may consider BiPAP support if respiratory status worsens. I would also consider DVT prophylaxis. (2) Cirrhosis of liver with ascites: Qualifiers: Hepatic cirrhosis type: unspecified hepatic cirrhosis Qualified Code(s): K74.60 - Unspecified cirrhosis of liver; R18.8 - Other ascites Code(s): K74.60 - Unspecified cirrhosis of liver; R18.8 - Other ascites Status: Acute (3) Ascites: Qualifiers: Ascites type: due to alcoholic cirrhosis Qualified Code(s): K70.31 - Alcoholic cirrhosis of liver with ascites Code(s): R18.8 - Other ascites Status: Acute (4) Pleural effusion: Code(s): J90 - Pleural effusion, not elsewhere classified Status: Acute (5) CHF (congestive heart failure): Qualifiers: Heart failure type: unspecified Heart failure chronicity: unspecified Qualified Code(s): I50.9 - Heart failure, unspecified Code(s): I50.9 - Heart failure, unspecified Status: Acute History of Present Illness History of Present Illness Consult date: 06/02/21 Chief complaint: Acute Blood Loss Anemia, GI Bleeding, Lactic Acido Narrative: this 40-year-old female was admitted into the hospital about 3 weeks ago with altered mental status changes. The patient has history of alcohol abuse, liver cirrhosis, hypertension and was brought into the emergency room by EMS after she was found to have acutely altered mental status changes. Patient was found to have elevated lactic acid, severe anemia, electrolyte abnormalities. She was treated in the intensive care unit for possible sepsis. Initial chest x-ray showed some small ground-glass opacities bilaterally. COVID-19 testing was negative by PCR. During the hospitalization, the patient was also evaluated for GI bleeding and developed acute renal failure. Following clinical hemodynamic improvement, the patient transferred to the med/surg [facility]. She has received TPN for more than a week since admission to the intensive care unit. I was asked to see the patient because of persistent hypoxemia and bilateral infiltrates. Since admission she has had several chest imaging studies including chest CTs. The initial chest CT showed small bilateral infiltrates bilaterally. The subsequent chest imaging lilliam
[2021-06-02 12:19] LABS: Glucose Point of Care 99 mg/dl (65-105)
[2021-06-02] MEDS: OLANZapine 2.5 MG TABLET PO (12:41)
[2021-06-02] MEDS: POTASSIUM CHLORIDE 20 MEQ TABLET 40 MEQ PO (12:41)
[2021-06-02] MEDS: FUROSEMIDE INJ 40 MG/4 ML VIAL IV PUSH ×2 (13:31→18:10)
--- NOTE | 2021-06-02 13:47 | PCNFU ---
Nutrition Follow-Up Complete: Inadequate Oral Intake as related to Pneumonia as evidenced by poor po intake Goal: Meet estimated nutritional needs Limited progress towards goal. No new goal at this time. Pt current nutrition is 2 gm Na diet Last recorded weight is 72.6 kg. Recommend re-weighing pt. prior to discharge. Bowel Motility: + BM 06/02/2021 Labs Reviewed: Hgb 9.5, Hct 29.7, K 3.3, BUN 19 Meds Noted: Lovenox, Pepcid, Folic Acid, Lasix, Glucagon, Novolog, Atrovent neb, Lactulose, Lorazepam, Mag-Ox, Megace, vitamin B-1 Skin: perianal maceration Additional Notes: Pt. is receiving frozen nutritional treat TID providing an additional 300 calories and 9 grams of protein. Pt. has been consuming anywhere from 0-100% of meals as well as refusing meals. TPN has been discontinued secondary to patient pulled PICC. Appetite stimulants started with hopes to increase oral intake. Pt. on high flow nasual cannula. Will continue closely monitoring oral intake. Will monitor every Saturday and Saturday.
--- NOTE | 2021-06-02 13:48 | PC.NURSE ---
On 06/02/21, the student, [Srikanth Small], provided care and completed [facility] documentation on this patient. I have reviewed the student's documentation and agree with the findings.
--- NOTE | 2021-06-02 14:14 | PCNSR ---
On 06/02/21, the student, Sumi Spain, provided care and completed [facility] documentation on this patient. I have reviewed the student's documentation and agree with the findings.
[2021-06-02] MEDS: ENOXAPARIN 40 MG/0.4 ML SYRINGE SUB-Q (16:42)
[2021-06-02 17:36] LABS: Glucose Point of Care 107 mg/dl (65-105)
[2021-06-02] MEDS: ERTAPENEM SODIUM 0.5 GM in SODIUM CHLORIDE 0.9% IV 50 ML IVPB (18:10)
[2021-06-02] MEDS: ACETAMINOPHEN 325 MG TABLET 650 MG PO (22:57)
[2021-06-03] VITALS (16 sets, daily range): BP systolic 134–149; BP diastolic 88–101; PULSE 88–122; RESP 16–32; TEMP 35.9–37.7; O2SAT 94–100
[2021-06-03 00:41] LABS: Glucose Point of Care 101 mg/dl (65-105)
[2021-06-03 04:44] LABS: Glucose Point of Care 89 mg/dl (65-105)
[2021-06-03 08:10] LABS: Basophils Absolute Auto 0.1 K/mm3 (0.0-0.1); Basophils Percent Auto 0.8 % (0.2-1.2); Eosinophils Absolute Auto 0.8 K/mm3 (0-0.3); Eosinophils Percent Auto 4.6 % (0-4.4); Hematocrit 32.6 % (37.0-47.0); Hemoglobin 10.1 g/dL (12.0-15.0); Immature Granulocyte Percent A 0.6 % (0-0.5); Lymphocytes Absolute Auto 2.25 K/mm3 (0.9-3.2); Lymphocytes Percent Auto 13.4 % (18.3-44.2); Mean Corpuscular Hemoglobin 33.9 pg (26-34); Mean Corpuscular Volume 109.4 fl (80-100); Mean Platelet Volume 12.8 fl (7.4-10.4); Monocytes Absolute Auto 0.8 K/mm3 (0.1-0.6); Monocytes Percent Auto 4.8 % (2.6-8.5); Neutrophils Absolute Auto 12.8 K/mm3 (1.3-6.7); Neutrophils Percent Auto 75.8 % (45.5-73.1); Platelet Count Result 227 k/mm3 (150-375); Red Blood Count 2.98 M/mm3 (4.2-5.4); Red Cell Distribution Width 21.5 % (11.5-14.5); White Blood Count 16.8 K/mm3 (4.5-10.0)
[2021-06-03 08:24] LABS: Anion Gap 12 mmol/L (8-16); Blood Urea Nitrogen 19 mg/dL (7-17); Calcium 9.2 mg/dL (8.4-10.2); Carbon Dioxide 26 mmol/L (22-30); Chloride 106 mmol/L (98-107); Estimated CRCL calculation 56 ml/min; Estimated Glomerular Filt Rate > 60; Glucose 117 mg/dL (65-110); Potassium 3.3 mmol/L (3.4-5.0); Sodium 144 mmol/L (137-145)
[2021-06-03] MEDS: FUROSEMIDE INJ 40 MG/4 ML VIAL IV PUSH ×2 (10:28→16:07)
[2021-06-03] MEDS: PANTOPRAZOLE SODIUM IV 40 MG VIAL IV PUSH ×2 (10:28→20:26)
[2021-06-03] MEDS: TOLNAFTATE 1% POWDER 45 GM BTL 1 APPLIC TOPICAL ×2 (10:29→20:27)
[2021-06-03] MEDS: POTASSIUM CHLORIDE 20 MEQ PACKET (FOR LIQUID) PO ×2 (10:32→16:08)
[2021-06-03] MEDS: OLANZapine 2.5 MG TABLET PO (10:33)
[2021-06-03] MEDS: MAGNESIUM OXIDE 400 MG TABLET PO (10:39)
[2021-06-03] MEDS: ENOXAPARIN 40 MG/0.4 ML SYRINGE SUB-Q (10:39)
[2021-06-03] MEDS: FOLIC ACID 1 MG TABLET PO (10:40)
[2021-06-03] MEDS: THIAMINE HCL 100 MG TABLET PO (10:40)
[2021-06-03] MEDS: LACTULOSE 20 GM/30 ML UDC PO (10:40)
[2021-06-03] MEDS: MEGESTROL ACETATE (*CHEMO) ORAL SUSP 40 MG/ML SYR 400 MG PO ×2 (10:40→16:07)
[2021-06-03] MEDS: FAMOTIDINE 20 MG TABLET PO ×2 (10:40→20:27)
[2021-06-03] MEDS: EUCERIN CREAM 120 GM JAR 1 APPLIC TOPICAL (10:41)
--- NOTE | 2021-06-03 11:37 | WPDCNPSYCH ---
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 q.a.m. will be increased to5mg p.o. q.a.m. for the target symptom of behavioral features and psychosis Olanzapine (Zyprexa) 5mg p.o. or IM b.i.d. p.r.n. psychotic agitation will be also provided Additional organic workup for new onset psychosis will be conducted. Case management may want to explore possible jail placement following discharge Reason for Psychiatric consultation: Patient is a 40-year-old lady whose consult is called for psychotic, agitated confusion. Review of systems: Limited due to psychosis dementia and delirium Mental status exam: Patient has an enormous self-care deficit. Eye contact is poor. She has a right lateral gaze. She appears to be looking at something that others are unable to see. Posture is recumbent. Psychomotor activity is normal adjusting far debility. Speech is normal in rate and volume. Her speech is only 1 or 2 words. Mood is limited due to psychosis, dementia, and delirium. Affect is generally flat but at 1 point she did become tearful. Patient has no evidence of being suicidal or homicidal. As mentioned in this report she has had intermittent episodes of psychosis. Cognitively she has advanced deficits of intelligence, fund of knowledge, insight, and judgment. Patient is oriented to name only. Medical evaluation: CBC: WBCs are 16.8; hemoglobin is 10.1 Basic metabolic panel: Potassium is 3.3; BUN is 19; creatinine is 1.00; random glucose is 117 Urine analysis on 05/27/2021: Consistent with urinary tract infection Peritoneal fluid on 05/23/2021 had unremarkable laboratory findings Urine drug screen was negative Blood alcohol level less than 10 Acetaminophen level less than 10 COVID testing negative Hepatitis panel: Negative HIV serology nonreactive EKG (05/30/2021): Heart rate 109 otherwise unremarkable EGD (05/15/2021): Small hiatal hernia at the gastroesophageal junction with moderate gastric gastritis CT of the head on 05/31/2021: Motion artifact. Small infarct right parieto-occipital region and bilateral cerebellar infarcts CTA of the brain 05/31/2021: Hold small bilateral parietal lobe infarctions CT of the chest/abdomen/pelvis (05/13/2021): Prominently increased bilateral patchy infiltrates and pleural effusion Diffuse lung disease Cirrhosis of the liver History of present illness: The patient is seen on date 20/07 of medical hospitalization. On admission she had a severe anemia (hemoglobin was 5.0), hypotension, hypoxia, UTI, peritonitis, and pneumonia. Her hypotension required Levophed management in the intensive care unit. She was also treated with multiple antibiotics. She is had ultrasound-guided paracentesis yielding 1350mL of yellow fluid. The patient's white blood cell count peaked at 24.4. Her creatinine has been as high as 5.1. She is required 2units of packed red blood cells and later in her hospitalization another 1unit of packed red blood cells. In recent days she has become psychotic having hallucinations of a multi colored snake she has been having self talk according to the nursing staff she is responding to inner stimuli. At interview she was oriented to name only. She was perseverating the incorrect year when asked where she was. She acknowledged that she ?sees weird stuff. ? But she is unable to elaborate any greater. She is perseverating which is a sign of dementia. Past psychiatric history: An interview patient denies any prior mental health treatment Past medical history: Acute hepatic encephalopat
[2021-06-03 13:15] LABS: Glucose Point of Care 102 mg/dl (65-105)
--- NOTE | 2021-06-03 13:42 | PCSTNOTE ---
Please refer to the Bedside Swallow Evaluation in the EMR. Please note, silent aspiration cannot be ruled out at bedside.
[2021-06-03] MEDS: POTASSIUM CHLORIDE 20 MEQ PACKET (FOR LIQUID) 40 MEQ PO (16:07)
[2021-06-03] MEDS: ACETAMINOPHEN 325 MG TABLET 650 MG PO (16:12)
[2021-06-03 16:54] LABS: Glucose Point of Care 114 mg/dl (65-105)
[2021-06-03] MEDS: ERTAPENEM SODIUM 0.5 GM in SODIUM CHLORIDE 0.9% IV 50 ML IVPB (17:57)
--- NOTE | 2021-06-03 17:59 | PM.IMPN ---
Progress Note: A&P Assessment and Plan (1) Hospital-acquired pneumonia: Code(s): J18.9 - Pneumonia, unspecified organism; Y95 - Nosocomial condition Status: Acute Assessment and Plan: Continue ertapenem. Leukocytosis is improved from 24-15.2. Monitor CBC. Chest x-ray at 12 12/01/2020 with the improvement in her bilateral infiltrates. Continue diuresis and antibiotics as ordered. Oxygen requirement is about the same. Will recheck her x-ray in the morning tomorrow (2) Urinary tract infection: Code(s): N39.0 - Urinary tract infection, site not specified Status: Acute Assessment and Plan: Urine culture growing Klebsiella. Continue ertapenem. (3) Cirrhosis of liver with ascites: Qualifiers: Hepatic cirrhosis type: unspecified hepatic cirrhosis Qualified Code(s): K74.60 - Unspecified cirrhosis of liver; R18.8 - Other ascites Code(s): K74.60 - Unspecified cirrhosis of liver; R18.8 - Other ascites Status: Acute Assessment and Plan: Secondary to alcohol abuse. Presented with ascites and had paracentesis on 05/15 and again on 05/23. Ascites fluid cultures negative. She received IV albumin and octreotide. Octreotide discontinued 05/22 due to concerns for possible drug rash. Continue 2 g sodium diet. Appreciate GI consultation If tolerates will add spironolactone given the history of cirrhosis of liver and ascites (4) Septic shock: Code(s): A41.9 - Sepsis, unspecified organism; R65.21 - Severe sepsis with septic shock Status: Resolved Assessment and Plan: Currently patient is hemodynamically stable. She originally presented with severe anemia, hypotension, hypoxia and multiple sources of infection with UTI, peritonitis, and pneumonia. She initially required intensive care with Levophed to maintain her blood pressure. She was rehydrated with IV fluids. She did have improvement with this and blood pressures have been stable off Levophed for several days now. Urine culture with E coli sensitive to Zosyn for which she completed a course of treatment on 05/22. Peritoneal fluid with no growth. Blood cultures negative. Patient was started on cefepime on 05/29/2021. Due to altered mental status, cefepime was discontinued and patient was switched to ertapenem for the management of UTI. Urine culture grew Klebsiella, sensitive to ertapenem. (5) Altered mental status: Code(s): R41.82 - Altered mental status, unspecified Status: Acute Assessment and Plan: Resolved initially with lctulose. Again with agitation and confusion and had to be maintained on restraints, after removing piccline on 06/01/2021. Attempts at reorientation, bedside 1:1 observation were unsuccesful. Weconsulted neurology and psych. Likely alcohol induced delirium versus cefepime associated encephalopathy.. Patient appeared to have toxic metabolic encephalopathy which was complicated by liver failure. Ammonia levels have normalized but will continue with lactulose. 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 Mental status had somehow improved with resolution of uremia; currently patient is anxious, hallucinating, very irritable. she interferes with her care by removing lines and was started on restraints. Psychiatry is following. Discussed with Dr. Silverman today, agitation management with olanzapine as ordered by him (6) Severe anemia: Code(s): D64.9 - Anemia, unspecified Status: Acute Assessment and Plan: Patient presented with a hemoglobin of 5.0. She received 2 units pRBC and H&H stabilized. EGD showed gastritis with no evidence of bleeding, continue Protonix. H&H trending downward again but stable, will monitor closely. Iron panel consistent with anemia of chronic disease. On 05/31/2021 hemoglobin has drifted down to 6.7. After 1 unit PRBC, Hb is stable at 8.4. Monitor hemoglobin on today's labs. (7) Alcohol dependence: Code(s): F10.20 - Alcohol
--- NOTE | 2021-06-03 18:46 | PM.PNPUL ---
Progress Note: A&P Assessment and Plan (1) Acute hypoxemic respiratory failure: Code(s): J96.01 - Acute respiratory failure with hypoxia Status: Acute Assessment and Plan: 40-year-old female with history of alcohol abuse possible liver cirrhosis and ascites treated in the intensive care unit for sepsis, severe anemia, lactic acidosis, with development of renal failure, nosocomial infections including urinary tract infections, severely fluid overloaded with a positive balance of over 31 L since admission to the hospital, and development of bilateral lung infiltrates and moderate symmetrical bilateral pleural effusions. The patient has been on broad-spectrum antibiotic coverage for possible UTI. The patient's history in conjunction with the positive fluid balance, the bilateral pleural effusions and diffuse infiltrates suggest fluid overload and/or congestive heart failure. Of note, the patient has been on TPN for more than a week. The pulmonary infiltrates are more likely due to fluid overload/congestive heart failure rather than to an infectious process. As stated, on admission she only had small ground-glass opacities which could be related to aspiration pneumonitis. The development of respiratory failure with bilateral pulmonary infiltrates and pleural effusions occurred later during the hospitalization and are related to fluid management in the intensive care unit and fluid overloading through TPN. The case was discussed with the hospitalist. The patient is currently hemodynamically stable. I would start diuresing the patient with IV Lasix while monitoring the respiratory status, blood pressure, electrolytes. We may consider BiPAP support if respiratory status worsens. I would also consider DVT prophylaxis. 06/03 : O2 is being weaned; went from 12 L to 8 L High Flow; rom air sat 85%. Will continue to wean and diurese. (2) Cirrhosis of liver with ascites: Qualifiers: Hepatic cirrhosis type: unspecified hepatic cirrhosis Qualified Code(s): K74.60 - Unspecified cirrhosis of liver; R18.8 - Other ascites Code(s): K74.60 - Unspecified cirrhosis of liver; R18.8 - Other ascites Status: Acute Assessment and Plan: (3) Ascites: Qualifiers: Ascites type: due to alcoholic cirrhosis Qualified Code(s): K70.31 - Alcoholic cirrhosis of liver with ascites Code(s): R18.8 - Other ascites Status: Acute Assessment and Plan: (4) Pleural effusion: Code(s): J90 - Pleural effusion, not elsewhere classified Status: Acute Assessment and Plan: (5) CHF (congestive heart failure): Qualifiers: Heart failure chronicity: unspecified Heart failure type: unspecified Qualified Code(s): I50.9 - Heart failure, unspecified Code(s): I50.9 - Heart failure, unspecified Status: Acute Assessment and Plan: Subjective Date/time seen: 06/03/21 18:46 This 40 yo female is seen in follow up for bilateral infiltrates and (+) fluid balance > 30 L, now getting diuresis. She was admitted 3 weeks ago with altered mental status changes. The patient has history of alcohol abuse, liver cirrhosis, hypertension and was brought into the emergency room by EMS after she was found to have acutely altered mental status changes. Patient was found to have elevated lactic acid, severe anemia, electrolyte abnormalities. She was treated in the intensive care unit for possible sepsis. Initial chest x-ray showed some small ground-glass opacities bilaterally. COVID-19 testing was negative by PCR. During the hospitalization, the patient was
[2021-06-04] VITALS (16 sets, daily range): BP systolic 125–156; BP diastolic 88–100; PULSE 96–118; RESP 16–22; TEMP 36.3–37.2; O2SAT 94–100
[2021-06-04 00:57] LABS: Glucose Point of Care 102 mg/dl (65-105)
[2021-06-04 07:10] LABS: Glucose Point of Care 102 mg/dl (65-105)
[2021-06-04 07:33] LABS: Alanine Aminotransferase 32 U/L (4-35); Albumin Level 3.6 g/dL (3.5-5.1); Alkaline Phosphatase 301 U/L (38-126); Anion Gap 8 mmol/L (8-16); Aspartate Amino Transferase 91 U/L (14-36); Bilirubin,Total 1.3 mg/dL (0.2-1.3); Blood Urea Nitrogen 18 mg/dL (7-17); CRP 6.2 mg/dL (<1.0); Carbon Dioxide 27 mmol/L (22-30); Chloride 103 mmol/L (98-107); Estimated CRCL calculation 56 ml/min; Estimated Glomerular Filt Rate > 60; Glucose 104 mg/dL (65-110); Potassium 3.7 mmol/L (3.4-5.0); Sodium 138 mmol/L (137-145)
[2021-06-04 07:58] LABS: Basophils Absolute Auto 0.2 K/mm3 (0.0-0.1); Basophils Percent Auto 0.9 % (0.2-1.2); Eosinophils Percent Auto 5.8 % (0-4.4); Hematocrit 31.9 % (37.0-47.0); Hemoglobin 10.2 g/dL (12.0-15.0); Immature Granulocyte Absolute 0.12 K/mm3 (0.00-0.031); Immature Granulocyte Percent A 0.7 % (0-0.5); Lymphocytes Absolute Auto 2.69 K/mm3 (0.9-3.2); Lymphocytes Percent Auto 15.8 % (18.3-44.2); Mean Corpuscular Hemoglobin 34.2 pg (26-34); Mean Platelet Volume 12.9 fl (7.4-10.4); Monocytes Absolute Auto 0.9 K/mm3 (0.1-0.6); Monocytes Percent Auto 5.2 % (2.6-8.5); Neutrophils Absolute Auto 12.2 K/mm3 (1.3-6.7); Neutrophils Percent Auto 71.6 % (45.5-73.1); Platelet Count Result 239 k/mm3 (150-375); Red Blood Count 2.98 M/mm3 (4.2-5.4); Red Cell Distribution Width 20.7 % (11.5-14.5)
[2021-06-04 09:02] LABS: Folic Acid 12.8 ng/mL (2.76->20)
[2021-06-04] MEDS: ENOXAPARIN 40 MG/0.4 ML SYRINGE SUB-Q (10:17)
[2021-06-04] MEDS: FAMOTIDINE 20 MG TABLET PO ×2 (10:18→20:15)
[2021-06-04] MEDS: FOLIC ACID 1 MG TABLET PO (10:18)
[2021-06-04] MEDS: FUROSEMIDE INJ 40 MG/4 ML VIAL IV PUSH ×2 (10:18→17:51)
[2021-06-04] MEDS: LACTULOSE 20 GM/30 ML UDC PO (10:20)
[2021-06-04] MEDS: MEGESTROL ACETATE (*CHEMO) ORAL SUSP 40 MG/ML SYR 400 MG PO ×2 (10:22→17:50)
[2021-06-04] MEDS: MAGNESIUM OXIDE 400 MG TABLET PO (10:22)
[2021-06-04] MEDS: POTASSIUM CHLORIDE 20 MEQ PACKET (FOR LIQUID) PO ×2 (10:23→17:50)
[2021-06-04] MEDS: EUCERIN CREAM 120 GM JAR 1 APPLIC TOPICAL (10:23)
[2021-06-04] MEDS: PANTOPRAZOLE SODIUM IV 40 MG VIAL IV PUSH ×2 (10:23→20:15)
[2021-06-04] MEDS: THIAMINE HCL 100 MG TABLET PO (10:24)
[2021-06-04] MEDS: TOLNAFTATE 1% POWDER 45 GM BTL 1 APPLIC TOPICAL ×2 (10:25→20:15)
[2021-06-04] MEDS: SPIRONOLACTONE 12.5 MG TABLET PO ×2 (10:25→17:50)
--- NOTE | 2021-06-04 12:43 | PM.IMPN ---
Progress Note: A&P Assessment and Plan (1) Acute hypoxemic respiratory failure: Code(s): J96.01 - Acute respiratory failure with hypoxia Status: Acute Assessment and Plan: 40-year-old female with history of alcohol abuse possible liver cirrhosis and ascites treated in the intensive care unit for sepsis, severe anemia, lactic acidosis, with development of renal failure, nosocomial infections including urinary tract infections, severely fluid overloaded with a positive balance of over 31 L since admission to the hospital, and development of bilateral lung infiltrates and moderate symmetrical bilateral pleural effusions. Continue IV Lasix while monitoring the electrolytes. Continue DVT/PE prophylaxis. (2) Hospital-acquired pneumonia: Code(s): J18.9 - Pneumonia, unspecified organism; Y95 - Nosocomial condition Status: Acute Assessment and Plan: Continue ertapenem. Leukocytosis is fluid to waiting around 16.8-17.2, with a left shift. Monitor CBC. Chest x-ray on 06/04/2021 showing continued gradual improvement in diffuse bilateral lung disease which could represent pneumonia and/or pulmonary edema. Continue diuresis and antibiotics as ordered. Oxygen requirement is about the same. (3) Urinary tract infection: Code(s): N39.0 - Urinary tract infection, site not specified Status: Acute Assessment and Plan: Urine culture growing Klebsiella. Continue ertapenem. (4) Cirrhosis of liver with ascites: Qualifiers: Hepatic cirrhosis type: unspecified hepatic cirrhosis Qualified Code(s): K74.60 - Unspecified cirrhosis of liver; R18.8 - Other ascites Code(s): K74.60 - Unspecified cirrhosis of liver; R18.8 - Other ascites Status: Acute Assessment and Plan: Secondary to alcohol abuse. Presented with ascites and had paracentesis on 05/15 and again on 05/23. Ascites fluid cultures negative. She received IV albumin and octreotide. Octreotide discontinued 05/22 due to concerns for possible drug rash. Continue 2 g sodium diet. Appreciate GI consultation If tolerates will add spironolactone given the history of cirrhosis of liver and ascites (5) Septic shock: Code(s): A41.9 - Sepsis, unspecified organism; R65.21 - Severe sepsis with septic shock Status: Resolved Assessment and Plan: Currently patient is hemodynamically stable. She originally presented with severe anemia, hypotension, hypoxia and multiple sources of infection with UTI, peritonitis, and pneumonia. She initially required intensive care with Levophed to maintain her blood pressure. She was rehydrated with IV fluids. She did have improvement with this and blood pressures have been stable off Levophed for several days now. Urine culture with E coli sensitive to Zosyn for which she completed a course of treatment on 05/22. Peritoneal fluid with no growth. Blood cultures negative. Patient was started on cefepime on 05/29/2021. Due to altered mental status, cefepime was discontinued and patient was switched to ertapenem for the management of UTI. Urine culture grew Klebsiella, sensitive to ertapenem. (6) Altered mental status: Code(s): R41.82 - Altered mental status, unspecified Status: Acute Assessment and Plan: Resolved initially with lactulose. Again with agitation and confusion and had to be maintained on restraints, after removing piccline on 06/01/2021. Attempts at reorientation, bedside 1:1 observation were unsuccessful. We consulted neurology and psychiatry. Likely alcohol induced delirium versus cefepime associated encephalopathy.. Patient appeared to have toxic metabolic encephalopathy which was complicated by liver failure. Ammonia levels have normalized but will continue with lactulose. 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 Mental status had somehow improved with resolution of uremia; currently patient is anxious, hallucinating, very irritable. she interfe
[2021-06-04 12:49] LABS: Glucose Point of Care 108 mg/dl (65-105)
[2021-06-04] MEDS: OLANZapine 5 MG TABLET PO (13:22)
--- NOTE | 2021-06-04 15:11 | PM.PNPUL ---
Progress Note: A&P Assessment and Plan (1) Acute hypoxemic respiratory failure: Code(s): J96.01 - Acute respiratory failure with hypoxia Status: Acute Assessment and Plan: 40-year-old female with history of alcohol abuse possible liver cirrhosis and ascites treated in the intensive care unit for sepsis, severe anemia, lactic acidosis, with development of renal failure, nosocomial infections including urinary tract infections, severely fluid overloaded with a positive balance of over 31 L since admission to the hospital, and development of bilateral lung infiltrates and moderate symmetrical bilateral pleural effusions. The patient has been on broad-spectrum antibiotic coverage for possible UTI. The patient's history in conjunction with the positive fluid balance, the bilateral pleural effusions and diffuse infiltrates suggest fluid overload and/or congestive heart failure. Of note, the patient has been on TPN for more than a week. The pulmonary infiltrates are more likely due to fluid overload/congestive heart failure rather than to an infectious process. As stated, on admission she only had small ground-glass opacities which could be related to aspiration pneumonitis. The development of respiratory failure with bilateral pulmonary infiltrates and pleural effusions occurred later during the hospitalization and are related to fluid management in the intensive care unit and fluid overloading through TPN. The case was discussed with the hospitalist. The patient is currently hemodynamically stable. I would start diuresing the patient with IV Lasix while monitoring the respiratory status, blood pressure, electrolytes. We may consider BiPAP support if respiratory status worsens. I would also consider DVT prophylaxis. 06/03 : O2 is being weaned; went from 12 L to 8 L High Flow; rom air sat 85%. Will continue to wean and diurese. 06/04 : O2 fluctuates some, overall trending downward (2) Cirrhosis of liver with ascites: Qualifiers: Hepatic cirrhosis type: unspecified hepatic cirrhosis Qualified Code(s): K74.60 - Unspecified cirrhosis of liver; R18.8 - Other ascites Code(s): K74.60 - Unspecified cirrhosis of liver; R18.8 - Other ascites Status: Acute Assessment and Plan: (3) Ascites: Qualifiers: Ascites type: due to alcoholic cirrhosis Qualified Code(s): K70.31 - Alcoholic cirrhosis of liver with ascites Code(s): R18.8 - Other ascites Status: Acute Assessment and Plan: (4) Pleural effusion: Code(s): J90 - Pleural effusion, not elsewhere classified Status: Acute Assessment and Plan: (5) CHF (congestive heart failure): Qualifiers: Heart failure chronicity: unspecified Heart failure type: unspecified Qualified Code(s): I50.9 - Heart failure, unspecified Code(s): I50.9 - Heart failure, unspecified Status: Acute Assessment and Plan: Subjective Date/time seen: 06/04/21 15:11 This 40 yo female is seen in follow up for bilateral infiltrates and (+) fluid balance > 30 L, now getting diuresis. She is still confused, trying to get out of bed. Has taken her O2 off while wearing wrist restraints. She was admitted 3 weeks ago with altered mental status changes. The patient has history of alcohol abuse, liver cirrhosis, hypertension and was brought into the emergency room by EMS after she was found to have acutely altered mental status changes. Patient was found to have elevated lactic acid, severe anemia, electrolyte abnormalities. She was treated in the intensive care unit for possible sepsis. In
[2021-06-04 16:37] LABS: Glucose Point of Care 101 mg/dl (65-105)
[2021-06-04] MEDS: ERTAPENEM SODIUM 0.5 GM in SODIUM CHLORIDE 0.9% IV 50 ML IVPB (17:51)
[2021-06-04 20:31] LABS: Glucose Point of Care 120 mg/dl (65-105)
[2021-06-04] MEDS: OLANZapine 10 MG INJ VIAL 5 MG IM (21:48)
[2021-06-05] VITALS (20 sets, daily range): BP systolic 117–158; BP diastolic 73–100; PULSE 93–123; RESP 18–24; TEMP 35.9–37; O2SAT 95–100
[2021-06-05 05:49] LABS: Basophils Absolute Auto 0.1 K/mm3 (0.0-0.1); Basophils Percent Auto 0.8 % (0.2-1.2); Eosinophils Absolute Auto 1.1 K/mm3 (0-0.3); Eosinophils Percent Auto 6.3 % (0-4.4); Hematocrit 33.8 % (37.0-47.0); Hemoglobin 10.9 g/dL (12.0-15.0); Immature Granulocyte Absolute 0.12 K/mm3 (0.00-0.031); Immature Granulocyte Percent A 0.7 % (0-0.5); Lymphocytes Absolute Auto 2.88 K/mm3 (0.9-3.2); Lymphocytes Percent Auto 16.6 % (18.3-44.2); Mean Corpuscular HGB Conc 32.2 g/dl (32-36); Mean Corpuscular Volume 105.3 fl (80-100); Mean Platelet Volume 12.4 fl (7.4-10.4); Monocytes Percent Auto 5.5 % (2.6-8.5); Neutrophils Absolute Auto 12.2 K/mm3 (1.3-6.7); Neutrophils Percent Auto 70.1 % (45.5-73.1); Platelet Count Result 236 k/mm3 (150-375); Red Blood Count 3.21 M/mm3 (4.2-5.4); Red Cell Distribution Width 19.8 % (11.5-14.5); White Blood Count 17.4 K/mm3 (4.5-10.0)
[2021-06-05 05:57] LABS: Magnesium 1.5 mg/dL (1.6-2.3)
[2021-06-05 05:58] LABS: INR 1.2; Prothrombin Time 15.2 Seconds (11.1-14.7)
[2021-06-05 05:59] LABS: Partial Thromboplastin Time 33.9 SECONDS (22.3-36.8)
[2021-06-05 06:02] LABS: Anion Gap 10 mmol/L (8-16); Blood Urea Nitrogen 17 mg/dL (7-17); Calcium 9.1 mg/dL (8.4-10.2); Carbon Dioxide 27 mmol/L (22-30); Chloride 98 mmol/L (98-107); Estimated CRCL calculation 52 ml/min; Estimated Glomerular Filt Rate 55; Glucose 103 mg/dL (65-110); Potassium 3.1 mmol/L (3.4-5.0); Sodium 135 mmol/L (137-145)
[2021-06-05 06:05] LABS: Transferrin 116 mg/dL (206-381)
[2021-06-05 08:48] LABS: Glucose Point of Care 101 mg/dl (65-105)
[2021-06-05] MEDS: PANTOPRAZOLE SODIUM IV 40 MG VIAL IV PUSH ×2 (10:05→20:42)
[2021-06-05] MEDS: MAGNESIUM OXIDE 400 MG TABLET PO (10:05)
[2021-06-05] MEDS: FUROSEMIDE INJ 40 MG/4 ML VIAL IV PUSH (10:05)
[2021-06-05] MEDS: OLANZapine 5 MG TABLET PO (10:05)
[2021-06-05] MEDS: THIAMINE HCL 100 MG TABLET PO (10:05)
[2021-06-05] MEDS: LACTULOSE 20 GM/30 ML UDC PO (10:05)
[2021-06-05] MEDS: MEGESTROL ACETATE (*CHEMO) ORAL SUSP 40 MG/ML SYR 400 MG PO ×2 (10:05→16:03)
[2021-06-05] MEDS: FAMOTIDINE 20 MG TABLET PO ×2 (10:05→20:42)
[2021-06-05] MEDS: SPIRONOLACTONE 12.5 MG TABLET PO ×2 (10:05→16:04)
[2021-06-05] MEDS: FOLIC ACID 1 MG TABLET PO (10:05)
[2021-06-05] MEDS: TOLNAFTATE 1% POWDER 45 GM BTL 1 APPLIC TOPICAL ×2 (10:06→20:43)
[2021-06-05] MEDS: EUCERIN CREAM 120 GM JAR 1 APPLIC TOPICAL (10:06)
[2021-06-05] MEDS: POTASSIUM CHLORIDE 20 MEQ PACKET (FOR LIQUID) PO ×2 (10:06→16:04)
[2021-06-05] MEDS: ENOXAPARIN 40 MG/0.4 ML SYRINGE SUB-Q (10:06)
--- NOTE | 2021-06-05 12:25 | PM.IMPN ---
Progress Note: A&P Assessment and Plan (1) Acute hypoxemic respiratory failure: Code(s): J96.01 - Acute respiratory failure with hypoxia Status: Acute Assessment and Plan: 40-year-old female with history of alcohol abuse possible liver cirrhosis and ascites treated in the intensive care unit for sepsis, severe anemia, lactic acidosis, with development of renal failure, nosocomial infections including urinary tract infections, severely fluid overloaded with a positive balance of over 31 L since admission to the hospital, and development of bilateral lung infiltrates and moderate symmetrical bilateral pleural effusions. She was started on aggressive IV Lasix while monitoring the electrolytes, with improvement of all oxygen requirement tall from a peak of 12 L to 3 L today. Her most recent chest x-ray from 06/04/2021 confirms continued gradual improvement in diffuse airspace opacities throughout both lungs. Fluid status is improving with aggressive diuresis. We are reducing her Lasix from 40 mg twice a day to 40 mg IV daily. Chest x-ray shows improvement of pulmonary parenchyma. Continue weaning to room air. (2) Hospital-acquired pneumonia: Code(s): J18.9 - Pneumonia, unspecified organism; Y95 - Nosocomial condition Status: Acute Assessment and Plan: Continue ertapenem. Leukocytosis has been fluctuating around 16.8-17.2, with a left shift. Monitor CBC. Chest x-ray on 06/04/2021 showing continued gradual improvement in diffuse bilateral lung disease which could represent pneumonia and/or pulmonary edema. Continue diuresis and antibiotics as ordered. Oxygen requirement is about the same. (3) Urinary tract infection: Code(s): N39.0 - Urinary tract infection, site not specified Status: Acute Assessment and Plan: Urine culture growing Klebsiella. Continue ertapenem. (4) Cirrhosis of liver with ascites: Qualifiers: Hepatic cirrhosis type: unspecified hepatic cirrhosis Qualified Code(s): K74.60 - Unspecified cirrhosis of liver; R18.8 - Other ascites Code(s): K74.60 - Unspecified cirrhosis of liver; R18.8 - Other ascites Status: Acute Assessment and Plan: Secondary to alcohol abuse. Presented with ascites and had paracentesis on 05/15 and again on 05/23. Ascites fluid cultures negative. She received IV albumin and octreotide. Octreotide discontinued 05/22 due to concerns for possible drug rash. Continue 2 g sodium diet. Appreciate GI consultation If tolerates will add spironolactone given the history of cirrhosis of liver and ascites (5) Septic shock: Code(s): A41.9 - Sepsis, unspecified organism; R65.21 - Severe sepsis with septic shock Status: Resolved Assessment and Plan: Currently patient is hemodynamically stable. She originally presented with severe anemia, hypotension, hypoxia and multiple sources of infection with UTI, peritonitis, and pneumonia. She initially required intensive care with Levophed to maintain her blood pressure. She was rehydrated with IV fluids. She did have improvement with this and blood pressures have been stable off Levophed for several days now. Urine culture with E coli sensitive to Zosyn for which she completed a course of treatment on 05/22. Peritoneal fluid with no growth. Blood cultures negative. Patient was started on cefepime on 05/29/2021. Due to altered mental status, cefepime was discontinued and patient was switched to ertapenem for the management of UTI. Urine culture grew Klebsiella, sensitive to ertapenem. (6) Altered mental status: Code(s): R41.82 - Altered mental status, unspecified Status: Acute Assessment and Plan: currently improving after starting the patient on Zyprexa.Resolved initially with lactulose. Again with agitation and confusion and had to be maintained on restraints, after removing piccline on 06/01/2021. Attempts at reorientation, bedside 1:1 obs
[2021-06-05 12:46] LABS: Glucose Point of Care 102 mg/dl (65-105)
[2021-06-05 13:27] LABS: Rapid Plasma Reagin Non-Reactive (NonReactive)
--- NOTE | 2021-06-05 14:59 | PM.PNPUL ---
Progress Note: A&P Assessment and Plan (1) Acute hypoxemic respiratory failure: Code(s): J96.01 - Acute respiratory failure with hypoxia Status: Acute Assessment and Plan: 40-year-old female with history of alcohol abuse possible liver cirrhosis and ascites treated in the intensive care unit for sepsis, severe anemia, lactic acidosis, with development of renal failure, nosocomial infections including urinary tract infections, severely fluid overloaded with a positive balance of over 31 L since admission to the hospital, and development of bilateral lung infiltrates and moderate symmetrical bilateral pleural effusions. The patient has been on broad-spectrum antibiotic coverage for possible UTI. The patient's history in conjunction with the positive fluid balance, the bilateral pleural effusions and diffuse infiltrates suggest fluid overload and/or congestive heart failure. Of note, the patient has been on TPN for more than a week. The pulmonary infiltrates are more likely due to fluid overload/congestive heart failure rather than to an infectious process. As stated, on admission she only had small ground-glass opacities which could be related to aspiration pneumonitis. The development of respiratory failure with bilateral pulmonary infiltrates and pleural effusions occurred later during the hospitalization and are related to fluid management in the intensive care unit and fluid overloading through TPN. The case was discussed with the hospitalist. The patient is currently hemodynamically stable. I would start diuresing the patient with IV Lasix while monitoring the respiratory status, blood pressure, electrolytes. We may consider BiPAP support if respiratory status worsens. I would also consider DVT prophylaxis. 06/03 : O2 is being weaned; went from 12 L to 8 L High Flow; rom air sat 85%. Will continue to wean and diurese. 06/04 : O2 fluctuates some, overall trending downward 06/05 patient currently on room air with saturations 100%. She has improved with diuresis and I am not convinced she has pneumonia. At this time I am not recommending any antibiotics for pneumonia. Will sign off. Please call with questions. Subjective Date/time seen: 06/05/21 15:00 Interval history: 06/04/21 15:11 This 40 yo female is seen in follow up for bilateral infiltrates and (+) fluid balance > 30 L, now getting diuresis. She is still confused, trying to get out of bed. Has taken her O2 off while wearing wrist restraints. She was admitted 3 weeks ago with altered mental status changes. The patient has history of alcohol abuse, liver cirrhosis, hypertension and was brought into the emergency room by EMS after she was found to have acutely altered mental status changes. Patient was found to have elevated lactic acid, severe anemia, electrolyte abnormalities. She was treated in the intensive care unit for possible sepsis. Initial chest x-ray showed some small ground-glass opacities bilaterally. COVID-19 testing was negative by PCR. During the hospitalization, the patient was also evaluated for GI bleeding and developed acute renal failure. Following clinical hemodynamic improvement, the patient transferred to the med/surg [facility]. She has received TPN for more than a week since admission to the intensive care unit. I was asked to see the patient because of persistent hypoxemia and bilateral infiltrates. Since admission she has had several chest imaging studies including chest CTs. The initial chest CT showed small bilateral infiltrates bilaterally. The subsequent chest imaging studies have shown development of bilateral infiltrates and also pleural effusions of moderate size bilaterally. Currently the patient is on supplemental oxygen 2 liters/minute, hemodynamically stable. The patient is poor historian. Upon questioning she admitted having shortness of breath, orthopnea a
[2021-06-05] MEDS: MAGNESIUM SULF 2 GM/WATER 50ML 2 GM/50 ML BAG IVPB (15:42)
[2021-06-05] MEDS: OLANZapine 10 MG INJ VIAL 5 MG IM (15:42)
[2021-06-06] VITALS (15 sets, daily range): BP systolic 129–156; BP diastolic 80–97; PULSE 92–116; RESP 16–20; TEMP 36.2–37; O2SAT 95–100
--- NOTE | 2021-06-06 | ECHO_ITS ---
Patient Info Name: Franko Lechuga Age: 40 years : 1980 Gender: Female Ht: 64 in Wt: 151 lbs BSA: 1.77 m2 HR: 109 bpm BP: 130 / 89 mmHg Exam Date: 06/06/2021 2:37 PM Exam Location: [facility] Patient Status: Inpatient Admit Date: 05/13/2021 Staff Ordering Physician: Sidra Rome MD Student Worker: Richie Duarte RDCS, RT Attending Provider: Jodi Lane PA-C Exam Type: CA echo doppler color flow Study Info Indications I50.9 - Heart failure, unspecified Complete two-dimensional, color flow and Doppler transthoracic echocardiogram is performed. Strain analysis performed. Summary 1. Complete two-dimensional, color flow and Doppler transthoracic echocardiogram is performed. 2. Left ventricular chamber dimension is normal. 3. Left ventricular systolic function is normal, estimated at 60-65%. 4. There is mildly increased left ventricular wall thickness. 5. The left ventricular diastolic function is grade I diastolic dysfunction. 6. E/e' 8 is minimally elevated. 7. Global longitudinal strain is abnormal at -12.5%. 8. There is mild to moderate mitral valve regurgitation. Left Ventricle E/e' 8 is minimally elevated. Global longitudinal strain is abnormal at -12.5%. Left ventricular chamber dimension is normal. Left ventricular systolic function is normal, estimated at 60-65%. There is mildly increased left ventricular wall thickness. The left ventricular diastolic function is grade I diastolic dysfunction. Right Ventricle Right ventricular systolic function is normal with normal TAPSE 2.0 cm. Right ventricular chamber dimension is normal. Left Atria Left atrial chamber dimension is normal. Right Atria Right atrial chamber dimension is normal. Aortic Valve The aortic valve is trileaflet. There is no aortic valve stenosis. There is no aortic valve regurgitation. Pulmonic Valve There is no pulmonic regurgitation. Mitral Valve There is no mitral valve stenosis. There is mild to moderate mitral valve regurgitation. Tricuspid Valve There is no tricuspid valve regurgitation. Pericardium/Pleural There is no pericardial effusion. Inferior Vena Cava Normal inferior vena cava with >50% collapse upon inspiration consistent with normal right atrial pressure, 5 mmHg. Aorta The aortic root size at the sinus of Valsalva is normal. Left Ventricular Outflow Tract Name Value Normal LVOT 2D LVOT Diameter 2.0 cm LVOT Doppler LVOT Peak Gradient 3 mmHg LVOT Mean Gradient 2 mmHg LVOT VTI 15 cm LVOT VTI/AV VTI Ratio 0.7 LVOT Stroke Volume 45 ml LVOT CO 4.8 l/min LVOT CI 2.7 l/min/m2 Mitral Valve Name Value Normal MV Doppler
[2021-06-06] MEDS: ACETAMINOPHEN 325 MG TABLET 650 MG PO ×2 (00:21→22:58)
[2021-06-06] MEDS: OLANZapine 10 MG INJ VIAL 5 MG IM ×2 (02:36→20:34)
[2021-06-06 05:33] LABS: Basophils Absolute Auto 0.2 K/mm3 (0.0-0.1); Basophils Percent Auto 0.9 % (0.2-1.2); Eosinophils Absolute Auto 1.1 K/mm3 (0-0.3); Eosinophils Percent Auto 5.8 % (0-4.4); Hematocrit 30.4 % (37.0-47.0); Hemoglobin 9.9 g/dL (12.0-15.0); Immature Granulocyte Absolute 0.11 K/mm3 (0.00-0.031); Immature Granulocyte Percent A 0.6 % (0-0.5); Lymphocytes Absolute Auto 2.97 K/mm3 (0.9-3.2); Mean Corpuscular HGB Conc 32.6 g/dl (32-36); Mean Corpuscular Hemoglobin 33.2 pg (26-34); Mean Platelet Volume 12.7 fl (7.4-10.4); Monocytes Absolute Auto 1.1 K/mm3 (0.1-0.6); Monocytes Percent Auto 5.7 % (2.6-8.5); Neutrophils Absolute Auto 13.1 K/mm3 (1.3-6.7); Platelet Count Result 248 k/mm3 (150-375); Red Blood Count 2.98 M/mm3 (4.2-5.4); White Blood Count 18.5 K/mm3 (4.5-10.0)
[2021-06-06 05:42] LABS: Anion Gap 11 mmol/L (8-16); Blood Urea Nitrogen 16 mg/dL (7-17); Carbon Dioxide 25 mmol/L (22-30); Chloride 98 mmol/L (98-107); Estimated CRCL calculation 56 ml/min; Estimated Glomerular Filt Rate > 60; Glucose 97 mg/dL (65-110); Potassium 3.1 mmol/L (3.4-5.0); Sodium 134 mmol/L (137-145)
[2021-06-06] MEDS: SPIRONOLACTONE 12.5 MG TABLET PO ×2 (08:33→17:17)
[2021-06-06] MEDS: MAGNESIUM OXIDE 400 MG TABLET PO (08:33)
[2021-06-06] MEDS: OLANZapine 5 MG TABLET PO (08:34)
[2021-06-06] MEDS: FOLIC ACID 1 MG TABLET PO (08:34)
[2021-06-06] MEDS: MEGESTROL ACETATE (*CHEMO) ORAL SUSP 40 MG/ML SYR 400 MG PO ×2 (08:34→17:16)
[2021-06-06] MEDS: LACTULOSE 20 GM/30 ML UDC PO (08:34)
[2021-06-06] MEDS: THIAMINE HCL 100 MG TABLET PO (08:34)
[2021-06-06] MEDS: POTASSIUM CHLORIDE 20 MEQ PACKET (FOR LIQUID) PO (08:34)
[2021-06-06] MEDS: FAMOTIDINE 20 MG TABLET PO (08:34)
[2021-06-06] MEDS: PANTOPRAZOLE SODIUM IV 40 MG VIAL IV PUSH ×2 (08:34→20:37)
[2021-06-06] MEDS: FUROSEMIDE INJ 40 MG/4 ML VIAL IV PUSH (08:34)
[2021-06-06] MEDS: ENOXAPARIN 40 MG/0.4 ML SYRINGE SUB-Q (08:34)
[2021-06-06] MEDS: PYRIDOXINE HCL 25 MG TABLET PO (08:34)
--- NOTE | 2021-06-06 09:09 | PM.IMPN ---
Progress Note: A&P Assessment and Plan (1) Acute hypoxemic respiratory failure: Code(s): J96.01 - Acute respiratory failure with hypoxia Status: Acute Assessment and Plan: 40-year-old female with history of alcohol abuse possible liver cirrhosis and ascites treated in the intensive care unit for sepsis, severe anemia, lactic acidosis, with development of renal failure, nosocomial infections including urinary tract infections, previously severely fluid overloaded with a positive balance of over 31 L since admission to the hospital, and development of bilateral lung infiltrates and moderate symmetrical bilateral pleural effusions. She was started on aggressive IV Lasix while monitoring the electrolytes, with improvement of all oxygen requirement tall from a peak of 12 L to 3 L today. Her most recent chest x-ray from 06/04/2021 confirms continued gradual improvement in diffuse airspace opacities throughout both lungs. Fluid status is improving with aggressive diuresis. We have reduced her Lasix from 40 mg twice a day to 40 mg IV daily on 06/05/2021. currently patient has been weaned to room air. Chest x-ray read re demonstrates diffuse lung disease with interval improvement, consistent with pulmonary edema. Switch to PO lasix 40 mg daily. (2) Hypertension: Code(s): I10 - Essential (primary) hypertension Status: Acute Assessment and Plan: patient previously carried a diagnosis of high blood pressure. She was admitted with hypotension and sepsis. Unknown home medical regimen. Given recent episode of acute kidney injury experience, and fluid overload on chest x-ray, will continue Lasix 40 mg p.o. daily and start amlodipine 2.5 mg p.o. daily. Patient remains acutely sick and a reasonable blood pressure goal would be around 140/90. (3) Hospital-acquired pneumonia: Code(s): J18.9 - Pneumonia, unspecified organism; Y95 - Nosocomial condition Status: Acute Assessment and Plan: we have stopped her type pain. Patient X as experience fluctuating leukocytosis in the 17-18 range with a trend toward a left shift. Monitor CBC. Chest x-ray on 06/06/2021 showing continued gradual improvement in diffuse bilateral lung disease which could represent pneumonia and/or pulmonary edema. Continue diuresis with p.o. Lasix. (4) Urinary tract infection: Code(s): N39.0 - Urinary tract infection, site not specified Status: Acute Assessment and Plan: Urine culture growing Klebsiella. Patient receive IV antibiotics with ertapenem. Seven repeat urine cultures. Currently patient is asymptomatic. (5) Cirrhosis of liver with ascites: Qualifiers: Hepatic cirrhosis type: unspecified hepatic cirrhosis Qualified Code(s): K74.60 - Unspecified cirrhosis of liver; R18.8 - Other ascites Code(s): K74.60 - Unspecified cirrhosis of liver; R18.8 - Other ascites Status: Acute Assessment and Plan: Secondary to alcohol abuse. Presented with ascites and had paracentesis on 05/15 and again on 05/23. Ascites fluid cultures negative. She received IV albumin and octreotide. Octreotide discontinued 05/22 due to concerns for possible drug rash. Continue 2 g sodium diet. Appreciate GI consultation If tolerates will add spironolactone given the history of cirrhosis of liver and ascites (6) Septic shock: Code(s): A41.9 - Sepsis, unspecified organism; R65.21 - Severe sepsis with septic shock Status: Resolved Assessment and Plan: Currently patient is hemodynamically stable, And even hypertensive.. She originally presented with severe anemia, hypotension, hypoxia and multiple sources of infection with UTI, peritonitis, and pneumonia. She initially required intensive care with Levophed to maintain her blood pressure. She was rehydrated with IV fluids. She did have improvement with this and blood pressures have been stable off Levophed for several days now. Urine
[2021-06-06 10:01] LABS: Free T4 Free Thyroxine 0.51 ng/mL (0.78-2.19)
--- NOTE | 2021-06-06 11:33 | PCDIET ---
Dietitian consult for calorie count. Nursing is aware of the calorie count, RD will monitor intake for [address] Rome today, diet orders have been liberalized to a regular diet and ensure compact BID providing an additional 220 kcals and 9 gms protein.
[2021-06-06 12:04] LABS: Magnesium 2.1 mg/dL (1.6-2.3)
[2021-06-06] MEDS: TOLNAFTATE 1% POWDER 45 GM BTL 1 APPLIC TOPICAL ×2 (12:14→20:37)
[2021-06-06] MEDS: EUCERIN CREAM 120 GM JAR 1 APPLIC TOPICAL (12:14)
[2021-06-06] MEDS: amLODIPine BESYLATE 2.5 MG TABLET PO (12:19)
[2021-06-06] MEDS: POTASSIUM CHLORIDE 20 MEQ TABLET.ER 40 MEQ PO ×2 (13:26→17:17)
[2021-06-07] VITALS (11 sets, daily range): BP systolic 130–149; BP diastolic 85–97; PULSE 99–121; RESP 16–20; TEMP 36.5–36.8; O2SAT 97–100
[2021-06-07 05:36] LABS: Basophils Absolute Auto 0.1 K/mm3 (0.0-0.1); Basophils Percent Auto 0.6 % (0.2-1.2); Eosinophils Absolute Auto 0.8 K/mm3 (0-0.3); Eosinophils Percent Auto 4.2 % (0-4.4); Hematocrit 32.2 % (37.0-47.0); Hemoglobin 10.4 g/dL (12.0-15.0); Immature Granulocyte Absolute 0.17 K/mm3 (0.00-0.031); Immature Granulocyte Percent A 0.9 % (0-0.5); Lymphocytes Absolute Auto 3.03 K/mm3 (0.9-3.2); Mean Corpuscular HGB Conc 32.3 g/dl (32-36); Mean Corpuscular Hemoglobin 33.3 pg (26-34); Mean Corpuscular Volume 103.2 fl (80-100); Mean Platelet Volume 12.9 fl (7.4-10.4); Monocytes Percent Auto 5.5 % (2.6-8.5); Neutrophils Absolute Auto 13.8 K/mm3 (1.3-6.7); Neutrophils Percent Auto 72.8 % (45.5-73.1); Platelet Count Result 260 k/mm3 (150-375); Red Blood Count 3.12 M/mm3 (4.2-5.4); White Blood Count 18.9 K/mm3 (4.5-10.0)
[2021-06-07 05:49] LABS: Anion Gap 14 mmol/L (8-16); Blood Urea Nitrogen 15 mg/dL (7-17); Calcium 9.5 mg/dL (8.4-10.2); Carbon Dioxide 21 mmol/L (22-30); Chloride 101 mmol/L (98-107); Estimated CRCL calculation 52 ml/min; Estimated Glomerular Filt Rate 55; Glucose 101 mg/dL (65-110); Magnesium 1.9 mg/dL (1.6-2.3); Potassium 4.1 mmol/L (3.4-5.0); Sodium 136 mmol/L (137-145)
[2021-06-07] MEDS: LEVOTHYROXINE SODIUM 50 MCG TABLET PO (07:30)
[2021-06-07] MEDS: MEGESTROL ACETATE (*CHEMO) ORAL SUSP 40 MG/ML SYR 400 MG PO ×2 (08:45→17:15)
[2021-06-07] MEDS: LACTULOSE 20 GM/30 ML UDC PO (08:45)
[2021-06-07] MEDS: FOLIC ACID 1 MG TABLET PO (08:45)
[2021-06-07] MEDS: MAGNESIUM OXIDE 400 MG TABLET PO (08:45)
[2021-06-07] MEDS: SPIRONOLACTONE 12.5 MG TABLET PO ×2 (08:45→17:15)
[2021-06-07] MEDS: PYRIDOXINE HCL 25 MG TABLET PO (08:45)
[2021-06-07] MEDS: THIAMINE HCL 100 MG TABLET PO (08:45)
[2021-06-07] MEDS: PANTOPRAZOLE SODIUM IV 40 MG VIAL IV PUSH ×2 (08:45→21:44)
[2021-06-07] MEDS: ENOXAPARIN 40 MG/0.4 ML SYRINGE SUB-Q (08:46)
[2021-06-07] MEDS: OLANZapine 5 MG TABLET PO ×2 (08:46→22:01)
[2021-06-07] MEDS: TOLNAFTATE 1% POWDER 45 GM BTL 1 APPLIC TOPICAL ×2 (08:46→21:44)
[2021-06-07] MEDS: amLODIPine BESYLATE 2.5 MG TABLET PO (08:46)
[2021-06-07] MEDS: EUCERIN CREAM 120 GM JAR 1 APPLIC TOPICAL (08:46)
--- NOTE | 2021-06-07 09:55 | PM.IMPN ---
Progress Note: A&P Assessment and Plan (1) Acute hypoxemic respiratory failure: Code(s): J96.01 - Acute respiratory failure with hypoxia Status: Acute Assessment and Plan: 40-year-old female with history of alcohol abuse possible liver cirrhosis and ascites treated in the intensive care unit for sepsis, severe anemia, lactic acidosis, with development of renal failure, nosocomial infections including urinary tract infections, previously severely fluid overloaded with a positive balance of over 31 L since admission to the hospital, and development of bilateral lung infiltrates and moderate symmetrical bilateral pleural effusions. HEr renal function has improved back to normal. She was started on aggressive IV Lasix while monitoring the electrolytes, with improvement of all oxygen requirement tall from a peak of 12 L to 3 L today. Her most recent chest x-ray from 06/04/2021 confirms continued gradual improvement in diffuse airspace opacities throughout both lungs. Fluid status has improved with aggressive diuresis. We stopped her Lasix. She is getting spironolactone only. Surrently patient has been weaned to room air. Chest x-ray read re demonstrates diffuse lung disease with interval improvement, consistent with pulmonary edema. (2) Hypertension: Code(s): I10 - Essential (primary) hypertension Status: Acute Assessment and Plan: Patient previously carried a diagnosis of high blood pressure. She was admitted with hypotension and sepsis. Unknown home medical regimen. Given recent episode of acute kidney injury experience, and fluid overload on chest x-ray, will treated her with Lasix 40 mg p.o. daily and amlodipine 2.5 mg p.o. daily. Lasix was stopped. BP is controlled with spironolactone and amlodipine 2.5 mg PO daily. Patient remains acutely sick and a reasonable blood pressure goal would be around 130/85. (3) Hospital-acquired pneumonia: Code(s): J18.9 - Pneumonia, unspecified organism; Y95 - Nosocomial condition Status: Acute Assessment and Plan: We have stopped her type pain. Patient has experience fluctuating leukocytosis in the 17-19 range with a trend toward a left shift. Monitor CBC. Chest x-ray on 06/06/2021 showing continued gradual improvement in diffuse bilateral lung disease which could represent pneumonia and/or pulmonary edema. Diuresis was stopped. Antibiotics were stopped. (4) Urinary tract infection: Code(s): N39.0 - Urinary tract infection, site not specified Status: Acute Assessment and Plan: Urine culture growing Klebsiella. Patient received IV antibiotics with ertapenem. Seven repeat urine cultures. Currently patient is asymptomatic; antibiotics have been stopped. (5) Cirrhosis of liver with ascites: Qualifiers: Hepatic cirrhosis type: unspecified hepatic cirrhosis Qualified Code(s): K74.60 - Unspecified cirrhosis of liver; R18.8 - Other ascites Code(s): K74.60 - Unspecified cirrhosis of liver; R18.8 - Other ascites Status: Acute Assessment and Plan: Secondary to alcohol abuse. Presented with ascites and had paracentesis on 05/15 and again on 05/23. Ascites fluid cultures negative. She received IV albumin and octreotide. Octreotide discontinued 05/22 due to concerns for possible drug rash. Patient started on a regualr diet to encourage oral intake; spironolactone was given the history of cirrhosis of liver and ascites (6) Septic shock: Code(s): A41.9 - Sepsis, unspecified organism; R65.21 - Severe sepsis with septic shock Status: Resolved Assessment and Plan: Currently patient is hemodynamically stable, and even hypertensive.. She originally presented with severe anemia, hypotension, hypoxia and multiple sources of infection with UTI, peritonitis, and pneumonia. She initially required intensive care with Levophed to maintain her blood pressure. She was rehydrated with IV fluids. She did have i
--- NOTE | 2021-06-07 15:55 | PCNFU ---
Nutrition Follow-Up Complete: Inadequate Oral Intake as related to Pnuemonia as evidenced by poor po intake Goal: Meet estimanted nutritional needs Pt is slowly progressing towards goal. Pt current nutrition is regular diet and dietary supplement of frozen nutritional treat TID. Last recorded weight is 66.2 kg. Bowel Motility: +BM 06/06 Labs Reviewed:Hgb 10.4, Hct 32.2, Na 136, GFR 55, Cr 1.10 Meds Noted: lovenox, folic acid, lactulose, synthroid, mag-ox, megace, protonix, vitamin B6, B1, aldactone Skin: perianal maceration Additional Notes: Follow up with pt. Unable to visit with pt. Spoke with nursing who repots that she is eating a little more. Nursing reports that pt is still experiencing altered mental status. Per EMR, pt is on a regular diet with a dietary supplement of frozen nutrition treat TID providing an additional 300kcal and 9g of protein. Calorie count has been initiated per MD orders. Agree with current diet orders. Will continue to follow. Calorie Count: Dinner (06/05/21): approximately 237kcal Breakfast (06/06/21): approximately 124kcal Lunch (06/06/21): approximately 25kcal Dinner (06/06/21): approximately 266kcal Breakfast (06/07/21): approximately 222kcal Total kcal: 874kcal This does not meet recommended energy needs of 1449kcal/day. Will monitor every 3 days.
[2021-06-07] MEDS: FAMOTIDINE 20 MG TABLET PO (17:15)
[2021-06-08] VITALS: PULSE 100; PULSE 107
[2021-06-08 04:00] VITALS: PULSE 104; PULSE 112
[2021-06-08 05:08] LABS: Basophils Absolute Auto 0.1 K/mm3 (0.0-0.1); Basophils Percent Auto 0.5 % (0.2-1.2); Eosinophils Absolute Auto 0.8 K/mm3 (0-0.3); Eosinophils Percent Auto 3.8 % (0-4.4); Hematocrit 32.9 % (37.0-47.0); Hemoglobin 10.7 g/dL (12.0-15.0); Immature Granulocyte Absolute 0.17 K/mm3 (0.00-0.031); Immature Granulocyte Percent A 0.8 % (0-0.5); Lymphocytes Absolute Auto 3.32 K/mm3 (0.9-3.2); Lymphocytes Percent Auto 15.1 % (18.3-44.2); Mean Corpuscular HGB Conc 32.5 g/dl (32-36); Mean Corpuscular Hemoglobin 33.9 pg (26-34); Mean Corpuscular Volume 104.1 fl (80-100); Mean Platelet Volume 12.7 fl (7.4-10.4); Monocytes Absolute Auto 1.2 K/mm3 (0.1-0.6); Monocytes Percent Auto 5.4 % (2.6-8.5); Neutrophils Absolute Auto 16.3 K/mm3 (1.3-6.7); Neutrophils Percent Auto 74.4 % (45.5-73.1); Platelet Count Result 268 k/mm3 (150-375); Red Blood Count 3.16 M/mm3 (4.2-5.4); Red Cell Distribution Width 18.3 % (11.5-14.5); White Blood Count 21.9 K/mm3 (4.5-10.0)
[2021-06-08 05:11] VITALS: BP 149/94; PULSE 100; RESP 18; TEMP 36.5; O2SAT 98
[2021-06-08 05:29] LABS: Anion Gap 15 mmol/L (8-16); Blood Urea Nitrogen 12 mg/dL (7-17); Calcium 9.5 mg/dL (8.4-10.2); Carbon Dioxide 19 mmol/L (22-30); Chloride 102 mmol/L (98-107); Estimated CRCL calculation 56 ml/min; Estimated Glomerular Filt Rate > 60; Glucose 109 mg/dL (65-110); Magnesium 1.8 mg/dL (1.6-2.3); Potassium 4.1 mmol/L (3.4-5.0); Sodium 136 mmol/L (137-145)
[2021-06-08] MEDS: LEVOTHYROXINE SODIUM 50 MCG TABLET PO (05:58)
[2021-06-08 08:00] VITALS: BP 135/82; PULSE 100; PULSE 102; RESP 18; TEMP 36.9; O2SAT 99
[2021-06-08] MEDS: MEGESTROL ACETATE (*CHEMO) ORAL SUSP 40 MG/ML SYR 400 MG PO (08:37)
[2021-06-08] MEDS: FOLIC ACID 1 MG TABLET PO (08:37)
[2021-06-08] MEDS: amLODIPine BESYLATE 2.5 MG TABLET PO (08:37)
[2021-06-08] MEDS: LACTULOSE 20 GM/30 ML UDC PO (08:37)
[2021-06-08] MEDS: OLANZapine 5 MG TABLET PO (08:37)
[2021-06-08] MEDS: MAGNESIUM OXIDE 400 MG TABLET PO (08:37)
[2021-06-08] MEDS: SPIRONOLACTONE 12.5 MG TABLET PO (08:37)
[2021-06-08] MEDS: FAMOTIDINE 20 MG TABLET PO (08:37)
[2021-06-08] MEDS: PYRIDOXINE HCL 25 MG TABLET PO (08:37)
[2021-06-08] MEDS: ENOXAPARIN 40 MG/0.4 ML SYRINGE SUB-Q (08:37)
[2021-06-08] MEDS: EUCERIN CREAM 120 GM JAR 1 APPLIC TOPICAL (08:37)
[2021-06-08] MEDS: PANTOPRAZOLE SODIUM IV 40 MG VIAL IV PUSH (08:37)
[2021-06-08] MEDS: TOLNAFTATE 1% POWDER 45 GM BTL 1 APPLIC TOPICAL (08:38)
[2021-06-08] MEDS: THIAMINE HCL 100 MG TABLET PO (08:38)
[2021-06-08 11:13] LABS: EDCOVIDSCREEN Negative (Negative)
[2021-06-08 12:00] VITALS: BP 147/84; PULSE 102; PULSE 95; RESP 18; TEMP 37; O2SAT 99
--- NOTE | 2021-06-08 13:32 | PC.NURSE ---
On 06/08/21, the student, [Megan Groves], provided care and completed [facility] documentation on this patient. I have reviewed the student's documentation and agree with the findings.
--- NOTE | 2021-06-08 15:26 | PCOTNOTE ---
On 06/08/21, the student, Inessa LUIS, provided care and completed [facility]. I have reviewed the student's documentation and agree with the findings.
--- NOTE | 2021-06-08 20:14 | PM.DS ---
DS: Admitting Diagnosis Discharge Date 06/08/21 Admitting Diagnosis (1) Acute GI bleeding: (2) Acidosis, lactic: (3) Severe anemia: (4) Altered mental status: (5) Alcohol dependence: (6) Tobacco dependence: DS: Discharge Diagnosis Discharge Diagnosis (1) Acute hypoxemic respiratory failure: Code(s): J96.01 - Acute respiratory failure with hypoxia Status: Acute Assessment and Plan: 40-year-old female with history of alcohol abuse possible liver cirrhosis and ascites treated in the intensive care unit for sepsis, severe anemia, lactic acidosis, with development of renal failure, nosocomial infections including urinary tract infections, previously severely fluid overloaded with a positive balance of over 31 L since admission to the hospital, and development of bilateral lung infiltrates and moderate symmetrical bilateral pleural effusions. HEr renal function has improved back to normal. She was started on aggressive IV Lasix while monitoring the electrolytes, with improvement of all oxygen requirement tall from a peak of 12 L to 3 L today. Her most recent chest x-ray from 06/04/2021 confirms continued gradual improvement in diffuse airspace opacities throughout both lungs. Fluid status has improved with aggressive diuresis. We stopped her Lasix. She is getting spironolactone only. Surrently patient has been weaned to room air. Chest x-ray read re demonstrates diffuse lung disease with interval improvement, consistent with pulmonary edema. (2) Hypertension: Code(s): I10 - Essential (primary) hypertension Status: Acute Assessment and Plan: Patient previously carried a diagnosis of high blood pressure. She was admitted with hypotension and sepsis. Unknown home medical regimen. Given recent episode of acute kidney injury experience, and fluid overload on chest x-ray, will treated her with Lasix 40 mg p.o. daily and amlodipine 2.5 mg p.o. daily. Lasix was stopped. BP is controlled with spironolactone and amlodipine 2.5 mg PO daily. Patient remains acutely sick and a reasonable blood pressure goal would be around 130/85. (3) Hospital-acquired pneumonia: Code(s): J18.9 - Pneumonia, unspecified organism; Y95 - Nosocomial condition Status: Acute Assessment and Plan: We have stopped her type pain. Patient has experience fluctuating leukocytosis in the 17-19 range with a trend toward a left shift. Monitor CBC. Chest x-ray on 06/06/2021 showing continued gradual improvement in diffuse bilateral lung disease which could represent pneumonia and/or pulmonary edema. Diuresis was stopped. Antibiotics were stopped. (4) Urinary tract infection: Code(s): N39.0 - Urinary tract infection, site not specified Status: Acute Assessment and Plan: Urine culture growing Klebsiella. Patient received IV antibiotics with ertapenem. Seven repeat urine cultures. Currently patient is asymptomatic; antibiotics have been stopped. (5) Cirrhosis of liver with ascites: Qualifiers: Hepatic cirrhosis type: unspecified hepatic cirrhosis Qualified Code(s): K74.60 - Unspecified cirrhosis of liver; R18.8 - Other ascites Code(s): K74.60 - Unspecified cirrhosis of liver; R18.8 - Other ascites Status: Acute Assessment and Plan: Secondary to alcohol abuse. Presented with ascites and had paracentesis on 05/15 and again on 05/23. Ascites fluid cultures negative. She received IV albumin and octreotide. Octreotide discontinued 05/22 due to concerns for possible drug rash. Patient started on a regualr diet to encourage oral intake; spironolactone was given the history of cirrhosis of liver and ascites (6) Septic shock: Code(s): A41.9 - Sepsis, unspecified organism; R65.21 - Severe sepsis with septic shock Status: Resolved Assessment and Plan: Currently patient is hemodynamically stable, and even hypertensive.. She originally presented with severe ane
== END 2021-06-08 15:55 | DRG 720 ==
LOC: ANHED 04:58 → ANHICU 06:48 → ANH3MED 05-19 22:46 → ANHIMU 06-06 20:03 → ANH3MED 09-01 09:42 → ANHICU 09-01 09:42 → ANHIMU 09-01 09:44
PROVIDERS: Family Medicine; Internal Medicine; Internal Medicine Critical Care Medicine; Internal Medicine Gastroenterology; Internal Medicine Nephrology; Physician Assistant; Psychiatry & Neurology Psychiatry; Admitting Provider Internal Medicine; Emergency Provider Emergency Medicine; PCP Family Medicine; Visit Provider Physician Assistant
PROC: 0DJ08ZZ Inspection of Upper Intestinal Tract, Via Natural or Artificial Opening Endoscopic (ICD-10-PCS; CPT 43235; principal; 2021-05-15 13:30)
DX: A41.9 Sepsis, unspecified organism (principal); R65.21 Severe sepsis with septic shock; Z20.822 Contact with and (suspected) exposure to COVID-19; E87.2 Acidosis; F10.20 Alcohol dependence, uncomplicated; Y90.9 Presence of alcohol in blood, level not specified; F17.210 Nicotine dependence, cigarettes, uncomplicated; D64.9 Anemia, unspecified; N17.0 Acute kidney failure with tubular necrosis; E87.6 Hypokalemia; R57.1 Hypovolemic shock; K52.9 Noninfective gastroenteritis and colitis, unspecified; N39.0 Urinary tract infection, site not specified; B96.20 Unspecified Escherichia coli [E. coli] as the cause of diseases classified elsewhere; N76.0 Acute vaginitis; B37.0 Candidal stomatitis; D69.6 Thrombocytopenia, unspecified; E87.8 Other disorders of electrolyte and fluid balance, not elsewhere classified; K76.7 Hepatorenal syndrome; K70.10 Alcoholic hepatitis without ascites; K44.9 Diaphragmatic hernia without obstruction or gangrene; K70.31 Alcoholic cirrhosis of liver with ascites; G92.8 Other toxic encephalopathy; K29.71 Gastritis, unspecified, with bleeding; E46 Unspecified protein-calorie malnutrition; Z68.25 Body mass index [BMI] 25.0-25.9, adult; F32.A Depression, unspecified; J18.9 Pneumonia, unspecified organism; R21 Rash and other nonspecific skin eruption; F41.9 Anxiety disorder, unspecified; Y95 Nosocomial condition; J96.01 Acute respiratory failure with hypoxia; E87.70 Fluid overload, unspecified; Z86.73 Personal history of transient ischemic attack (TIA), and cerebral infarction without residual deficits; D50.0 Iron deficiency anemia secondary to blood loss (chronic)
CPT/HCPCS: 36415; 36430; 36569; 36600; 49083; 51701; 70450; 70496; 71045; 71046; 71250; 71260; 71275; 73560; 74176; 74177; 76775; 80048; 80053; 80074; 80307; 81001; 81025; 82010; 82042; 82140; 82274; 82375; 82436; 82550; 82570; 82607; 82728; 82746; 82805; 82948; 83050; 83540; 83550; 83605; 83690; 83735; 83880; 84100; 84132; 84133; 84157; 84300; 84439; 84443; 84466; 84478; 84484; 84703; 85014; 85018; 85025; 85027; 85055; 85610; 85730; 85999; 86140; 86592; 86703; 86850; 86900; 86901; 86920; 87040; 87070; 87075; 87077; 87081; 87086; 87088; 87186; 87205; 87426; 89051; 92610; 93005; 93306; 94002; 94640; 96360; 97110; 97116; 97161; 97162; 97165; 97166; 97168; 97530; 97535; 99285; A9270; C1751; C9113; C9803; G0432; J0131; J0360; J0610; J0692; J1170; J1335; J1450; J1630; J1650; J1815; J1940; J2001; J2060; J2354; J2405; J2543; J2704; J3370; J3411; J3430; J3475; J3480; J7030; J7050; J7060; J7070; J7120; P9016; P9045; P9047; Q9967; U0003; U0005